=== PATIENT | female | born 1960 | race Caucasian/White ===

== ENCOUNTER 2023-10-07 14:45 | Outpatient (RCR) | payer MEDICARE, SELFPAY | END 2023-10-07 23:59 | disposition home or self-care (01) | LOC: PURB 14:45 | PROVIDERS: ATTENDING PHYSICIAN Internal Medicine Critical Care Medicine; FAMILY PHYSICIAN Family Medicine | DX: J44.9 Chronic obstructive pulmonary disease, unspecified (principal); J96.11 Chronic respiratory failure with hypoxia; Z87.891 Personal history of nicotine dependence | CPT/HCPCS: 94625; G0237 ==

== ENCOUNTER 2023-10-28 13:15 | Outpatient (RCR) | payer MEDICARE, SELFPAY | END 2023-10-28 23:59 | disposition home or self-care (01) | LOC: PURB 13:15 | PROVIDERS: ATTENDING PHYSICIAN Internal Medicine Critical Care Medicine; FAMILY PHYSICIAN Family Medicine | DX: J44.9 Chronic obstructive pulmonary disease, unspecified (principal) | CPT/HCPCS: 94625 ==

== ENCOUNTER → 2023-11-14 12:46 | Outpatient (REF) | payer MEDICARE, SELFPAY | LOC: WDC 12:46 | PROVIDERS: ATTENDING PHYSICIAN Nurse Practitioner Adult Health | DX: N64.4 Mastodynia (principal); Z12.31 Encounter for screening mammogram for malignant neoplasm of breast | CPT/HCPCS: 76642; 77063; 77067 ==

== ENCOUNTER → 2023-11-19 10:10 | Outpatient (REF) | payer MEDICARE, SELFPAY | LOC: WDC 10:10 | PROVIDERS: ATTENDING PHYSICIAN Nurse Practitioner Adult Health | DX: R92.8 Other abnormal and inconclusive findings on diagnostic imaging of breast (principal) | CPT/HCPCS: 76642 ==

== ENCOUNTER 2023-12-11 13:15 | Outpatient (RCR) | payer MEDICARE, SELFPAY | END 2023-12-11 23:59 | disposition home or self-care (01) | LOC: PURB 13:15 | PROVIDERS: ATTENDING PHYSICIAN Internal Medicine Critical Care Medicine; FAMILY PHYSICIAN Family Medicine | DX: J44.9 Chronic obstructive pulmonary disease, unspecified (principal) | CPT/HCPCS: 94625 ==

== ENCOUNTER 2024-01-08 13:15 | Outpatient (RCR) | payer MEDICARE, SELFPAY | END 2024-01-08 23:59 | disposition home or self-care (01) | LOC: PURB 13:15 | PROVIDERS: ATTENDING PHYSICIAN Internal Medicine Critical Care Medicine; FAMILY PHYSICIAN Family Medicine | DX: J44.9 Chronic obstructive pulmonary disease, unspecified (principal) | CPT/HCPCS: 94625 ==

== ENCOUNTER 2024-01-13 13:15 | Outpatient (RCR) | payer MEDICARE, SELFPAY | END 2024-01-14 10:11 | disposition home or self-care (01) | LOC: PURB 13:15 | PROVIDERS: ATTENDING PHYSICIAN Internal Medicine Critical Care Medicine; FAMILY PHYSICIAN Family Medicine | DX: J44.9 Chronic obstructive pulmonary disease, unspecified (principal) | CPT/HCPCS: 94625 ==

== ENCOUNTER → 2024-04-02 10:54 | Outpatient (REF) | payer MEDICARE, SELFPAY | LOC: RAD 10:54 | PROVIDERS: ATTENDING PHYSICIAN Family Medicine; REFERRING PHYSICIAN Internal Medicine Gastroenterology | DX: R10.32 Left lower quadrant pain (principal) | CPT/HCPCS: 74177; Q9967 ==

== ENCOUNTER 2024-05-29 21:28 | Inpatient (IN) | payer MEDICARE, SELFPAY ==
[2024-05-29] VITALS (15 sets, daily range): BP systolic 149–212; BP diastolic 70–92; BMI 21.8; BMI 21.5
--- NOTE | 2024-05-29 14:28 | ED.GENMED ---
History of Present Illness
General
Chief Complaint: Abdominal Pain
Source: patient
Time Seen by Provider: 05/29/24 14:13
History of Present Illness
History of Present Illness:
64-year-old female presents to the emergency room complaining of abdominal pain. Patient was at her primary care doctor's office today who sent her to the emergency room. Patient states she is been having GI issues for quite some time. She was
initially diagnosed with pancreatic insufficiency several months ago based upon stool studies. She was started on Creon. Up until that time the patient had been losing weight but since starting Creon she has gained about 5 pounds. Patient was
having some abdominal pain beginning about 2 months ago. It was crampy in nature and worsened with eating. A CT scan was performed as an outpatient which showed 'severe bowel wall thickening and inflammatory changes involving the proximal rectum,
sigmoid colon and distal descending colon. Findings are reflective of severe colitis likely infectious or inflammatory'. 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
they likely resolved by this time. However the patient continues to have pain. She has frequent, small-volume stools which are sometimes mucousy and contained blood intermittently. She has decreased appetite and has been eating simple foods like
yogurt concerned that eating anything more significant will worsen her pain.
Past History
Past History
ED Past Surgical History: Appendectomy and Gynecological (Hysterectomy, abdominal Sarcoplexi)
Social History
Tobacco: Smoker
Alcohol: None
Drug: None
Phy Exam
Physical Exam
Physical Exam:
General: Awake, Alert, Oriented X3. No acute distress.
Vitals: unremarkable
Head: Atraumatic
Eyes: Pupils equal, EOMI
Throat: Airway intact, no exudates
Neck: Trachea midline
Lungs: Clear and equal b/l
Heart: Regular rate, no murmurs
Abd: Soft, somewhat tender diffusely but moderate tenderness left lower quadrant, No pulsatile mass
Neuro: Nonfocal
Skin: Warm, dry, no rash
Extremities: pulses equal b/l, no edema
Course
Orders/Labs/Results
Orders:
Orders
05/29/24 14:27
CT Abd/pel W Iv And Oral Contr Urgent
Comment:
Reason For Exam: left lower abd pain
0.9% Sodium Chloride 500 ml [Nss] 500 ml IV BOLUS
Iohexol [Omnipaque] See Protocol PO NOW STA
Ketorolac [Toradol] 15 mg IV NOW STA
05/29/24 15:01
C-Reactive Protein Urgent
Comment: ADD ON
Complete Blood Count/With Diff Urgent
Comprehensive Metabolic Panel Urgent
Erythrocyte Sed Rate Urgent
Comment: ADD ON
Lipase Urgent
05/29/24 18:20
Urinalysis Reflex To Culture Urgent
Date Specimen was Collected: 05/29/24
Time Specimen was Collected: 18:14
Urine Microscopic Reflex Cult Urgent
Urine Culture Urgent
JORDIN Source: U
Specimen Description:
Date Specimen was Collected: 05/29/24
Time Specimen was Collected: 18:14
05/29/24 19:29
Acetaminophen [Tylenol] 1,000 mg PO NOW STA
Nicotine [Nicoderm Transdermal] 21 mg TRANSDERM NOW STA
05/29/24 19:31
Add On- LAB Urgent
Tests Added?: sed rate, crp
05/29/24 20:14
Admit/Transfer Patient As Directed
Co-Sign Provider:
Level of Care: Inpatient admission
Assign to:: Telemetry
Physician / Group: Artemio
Diagnosis: Sigmoid Colitis
Reason for Telemetry: Arrhythmia
Date to Stop Telemetry: 06/01/24
Time to Stop Telemetry: 11:00
Reason for Hospitalization: Sigmoid Colitis
Expected length of stay greater than two midnights?: Yes
ELOS- Estimated Length of Stay in days: 3
I certify the patient meets the requirements for IP care: Yes
05/29/24 20:17
Code Status As Directed
Resuscitation Status: Full Code
05/29/24 20:50
Calprotectin, Fecal [S] Urgent
Date Specimen was Collected: 05/29/24
Time Specimen was Collected: 20:47
STOOL [C difficile Antigen & Toxins] Urgent
JORDIN Source: Feces/Stool
Specimen Description:
Date Specimen was Collected: 05/29/24
Time Specimen was Collected: 20:47
Stool Culture Urgent
JORDIN Source: Feces/Stool
Specimen Description:
Date Specimen was Collected: 05/29/24
Time Specimen was Collected: 20:47
05/29/24 20:59
HydrALAZINE [Apresoline] 10 mg IV Q6HPRN PRN
05/30/24 Breakfast
NPO
Allow oral meds: Yes
Allow clear liquids: Sips of Clears
NPO for procedure after (time): Midnight
06/01/24 11:00
DC Protocol for Telemetry ONCE
Abnormal Lab Results
05/29/24 05/29/24
15:01 18:20
Hct 48.2 H %
(37.0-47.0)
MCHC 32.0 L g/dL
(33.0-37.0)
Absolute Lymphs (auto) 1.0 L 10^3/uL
(1.2-3.4)
Neutrophils % 78.4 H %
(42.2-75.2)
Lymphocytes % 12.3 L %
(20.5-51.1)
Carbon Dioxide 31 H mmol/L
(22-30)
Creatinine 0.4 L mg/dL
(0.6-1.0)
Glucose 112 H mg/dl
(70-99)
C-Reactive Protein 43.50 H mg/L
(0.0-10.00)
Total Protein 6.1 L g/dl
(6.3-8.2)
Urine Ketones Trace A
(Negative)
Leukocyte Esterase Rfl Trace A
(Negative)
Urine Bacteria (Reflex) Moderate A
(Negative)
05/29/24 15:01
05/29/24 15:01
Vital Signs
Initial and Last Documented VS:
Initial Vital Signs
Temp Pulse Resp BP Pulse Ox
98.4 F 71 20 149/78 90
05/29/24 13:52 05/29/24 13:52 05/29/24 13:52 05/29/24 13:52 05/29/24 13:52
Last Documented Vital Signs
Temp Pulse Resp BP Pulse Ox
98.4 F 66 19 186/75 94
05/29/24 20:01 05/29/24 21:50 05/29/24 21:50 05/29/24 21:50 05/29/24 21:45
MDM/Problems Addressed
Differential Diagnosis Includes:
diverticulitis, infectious colitis, inflammatory bowel dz
MDM/Problems Addressed:
Patient continues to have abnormal stool and abdominal pain. CT shows worsening inflammatory changes of the distal colon. CBC and CMP are unremarkable. C-reactive protein is quite elevated. I discussed patient's presentation with Dr. Campbell is
on-call for GI. Recommends hospitalization, stool studies. Depending upon the results of the stool studies that we will start steroids tomorrow.
*Radiology
Radiology exam reviewed: radiology read reviewed
*Pulse Oximetry
Patient hypoxic: no
*Critical Care Note
Total Time (30-74mins, 75-104mins- exclusive of procedures): Not Applicable
ED Attending Note
-
Portions of this chart may have been created with voice recognition software.� Occasional wrong word or��sound alike� substitutions may have occurred due to the inherent limitations of voice recognition software.
Discharge Plan
Departure
Patient Disposition: Admit
Date of Disposition: 05/29/24
Time of Disposition: 19:35
Admit to: Med/Surg
Presentation/result/management discussed w/ accepting MD/DO: Hospitalist
Condition: Fair
Discharge Problem:
Abdominal pain, Colitis
Interventions
Interventions:
*Risk Screen - Suicide Last Done: 05/29/24 13:52
*General Assessment Last Done: 05/29/24 13:52
*Neglect/Abuse Screening Last Done: 05/29/24 13:52
*ED COVID-19 Vaccine History Last Done: 05/29/24 14:49
VK-Rsbblp-Gpadknbvxg Assessment Last Done: 05/29/24 16:00
[2024-05-29] MEDS: NSS 500 IV (15:04)
[2024-05-29] MEDS: OMNIPAQUE 50 ML PO (15:04)
[2024-05-29] MEDS: TORADOL 15 MG IV (15:04)
[2024-05-29 15:07] LABS: % Basophils 0.5 % (0-2); % Immature Granulocytes 0.4 % (0-0.5); % Lymphocytes 12.3 % (20.5-51.1); % Monocytes 7.4 % (1.7-9.3); % Neutrophils 78.4 % (42.2-75.2); Absolute Eosinophils 0.1 10^3/uL (0-0.7); Absolute Monocytes 0.6 10^3/uL (0.1-0.6); Absolute Neutrophils 6.2 10^3/uL (1.4-6.5); Hematocrit 48.2 % (37.0-47.0); Hemoglobin 15.4 g/dL (12.0-16.0); Mean Corpuscular Hgb 30.4 pg (27.0-31.0); Mean Corpuscular Volume 95.3 fL (81.0-99.0); Nucleated Red Blood Cells % 0 %; Platelet Count 347 10^3/uL (130-400); Red Blood Cell Count 5.06 10^6/uL (4.20-5.40); Red Cell Dist. Width 13.6 % (11.5-14.5)
[2024-05-29 15:24] LABS: ALT (SGPT) 10 U/L (0-35); AST (SGOT) 17 U/L (14-36); Albumin 3.7 g/dl (3.5-5.0); Alkaline Phosphatase 89 U/L (38-126); Blood Urea Nitrogen 10 mg/dl (7-17); Calcium 9.5 mg/dl (8.4-10.2); Carbon Dioxide 31 mmol/L (22-30); Chloride 99 mmol/L (98-107); Estimated Creatinine Clearance 73 ml/min; Glucose 112 mg/dl (70-99); Lipase 33 U/L (23-300); Potassium 3.9 mmol/L (3.5-5.1); Sodium 137 mmol/L (135-145); Total Bilirubin 0.3 mg/dl (0.2-1.3); Total Protein 6.1 g/dl (6.3-8.2); eGFR > 60.00
[2024-05-29 18:27] LABS: Urine Albumin Trace (Neg - Trace); Urine Bilirubin Negative (Negative); Urine Character Clear (Clear); Urine Color Yellow; Urine Glucose Negative (Negative); Urine Ketone Trace (Negative); Urine Leukocyte Trace (Negative); Urine Nitrite Negative (Negative); Urine Occult Blood Negative (Negative); Urine Specific Gravity 1.015 (<1.030); Urine Urobilinogen Negative (Neg - 1+)
[2024-05-29 18:36] LABS: Urine Mucus Many
[2024-05-29 18:37] LABS: Urine Hyaline Cast 0-2 /LPF (0-2); Urine Red Blood Cell 0-2 /HPF (0-2)
[2024-05-29 18:38] LABS: Urine Bacteria Moderate (Negative)
[2024-05-29] MEDS: TYLENOL 1000 MG PO (19:42)
[2024-05-29] MEDS: NICODERM TRANSDERMAL 21 MG TRANSDERM (19:44)
[2024-05-29 20:18] LABS: Erythrocyte Sed Rate 8 mm/hour (0-20)
--- NOTE | 2024-05-29 20:19 | HPS.HSE ---
Family Physician
-
Family Physician: Caterina Sharpe
Chief Complaint
-
Abd Pain
History of Present Illness
Patient is a 64y F with PMH significant for hypertension, anxiety and pancreatic insufficiency who presents to ED complaining of LLQ abdominal pain. Patient states that she has had 'GI issues' off and on for several years. She has had
colonoscopy / endoscopy in the past which have been unremarkable (most recently 09/2022). She was diagnosed with pancreatic insufficiency and has been taking Creon with decreased frequency of stools.
She continues to complain of loose stools - about 5 times per day, including twice at night. She occasionally has mucousy stools with small streaks of bright red blood.
She has intermittent pain in the LLQ / L flank areas. She had similar symptoms most recently in March [address] scan done by her PCP at that time.
This showed significant inflammation / colitis in the sigmoid and descending colon. Patient was seen by GI and scheduled for a flex sig (05/18/24). Her symptoms improved prior to this date and she cancelled the procedure.
Unfortunately, her symptoms recurred about one week ago. She again has LLQ pain. She denies any other symptoms such as fevers / chills, N/V, etc.
Given her recurrent symptoms, patient presented to the ED for further evaluation and treatment.
Medical History
Past Medical History
Past Medical History: Reports Other
Additional Past Medical History:
Hypertension
COPD
Anxiety / Depression
Diverticular Disease
Colon Polyps
Pancreatic Insufficiency
Past Surgical History: Reports Other
Additional Past Surgical History:
Appendectomy
T&A
Hysterectomy
Bunionectomy
Sacral Colpopexy
Ovarian Cystectomy
Social History
Tobacco: Smoker (Current every day smoker. > 50 pack years total use.)
Alcohol: None
Drug: None
Family History
Family History: Not pertinent
Allergies / Home Medications
Allergies reflects when Allergies were last updated in [employer].
Home Medications with original date entered in [employer]
Allergy/Medication List:
Allergies
Allergy/AdvReac Type Severity Reaction Status Date / Time
metronidazole [From Flagyl] Allergy Unknown Unknown Verified 05/29/24 13:52
morphine Allergy Unknown Unknown Verified 05/29/24 13:52
Sulfa (Sulfonamide Allergy Unknown Unknown Verified 05/29/24 13:52
Antibiotics)
Home Medications
diazepam 5 mg tablet 5 mg PO DAILYPRN PRN anxiety 04/26/20
fluoxetine 20 mg capsule 20 mg PO DAILY 04/26/20
albuterol sulfate 90 mcg/actuation aerosol inhaler 1 puff inhalation R Q4HPRN PRN SoB 01/02/23
doxazosin 2 mg tablet 2 mg PO DAILY 01/02/23
swurdm-lyvdlfol-wnthmia 24,000-76,000-120,000 unit capsule,delayed rel (Creon) 1 cap PO TID 01/02/23
atenolol 50 mg tablet 50 mg PO DAILY 05/29/24
fluticasone fur. 100 mcg-umeclid 62.5 mcg-vilant 25 mcg inhalat.powder (Trelegy Ellipta) 1 inh inhalation R DAILY 05/29/24
Review of Systems
-
History Source: Patient
A 12 point ROS was completed and negative except as noted: Yes
Constitutional: Reports Fatigue; Denies Fever or Chills
Respiratory: Reports Trouble Breathing (Chronic / unchanged dyspnea.); Denies Cough
Cardiac: Denies Chest Pain or Palpitations
Abdomen/GI: Reports Abdominal Pain, Diarrhea and Bloody Stools; Denies Nausea, Vomiting, Constipated, Black Stools or Anorexia
: Reports Flank Pain (Left); Denies Dysuria or Frequency
Musculoskeletal: Denies Joint Pain or Edema
Neurological: Denies Dizzy or Headache
Psych: Denies Depression or Anxiety
Physical Exam
Vital Signs
Vital Signs
Temp Pulse Resp BP Pulse Ox
98.4 F 67 17 204/85 91
05/29/24 20:01 05/29/24 20:01 05/29/24 20:01 05/29/24 20:01 05/29/24 20:01
Physical Exam
General: Other (64y F in no acute distress.)
HEENT: Moist mucous membranes and PERRLA
Respiratory: Other (Scattered squeaks / wheezes throughout all lung smalls.)
Cardiac: S1/S2 and Regular Rhythm; No Murmur
GI: Soft, Normal Bowel Sounds and Other (Tenderness LLQ with voluntary guarding.)
Musculoskeletal: No Clubbing, No Cyanosis and No Edema
Neuro: AO x 3
Laboratory Results
-
05/29/24 15:01
05/29/24 15:01
Laboratory Results
Total Bilirubin 0.3 mg/dl (0.2-1.3) 05/29/24 15:01
AST 17 U/L (14-36) 05/29/24 15:01
ALT 10 U/L (0-35) 05/29/24 15:01
Alkaline Phosphatase 89 U/L (38-126) 05/29/24 15:01
Lipase 33 U/L (23-300) 05/29/24 15:01
Impression/Plan
-
A/P: Patient is a 64y F with PMH significant for hypertension, anxiety / depression and pancreatic insufficiency who presents to ED complaining of LLQ abdominal pain.
Sigmoid Colitis
- Admit for further evaluation and treatment.
- ? infectious versus inflammatory etiology.
- Observe off of abx for now pending culture data / GI evaluation / etc.
- Follow-up stool studies, serologies, etc.
- ? flex sig / biopsies for further evaluation.
- GI consulted for additional recommendations.
COPD without Acute Exacerbation
Tobacco Use Disorder
- Patient mildly hypoxemic in the ED without known baseline.
- Scattered, low-grade wheezing throughout.
- Continue Trelegy.
- DuoNebs ATC and albuterol PRN.
- O2 support as needed.
- Encourage smoking cessation.
Benign Hypertension - Poorly Controlled
- BP significantly elevated in the ED, likely combination of anxiety / discomfort.
- Continue home med regimen.
- Add hydralazine for very high BP.
- Treat underlying pain / anxiety and follow for improvement.
Pancreatic Insufficiency
- Decreased frequency of stools since beginning Creon - though still 5 BM per day.
- Continue Creon AC.
Anxiety / Depression
- Continue fluoxetine.
- Valium PRN anxiety
DVT Prophylaxis: Lovenox
Code Status: Full
[2024-05-29] MEDS: APRESOLINE 10 MG IV (21:04)
[2024-05-30] VITALS (8 sets, daily range): BP systolic 144–201; BP diastolic 61–89; BMI 21.4
[2024-05-30] MEDS: APRESOLINE 10 MG IV ×2 (01:26→11:30)
[2024-05-30] MEDS: TYLENOL 650 MG PO ×5 (01:26→20:11)
--- NOTE | 2024-05-30 04:49 | PTCARENOTE ---
Received pt @ 22:30 of stretcher. Pt able to stand on scale and verbalize concerns and needs. Pt with a BP of 206/89 and hr 77, given PRN hydralazine in the ED with minimal relief. Pt with some slight SOB when walking around the room, pt stated she
was very anxious and she has a slight on and off headache. RN conducted a skin assessment, pt with a R- nicotine patch on. Pt placed in new gown and placed on telemetry for further observation
[2024-05-30] MEDS: VALIUM 5 MG PO ×2 (06:03→15:22)
[2024-05-30] MEDS: DILAUDID 0.5 MG IV ×4 (06:04→22:01)
[2024-05-30 06:50] LABS: Hematocrit 46.1 % (37.0-47.0); Hemoglobin 15.2 g/dL (12.0-16.0); Mean Corpuscular Hgb 30.6 pg (27.0-31.0); Mean Corpuscular Volume 92.8 fL (81.0-99.0); Mean Platelet Volume 9.4 fL (7.4-10.4); Platelet Count 346 10^3/uL (130-400); Red Blood Cell Count 4.97 10^6/uL (4.20-5.40); Red Cell Dist. Width 13.6 % (11.5-14.5); White Blood Cell Count 10.1 10^3/uL (4.8-10.8)
--- NOTE | 2024-05-30 07:02 | W.PN.HOSP.TC ---
Today's Communication/Plan
-
steroids bronchodilators
NPO after midnight for flex sigmoidoscopy
Nicotine supplementation
blood pressure control
Assessment / Plan
Assessment / Plan
Physical Exam
General: no acute distress appears comfortable at this time
HEENT: Moist mucous membranes and PERRLA
Respiratory: Wheezing
Cardiac: S1/S2 and Regular Rhythm; No Murmur
GI: Soft, Normal Bowel Sounds Tenderness LLQ with voluntary guarding
Musculoskeletal: No Clubbing, No Cyanosis and No Edema
Neuro: AO x 3
A/P: Patient is a 64F with PMH significant for hypertension, anxiety / depression and pancreatic insufficiency who presents to ED complaining of LLQ abdominal pain.
Sigmoid Colitis
-Cdiff neg, rest of stool studies pending
-suspect inflammatory as opposed to infectious, monitor off abx
-GI eval appreciated clear liquid diet for now npo after midnight Flex sigmoidoscopy Thursday 05/31, started on IV steroids solumedrol 20 mg Q8H
COPD Exacerbation
Tobacco Use Disorder
- Continue Trelegy patient's own med
- DuoNebs ATC and albuterol PRN.
- Nicotine supplementation, counseled smoking cessation
- on steroids for possible inflammatory bowel disease as above, consider increasing if wheezing does not improve
Benign Hypertension - Poorly Controlled
- Continue home med regimen.
- Hydralazine prn
- Treat underlying pain / anxiety and follow for improvement.
Pancreatic Insufficiency
- Decreased frequency of stools since beginning Creon - though still 5 BM per day.
- Continue Creon AC.
Anxiety / Depression
- Continue fluoxetine.
- Valium PRN anxiety
DVT Prophylaxis: Lovenox
Code Status: Full
I spent a total of 50 minutes with the patient or on the floor. More than 50% of this time involved counseling and coordination of care.
Anticipated Discharge: 24 - 48 hours
Subjective/Interval History
-
Date of Service: May 30, 2024
Seen and examined at bedside in no acute distress sitting up comfortably in bed. Reports pain tenderness abdomen
Objective Data
-
Labs:
Laboratory Results
05/30/24
05:55
WBC 10.1
Hgb 15.2
Hct 46.1
Plt Count 346
Sodium Pending
Potassium Pending
Chloride Pending
Carbon Dioxide Pending
BUN Pending
Creatinine Pending
Glucose Pending
Calcium Pending
Vital Signs:
Vital Signs
Temp Pulse Resp BP Pulse Ox
97.4 F 90 22 154/61 91
05/30/24 03:00 05/30/24 03:00 05/30/24 03:00 05/30/24 03:00 05/30/24 03:00
[2024-05-30 07:24] LABS: Blood Urea Nitrogen 8 mg/dl (7-17); Calcium 8.5 mg/dl (8.4-10.2); Carbon Dioxide 25 mmol/L (22-30); Chloride 100 mmol/L (98-107); Estimated Creatinine Clearance 73 ml/min; Glucose 71 mg/dl (70-99); Potassium 4.2 mmol/L (3.5-5.1); Sodium 138 mmol/L (135-145); eGFR > 60.00
[2024-05-30] MEDS: PROZAC 20 MG PO (08:10)
[2024-05-30] MEDS: TENORMIN 50 MG PO (08:10)
[2024-05-30] MEDS: ZENPEP DELAYED RELEASE CAPSULE 1 CAPSULE PO ×2 (08:10→12:48)
[2024-05-30] MEDS: NSS 1000 IV ×2 (08:12→20:13)
[2024-05-30] MEDS: SYMBICORT 80/4.5 MCG INHALER 2 PUFF INH (08:15)
[2024-05-30] MEDS: SPIRIVA RESPIMAT 2.5 MCG 2 PUFF INH (08:15)
[2024-05-30] MEDS: CARDURA 2 MG PO (08:23)
--- NOTE | 2024-05-30 08:38 | CON.GI ---
Consultation
-
Date/Time Consultation Requested: 05/30/2024
Date/Time Consultation Performed: 05/30/2024
Requesting Provider: Dr. Nunez
Performing Provider: Dr. Campbell
Reason for Consultation: Colitis
Medical History
Chief Complaint / HPI
Chief Complaint: Abdominal pain
History of Present Illness:
Etelvina is a 64-year-old female with history of COPD, active tobacco abuse, pancreatic insufficiency on Creon who comes in with worsening pelvic and left-sided abdominal pain especially when trying to move her bowels who has roughly 1-4 mucoid
stools including nocturnal symptoms some with streaks of blood with no prior history of inflammatory bowel disease who also had thickening on CT scan back in March when complaining of similar pain.
She states this discomfort was generally a localized area in the left lower quadrant but over this past week has spread to the left lower quadrant and left flank and it is very painful to move her bowels or even wear close over the area.
Here in the hospital her white count is 10.1, hemoglobin 15.2, platelets , normal BUN/creatinine, CRP 44, lipase 33, normal LFTs. Stool calprotectin pending. C. difficile negative, stool culture pending.
Her last colonoscopy was with Dr. Sanders in 2022 which was normal. I did review multiple outpatient records including Dr. Howard's notes. She has had multiple stool calprotectin's in the past because of her chronic loose stools from likely
pancreatic insufficiency which have all been negative. She states she has been checked for celiac disease although I do not see a celiac panel. Her small bowel biopsies back in December 2022 did show some villous changes but were not consistent with
celiac disease.
Patient was set up for a flexible sigmoidoscopy for May [address] Howard however she canceled it because she said she started feeling better.
Past Medical History
Past Medical History: Other (Hypertension, tobacco abuse, COPD, pancreatic insufficiency on Creon)
Past Surgical History: Other (Appendectomy, transvaginal hysterectomy, sacrocolpopexy)
Social History
Tobacco: Smoker
Alcohol: Daily (3 glasses of wine daily)
Drug: None
Family History
Family History: Other (Father had ENT cancer, grandmother with colon cancer and breast cancer)
Allergies / Home Medications
Allergy/AdvReac Type Severity Reaction Status Date / Time
metronidazole [From Flagyl] Allergy Unknown Unknown Verified 05/29/24 13:52
morphine Allergy Unknown Unknown Verified 05/29/24 13:52
Sulfa (Sulfonamide Allergy Unknown Unknown Verified 05/29/24 13:52
Antibiotics)
�Medication �Instructions �Recorded
diazepam 5 mg tablet 5 mg PO DAILYPRN PRN anxiety 04/26/20
fluoxetine 20 mg capsule 20 mg PO DAILY 04/26/20
albuterol sulfate 90 mcg/actuation 1 puff inhalation R Q4HPRN PRN SoB 01/02/23
aerosol inhaler
doxazosin 2 mg tablet 2 mg PO DAILY 01/02/23
btchjt-tbzurueo-ycudfqu 1 cap PO TID 01/02/23
24,000-76,000-120,000 unit
capsule,delayed rel (Creon)
atenolol 50 mg tablet 50 mg PO DAILY 05/29/24
fluticasone fur. 100 mcg-umeclid 1 inh inhalation R DAILY 05/29/24
62.5 mcg-vilant 25 mcg
inhalat.powder (Trelegy Ellipta)
Review of Systems
-
History Source: Patient
All other systems: A 12 pt ROS was Negative except as stated above in HPI
Vital Signs
Temp Pulse Resp BP Pulse Ox
98.5 F 82 17 171/76 88
05/30/24 08:17 05/30/24 08:17 05/30/24 08:17 05/30/24 08:17 05/30/24 08:17
Physical Exam
Exam
General: No Apparent Distress
HEENT: Anicteric
Respiratory: Wheezes and Rhonchi
Cardiac: S1/S2
GI: Soft and Tender
Neuro: AO x 3
Psych: Calm
Results
WBC 10.1 10^3/uL (4.8-10.8) 05/30/24 05:55
Hgb 15.2 g/dL (12.0-16.0) 05/30/24 05:55
Hct 46.1 % (37.0-47.0) 05/30/24 05:55
MCV 92.8 fL (81.0-99.0) 05/30/24 05:55
Plt Count 346 10^3/uL (130-400) 05/30/24 05:55
Absolute Neuts (auto) 6.2 10^3/uL (1.4-6.5) 05/29/24 15:01
Sodium 138 mmol/L (135-145) 05/30/24 05:55
Potassium 4.2 mmol/L (3.5-5.1) 05/30/24 05:55
Chloride 100 mmol/L (98-107) 05/30/24 05:55
Carbon Dioxide 25 mmol/L (22-30) 05/30/24 05:55
BUN 8 mg/dl (7-17) 05/30/24 05:55
Creatinine 0.4 mg/dL (0.6-1.0) L 05/30/24 05:55
Calcium 8.5 mg/dl (8.4-10.2) 05/30/24 05:55
Total Bilirubin 0.3 mg/dl (0.2-1.3) 05/29/24 15:01
AST 17 U/L (14-36) 05/29/24 15:01
ALT 10 U/L (0-35) 05/29/24 15:01
Alkaline Phosphatase 89 U/L (38-126) 05/29/24 15:01
Lipase 33 U/L (23-300) 05/29/24 15:01
Diagnostic Image Results:
--- 06/2023, CT abdomen pelvis nonspecific jejunal small bowel wall thickening with fluid distention without gross dilation.
04/02/2024, CT abdomen pelvis severe bowel wall thickening with inflammatory change involving the proximal rectum sigmoid distal descending the remainder of the colon is normal. Multiple sigmoid diverticuli without diverticulitis
Prior GI Procedures:
\\01/30/2023 EUS did not show any mass lesions, soft tissue prominence at the ampulla biopsies were negative for malignancy, started on Creon with mild weight gain on part continues to drink and smoke
EGD/EUS: 12/2022 Dr. Howard for weight loss and evaluate ampulla-endoscopically normal esophagus no gross lesions in the stomach, duodenal mucosal atrophy duodenum shows reactive duodenopathy with patchy villous blunting, prominent Delia's gland
hyperplasia and mildly increased chronic inflammation. No intraepithelial lymphocytes, ampulla patchy villous blunting, no adenoma
EUS showed pancreatic parenchymal abnormalities consisting of hyperechoic strands in the head and body, no pathology of the common bile duct, 1 cm left lobe cyst, anechoic pancreatic head cyst that did not communicate with the pancreatic duct
measuring 9 mm x 9 mm with no associated mass, no specimens collected
Colonoscopy: 09/2022 Dr. Sanders indication is not mentioned: Good prep with difficulty due to restricted mobility of the colon. Left-sided diverticulosis, otherwise endoscopically normal. No biopsies taken
05/29/2024 CRP 44, sed rate 8, hemoglobin 15.4, platelets 347, glucose 112, creatinine 0.4, BUN 10, alkaline phosphatase 89, albumin 3.7, total bilirubin 0.3, AST 17, ALT 10, lipase 33, fecal calprotectin pending, C. difficile negative, stool
culture pending
09/2022 fecal calprotectin 22, no prior celiac panel
Assessment / Plan
-
Etelvina is a 64-year-old female who over the past year has had more progressive left-sided lower abdominal pain especially when moving bowels along with 1-4 mucoid stools with even nocturnal symptoms who comes in with an elevated CRP, CT scan with
significant bowel wall thickening from the rectum to the descending concerning for new inflammatory bowel disease.
She also has a history of pancreatic insufficiency on pancreatic enzymes, EUS concerning for chronic pancreatitis with no history of acute pancreatitis, continued tobacco abuse, COPD and daily 3 glasses of wine.
Followed by Dr. Howard outpatient for chronic diarrhea since September 2022 and a low fecal elastase without history of acute pancreatitis drinks 3 glasses of wine daily, chronic smoker
Diagnostic Image Results:
--- 06/2023, CT abdomen pelvis nonspecific jejunal small bowel wall thickening with fluid distention without gross dilation.
04/02/2024, CT abdomen pelvis severe bowel wall thickening with inflammatory change involving the proximal rectum sigmoid distal descending the remainder of the colon is normal. Multiple sigmoid diverticuli without diverticulitis
Prior GI Procedures:
\\01/30/2023 EUS did not show any mass lesions, soft tissue prominence at the ampulla biopsies were negative for malignancy, started on Creon with mild weight gain on part continues to drink and smoke
EGD/EUS: 12/2022 Dr. Howard for weight loss and evaluate ampulla-endoscopically normal esophagus no gross lesions in the stomach, duodenal mucosal atrophy duodenum shows reactive duodenopathy with patchy villous blunting, prominent Delia's gland
hyperplasia and mildly increased chronic inflammation. No intraepithelial lymphocytes, ampulla patchy villous blunting, no adenoma
EUS showed pancreatic parenchymal abnormalities consisting of hyperechoic strands in the head and body, no pathology of the common bile duct, 1 cm left lobe cyst, anechoic pancreatic head cyst that did not communicate with the pancreatic duct
measuring 9 mm x 9 mm with no associated mass, no specimens collected
Colonoscopy: 09/2022 Dr. Sanders indication is not mentioned: Good prep with difficulty due to restricted mobility of the colon. Left-sided diverticulosis, otherwise endoscopically normal. No biopsies taken
05/29/2024 CRP 44, sed rate 8, hemoglobin 15.4, platelets 347, glucose 112, creatinine 0.4, BUN 10, alkaline phosphatase 89, albumin 3.7, total bilirubin 0.3, AST 17, ALT 10, lipase 33, fecal calprotectin pending, C. difficile negative, stool
culture pending
09/2022 fecal calprotectin 22, no prior celiac panel
#Left lower quadrant pain with severe bowel wall thickening on CT scan with no prior IBD diagnosis
--Inflammatory bowel disease versus infectious
-- Trend CRP, stool calprotectin pending, C. difficile currently negative, culture pending
-- Flexible sigmoidoscopy tomorrow
-- Clear liquids for today, n.p.o. after midnight
--Optimize lungs
--Will start steroids, DVT prophylaxis
-- Creon with solid foods
-- Will check a celiac panel in the setting of duodenal atrophy with villous blunting from prior procedure in December 2022
Data Reviewed
-
CT Scan: Image Personally Visualized and interpreted and Report Reviewed by me
Old Records: Reviewed
-
-
Thank you for consultation and allowing me to participate in the patient's care. Please call the computer information systems instructor GI physician during the after hours with any questions or concerns.
[2024-05-30] MEDS: SOLU-MEDROL PF 20 MG IV ×2 (12:48→20:12)
[2024-05-30] MEDS: PROTONIX 40 MG PO (12:48)
[2024-05-30] MEDS: NICODERM TRANSDERMAL 21 MG TRANSDERM (15:22)
[2024-05-30] MEDS: DUONEB 3 ML INH ×2 (15:33→17:59)
[2024-05-30] MEDS: ZENPEP DELAYED RELEASE CAPSULE PO (17:12)
[2024-05-30] MEDS: LOVENOX 40 MG SC (17:16)
[2024-05-31] VITALS (12 sets, daily range): BP systolic 14–184; BP diastolic 46–96; BMI 22.1
[2024-05-31] MEDS: APRESOLINE 10 MG IV ×2 (01:08→13:25)
[2024-05-31] MEDS: VALIUM 5 MG PO ×2 (01:08→22:12)
[2024-05-31] MEDS: NSS 1000 IV ×2 (03:08→16:21)
[2024-05-31] MEDS: SOLU-MEDROL PF 20 MG IV (04:28)
[2024-05-31] MEDS: TYLENOL 650 MG PO ×2 (04:41→22:13)
[2024-05-31 07:10] LABS: Hematocrit 48.3 % (37.0-47.0); Hemoglobin 15.9 g/dL (12.0-16.0); Mean Corp Hgb Conc. 32.9 g/dL (33.0-37.0); Mean Corpuscular Hgb 30.6 pg (27.0-31.0); Mean Corpuscular Volume 92.9 fL (81.0-99.0); Mean Platelet Volume 8.9 fL (7.4-10.4); Platelet Count 380 10^3/uL (130-400); Red Cell Dist. Width 13.6 % (11.5-14.5); White Blood Cell Count 7.5 10^3/uL (4.8-10.8)
[2024-05-31 07:30] LABS: Blood Urea Nitrogen 8 mg/dl (7-17); Calcium 8.8 mg/dl (8.4-10.2); Carbon Dioxide 23 mmol/L (22-30); Chloride 102 mmol/L (98-107); Estimated Creatinine Clearance 73 ml/min; Glucose 157 mg/dl (70-99); Magnesium 1.8 mg/dl (1.6-2.3); Phosphorus 3.9 mg/dl (2.5-4.5); Potassium 4.6 mmol/L (3.5-5.1); Sodium 136 mmol/L (135-145); eGFR > 60.00
[2024-05-31] MEDS: DUONEB 3 ML INH ×4 (07:51→19:47)
[2024-05-31] MEDS: PROTONIX 40 MG PO (07:59)
[2024-05-31] MEDS: CARDURA 2 MG PO (08:00)
[2024-05-31] MEDS: TENORMIN 50 MG PO (08:00)
[2024-05-31] MEDS: PROZAC 20 MG PO (08:00)
[2024-05-31] MEDS: NON-FORMULARY ITEM INH (08:00)
[2024-05-31] MEDS: NICODERM TRANSDERMAL 21 MG TRANSDERM (08:00)
[2024-05-31] MEDS: ZENPEP DELAYED RELEASE CAPSULE PO (08:05)
[2024-05-31] MEDS: NON-FORMULARY ITEM 200 INH INH (08:10)
[2024-05-31 09:00] LABS: IgA 113 mg/dl (70-400)
[2024-05-31] MEDS: ZESTRIL 5 MG PO (09:43)
[2024-05-31] MEDS: ZENPEP DELAYED RELEASE CAPSULE 1 CAPSULE PO ×2 (13:26→17:59)
--- NOTE | 2024-05-31 13:46 | W.PN.HOSP.TC ---
Today's Communication/Plan
-
Steroids
Start ACEI
GI recs for colitis/vascular study
Assessment / Plan
Assessment / Plan
Physical Exam
General: no acute distress appears comfortable at this time
HEENT: Moist mucous membranes and PERRLA
Respiratory: Wheezing
Cardiac: S1/S2 and Regular Rhythm; No Murmur
GI: Soft, Normal Bowel Sounds Tenderness LLQ with voluntary guarding
Musculoskeletal: No Clubbing, No Cyanosis and No Edema
Neuro: AO x 3
A/P: Patient is a 64F with PMH significant for hypertension, anxiety / depression and pancreatic insufficiency who presents to ED complaining of LLQ abdominal pain.
Sigmoid Colitis
- Unlikely ulcerative colitis or inflammatory bowel disease.
- Possibly chronic ischemic colitis v other colitis
-Stop steroids for colitis
- GI following
- Vonsidering vascular study
COPD Exacerbation
Tobacco Use Disorder
- Continue Trelegy patient's own med
- DuoNebs ATC and albuterol PRN.
- Nicotine supplementation, counseled smoking cessation
- steroids for exacerbation
Benign Hypertension - Poorly Controlled
- Atenolol
-Start ACEI
- Hydralazine prn
- Treat underlying pain / anxiety and follow for improvement.
Pancreatic Insufficiency
- Decreased frequency of stools since beginning Creon - though still 5 BM per day.
- Continue Creon AC.
Anxiety / Depression
- Continue fluoxetine.
- Valium PRN anxiety
DVT Prophylaxis: Lovenox
Code Status: Full
I spent a total of 52 minutes with the patient or on the floor. More than 50% of this time involved counseling and coordination of care.
Anticipated Discharge: Within 24 hours
Subjective/Interval History
-
Date of Service: May 31, 2024
No acute events
Objective Data
-
Labs:
Laboratory Results
05/31/24
06:47
WBC 7.5
Hgb 15.9
Hct 48.3 H
Plt Count 380
Sodium 136
Potassium 4.6
Chloride 102
Carbon Dioxide 23
BUN 8
Creatinine 0.4 L
Glucose 157 H
Calcium 8.8
Vital Signs:
Vital Signs
Temp Pulse Resp BP Pulse Ox
97.9 F 76 20 184/96 91
05/31/24 13:13 05/31/24 13:13 05/31/24 13:13 05/31/24 13:13 05/31/24 13:13
I&O
05/30/24 05/31/24 06/01/24
06:59 06:59 06:59
Intake Total 1739 / 1739
Balance 1739 / 1739
Review of Systems
-
History Source: Patient
All other systems: Not reviewed unless documented
Data Reviewed
-
Diagnostic Radiology: Image personally visualized and interpreted
Medical Tests (Nuc Med, Echo etc): Report Reviewed by me
Labs: Labs Reviewed by me
--- NOTE | 2024-05-31 14:52 | CM ---
CM following re: discharge planning.
Reviewed pt's chart, met with pt.
Pt is a 64 year old female admitted with primary dx of Sigmoid Colitis.
Pt reports she lives with 1SH leena mercado, has supportive daughter. Pt described herself as independent in all areas [employer]. No DME, VN or SNF history.
PCP: Caterina Sharpe
pharmacy: [facility] [place].
D/C plan: home with anticipated no needs. Family to transport at discharge.
CM will follow with discharge plan updates as hospitalization progresses
[2024-05-31] MEDS: LOVENOX 40 MG SC (17:59)
[2024-06-01 02:56] VITALS: BP 131/59
[2024-06-01] MEDS: NSS 1000 IV (03:14)
[2024-06-01 06:00] VITALS: BMI 22.7
[2024-06-01 06:59] LABS: Hematocrit 44.7 % (37.0-47.0); Mean Corp Hgb Conc. 31.3 g/dL (33.0-37.0); Mean Corpuscular Hgb 30.3 pg (27.0-31.0); Mean Corpuscular Volume 96.8 fL (81.0-99.0); Mean Platelet Volume 9.2 fL (7.4-10.4); Platelet Count 309 10^3/uL (130-400); Red Blood Cell Count 4.62 10^6/uL (4.20-5.40); White Blood Cell Count 9.8 10^3/uL (4.8-10.8)
[2024-06-01 07:18] LABS: Blood Urea Nitrogen 9 mg/dl (7-17); Calcium 8.9 mg/dl (8.4-10.2); Carbon Dioxide 23 mmol/L (22-30); Chloride 105 mmol/L (98-107); Estimated Creatinine Clearance 73 ml/min; Glucose 98 mg/dl (70-99); Magnesium 1.9 mg/dl (1.6-2.3); Phosphorus 4.1 mg/dl (2.5-4.5); Potassium 4.1 mmol/L (3.5-5.1); Sodium 141 mmol/L (135-145); eGFR > 60.00
[2024-06-01 07:30] VITALS: BP 162/87
[2024-06-01] MEDS: DUONEB INH ×2 (07:38→19:30)
[2024-06-01] MEDS: NON-FORMULARY ITEM INH (07:38)
[2024-06-01] MEDS: PROZAC 20 MG PO (09:19)
[2024-06-01] MEDS: ZESTRIL 10 MG PO (09:19)
[2024-06-01] MEDS: DELTASONE 40 MG PO (09:20)
[2024-06-01] MEDS: ZENPEP DELAYED RELEASE CAPSULE 1 CAPSULE PO ×3 (09:20→17:51)
[2024-06-01] MEDS: CARDURA 2 MG PO (09:20)
[2024-06-01] MEDS: TENORMIN 50 MG PO (09:20)
[2024-06-01] MEDS: PROTONIX 40 MG PO (09:20)
[2024-06-01] MEDS: NICODERM TRANSDERMAL 21 MG TRANSDERM (09:21)
--- NOTE | 2024-06-01 10:11 | W.PN.GI.CBS2 ---
Addendum entered and electronically signed by Jabari Ferreira MD 06/02/24 13:47:
will s/o. OV follow up . please call us back if any questions
Addendum entered and electronically signed by Jabari Ferreira MD 06/01/24 16:19:
I saw and examined the patient.
The [facility]'s note was reviewed and I agree with the note.
Tolerating diet. Abdominal pain is better.
CTA 06/01 - The abdominal aorta is normal in caliber with marked calcific atherosclerotic changes. There is contrast opacification of the proximal celiac axis, SMA and KYARA. Evaluation of the more peripheral branches of the KYARA are limited with this
imaging modality. There is some questionable prominent pericolonic veins within the true pelvis. Calcific atherosclerotic changes of the common iliac and external iliac arteries are noted bilaterally. There is contrast opacification of the renal
arteries bilaterally.
IMPRESSION:
Patent KYARA.
Findings again seen suggesting some thickening of the wall of the distal descending and sigmoid colon.
Borderline prominent distal pericolonic veins.
Findings again seen suggesting 'Nutmeg' appearance of the liver (hepatic congestion). Some periportal hypodensity which may be due to intravenous hydration and some suspected small volume fluid about the gallbladder.
plan
Colonoscopy biopsy pending
Continue diet as tolerated. If tolerating diet okay to discharge from GI standpoint and follow-up as outpatient with biopsies
Patient requires repeat colonoscopy with polypectomy with Dr. Howard as outpatient
Follow-up celiac panel/stool calprotectin
Okay to discontinue steroid from GI standpoint for colitis. Medical team to decide if necessary for COPD
Hepatic congestion was reported in CT imaging. Liver test on admission was normal. Echo 07/2023 was normal
Continue current care as per medical team
Original Note:
Today's Communication / Plan
-
await CTA A/P
Assessment / Plan
-
Etelvina is a 64-year-old female who over the past year has had more progressive left-sided lower abdominal pain especially when moving bowels along with 1-4 mucoid stools with even nocturnal symptoms who comes in with an elevated CRP, CT scan with
significant bowel wall thickening from the rectum to the descending concerning for new inflammatory bowel disease.
She also has a history of pancreatic insufficiency on pancreatic enzymes, EUS concerning for chronic pancreatitis with no history of acute pancreatitis, continued tobacco abuse, COPD and daily 3 glasses of wine.
Followed by Dr. Howard outpatient for chronic diarrhea since September 2022 and a low fecal elastase without history of acute pancreatitis drinks 3 glasses of wine daily, chronic smoker
Diagnostic Image Results:
--- 06/2023, CT abdomen pelvis nonspecific jejunal small bowel wall thickening with fluid distention without gross dilation.
04/02/2024, CT abdomen pelvis severe bowel wall thickening with inflammatory change involving the proximal rectum sigmoid distal descending the remainder of the colon is normal. Multiple sigmoid diverticuli without diverticulitis
Prior GI Procedures:
05/31/2024 Flex Sig (Walp) Hemorrhoids found on perianal exam.
- One 10 mm polyp in the distal rectum. Resection not
attempted.
- One 20 mm large stalk pedunculated polyp at the
recto-sigmoid colon. Resection not attempted.
- Few small normal appearing diverticula in the left
colon.
- Altered vascular, congested and erythematous mucosa
from rectum to splenic flexure. Biopsied. Unlikely
ulcerative colitis or inflammatory bowel disease.
01/30/2023 EUS did not show any mass lesions, soft tissue prominence at the ampulla biopsies were negative for malignancy, started on Creon with mild weight gain on part continues to drink and smoke
EGD/EUS: 12/2022 Dr. Howard for weight loss and evaluate ampulla-endoscopically normal esophagus no gross lesions in the stomach, duodenal mucosal atrophy duodenum shows reactive duodenopathy with patchy villous blunting, prominent Delia's gland
hyperplasia and mildly increased chronic inflammation. No intraepithelial lymphocytes, ampulla patchy villous blunting, no adenoma
EUS showed pancreatic parenchymal abnormalities consisting of hyperechoic strands in the head and body, no pathology of the common bile duct, 1 cm left lobe cyst, anechoic pancreatic head cyst that did not communicate with the pancreatic duct
measuring 9 mm x 9 mm with no associated mass, no specimens collected
Colonoscopy: 09/2022 Dr. Sanders indication is not mentioned: Good prep with difficulty due to restricted mobility of the colon. Left-sided diverticulosis, otherwise endoscopically normal. No biopsies taken
05/29/2024 CRP 44, sed rate 8, hemoglobin 15.4, platelets 347, glucose 112, creatinine 0.4, BUN 10, alkaline phosphatase 89, albumin 3.7, total bilirubin 0.3, AST 17, ALT 10, lipase 33, fecal calprotectin pending, C. difficile negative, stool
culture pending
09/2022 fecal calprotectin 22, no prior celiac panel
#Left lower quadrant pain with severe bowel wall thickening on CT scan with no prior IBD diagnosis
--Inflammatory bowel disease versus infectious
-- CRP trending down, stool calprotectin pending, C. difficile currently negative, culture negative
-- Flexible sigmoidoscopy, altered vasculature. + Polyps. Will need outpatient colonoscopy for removal.
--CTA Abd/Pelvis to eval KYARA
-- Full liquid then after CTA advance to low residue diet
-- DVT prophylaxis
-- Creon with solid foods
-- Will check a celiac panel in the setting of duodenal atrophy with villous blunting from prior procedure in December 2022
-- Ok to stop steroids from a GI perspective. May be on for COPD exacerbation.
-- Patient with 'swollen glands, cough' consider COVID testing. Sent [place]ell text to Medicine Attending.
Pending :
--Celiac panel
--Fecal calpro
--Flex Sig colon Bx, we will call patient with results in 1-2 weeks
--CTA Abd/Pelvis, to be performed today.
--Outpatient follow up 07/16/24 at 11:30 with BENJIE Ellsworth. --Arrange outpatient colonoscopy at that time. To consider colestipol if all negative and stool still loose.
Subjective
Subjective
Date of Service: June 01, 2024
Patient with LLQ tenderness to palpation. Soft BMs this am. Awaiting CTA Abd/Pelvis to eval altered vasculature, congested/erythematous mucosa seen on Flex Sig from rectum to splenic flexure. Biopsies obtained and are pending. Patient with polyps
that were not resected, she is aware and will need colonoscopy in the future with Dr. Howard. Outpatient follow up has been made for 07/16/24 and was discussed with patient and we will arrange colonoscopy at that time. After CT can advance to low residue
diet as tolerated. Patient does complain of swollen glands and cough. Celiac panel pending, fecal calpro pending.
Objective
Data Reviewed
Laboratory Data:
Laboratory Results
06/01/24 06:28
06/01/24 06:28
Laboratory Results
Phosphorus 4.1 mg/dl (2.5-4.5) 06/01/24 06:28
Magnesium 1.9 mg/dl (1.6-2.3) 06/01/24 06:28
Total Bilirubin 0.3 mg/dl (0.2-1.3) 05/29/24 15:01
AST 17 U/L (14-36) 05/29/24 15:01
ALT 10 U/L (0-35) 05/29/24 15:01
Alkaline Phosphatase 89 U/L (38-126) 05/29/24 15:01
Lipase 33 U/L (23-300) 05/29/24 15:01
Vital Signs and I&O:
Vital Signs
Temp Pulse Resp BP Pulse Ox
97.5 F 75 18 162/87 91
06/01/24 07:30 06/01/24 07:30 06/01/24 07:30 06/01/24 07:30 06/01/24 07:30
I&O
05/31/24 06/01/24 06/02/24
06:59 06:59 06:59
Intake Total 1740 / 1740 1120 / 1120
Balance 1740 / 1740 1120 / 1120
Physical Exam
Physical Exam
HEENT: Anicteric
Cardiology: Normal Sinus Rhythm
Pulmonary: Wheezes (exp wheeze anterior, + cough)
GI: Soft, Non Distended, Tender (mild LLQ tenderness) and Normal Bowel Sounds
Neuro: Non Focal
--- NOTE | 2024-06-01 10:33 | CM ---
CM following re: discharge planning.
Reviewed pt's chart, met with pt.
Pt stated she is expected more test to be done today and her plan is to return back home at discharge.
IMM reviewed, placed on chart, pt has a copy.
D/C plan: home with anticipated no after care VN needs. Family to transport at discharge.
CM will follow with discharge plan updates as hospitalization progresses
[2024-06-01] MEDS: DUONEB 3 ML INH ×2 (10:59→15:08)
[2024-06-01] MEDS: NON-FORMULARY ITEM 1 INH INH (11:37)
[2024-06-01 12:20] VITALS: BP 158/68
[2024-06-01 12:21] LABS: COVID-19 Antigen Negative (Negative)
--- NOTE | 2024-06-01 13:41 | W.PN.HOSP.TC ---
Today's Communication/Plan
-
ct abd with angio
steroids for ?copd exac
covid testing
wean off o2
Assessment / Plan
Assessment / Plan
Physical Exam
General: no acute distress appears comfortable at this time
HEENT: Moist mucous membranes and PERRLA
Respiratory: Wheezing
Cardiac: S1/S2 and Regular Rhythm; No Murmur
GI: Soft, Normal Bowel Sounds Tenderness LLQ with voluntary guarding
Musculoskeletal: No Clubbing, No Cyanosis and No Edema
Neuro: AO x 3
A/P: Patient is a 64F with PMH significant for hypertension, anxiety / depression and pancreatic insufficiency who presents to ED complaining of LLQ abdominal pain.
Sigmoid Colitis
- Unlikely ulcerative colitis or inflammatory bowel disease.
- Possibly chronic ischemic colitis v other colitis
-Stop steroids for colitis
- GI following
- await CT angio of the abd
COPD Exacerbation
Tobacco Use Disorder
- Continue Trelegy patient's own med
- DuoNebs ATC and albuterol PRN.
- Nicotine supplementation, counseled smoking cessation
- steroids for exacerbation
-SARS-Cov-2 for uri symptoms
Benign Hypertension - Poorly Controlled
- Atenolol
-ACEI
- Hydralazine prn
- Treat underlying pain / anxiety and follow for improvement.
Pancreatic Insufficiency
- Decreased frequency of stools since beginning Creon - though still 5 BM per day.
- Continue Creon AC.
Anxiety / Depression
- Continue fluoxetine.
- Valium PRN anxiety
DVT Prophylaxis: Lovenox
Code Status: Full
Anticipated Discharge: 24 - 48 hours
Subjective/Interval History
-
Date of Service: June 01, 2024
No acute events overnight
Objective Data
-
Labs:
Laboratory Results
06/01/24
06:28
WBC 9.8
Hgb 14.0
Hct 44.7
Plt Count 309
Sodium 141
Potassium 4.1
Chloride 105
Carbon Dioxide 23
BUN 9
Creatinine 0.5 L
Glucose 98
Calcium 8.9
Vital Signs:
Vital Signs
Temp Pulse Resp BP Pulse Ox
97.6 F 62 18 158/68 99
06/01/24 12:20 06/01/24 12:20 06/01/24 12:20 06/01/24 12:20 06/01/24 12:20
I&O
05/31/24 06/01/24 06/02/24
06:59 06:59 06:59
Intake Total 1740 / 1740 1120 / 1120
Balance 1740 / 1740 1120 / 1120
Review of Systems
-
History Source: Patient
All other systems: Not reviewed unless documented
Data Reviewed
-
Diagnostic Radiology: Image personally visualized and interpreted
Medical Tests (Nuc Med, Echo etc): Report Reviewed by me
Labs: Labs Reviewed by me
[2024-06-01 15:32] VITALS: BP 176/78
[2024-06-01] MEDS: LOVENOX 40 MG SC (17:51)
[2024-06-01 19:41] VITALS: BP 172/75
[2024-06-01] MEDS: NSS IV (20:35)
[2024-06-01] MEDS: APRESOLINE 10 MG IV (20:38)
[2024-06-01 23:53] VITALS: BP 113/76
[2024-06-02 00:30] VITALS: BP 163/74
[2024-06-02 03:36] VITALS: BP 176/75
[2024-06-02] MEDS: TYLENOL 650 MG PO (03:36)
[2024-06-02 03:45] VITALS: BP 163/81
[2024-06-02 06:00] VITALS: BMI 22.8
[2024-06-02 06:29] LABS: Hematocrit 45.5 % (37.0-47.0); Hemoglobin 14.3 g/dL (12.0-16.0); Mean Corp Hgb Conc. 31.4 g/dL (33.0-37.0); Mean Corpuscular Hgb 30.7 pg (27.0-31.0); Mean Corpuscular Volume 97.6 fL (81.0-99.0); Mean Platelet Volume 9.3 fL (7.4-10.4); Platelet Count 285 10^3/uL (130-400); Red Blood Cell Count 4.66 10^6/uL (4.20-5.40); Red Cell Dist. Width 13.9 % (11.5-14.5); White Blood Cell Count 8.1 10^3/uL (4.8-10.8)
[2024-06-02 06:56] LABS: Blood Urea Nitrogen 14 mg/dl (7-17); Calcium 8.8 mg/dl (8.4-10.2); Carbon Dioxide 30 mmol/L (22-30); Chloride 104 mmol/L (98-107); Estimated Creatinine Clearance 73 ml/min; Glucose 95 mg/dl (70-99); Magnesium 1.9 mg/dl (1.6-2.3); Phosphorus 3.8 mg/dl (2.5-4.5); Potassium 4.3 mmol/L (3.5-5.1); Sodium 142 mmol/L (135-145); eGFR > 60.00
[2024-06-02 07:13] VITALS: BP 171/78
[2024-06-02] MEDS: DUONEB INH ×3 (07:26→11:20)
[2024-06-02] MEDS: NON-FORMULARY ITEM 1 INH INH (07:26)
[2024-06-02] MEDS: DELTASONE 40 MG PO (08:06)
[2024-06-02] MEDS: ZESTRIL 10 MG PO ×2 (08:06→09:44)
[2024-06-02] MEDS: PROTONIX 40 MG PO (08:06)
[2024-06-02] MEDS: ZENPEP DELAYED RELEASE CAPSULE 1 CAPSULE PO ×3 (08:06→18:03)
[2024-06-02] MEDS: TENORMIN 50 MG PO (08:07)
[2024-06-02] MEDS: PROZAC 20 MG PO (08:07)
[2024-06-02] MEDS: NICODERM TRANSDERMAL 21 MG TRANSDERM (08:07)
[2024-06-02] MEDS: CARDURA 2 MG PO (08:07)
[2024-06-02 13:03] LABS: tTG IgA Antibody 3.8 EU/ml (0-19)
--- NOTE | 2024-06-02 13:11 | W.PN.HOSP.TC ---
Today's Communication/Plan
-
steroids - monitor wheezing/bronchospasm
most likely will have to go on o2
adv diet and monitor
Assessment / Plan
Assessment / Plan
Physical Exam
General: no acute distress appears comfortable at this time
HEENT: Moist mucous membranes and PERRLA
Respiratory: Wheezing
Cardiac: S1/S2 and Regular Rhythm; No Murmur
GI: Soft, Normal Bowel Sounds Tenderness LLQ with voluntary guarding
Musculoskeletal: No Clubbing, No Cyanosis and No Edema
Neuro: AO x 3
A/P: Patient is a 64F with PMH significant for hypertension, anxiety / depression and pancreatic insufficiency who presents to ED complaining of LLQ abdominal pain.
Sigmoid Colitis
- Unlikely ulcerative colitis or inflammatory bowel disease.
- Possibly chronic ischemic colitis v other colitis
-Stop steroids for colitis
- GI following
- CT angio without sig stenosis
-Patient requires repeat colonoscopy with polypectomy with Dr. Howard as outpatient
-Follow-up celiac panel/stool calprotectin
-Colonoscopy biopsy pending
COPD Exacerbation
Tobacco Use Disorder
- Continue Trelegy patient's own med
- DuoNebs ATC and albuterol PRN.
- Nicotine supplementation, counseled smoking cessation
- steroids for exacerbation
-SARS-Cov-2 for uri symptoms
Benign Hypertension - Poorly Controlled
- Atenolol
-lisinopril increased to 20mg
- Hydralazine prn
- Treat underlying pain / anxiety and follow for improvement.
Pancreatic Insufficiency
- Decreased frequency of stools since beginning Creon - though still 5 BM per day.
- Continue Creon AC.
Chronic hepatocellular disease
-f/u GI outpt
Anxiety / Depression
- Continue fluoxetine.
- Valium PRN anxiety
DVT Prophylaxis: Lovenox
Code Status: Full
Anticipated Discharge: Within 24 hours
Subjective/Interval History
-
Date of Service: June 02, 2024
Still mild wheezing
Objective Data
-
Labs:
Laboratory Results
06/02/24
06:09
WBC 8.1
Hgb 14.3
Hct 45.5
Plt Count 285
Sodium 142
Potassium 4.3
Chloride 104
Carbon Dioxide 30
BUN 14
Creatinine 0.5 L
Glucose 95
Calcium 8.8
Vital Signs:
Vital Signs
Temp Pulse Resp BP Pulse Ox
97.2 F 78 16 171/78 94
06/02/24 07:13 06/02/24 07:31 06/02/24 07:31 06/02/24 07:13 06/02/24 07:31
I&O
06/01/24 06/02/24 06/03/24
06:59 06:59 06:59
Intake Total 1120 / 1120 1200 / 1200
Balance 1120 / 1120 1200 / 1200
Review of Systems
-
History Source: Patient
All other systems: Not reviewed unless documented
Data Reviewed
-
Diagnostic Radiology: Image personally visualized and interpreted
Medical Tests (Nuc Med, Echo etc): Report Reviewed by me
Labs: Labs Reviewed by me
--- NOTE | 2024-06-02 15:16 | CM ---
CM following re: discharge planning.
Reviewed pt's chart, met with pt.
D/C plan: home with anticipated no after care VN needs. Family to transport at discharge.
CM will follow with discharge plan updates as hospitalization progresses
[2024-06-02] MEDS: DUONEB 3 ML INH ×2 (15:17→19:36)
[2024-06-02 15:39] VITALS: BP 167/91
[2024-06-02] MEDS: LOVENOX 40 MG SC (18:03)
[2024-06-02 22:11] LABS: Endomysial IgA Antibody Titer <1:10 (<1:10)
[2024-06-02 23:32] VITALS: BP 198/90
[2024-06-02] MEDS: APRESOLINE 10 MG IV (23:36)
[2024-06-03 06:34] LABS: Hematocrit 45.8 % (37.0-47.0); Hemoglobin 14.1 g/dL (12.0-16.0); Mean Corp Hgb Conc. 30.8 g/dL (33.0-37.0); Mean Corpuscular Hgb 30.1 pg (27.0-31.0); Mean Corpuscular Volume 97.9 fL (81.0-99.0); Mean Platelet Volume 9.4 fL (7.4-10.4); Platelet Count 278 10^3/uL (130-400); Red Blood Cell Count 4.68 10^6/uL (4.20-5.40); Red Cell Dist. Width 13.6 % (11.5-14.5); White Blood Cell Count 6.8 10^3/uL (4.8-10.8)
[2024-06-03 06:56] LABS: Blood Urea Nitrogen 12 mg/dl (7-17); Calcium 8.8 mg/dl (8.4-10.2); Carbon Dioxide 34 mmol/L (22-30); Chloride 100 mmol/L (98-107); Estimated Creatinine Clearance 73 ml/min; Glucose 97 mg/dl (70-99); Magnesium 1.9 mg/dl (1.6-2.3); Phosphorus 3.4 mg/dl (2.5-4.5); Potassium 3.8 mmol/L (3.5-5.1); Sodium 139 mmol/L (135-145); eGFR > 60.00
[2024-06-03 07:44] VITALS: BP 187/83
[2024-06-03] MEDS: APRESOLINE 10 MG IV ×2 (07:51→23:59)
[2024-06-03] MEDS: DUONEB INH ×2 (07:53→10:59)
[2024-06-03] MEDS: NON-FORMULARY ITEM INH (07:53)
[2024-06-03] MEDS: PROTONIX 40 MG PO (09:14)
[2024-06-03] MEDS: ZESTRIL 20 MG PO (09:14)
[2024-06-03] MEDS: ZENPEP DELAYED RELEASE CAPSULE 1 CAPSULE PO ×3 (09:14→17:06)
[2024-06-03] MEDS: PROZAC 20 MG PO (09:14)
[2024-06-03] MEDS: NICODERM TRANSDERMAL 21 MG TRANSDERM (09:15)
[2024-06-03] MEDS: CARDURA 2 MG PO (09:15)
[2024-06-03] MEDS: TENORMIN 50 MG PO (09:15)
[2024-06-03] MEDS: DELTASONE 40 MG PO (09:15)
[2024-06-03] MEDS: NORVASC 5 MG PO (09:15)
[2024-06-03 09:23] VITALS: BP 163/73
--- NOTE | 2024-06-03 13:23 | W.PN.HOSP.TC ---
Today's Communication/Plan
-
Add amlodipine, monitor blood pressures
Lisinopril
Steroids
Wean O2
Assessment / Plan
Assessment / Plan
Physical Exam
General: no acute distress appears comfortable at this time
HEENT: Moist mucous membranes and PERRLA
Respiratory: Wheezing mild, although improved b/l
Cardiac: S1/S2 and Regular Rhythm; No Murmur
GI: Soft, Normal Bowel Sounds Tenderness LLQ with voluntary guarding
Musculoskeletal: No Clubbing, No Cyanosis and No Edema
Neuro: AO x 3
A/P: Patient is a 64F with PMH significant for hypertension, anxiety / depression and pancreatic insufficiency who presents to ED complaining of LLQ abdominal pain.
Sigmoid Colitis
- Unlikely ulcerative colitis or inflammatory bowel disease.
- Possibly chronic ischemic colitis v other colitis
-Stop steroids for colitis
- GI following
- CT angio without sig stenosis
-Patient requires repeat colonoscopy with polypectomy with Dr. Howard as outpatient
-Follow-up celiac panel/stool calprotectin
-Colonoscopy biopsy pending
�Follow GI outpatient
COPD Exacerbation
Acute on Chronic Hypoxic Respiratory Failure
Tobacco Use Disorder
- Continue Trelegy patient's own med
- DuoNebs ATC and albuterol PRN.
- Nicotine supplementation, counseled smoking cessation
- steroids for exacerbation
-Wean O2
Benign Hypertension - Poorly Controlled
- Atenolol
-lisinopril increased to 20mg
� Add amlodipine
- Hydralazine prn
- Treat underlying pain / anxiety and follow for improvement.
Pancreatic Insufficiency
- Decreased frequency of stools since beginning Creon - though still 5 BM per day.
- Continue Creon AC.
Chronic hepatocellular disease
-f/u GI outpt
Anxiety / Depression
- Continue fluoxetine.
- Valium PRN anxiety
DVT Prophylaxis: Lovenox
Code Status: Full
Anticipated Discharge: Within 24 hours
Subjective/Interval History
-
Date of Service: June 03, 2024
No acute events overnight, extremely hypertensive 198/90
Objective Data
-
Labs:
Laboratory Results
06/03/24
05:54
WBC 6.8
Hgb 14.1
Hct 45.8
Plt Count 278
Sodium 139
Potassium 3.8
Chloride 100
Carbon Dioxide 34 H
BUN 12
Creatinine 0.4 L
Glucose 97
Calcium 8.8
Vital Signs:
Vital Signs
Temp Pulse Resp BP Pulse Ox
97.8 F 77 17 163/73 94
06/03/24 07:44 06/03/24 09:23 06/03/24 07:44 06/03/24 09:23 06/03/24 07:44
I&O
06/02/24 06/03/24 06/04/24
06:59 06:59 06:59
Intake Total 1200 / 1200 1180 / 1180
Balance 1200 / 1200 1180 / 1180
Review of Systems
-
History Source: Patient
All other systems: Not reviewed unless documented
Data Reviewed
-
Diagnostic Radiology: Image personally visualized and interpreted
Medical Tests (Nuc Med, Echo etc): Report Reviewed by me
Labs: Labs Reviewed by me
[2024-06-03 15:45] VITALS: BP 143/80
[2024-06-03] MEDS: NON-FORMULARY ITEM 1 INH INH (16:50)
[2024-06-03] MEDS: LOVENOX SC (17:06)
[2024-06-03 17:30] LABS: Calprotectin, Fecal 143 ug/g (<=49)
[2024-06-03] MEDS: XOPENEX 0.63 MG INHALANT SOLUTION INH (19:26)
[2024-06-04 00:08] VITALS: BP 189/91
[2024-06-04 04:08] VITALS: BP 162/69
[2024-06-04 06:45] VITALS: BMI 22.6
[2024-06-04 07:15] VITALS: BP 149/80
[2024-06-04] MEDS: XOPENEX 0.63 MG INHALANT SOLUTION INH ×2 (07:52→07:56)
[2024-06-04] MEDS: NON-FORMULARY ITEM 1 INH INH (07:52)
[2024-06-04 07:54] LABS: Hematocrit 47.1 % (37.0-47.0); Hemoglobin 14.7 g/dL (12.0-16.0); Mean Corp Hgb Conc. 31.2 g/dL (33.0-37.0); Mean Corpuscular Hgb 30.1 pg (27.0-31.0); Mean Corpuscular Volume 96.5 fL (81.0-99.0); Mean Platelet Volume 9.5 fL (7.4-10.4); Platelet Count 307 10^3/uL (130-400); Red Blood Cell Count 4.88 10^6/uL (4.20-5.40); Red Cell Dist. Width 13.7 % (11.5-14.5); White Blood Cell Count 6.5 10^3/uL (4.8-10.8)
[2024-06-04 08:05] LABS: Glucose - Point of Care 95 mg/dl (70-99)
[2024-06-04] MEDS: LASIX 40 MG IV (08:15)
[2024-06-04 08:16] LABS: Blood Urea Nitrogen 12 mg/dl (7-17); Calcium 8.8 mg/dl (8.4-10.2); Carbon Dioxide 38 mmol/L (22-30); Chloride 96 mmol/L (98-107); Estimated Creatinine Clearance 73 ml/min; Glucose 99 mg/dl (70-99); Potassium 3.7 mmol/L (3.5-5.1); Sodium 140 mmol/L (135-145); eGFR > 60.00
[2024-06-04] MEDS: PROTONIX 40 MG PO (08:16)
[2024-06-04] MEDS: NORVASC 5 MG PO (08:16)
[2024-06-04] MEDS: ZESTRIL 20 MG PO (08:16)
[2024-06-04] MEDS: ZENPEP DELAYED RELEASE CAPSULE 1 CAPSULE PO ×3 (08:16→17:38)
[2024-06-04] MEDS: CARDURA 2 MG PO (08:17)
[2024-06-04] MEDS: NICODERM TRANSDERMAL 21 MG TRANSDERM (08:17)
[2024-06-04] MEDS: DELTASONE 20 MG PO (08:17)
[2024-06-04] MEDS: TENORMIN 50 MG PO (08:17)
[2024-06-04] MEDS: PROZAC 20 MG PO (08:17)
[2024-06-04 08:31] LABS: NT-proBNP 1380 pg/ml
[2024-06-04 11:04] VITALS: BP 139/59
--- NOTE | 2024-06-04 12:38 | W.PN.HOSP.TC ---
Addendum entered and electronically signed by Ramiro Youngblood MD 06/04/24 16:54:
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
Original Note:
Today's Communication/Plan
-
IV lasix
wean steroids
wean off O2
Assessment / Plan
Assessment / Plan
Physical Exam
General: no acute distress appears comfortable at this time
HEENT: Moist mucous membranes and PERRLA
Respiratory: Wheezing mild, although improved b/l
Cardiac: S1/S2 and Regular Rhythm; No Murmur
GI: Soft, Normal Bowel Sounds Tenderness LLQ with voluntary guarding
Musculoskeletal: No Clubbing, No Cyanosis and No Edema
Neuro: AO x 3
A/P: Patient is a 64F with PMH significant for hypertension, anxiety / depression and pancreatic insufficiency who presents to ED complaining of LLQ abdominal pain.
Sigmoid Colitis
- Unlikely ulcerative colitis or inflammatory bowel disease.
- Possibly chronic ischemic colitis v other colitis
-Stop steroids for colitis
- GI following
- CT angio without sig stenosis
-Patient requires repeat colonoscopy with polypectomy with Dr. Howard as outpatient
-Follow-up celiac panel/stool calprotectin
-Colonoscopy biopsy pending
�Follow GI outpatient
COPD Exacerbation
Acute on Chronic Hypoxic Respiratory Failure 2/2 to COPD exac and acute HFpEF
Tobacco Use Disorder
Acute HFpEF
- Continue Trelegy patient's own med
- DuoNebs ATC and albuterol PRN.
- Nicotine supplementation, counseled smoking cessation
- steroids for exacerbation, rapidly wean as doing better
-Wean O2
-IV lasix
#Acute HFpEF
-40mg IV lasix today
-monitor BMP and possibly another dose tomorrow
-probnp 1380
Benign Hypertension - Poorly Controlled
- Atenolol
-lisinopril increased to 20mg
� Add amlodipine
- Hydralazine prn
- Treat underlying pain / anxiety and follow for improvement.
Pancreatic Insufficiency
- Decreased frequency of stools since beginning Creon - though still 5 BM per day.
- Continue Creon AC.
Chronic hepatocellular disease
-f/u GI outpt
Anxiety / Depression
- Continue fluoxetine.
- Valium PRN anxiety
DVT Prophylaxis: Lovenox
Code Status: Full
Anticipated Discharge: 24 - 48 hours
Subjective/Interval History
-
Date of Service: June 04, 2024
X-ray with pulm congestion, given IV Lasix this morning with improvement in respiratory status, abdominal distention already
Objective Data
-
Labs:
Laboratory Results
06/04/24
07:25
WBC 6.5
Hgb 14.7
Hct 47.1 H
Plt Count 307
Sodium 140
Potassium 3.7
Chloride 96 L
Carbon Dioxide 38 H
BUN 12
Creatinine 0.5 L
Glucose 99
Calcium 8.8
Vital Signs:
Vital Signs
Temp Pulse Resp BP Pulse Ox
98 F 76 15 139/59 93
06/04/24 11:04 06/04/24 11:04 06/04/24 11:04 06/04/24 11:04 06/04/24 11:04
I&O
06/03/24 06/04/24 06/05/24
06:59 06:59 06:59
Intake Total 1180 / 1180 1440 / 1440
Balance 1180 / 1180 1440 / 1440
Review of Systems
-
History Source: Patient
All other systems: Not reviewed unless documented
Data Reviewed
-
Diagnostic Radiology: Image personally visualized and interpreted
CT Scan: Image personally visualized and interpreted and Report Reviewed by me
Medical Tests (Nuc Med, Echo etc): Report Reviewed by me
Labs: Labs Reviewed by me
[2024-06-04] MEDS: LOVENOX SC (13:23)
[2024-06-04] MEDS: TYLENOL 650 MG PO ×3 (13:40→23:55)
[2024-06-04 15:08] VITALS: BP 168/62
--- NOTE | 2024-06-04 15:13 | CM ---
CM continues to follow for discharge planning needs.
Plan: Return home with no needs anticipated. Family will transport home at discharge.
[2024-06-04] MEDS: SPIRIVA RESPIMAT 2.5 MCG INH (15:23)
--- NOTE | 2024-06-04 16:34 | PN.CDI ---
CDI
- -
CDI:
Physician Documentation Request
Admit Date: 05/29/24 21:28
Dear Doctor Rylie ,
Please review the following and provide your response in the progress notes.
Clinical Indicators:
Documentation in the record on ___Progress notes 06/03 & 06/04 ___ includes the diagnosis of Acute on Chronic Hypoxic Respiratory Failure The patient's respiratory clinical indicators were the following:
Progress notes 06/03 & 06/04, ' Acute on Chronic Hypoxic Respiratory Failure 2/2 to COPD exac and acute HFpEF..'
Per vitals oxygen as low as 87% / has been on 1-2 LPM of oxygen while in hospital
I do not see home oxygen documented
Recognized standard criteria for respiratory failure includes:
(Source: [facility] May 2013)
ABGs (1 or more)
�PO2 <60 or RA SpO2 <91%
�PcO2 >50 and pH <7.35
�pO2 decrease or pcO2 increase by 10 mmHg from baseline if known Symptoms:
�Tachypnea, SOB, dyspnea
�Pallor or cyanosis
�Anxiety or restlessness
�Use of accessory muscles
�Retractions (grunting in newborns)
�Unable to speak in complete sentences
Supplemental O2 requirement of 40% (5LPM) or more Intubation is not required
Based on the above information and the recognized standard for respiratory failure could you please verify this diagnoses is still accurate and reflective of the patient�s condition to ensure quality of the medical record.
Please clarify in the Progress Notes:
� Acute on Chronic Hypoxic Respiratory Failure is/was present and is a clinical diagnosis based on (please include this additional support in the medical record)
�After study Acute on Chronic Respiratory Failure has been ruled out
�Other ( please specify)
Use of terms such as suspected, likely, concern for, or probable (associated with a specific diagnosis that is being evaluated, monitored, or treated as if it exists) are acceptable and can be coded in the inpatient setting, when documented at the
time of discharge.
Thank you,
Floridalma Blank RN
CDI Specialist
[place] [facility]
Please use your independent medical judgment in providing your response.
[2024-06-04] MEDS: LOVENOX 40 MG SC (17:38)
[2024-06-04 23:45] VITALS: BP 191/81
[2024-06-04] MEDS: APRESOLINE 10 MG IV (23:50)
[2024-06-05 00:06] VITALS: BP 172/73
[2024-06-05 02:35] VITALS: BP 158/62
[2024-06-05 06:00] VITALS: BMI 21.5
[2024-06-05 07:13] LABS: Hematocrit 45.6 % (37.0-47.0); Hemoglobin 14.8 g/dL (12.0-16.0); Mean Corp Hgb Conc. 32.5 g/dL (33.0-37.0); Mean Corpuscular Hgb 30.5 pg (27.0-31.0); Mean Platelet Volume 9.5 fL (7.4-10.4); Platelet Count 323 10^3/uL (130-400); Red Blood Cell Count 4.85 10^6/uL (4.20-5.40); Red Cell Dist. Width 13.5 % (11.5-14.5); White Blood Cell Count 7.4 10^3/uL (4.8-10.8)
[2024-06-05 07:54] LABS: Blood Urea Nitrogen 17 mg/dl (7-17); Calcium 8.7 mg/dl (8.4-10.2); Carbon Dioxide 39 mmol/L (22-30); Chloride 93 mmol/L (98-107); Estimated Creatinine Clearance 73 ml/min; Glucose 104 mg/dl (70-99); Potassium 3.7 mmol/L (3.5-5.1); Sodium 140 mmol/L (135-145); eGFR > 60.00
[2024-06-05] MEDS: NON-FORMULARY ITEM 1 INH INH (08:00)
[2024-06-05] MEDS: SPIRIVA RESPIMAT 2.5 MCG 2 PUFF INH (08:00)
[2024-06-05 08:29] VITALS: BP 179/77
[2024-06-05] MEDS: CARDURA 2 MG PO (08:33)
[2024-06-05] MEDS: NORVASC 5 MG PO (08:33)
[2024-06-05] MEDS: PROTONIX 40 MG PO (08:33)
[2024-06-05] MEDS: DELTASONE 10 MG PO (08:33)
[2024-06-05] MEDS: ZENPEP DELAYED RELEASE CAPSULE 1 CAPSULE PO ×3 (08:34→17:27)
[2024-06-05] MEDS: PROZAC 20 MG PO (08:34)
[2024-06-05] MEDS: ZESTRIL 20 MG PO ×2 (08:34→20:02)
[2024-06-05] MEDS: TENORMIN 50 MG PO (08:34)
[2024-06-05] MEDS: NICODERM TRANSDERMAL 14 MG TRANSDERM (08:35)
[2024-06-05] MEDS: LASIX 40 MG IV (09:30)
[2024-06-05] MEDS: FLUSH (NSS) 2 FLUSH IV (09:30)
--- NOTE | 2024-06-05 10:53 | PTCARENOTE ---
O2 1 L pt is 92%, on room air after using the bathroom she was 86% , replaced 1L 02
[2024-06-05] MEDS: TYLENOL 650 MG PO ×3 (12:53→23:15)
--- NOTE | 2024-06-05 13:53 | W.PN.HOSP.TC ---
Today's Communication/Plan
-
IV Lasix
Stop Norvasc due to lower extremity swelling
Lisinopril twice daily
Assessment / Plan
Assessment / Plan
Physical Exam
General: no acute distress appears comfortable at this time
HEENT: Moist mucous membranes and PERRLA
Respiratory: Wheezing mild, although improved b/l
Cardiac: S1/S2 and Regular Rhythm; No Murmur
GI: Soft, Normal Bowel Sounds Tenderness LLQ with voluntary guarding
Musculoskeletal: No Clubbing, No Cyanosis and No Edema
Neuro: AO x 3
A/P: Patient is a 64F with PMH significant for hypertension, anxiety / depression and pancreatic insufficiency who presents to ED complaining of LLQ abdominal pain.
Sigmoid Colitis
- Unlikely ulcerative colitis or inflammatory bowel disease.
- Possibly chronic ischemic colitis v other colitis
-Stop steroids for colitis
- GI following
- CT angio without sig stenosis
-Patient requires repeat colonoscopy with polypectomy with Dr. Howard as outpatient
-Follow-up celiac panel/stool calprotectin
-Colonoscopy biopsy pending
�Follow GI outpatient
COPD Exacerbation
Acute on Chronic Hypoxic Respiratory Failure 2/2 to COPD exac and acute HFpEF
Tobacco Use Disorder
Acute HFpEF
- Continue Trelegy patient's own med
- DuoNebs ATC and albuterol PRN.
- Nicotine supplementation, counseled smoking cessation
- steroids for exacerbation, rapidly wean as doing better
-Wean O2
-IV lasix again today
#Acute HFpEF
-40mg IV lasix again today
-monitor BMP
-probnp 1380
� anticipate Lasix upon discharge
Benign Hypertension - Poorly Controlled
- Atenolol
-lisinopril increased to 20mg twice daily
� Stop amlodipine due to suspected lower extremity edema
- Hydralazine prn
- Treat underlying pain / anxiety and follow for improvement.
Pancreatic Insufficiency
- Decreased frequency of stools since beginning Creon - though still 5 BM per day.
- Continue Creon AC.
Chronic hepatocellular disease
-f/u GI outpt
Anxiety / Depression
- Continue fluoxetine.
- Valium PRN anxiety
DVT Prophylaxis: Lovenox
Code Status: Full
Anticipated Discharge: 24 - 48 hours
Subjective/Interval History
-
Date of Service: June 05, 2024
Swelling of legs bilaterally, suspect secondary to amlodipine
Objective Data
-
Labs:
Laboratory Results
06/05/24
06:45
WBC 7.4
Hgb 14.8
Hct 45.6
Plt Count 323
Sodium 140
Potassium 3.7
Chloride 93 L
Carbon Dioxide 39 H
BUN 17
Creatinine 0.5 L
Glucose 104 H
Calcium 8.7
Vital Signs:
Vital Signs
Temp Pulse Resp BP Pulse Ox
97.9 F 58 20 179/77 86
06/05/24 08:29 06/05/24 08:29 06/05/24 08:29 06/05/24 08:29 06/05/24 10:40
I&O
06/04/24 06/05/24 06/06/24
06:59 06:59 06:59
Intake Total 1440 / 1440 1560 / 1560
Balance 1440 / 1440 1560 / 1560
Review of Systems
-
History Source: Patient
All other systems: Not reviewed unless documented
Data Reviewed
-
Diagnostic Radiology: Image personally visualized and interpreted
CT Scan: Image personally visualized and interpreted and Report Reviewed by me
Medical Tests (Nuc Med, Echo etc): Report Reviewed by me
Labs: Labs Reviewed by me
[2024-06-05 16:25] VITALS: BP 145/63
[2024-06-05] MEDS: LOVENOX 40 MG SC (17:29)
[2024-06-05] MEDS: TUMS CHEWABLE TABLET 200 MG PO ×2 (18:42→23:16)
[2024-06-05] MEDS: VALIUM 5 MG PO (23:21)
[2024-06-05 23:37] VITALS: BP 155/73
[2024-06-06 02:24] VITALS: BP 150/56
[2024-06-06] MEDS: DILAUDID 0.5 MG IV (02:38)
--- NOTE | 2024-06-06 02:48 | PTCARENOTE ---
pt c/o sudden increase in abdominal pain 03/23 and diarrhea x4. VS 99.6-72-18-150/56. WARRANT SERVER notified, Dilaudid 0.5mg given. Will monitor for decrease in pain
--- NOTE | 2024-06-06 05:52 | PTCARENOTE ---
0230 pt c/o sudden increase in pain 03/23 in abdomen with diarrhea x4. vs 99.6-72-18-150/56, SWATCHER notified, dilaudid 0.5mg given
[2024-06-06] MEDS: TYLENOL 650 MG PO ×4 (06:18→22:21)
[2024-06-06 06:27] LABS: Hematocrit 54.9 % (37.0-47.0); Hemoglobin 17.7 g/dL (12.0-16.0); Mean Corp Hgb Conc. 32.2 g/dL (33.0-37.0); Mean Corpuscular Hgb 30.4 pg (27.0-31.0); Mean Corpuscular Volume 94.3 fL (81.0-99.0); Mean Platelet Volume 9.8 fL (7.4-10.4); Platelet Count 349 10^3/uL (130-400); Red Blood Cell Count 5.82 10^6/uL (4.20-5.40); Red Cell Dist. Width 13.7 % (11.5-14.5); White Blood Cell Count 15.3 10^3/uL (4.8-10.8)
--- NOTE | 2024-06-06 06:28 | PTCARENOTE ---
0508 pt rating pain 9/10 in abdomen, 5 episodes of diarrhea. ICER HAND notified, ok to give dilaudid dose early. Pt refusing dilaudid and requests tylenol for pain. See Mar for documentation.
[2024-06-06 06:41] LABS: Blood Urea Nitrogen 28 mg/dl (7-17); Calcium 8.6 mg/dl (8.4-10.2); Carbon Dioxide 36 mmol/L (22-30); Chloride 94 mmol/L (98-107); Estimated Creatinine Clearance 73 ml/min; Glucose 150 mg/dl (70-99); Potassium 4.3 mmol/L (3.5-5.1); Sodium 138 mmol/L (135-145); eGFR > 60.00
[2024-06-06] MEDS: NON-FORMULARY ITEM 1 INH INH (07:39)
[2024-06-06 08:37] VITALS: BP 126/50
[2024-06-06] MEDS: CARDURA 2 MG PO (09:08)
[2024-06-06] MEDS: ZENPEP DELAYED RELEASE CAPSULE 1 CAPSULE PO (09:09)
[2024-06-06] MEDS: PROZAC 20 MG PO (09:09)
[2024-06-06] MEDS: ZESTRIL 20 MG PO ×2 (09:09→20:12)
[2024-06-06] MEDS: PROTONIX 40 MG PO (09:09)
[2024-06-06] MEDS: TENORMIN 50 MG PO (09:09)
[2024-06-06] MEDS: NICODERM TRANSDERMAL 14 MG TRANSDERM (09:13)
[2024-06-06] MEDS: DELTASONE 10 MG PO (09:13)
--- NOTE | 2024-06-06 10:08 | RESPNOTE ---
Patient refused to walk, stated 'I was up all night in the bathroom, I feel like shit'
[2024-06-06 10:34] LABS: Hematocrit 53.4 % (37.0-47.0); Hemoglobin 17.3 g/dL (12.0-16.0); Mean Corp Hgb Conc. 32.4 g/dL (33.0-37.0); Mean Corpuscular Hgb 30.4 pg (27.0-31.0); Mean Corpuscular Volume 93.8 fL (81.0-99.0); Mean Platelet Volume 9.3 fL (7.4-10.4); Platelet Count 314 10^3/uL (130-400); Red Blood Cell Count 5.69 10^6/uL (4.20-5.40); Red Cell Dist. Width 13.8 % (11.5-14.5); White Blood Cell Count 12.6 10^3/uL (4.8-10.8)
[2024-06-06] MEDS: TUMS CHEWABLE TABLET 200 MG PO (11:02)
[2024-06-06] MEDS: ZENPEP DELAYED RELEASE CAPSULE PO ×2 (11:07→15:48)
[2024-06-06] MEDS: LASIX 40 MG PO (12:51)
--- NOTE | 2024-06-06 13:02 | W.PN.HOSP.TC ---
Today's Communication/Plan
-
switch to po lasix
stop steroids
abdominal imaging
wean o2
Assessment / Plan
Assessment / Plan
Physical Exam
General: no acute distress appears comfortable at this time
HEENT: Moist mucous membranes and PERRLA
Respiratory: Wheezing mild, although improved b/l
Cardiac: S1/S2 and Regular Rhythm; No Murmur
GI: Soft, Normal Bowel Sounds Tenderness LLQ with voluntary guarding
Musculoskeletal: No Clubbing, No Cyanosis and No Edema
Neuro: AO x 3
A/P: Patient is a 64F with PMH significant for hypertension, anxiety / depression and pancreatic insufficiency who presents to ED complaining of LLQ abdominal pain.
Sigmoid Colitis
- Unlikely ulcerative colitis or inflammatory bowel disease.
- Possibly chronic ischemic colitis v other colitis
-Stop steroids for colitis
- GI following
- CT angio without sig stenosis
-Patient requires repeat colonoscopy with polypectomy with Dr. Howard as outpatient
-Follow-up celiac panel/stool calprotectin
-Colonoscopy biopsy - unremarkable colonic mucosa
�Follow GI outpatient
Diarrhea
� Worsening abdominal pain today after quesadilla
� Follow-up abdominal imaging
� Continue to monitor
COPD Exacerbation
Acute on Chronic Hypoxic Respiratory Failure 2/2 to COPD exac and acute HFpEF
Tobacco Use Disorder, was smoking prior to coming in
Acute HFpEF
- Continue Trelegy patient's own med
- DuoNebs ATC and albuterol PRN.
- Nicotine supplementation, counseled smoking cessation
- Completed steroid course
-Wean O2
-Switch to p.o. Lasix
#Acute HFpEF
-40mg IV lasix - switched to po lasix for now
-monitor BMP
-probnp 1380
� anticipate Lasix upon discharge
Benign Hypertension - Poorly Controlled
- Atenolol
-lisinopril increased to 20mg twice daily
� Stop amlodipine due to suspected lower extremity edema
- Hydralazine prn
- Treat underlying pain / anxiety and follow for improvement.
Pancreatic Insufficiency
- Decreased frequency of stools since beginning Creon - though still 5 BM per day.
- Continue Creon AC.
Chronic hepatocellular disease
-f/u GI outpt
Anxiety / Depression
- Continue fluoxetine.
- Valium PRN anxiety
DVT Prophylaxis: Lovenox
Code Status: Full
Anticipated Discharge: Within 24 hours
Subjective/Interval History
-
Date of Service: June 06, 2024
Has had diarrhea overnight after quesadilla, abdomen tender to palpation
Objective Data
-
Labs:
Laboratory Results
06/06/24 06/06/24 06/06/24
05:50 09:02 10:26
WBC 15.3 H Cancelled 12.6 H
Hgb 17.7 H Cancelled 17.3 H
Hct 54.9 H Cancelled 53.4 H
Plt Count 349 Cancelled 314
Sodium 138
Potassium 4.3
Chloride 94 L
Carbon Dioxide 36 H
BUN 28 H
Creatinine 0.6
Glucose 150 H
Calcium 8.6
Vital Signs:
Vital Signs
Temp Pulse Resp BP Pulse Ox
99 F 71 19 128/52 98
06/06/24 08:37 06/06/24 12:51 06/06/24 08:37 06/06/24 12:51 06/06/24 08:37
I&O
06/05/24 06/06/24 06/07/24
06:59 06:59 06:59
Intake Total 1560 / 1560 1320 / 1320
Balance 1560 / 1560 1320 / 1320
Review of Systems
-
History Source: Patient
All other systems: Not reviewed unless documented
Data Reviewed
-
Diagnostic Radiology: Image personally visualized and interpreted
CT Scan: Image personally visualized and interpreted and Report Reviewed by me
Medical Tests (Nuc Med, Echo etc): Report Reviewed by me
Labs: Labs Reviewed by me
[2024-06-06] MEDS: LOVENOX 40 MG SC (15:50)
[2024-06-06 16:37] VITALS: BP 110/50
[2024-06-06] MEDS: TYLENOL PO (21:28)
[2024-06-06] MEDS: ZOFRAN 4 MG IV (21:29)
[2024-06-06] MEDS: VALIUM 5 MG PO (22:43)
[2024-06-06 23:00] VITALS: BP 129/48
[2024-06-07 06:00] VITALS: BMI 20.3
[2024-06-07 06:51] LABS: Hematocrit 47.5 % (37.0-47.0); Hemoglobin 15.2 g/dL (12.0-16.0); Mean Corpuscular Hgb 30.3 pg (27.0-31.0); Mean Corpuscular Volume 94.8 fL (81.0-99.0); Mean Platelet Volume 9.9 fL (7.4-10.4); Platelet Count 303 10^3/uL (130-400); Red Blood Cell Count 5.01 10^6/uL (4.20-5.40); Red Cell Dist. Width 13.9 % (11.5-14.5); White Blood Cell Count 7.7 10^3/uL (4.8-10.8)
[2024-06-07 07:08] LABS: Blood Urea Nitrogen 38 mg/dl (7-17); Calcium 8.5 mg/dl (8.4-10.2); Carbon Dioxide 38 mmol/L (22-30); Chloride 91 mmol/L (98-107); Estimated Creatinine Clearance 55 ml/min; Glucose 97 mg/dl (70-99); Potassium 3.5 mmol/L (3.5-5.1); Sodium 138 mmol/L (135-145); eGFR > 60.00
[2024-06-07 07:15] VITALS: BP 137/58
[2024-06-07] MEDS: NON-FORMULARY ITEM 1 INH INH (08:22)
[2024-06-07] MEDS: CARDURA 2 MG PO (08:42)
[2024-06-07] MEDS: NICODERM TRANSDERMAL 14 MG TRANSDERM (08:42)
[2024-06-07] MEDS: LASIX 40 MG PO (08:42)
[2024-06-07] MEDS: TENORMIN 50 MG PO (08:42)
[2024-06-07] MEDS: PROTONIX 40 MG PO (08:42)
[2024-06-07] MEDS: PROZAC 20 MG PO (08:42)
[2024-06-07] MEDS: ZESTRIL 20 MG PO ×2 (08:42→20:56)
[2024-06-07] MEDS: ZENPEP DELAYED RELEASE CAPSULE 1 CAPSULE PO ×2 (08:43→12:56)
[2024-06-07] MEDS: TYLENOL 650 MG PO ×2 (09:34→21:12)
--- NOTE | 2024-06-07 12:21 | CM ---
CM reviewed pt with Dr Pastrana- ADC tomorrow
Per home O2 eval, pt qualifies for home O2
Bedside meeting with pt to review dc planning
DME provider choice discussed and referral to be made to [facility] for home O2
VN also discussed- [facility] is provider choice
Referral Bats[facility]- she will arrange for home O2
Discharge Disposition- home with [facility] and new O2 through [employer], spouse will transport home
--- NOTE | 2024-06-07 12:33 | W.PN.HOSP.TC ---
Addendum entered and electronically signed by Natan Pastrana MD 06/07/24 14:54:
patient is in need of oxygen at 2L continuously due to pulse ox of 83% on room air at rest. Oxygen will help to improve hypoxemia. Patient is mobile within the home. Duoneb tx has sobia tried and is ineffective in treating hypoxemia-related symptoms.
Oxygen is needed to improve symptoms.
Original Note:
Today's Communication/Plan
-
GI to reeval
Assessment / Plan
Assessment / Plan
64yo F with PMHx of COPD, current smoker, anxiety, pancreatic insufficency came with abdominal pain, mucoid stool with streaks of blood, small bowel biopsy in [address] showed [address]. [address] showed distal descending and sigmoid colitis, nutmeg
appearance of the liver. Sygmoidoscopy done that showed sigmoid colitis with few large polyps that will have to be eventually removed during colonoscopy with as outpatient. CT abd showed some ASCVD, however no signs of mesenteric occlusion.
Echo also done 2/2 LE swelling and concern for HFpEF. Started on Lasix. Remained on low O2 and will require home O2 arrangement prior to d/c. Had more diarrhea and nausea so GI was called back as diarrhea reoccured after cessation of prednisone and
with high calprotectin - cannot entirely exclude IBD
A/P
#Sigmoid colitis with diarrhea
CT neg for mesenteric occlusion
Celiac panel neg
Calprotectin elevated
Stool Cx and C.diff neg
#Metabolic alcalosis 2/2 diarrhea
follow bmp
#COPD with exacerbation
#Acute HFpEF exacerbation
#Nicotine dependency
#Acute on chronic hypoxic respiratory failure
Incentive spirometry
Bronchodilators
Prednisone completed
Lasix
Echo with preserved EF and no regional wall motion abnormality, no significatn valvular pathology
Incentive spirometry and Home O2 assessment - CM for home O2
Will need outpatient senior communications specialist
Smoking cessation advised
Nicoderm
#Essential HTN
Norvasc stopped, Lisinopril increased 2/2 LE edema
#Anxiety d/o
cont home meds
DVT ppx on Lovenox
Full code
I have spent at least 59min reviewing chart, tesrt results, communication with consultants and direct patient care
Anticipated Discharge: 24 - 48 hours
Subjective/Interval History
-
Date of Service: June 07, 2024
Objective Data
-
Labs:
Laboratory Results
06/07/24
06:02
WBC 7.7
Hgb 15.2
Hct 47.5 H
Plt Count 303
Sodium 138
Potassium 3.5
Chloride 91 L
Carbon Dioxide 38 H
BUN 38 H
Creatinine 0.8
Glucose 97
Calcium 8.5
Vital Signs:
Vital Signs
Temp Pulse Resp BP Pulse Ox
98.4 F 69 16 137/58 91
06/07/24 07:15 06/07/24 07:15 06/07/24 08:28 06/07/24 07:15 06/07/24 08:28
I&O
06/06/24 06/07/24 06/08/24
06:59 06:59 06:59
Intake Total 1320 / 1320 780 / 780 720 / 720
Balance 1320 / 1320 780 / 780 720 / 720
Review of Systems
-
History Source: Patient
All other systems: Reviewed and negative
Abdomen/GI: Reports Vomiting and Diarrhea
Physical Exam
-
General: Comfortable
HEENT: Normocephalic, Atraumatic and Moist Mucous Membranes
Cardiac: Regular Rhythm
GI: Soft, Nontender and Nondistended
Musculoskeletal: No Clubbing, No Cyanosis and No Edema
Neuro: Awake, Alert, Oriented and AO x 3
Psych: Calm
--- NOTE | 2024-06-07 12:54 | VNURNOTE ---
Home Health Liaison met with patient at bedside to discuss [facility] nurse/therapy, visits, schedule and homebound status. Patient is agreeable and understands that visits at home will be 2-3 x per week to assess and teach medical management, new home 02
teaching. New guild 02 set up w/[employer]. [facility] brochure provided with contact information. Patient is aware that [facility] will contact them for start of care in 1-2 days after discharge from .
[facility] referral completed in [facility].
--- NOTE | 2024-06-07 14:13 | W.PN.GI.CBS2 ---
Addendum entered and electronically signed by Radha Newman Do, MD 06/07/24 18:12:
I saw and examined the patient.
The FIELD SERVICE SUPERVISOR's note was reviewed and I agree with the note.
Comment: GI reconsulted for continued abd discomfort and bloating like '9 mo ' and diarrhea. Vitals stable, exam hyperactive bowel sounds, diffusely TTP in lower quadrants. Labs reviewed imaging suggestive of large stool burden
Impression
- Suspect overflow diarrhea from constipation
- H/o pelvic floor dysfunction
- h/o chronic pancreatitis
Recommendation
- Mag citrate 10oz today
- Fiber starting tomorrow
- C/w pancreatic enzymes
- Serial abd exams
Will follow with you
Original Note:
Today's Communication / Plan
-
diarrhea related to infectious etiology vs overflow vs other
check neurovirus with / sick contact with staff
reviewed imaging with Dr. Fine ? overflow related
Pt with mutliple new meds with BP issue during admission
reviewed with nursing to quantify emesis and diarrhea volumes
reviewed colon path which in negative
repeat CRP with elevation
Assessment / Plan
-
Etelvina is a 64-year-old female who over the past year has had more progressive left-sided lower abdominal pain especially when moving bowels along with 1-4 mucoid stools with even nocturnal symptoms who comes in with an elevated CRP, CT scan with
significant bowel wall thickening from the rectum to the descending concerning for new inflammatory bowel disease.
She also has a history of pancreatic insufficiency on pancreatic enzymes, EUS concerning for chronic pancreatitis with no history of acute pancreatitis, continued tobacco abuse, COPD and daily 3 glasses of wine.
Followed by Dr. Howard outpatient for chronic diarrhea since September 2022 and a low fecal elastase without history of acute pancreatitis drinks 3 glasses of wine daily, chronic smoker
Diagnostic Image Results:
--- 06/2023, CT abdomen pelvis nonspecific jejunal small bowel wall thickening with fluid distention without gross dilation.
04/02/2024, CT abdomen pelvis severe bowel wall thickening with inflammatory change involving the proximal rectum sigmoid distal descending the remainder of the colon is normal. Multiple sigmoid diverticuli without diverticulitis
Prior GI Procedures:
05/31/2024 Flex Sig (Walp) Hemorrhoids found on perianal exam.
- One 10 mm polyp in the distal rectum. Resection not
attempted.
- One 20 mm large stalk pedunculated polyp at the
recto-sigmoid colon. Resection not attempted.
- Few small normal appearing diverticula in the left
colon.
- Altered vascular, congested and erythematous mucosa
from rectum to splenic flexure. Biopsied. Unlikely
ulcerative colitis or inflammatory bowel disease.
bx neg
01/30/2023 EUS did not show any mass lesions, soft tissue prominence at the ampulla biopsies were negative for malignancy, started on Creon with mild weight gain on part continues to drink and smoke
EGD/EUS: 12/2022 Dr. Howard for weight loss and evaluate ampulla-endoscopically normal esophagus no gross lesions in the stomach, duodenal mucosal atrophy duodenum shows reactive duodenopathy with patchy villous blunting, prominent Delia's gland
hyperplasia and mildly increased chronic inflammation. No intraepithelial lymphocytes, ampulla patchy villous blunting, no adenoma
EUS showed pancreatic parenchymal abnormalities consisting of hyperechoic strands in the head and body, no pathology of the common bile duct, 1 cm left lobe cyst, anechoic pancreatic head cyst that did not communicate with the pancreatic duct
measuring 9 mm x 9 mm with no associated mass, no specimens collected
Colonoscopy: 09/2022 Dr. Sanders indication is not mentioned: Good prep with difficulty due to restricted mobility of the colon. Left-sided diverticulosis, otherwise endoscopically normal. No biopsies taken
05/29/2024 CRP 44, sed rate 8, hemoglobin 15.4, platelets 347, glucose 112, creatinine 0.4, BUN 10, alkaline phosphatase 89, albumin 3.7, total bilirubin 0.3, AST 17, ALT 10, lipase 33, fecal calprotectin pending, C. difficile negative, stool
culture pending
09/2022 fecal calprotectin 22, no prior celiac panel
# worsening nausea/vomiting and diarrhea last 3 days
-will check norovirus
-quantify all emesis and stool output
-may be diarrhea vs overflow in review films with Dr. Fine
-pt with multiple new meds since admission
#Left lower quadrant pain with severe bowel wall thickening on CT scan with no prior IBD diagnosis
--Inflammatory bowel disease versus infectious vs other
-- CRP trending down will repeat , stool calprotectin 143, C. difficile currently negative, culture negative
-- Flexible sigmoidoscopy, altered vasculature. + Polyps. Will need outpatient colonoscopy for removal.
-- reviewed flex results with patient noted negative
--CTA Abd/Pelvis with patent KYARA
-- 2 gram Na diet
-- DVT prophylaxis
-- cont Creon
--celiac neg but was noted with duodenal atrophy with villous blunting from prior procedure in December 2022
# chronic pancreatitis
cont Enzymes
--Outpatient follow up 07/16/24 at 11:30 with BENJIE Ellsworth. --Arrange outpatient colonoscopy at that time. To consider colestipol if all negative and stool still loose.
Subjective
Subjective
Date of Service: June 07, 2024
06/07 brown stool on 2 gram na diet pt concern for worsening nausea/vomiting and diarrhea over last 3 days
Objective
Data Reviewed
Laboratory Data:
Laboratory Results
06/07/24 06:02
06/07/24 06:02
Laboratory Results
Phosphorus 3.4 mg/dl (2.5-4.5) 06/03/24 05:54
Magnesium 1.9 mg/dl (1.6-2.3) 06/03/24 05:54
Total Bilirubin 0.3 mg/dl (0.2-1.3) 05/29/24 15:01
AST 17 U/L (14-36) 05/29/24 15:01
ALT 10 U/L (0-35) 05/29/24 15:01
Alkaline Phosphatase 89 U/L (38-126) 05/29/24 15:01
Lipase 33 U/L (23-300) 05/29/24 15:01
Vital Signs and I&O:
Vital Signs
Temp Pulse Resp BP Pulse Ox
98.4 F 69 16 137/58 91
06/07/24 07:15 06/07/24 07:15 06/07/24 08:28 06/07/24 07:15 06/07/24 08:28
I&O
06/06/24 06/07/24 06/08/24
06:59 06:59 06:59
Intake Total 1320 / 1320 780 / 780 720 / 720
Balance 1320 / 1320 780 / 780 720 / 720
Physical Exam
Physical Exam
HEENT: Anicteric and Moist mucous membranes
Cardiology: Normal Sinus Rhythm
Pulmonary: Clear
GI: Soft, Distended (mild ) and Tender (mild )
Extremities: No Edema
Neuro: Non Focal
[2024-06-07 15:03] VITALS: BP 115/47
[2024-06-07] MEDS: CITROMA 300 ML PO (15:30)
--- NOTE | 2024-06-07 15:45 | VNURNOTE ---
Home 02 info rec'ed by Pearl at [facility]. She confirmed will deliver portable 02 to bedside tomorrow.
[2024-06-07] MEDS: LOVENOX 40 MG SC (17:08)
[2024-06-07] MEDS: ZENPEP DELAYED RELEASE CAPSULE PO (17:08)
[2024-06-07] MEDS: DILAUDID 0.5 MG IV (20:56)
[2024-06-07 21:17] VITALS: BP 135/54
[2024-06-07 23:22] VITALS: BP 134/56
[2024-06-08 06:00] VITALS: BMI 19.8
[2024-06-08 06:39] LABS: Hematocrit 49.1 % (37.0-47.0); Hemoglobin 15.2 g/dL (12.0-16.0); Mean Corpuscular Volume 96.8 fL (81.0-99.0); Mean Platelet Volume 10.3 fL (7.4-10.4); Platelet Count 273 10^3/uL (130-400); Red Blood Cell Count 5.07 10^6/uL (4.20-5.40); Red Cell Dist. Width 13.8 % (11.5-14.5)
[2024-06-08 07:03] LABS: ALT (SGPT) 19 U/L (0-35); AST (SGOT) 27 U/L (14-36); Albumin 3.2 g/dl (3.5-5.0); Alkaline Phosphatase 64 U/L (38-126); Blood Urea Nitrogen 28 mg/dl (7-17); Calcium 8.3 mg/dl (8.4-10.2); Carbon Dioxide 34 mmol/L (22-30); Chloride 97 mmol/L (98-107); Estimated Creatinine Clearance 71 ml/min; Glucose 96 mg/dl (70-99); Potassium 3.3 mmol/L (3.5-5.1); Sodium 138 mmol/L (135-145); Total Bilirubin 0.3 mg/dl (0.2-1.3); Total Protein 5.5 g/dl (6.3-8.2); eGFR > 60.00
[2024-06-08 07:26] LABS: Magnesium 2.2 mg/dl (1.6-2.3)
[2024-06-08 07:30] VITALS: BP 131/45
[2024-06-08] MEDS: PROZAC 20 MG PO (07:37)
[2024-06-08] MEDS: KCL 40 MEQ PO (07:37)
[2024-06-08] MEDS: NICODERM TRANSDERMAL 14 MG TRANSDERM (07:37)
[2024-06-08] MEDS: METAMUCIL, KONSYL 1 PACKET PO (07:37)
[2024-06-08] MEDS: CARDURA 2 MG PO (07:37)
[2024-06-08] MEDS: PROTONIX 40 MG PO (07:37)
[2024-06-08] MEDS: LASIX 40 MG PO (07:37)
[2024-06-08] MEDS: TENORMIN 50 MG PO (07:38)
[2024-06-08] MEDS: ZESTRIL 20 MG PO ×2 (07:41→20:30)
[2024-06-08] MEDS: ZENPEP DELAYED RELEASE CAPSULE 1 CAPSULE PO ×2 (07:41→12:32)
[2024-06-08] MEDS: NON-FORMULARY ITEM 100 INH INH (07:59)
--- NOTE | 2024-06-08 10:23 | CM ---
Addendum entered by Leonora Pineda 06/08/24 13:02:
Alerted by [employer] that portable O2 ended up being delivered bedside
Original Note:
CM reviewed pt with Dr Pastrana- pt not ready for dc today
Pt now on precautions for norovirus
Update to [facility] and [employer] to cancel delivery of portable tank bedside today
Pt may require new home O2 eval prior to dc, will need to confirm with [employer]
Discharge Disposition- home with [facility] and new O2/[employer]
[2024-06-08] MEDS: TYLENOL 650 MG PO (10:56)
[2024-06-08] MEDS: DILAUDID 0.5 MG IV ×3 (12:32→23:17)
--- NOTE | 2024-06-08 13:27 | W.PN.HOSP.TC ---
Today's Communication/Plan
-
await patient to improve oral intake
will need O2 upon d/c
Assessment / Plan
Assessment / Plan
64yo F with PMHx of COPD, current smoker, anxiety, pancreatic insufficiency came with abdominal pain, mucoid stool with streaks of blood, small bowel biopsy in 2022 showed some vilous changes. CT showed distal descending and sigmoid colitis, nutmeg
appearance of the liver. Sigmoidoscopy done that showed sigmoid colitis with few large polyps that will have to be eventually removed during colonoscopy with as outpatient. CT abd showed some ASCVD, however no signs of mesenteric occlusion.
Echo also done 2/2 LE swelling and concern for HFpEF. Started on Lasix. Remained on low O2 and will require home O2 arrangement prior to d/c - now on 2L NC. Had more diarrhea and nausea so GI was called back as diarrhea reoccurred after cessation of
prednisone and with high calprotectin - cannot entirely exclude IBD
A/P
#Sigmoid colitis with diarrhea 2/[address] for mesenteric occlusion
Celiac panel neg
Calprotectin elevated
Stool Cx and C.diff neg
Patient able to keep down food and willing to eat. No need in IVF to avoid fluid overload. Monitor
#Hypokalemia 2/2 diarrhea
replete
#Metabolic alcalosis 2/2 diarrhea
follow bmp
#COPD with exacerbation
#Acute HFpEF exacerbation
#Nicotine dependency
#Acute on chronic hypoxic respiratory failure
Incentive spirometry
Bronchodilators
Prednisone completed
Lasix
Echo with preserved EF and no regional wall motion abnormality, no significatn valvular pathology
Incentive spirometry and Home O2 assessment - CM for home O2
Will need outpatient bill hiker
Smoking cessation advised
NicoDerm
#Essential HTN
Norvasc stopped, Lisinopril increased 2/2 LE edema
#Anxiety d/o
cont home meds
DVT ppx on Lovenox
Full code
I have spent at least 59min reviewing chart, tesrt results, communication with consultants and direct patient care
Anticipated Discharge: 24 - 48 hours
Subjective/Interval History
-
Date of Service: June 08, 2024
Objective Data
-
Labs:
Laboratory Results
06/08/24 06/08/24
06:07 06:08
WBC 10.0
Hgb 15.2
Hct 49.1 H
Plt Count 273
Sodium 138
Potassium 3.3 L
Chloride 97 L
Carbon Dioxide 34 H
BUN 28 H
Creatinine 0.6
Glucose 96
Calcium 8.3 L
Total Bilirubin 0.3
AST 27
ALT 19
Alkaline Phosphatase 64
Vital Signs:
Vital Signs
Temp Pulse Resp BP Pulse Ox
98.2 F 67 16 131/45 99
06/08/24 07:30 06/08/24 07:30 06/08/24 07:30 06/08/24 07:30 06/08/24 07:30
I&O
06/07/24 06/08/24 06/09/24
06:59 06:59 06:59
Intake Total 780 / 780 2880 / 2880
Balance 780 / 780 2880 / 2880
Review of Systems
-
History Source: Patient
All other systems: Reviewed and negative
Physical Exam
-
General: No Apparent Distress
HEENT: Normocephalic
Cardiac: Regular Rhythm
GI: Soft, Nondistended and Tender
Neuro: Awake, Alert, Oriented and AO x 3
Psych: Calm
[2024-06-08 14:34] LABS: Lipase 14 U/L (23-300)
--- NOTE | 2024-06-08 14:40 | W.PN.GI.CBS2 ---
Addendum entered and electronically signed by Lit Juarez MD 06/08/24 18:07:
I saw and examined the patient.
The CLINICAL SOCIAL WORKER or PA's note was reviewed and I agree with the note.
Comment: No further diarrhea. No n/v. Reports recurrence of abd pain, LLQ
ABD soft mild LLQ tender
REC:
cont diet
hold off on laxatives
Norovirus positive- hopefully sx resolving and can d/c soon.
OP GI follow up with Dr Howard for rectosigmoid polyps 10mm, 20mm
Original Note:
Today's Communication / Plan
-
+ norovirus 06/07-- symptoms improving but still with chronic LLQ pain with unclear etiology but going on for years
s/p flex with neg bx for IBD
cont diet as tolerated
fiber added 06/07
consider adding miralax if not improving
OP follow up scheduled with Fiorella ferreira for 07/16
Assessment / Plan
-
Etelvina is a 64-year-old female who over the past year has had more progressive left-sided lower abdominal pain especially when moving bowels along with 1-4 mucoid stools with even nocturnal symptoms who comes in with an elevated CRP, CT scan with
significant bowel wall thickening from the rectum to the descending concerning for new inflammatory bowel disease.She also has a history of pancreatic insufficiency on pancreatic enzymes, EUS concerning for chronic pancreatitis with no history of
acute pancreatitis, continued tobacco abuse, COPD and daily 3 glasses of wine prior to admission. She completed flex sig with neg bx and GI signed off. 06/07 noted with abdominal discomfort nausea, vomiting and bloating with diarrhea asked for
reconsult.
Followed by Dr. Howard outpatient for chronic diarrhea since September 2022 and a low fecal elastase without history of acute pancreatitis drinks 3 glasses of wine daily, chronic smoker
Diagnostic Image Results:
--- 06/2023, CT abdomen pelvis nonspecific jejunal small bowel wall thickening with fluid distention without gross dilation.
04/02/2024, CT abdomen pelvis severe bowel wall thickening with inflammatory change involving the proximal rectum sigmoid distal descending the remainder of the colon is normal. Multiple sigmoid diverticuli without diverticulitis
Prior GI Procedures:
05/31/2024 Flex Sig (Walp) Hemorrhoids found on perianal exam.
- One 10 mm polyp in the distal rectum. Resection not
attempted.
- One 20 mm large stalk pedunculated polyp at the
recto-sigmoid colon. Resection not attempted.
- Few small normal appearing diverticula in the left
colon.
- Altered vascular, congested and erythematous mucosa
from rectum to splenic flexure. Biopsied. Unlikely
ulcerative colitis or inflammatory bowel disease.
bx neg
01/30/2023 EUS did not show any mass lesions, soft tissue prominence at the ampulla biopsies were negative for malignancy, started on Creon with mild weight gain on part continues to drink and smoke
EGD/EUS: 12/2022 Dr. Howard for weight loss and evaluate ampulla-endoscopically normal esophagus no gross lesions in the stomach, duodenal mucosal atrophy duodenum shows reactive duodenopathy with patchy villous blunting, prominent Delia's gland
hyperplasia and mildly increased chronic inflammation. No intraepithelial lymphocytes, ampulla patchy villous blunting, no adenoma
EUS showed pancreatic parenchymal abnormalities consisting of hyperechoic strands in the head and body, no pathology of the common bile duct, 1 cm left lobe cyst, anechoic pancreatic head cyst that did not communicate with the pancreatic duct
measuring 9 mm x 9 mm with no associated mass, no specimens collected
Colonoscopy: 09/2022 Dr. Sanders indication is not mentioned: Good prep with difficulty due to restricted mobility of the colon. Left-sided diverticulosis, otherwise endoscopically normal. No biopsies taken
05/29/2024 CRP 44, sed rate 8, hemoglobin 15.4, platelets 347, glucose 112, creatinine 0.4, BUN 10, alkaline phosphatase 89, albumin 3.7, total bilirubin 0.3, AST 17, ALT 10, lipase 33, fecal calprotectin pending, C. difficile negative, stool
culture pending
09/2022 fecal calprotectin 22, no prior celiac panel
#bloating with concern for constipation with overflow
s/p mag citrate cleanse
# worsening nausea/vomiting and diarrhea 06/05
-norovirus + 06/07
-if continued symptoms pt with multiple new meds since admission
#Left lower quadrant pain with severe bowel wall thickening on CT scan
Etiology unclear -- ongoing symptoms for years -- suspected pelvic floor dysfunction vs spinal referred pain with severity vs other
with no prior IBD diagnosis and neg work up for IBD with flex
-- CRP trending down will repeat , stool calprotectin 143, C. difficile currently negative, culture negative
-- Flexible sigmoidoscopy, altered vasculature. + Polyps. Will need outpatient colonoscopy for removal.
-- flex results noted negative
--CTA Abd/Pelvis with patent KYARA
-- 2 gram Na diet
-- DVT prophylaxis
-- cont Creon
-- s/p mag citrate 06/07, fiber added 06/08
-- consider miralax if no improvement with fiber
--celiac neg but was noted with duodenal atrophy with villous blunting from prior procedure in December 2022
--discussed work up with PCP for Lower back issues if pain persists to exclude muscular component
-- no change post prandial to consider vascular component of pain with hx tobacco abuse
# chronic pancreatitis
cont Enzymes
--Outpatient follow up 07/16/24 at 11:30 with BENJIE Ellsworth. --Arrange outpatient colonoscopy at that time.
Subjective
Subjective
Date of Service: June 08, 2024
multiple stools overnight with mag citrate cleans
Objective
Data Reviewed
Laboratory Data:
Laboratory Results
06/08/24 06:07
06/08/24 06:08
Laboratory Results
Phosphorus 3.4 mg/dl (2.5-4.5) 06/03/24 05:54
Magnesium 2.2 mg/dl (1.6-2.3) 06/08/24 06:08
Total Bilirubin 0.3 mg/dl (0.2-1.3) 06/08/24 06:08
AST 27 U/L (14-36) 06/08/24 06:08
ALT 19 U/L (0-35) 06/08/24 06:08
Alkaline Phosphatase 64 U/L (38-126) 06/08/24 06:08
Lipase 14 U/L (23-300) L 06/08/24 06:08
Vital Signs and I&O:
Vital Signs
Temp Pulse Resp BP Pulse Ox
98.2 F 67 16 131/45 99
06/08/24 07:30 06/08/24 07:30 06/08/24 07:30 06/08/24 07:30 06/08/24 07:30
I&O
06/07/24 06/08/24 06/09/24
06:59 06:59 06:59
Intake Total 780 / 780 2880 / 2880
Balance 780 / 780 2880 / 2880
Physical Exam
Physical Exam
HEENT: Anicteric and Moist mucous membranes
Cardiology: Normal Sinus Rhythm
Pulmonary: Clear
GI: Soft, Distended (minimal ) and Tender (LLQ )
Extremities: No Edema
Neuro: Non Focal
[2024-06-08 15:50] VITALS: BP 113/53
[2024-06-08] MEDS: LOVENOX 40 MG SC (17:02)
[2024-06-08] MEDS: ZENPEP DELAYED RELEASE CAPSULE PO (17:02)
[2024-06-08 20:00] VITALS: BP 155/56
[2024-06-08 23:55] VITALS: BP 135/52
[2024-06-09] MEDS: TYLENOL 650 MG PO ×2 (04:14→08:41)
[2024-06-09 06:39] LABS: % Basophils 0.2 % (0-2); % Immature Granulocytes 0.6 % (0-0.5); % Lymphocytes 15.8 % (20.5-51.1); % Monocytes 12.2 % (1.7-9.3); % Neutrophils 70.2 % (42.2-75.2); Absolute Eosinophils 0.1 10^3/uL (0-0.7); Absolute Immature Granulocytes 0.1 10^3/uL (0-0.05); Absolute Lymphocytes 1.3 10^3/uL (1.2-3.4); Absolute Neutrophils 5.8 10^3/uL (1.4-6.5); Hematocrit 44.6 % (37.0-47.0); Hemoglobin 13.7 g/dL (12.0-16.0); Mean Corp Hgb Conc. 30.7 g/dL (33.0-37.0); Mean Corpuscular Volume 97.6 fL (81.0-99.0); Mean Platelet Volume 10.1 fL (7.4-10.4); Nucleated Red Blood Cells % 0 %; Platelet Count 239 10^3/uL (130-400); Red Blood Cell Count 4.57 10^6/uL (4.20-5.40); Red Cell Dist. Width 13.7 % (11.5-14.5); White Blood Cell Count 8.2 10^3/uL (4.8-10.8)
[2024-06-09 07:00] VITALS: BP 139/65
[2024-06-09 07:01] LABS: ALT (SGPT) 15 U/L (0-35); AST (SGOT) 16 U/L (14-36); Albumin 2.9 g/dl (3.5-5.0); Alkaline Phosphatase 53 U/L (38-126); Blood Urea Nitrogen 23 mg/dl (7-17); Calcium 8.2 mg/dl (8.4-10.2); Carbon Dioxide 33 mmol/L (22-30); Chloride 97 mmol/L (98-107); Direct Bilirubin 0.2 mg/dl (0.0-0.4); Estimated Creatinine Clearance 72 ml/min; Glucose 120 mg/dl (70-99); Magnesium 1.9 mg/dl (1.6-2.3); Potassium 3.7 mmol/L (3.5-5.1); Sodium 139 mmol/L (135-145); Total Bilirubin 0.2 mg/dl (0.2-1.3); Total Protein 5.1 g/dl (6.3-8.2); eGFR > 60.00
[2024-06-09] MEDS: NON-FORMULARY ITEM 1 INH INH (07:44)
[2024-06-09] MEDS: ZESTRIL 20 MG PO (08:19)
[2024-06-09] MEDS: ZENPEP DELAYED RELEASE CAPSULE 1 CAPSULE PO ×2 (08:19→12:26)
[2024-06-09] MEDS: LASIX 40 MG PO (08:25)
[2024-06-09] MEDS: NICODERM TRANSDERMAL 14 MG TRANSDERM (08:25)
[2024-06-09] MEDS: CARDURA 2 MG PO (08:26)
[2024-06-09] MEDS: TENORMIN 50 MG PO (08:26)
[2024-06-09] MEDS: PROTONIX 40 MG PO (08:26)
[2024-06-09] MEDS: PROZAC 20 MG PO (08:26)
[2024-06-09] MEDS: METAMUCIL, KONSYL 1 PACKET PO (08:27)
--- NOTE | 2024-06-09 11:40 | W.PN.HOSP.TC ---
Today's Communication/Plan
-
dc
Assessment / Plan
Assessment / Plan
64yo F with PMHx of COPD, current smoker, anxiety, pancreatic insufficiency came with abdominal pain, mucoid stool with streaks of blood, small bowel biopsy in 2022 showed some vilous changes. CT showed distal descending and sigmoid colitis similar
as the one in 2017, nutmeg appearance of the liver. Sigmoidoscopy done that showed sigmoid colitis with few large polyps that will have to be eventually removed during colonoscopy with as outpatient. CT abd showed some ASCVD, however no signs
of mesenteric occlusion. Echo also done 2/2 LE swelling and concern for HFpEF. Started on Lasix. Remained on low O2 and will require home O2 arrangement prior to d/c - now on 2L NC. Had more diarrhea and nausea so GI was called back as diarrhea
reoccurred and found Norovirus. Symptoms improved. Will need outpatient follow up by GI for her persistent sigmoid colitis. Biopsy results with normal mucosa. Diarrhea resolved
A/P
#Sigmoid colitis, persistent chronic with acute diarrhea 2/[address] neg for mesenteric occlusion
Celiac panel neg
Calprotectin elevated
Stool Cx and C.diff neg
Patient able to keep down food and willing to eat. No need in IVF to avoid fluid overload. Monitor
#Hypokalemia 2/2 diarrhea
replete
#Metabolic alkalosis 2/2 diarrhea
follow bmp
#COPD with exacerbation
#Acute HFpEF exacerbation
#Nicotine dependency
#Acute on chronic hypoxic respiratory failure
Incentive spirometry
Bronchodilators
Prednisone completed
Lasix
Echo with preserved EF and no regional wall motion abnormality, no significatn valvular pathology
Incentive spirometry and Home O2 assessment - CM for home O2
Will need outpatient real estate manager
Smoking cessation advised
NicoDerm
#Essential HTN
Norvasc stopped, Lisinopril increased 2/2 LE edema, Cr and potassium WNL. Cont current regimen upon d/c
#Anxiety d/o
cont home meds
DVT ppx on Lovenox
Full code
I have spent at least 39min reviewing chart, test results, communication with consultants and direct patient care
Anticipated Discharge: Today
Subjective/Interval History
-
Date of Service: June 09, 2024
Objective Data
-
Labs:
Laboratory Results
06/09/24
06:02
WBC 8.2
Hgb 13.7
Hct 44.6
Plt Count 239
Sodium 139
Potassium 3.7
Chloride 97 L
Carbon Dioxide 33 H
BUN 23 H
Creatinine 0.6
Glucose 120 H
Calcium 8.2 L
Total Bilirubin 0.2
AST 16
ALT 15
Alkaline Phosphatase 53
Vital Signs:
Vital Signs
Temp Pulse Resp BP Pulse Ox
97.7 F 72 16 139/65 98
06/09/24 07:00 06/09/24 08:26 06/09/24 07:50 06/09/24 08:26 06/09/24 07:50
I&O
06/08/24 06/09/24 06/10/24
06:59 06:59 06:59
Intake Total 2880 / 2880 1000 / 1000
Balance 2880 / 2880 1000 / 1000
Review of Systems
-
History Source: Patient
All other systems: Reviewed and negative
Abdomen/GI: Reports Abdominal Pain (LLQ)
Physical Exam
-
General: No Apparent Distress
HEENT: Normocephalic
Respiratory: Clear to Auscultation
Cardiac: Regular Rhythm
GI: Soft, Nondistended and Tender (LLQ)
Neuro: Awake, Alert, Oriented and AO x 3
Psych: Calm
--- NOTE | 2024-06-09 11:50 | W.DCSUMMARY ---
Discharge Summary
Discharge Data
Date of Admission: 05/29/24
Date of Discharge: 06/09/24
-
Pending Results: No
Hospital Course
64yo F with PMHx of COPD, current smoker, anxiety, pancreatic insufficiency came with abdominal pain, mucoid stool with streaks of blood, small bowel biopsy in 2022 showed some vilous changes. CT showed distal descending and sigmoid colitis similar
as the one in 2017, nutmeg appearance of the liver. Sigmoidoscopy done that showed sigmoid colitis with few large polyps that will have to be eventually removed during colonoscopy with as outpatient. CT abd showed some ASCVD, however no signs
of mesenteric occlusion. Echo also done 2/2 LE swelling and concern for HFpEF. Started on Lasix. Remained on low O2 and CM arranged home O2 - tank in the room, patient instucted to call to vendor before d/c to arrange concentrator delivery. Had more
diarrhea and nausea so GI was called back as diarrhea reoccurred and found Norovirus. Symptoms improved. Will need outpatient follow up by GI for her persistent sigmoid colitis. Biopsy results with normal mucosa. Diarrhea resolved
I have spent at least 39min reviewing chart, test results, communication with consultants and direct patient care
Patient was managed for:
#Sigmoid colitis, persistent chronic with acute diarrhea 2/2 norovirus
#Hypokalemia 2/2 diarrhea
#Metabolic alkalosis 2/2 diarrhea
#COPD with exacerbation
#Acute HFpEF exacerbation
#Nicotine dependency
#Acute on chronic hypoxic respiratory failure
#Essential HTN
#Anxiety d/o
Discharge Plan
-
Patient Disposition: Home (Routine Discharge)
Discharge Diagnosis/Procedures: diarrhea 2/2 norovirus
Diet: Low Fat
Activity: As tolerated
Driving Restrictions: As prior to admission
Referrals:
Fiorella Pa CRNP [Specified Professional Personl] - 07/16/24 11:30 am
Caterina Sharpe MD [Family Provider] - in less than 1 week (repeat BMP blood work)
Nicholas Baxter MD [Active] - in two to four weeks
Prescriptions:
New
furosemide 40 mg Tablet
40 mg PO DAILY Qty: 30 0RF
lisinopril 20 mg Tablet
20 mg PO BID Qty: 30 0RF
Continued
fluoxetine 20 MG capsule
20 mg PO DAILY
diazepam 5 MG tablet
5 mg PO DAILYPRN PRN (Reason: anxiety)
albuterol sulfate 90 mcg/actuation Hfa Aerosol Inhaler
1 puff INHALATION R Q4HPRN PRN (Reason: SoB)
doxazosin 2 mg Tablet
2 mg PO DAILY
Creon 24,000-76,000 -120,000 unit Capsule,Delayed Release(Dr/Ec)
1 cap PO TID
atenolol 50 mg tablet
50 mg PO DAILY
Trelegy Ellipta 100-62.5-25 mcg blister with device
1 inh INHALATION R DAILY
Discharge Date and Time
Print Language: YORUBA
--- NOTE | 2024-06-09 12:59 | CM ---
CM reviewed chart and noted dc order
Bedside meeting with pt
Plan remains home with [facility] and new home O2 through [employer]
Per [employer]- home O2 eval from 06/07 remains valid
Pt has already alerted spouse
IMM verbally completed- copy provided
Confirmed portable tank bedside
Discharge Disposition- home with [facility] and new O2 through [employer]
--- NOTE | 2024-06-09 13:27 | W.PN.GI.CBS2 ---
Today's Communication / Plan
-
OK for d/c
Has f/u OV 07/16 to set up colonoscopy to remove polyps
Assessment / Plan
-
Etelvina is a 64-year-old female who over the past year has had more progressive left-sided lower abdominal pain especially when moving bowels along with 1-4 mucoid stools with even nocturnal symptoms who comes in with an elevated CRP, CT scan with
significant bowel wall thickening from the rectum to the descending concerning for new inflammatory bowel disease.She also has a history of pancreatic insufficiency on pancreatic enzymes, EUS concerning for chronic pancreatitis with no history of
acute pancreatitis, continued tobacco abuse, COPD and daily 3 glasses of wine prior to admission. She completed flex sig with neg bx and GI signed off. 06/07 noted with abdominal discomfort nausea, vomiting and bloating with diarrhea asked for
reconsult.
Followed by Dr. Howard outpatient for chronic diarrhea since September 2022 and a low fecal elastase without history of acute pancreatitis drinks 3 glasses of wine daily, chronic smoker
Diagnostic Image Results:
--- 06/2023, CT abdomen pelvis nonspecific jejunal small bowel wall thickening with fluid distention without gross dilation.
04/02/2024, CT abdomen pelvis severe bowel wall thickening with inflammatory change involving the proximal rectum sigmoid distal descending the remainder of the colon is normal. Multiple sigmoid diverticuli without diverticulitis
Prior GI Procedures:
05/31/2024 Flex Sig (Walp) Hemorrhoids found on perianal exam.
- One 10 mm polyp in the distal rectum. Resection not
attempted.
- One 20 mm large stalk pedunculated polyp at the
recto-sigmoid colon. Resection not attempted.
- Few small normal appearing diverticula in the left
colon.
- Altered vascular, congested and erythematous mucosa
from rectum to splenic flexure. Biopsied. Unlikely
ulcerative colitis or inflammatory bowel disease.
bx neg
01/30/2023 EUS did not show any mass lesions, soft tissue prominence at the ampulla biopsies were negative for malignancy, started on Creon with mild weight gain on part continues to drink and smoke
EGD/EUS: 12/2022 Dr. Howard for weight loss and evaluate ampulla-endoscopically normal esophagus no gross lesions in the stomach, duodenal mucosal atrophy duodenum shows reactive duodenopathy with patchy villous blunting, prominent Delia's gland
hyperplasia and mildly increased chronic inflammation. No intraepithelial lymphocytes, ampulla patchy villous blunting, no adenoma
EUS showed pancreatic parenchymal abnormalities consisting of hyperechoic strands in the head and body, no pathology of the common bile duct, 1 cm left lobe cyst, anechoic pancreatic head cyst that did not communicate with the pancreatic duct
measuring 9 mm x 9 mm with no associated mass, no specimens collected
Colonoscopy: 09/2022 Dr. Sanders indication is not mentioned: Good prep with difficulty due to restricted mobility of the colon. Left-sided diverticulosis, otherwise endoscopically normal. No biopsies taken
05/29/2024 CRP 44, sed rate 8, hemoglobin 15.4, platelets 347, glucose 112, creatinine 0.4, BUN 10, alkaline phosphatase 89, albumin 3.7, total bilirubin 0.3, AST 17, ALT 10, lipase 33, fecal calprotectin pending, C. difficile negative, stool
culture pending
09/2022 fecal calprotectin 22, no prior celiac panel
#bloating with concern for constipation with overflow
s/p mag citrate cleanse
# worsening nausea/vomiting and diarrhea 06/05
-norovirus + 06/07
#Left lower quadrant pain with severe bowel wall thickening on CT scan
Etiology unclear -- ongoing symptoms for years -- suspected pelvic floor dysfunction vs spinal referred pain with severity vs other
with no prior IBD diagnosis and neg work up for IBD with flex
-- CRP trending down will repeat , stool calprotectin 143, C. difficile currently negative, culture negative
-- Flexible sigmoidoscopy, altered vasculature. + Polyps. Will need outpatient colonoscopy for removal.
-- flex results noted negative
--CTA Abd/Pelvis with patent KYARA
-- 2 gram Na diet
-- DVT prophylaxis
-- cont Creon
-- s/p mag citrate 06/07, fiber added 06/08
-- consider miralax if no improvement with fiber
--celiac neg but was noted with duodenal atrophy with villous blunting from prior procedure in December 2022
--discussed work up with PCP for Lower back issues if pain persists to exclude muscular component
-- no change post prandial to consider vascular component of pain with hx tobacco abuse
# chronic pancreatitis
cont Enzymes
--Outpatient follow up 07/16/24 at 11:30 with BENJIE Ellsworth. --Arrange outpatient colonoscopy at that time.
Subjective
Subjective
Date of Service: June 09, 2024
Chronic LLQ pain improved today. No other complaints. No diarrhea or vomiting
Objective
Data Reviewed
Laboratory Data:
Laboratory Results
06/09/24 06:02
06/09/24 06:02
Laboratory Results
Phosphorus 3.4 mg/dl (2.5-4.5) 06/03/24 05:54
Magnesium 1.9 mg/dl (1.6-2.3) 06/09/24 06:02
Total Bilirubin 0.2 mg/dl (0.2-1.3) 06/09/24 06:02
AST 16 U/L (14-36) 06/09/24 06:02
ALT 15 U/L (0-35) 06/09/24 06:02
Alkaline Phosphatase 53 U/L (38-126) 06/09/24 06:02
Lipase 14 U/L (23-300) L 06/08/24 06:08
Vital Signs and I&O:
Vital Signs
Temp Pulse Resp BP Pulse Ox
97.7 F 72 16 139/65 98
06/09/24 07:00 06/09/24 08:26 06/09/24 07:50 06/09/24 08:26 06/09/24 07:50
I&O
06/08/24 06/09/24 06/10/24
06:59 06:59 06:59
Intake Total 2880 / 2880 999 / 1000
Balance 2880 / 2880 999 / 999
Physical Exam
Physical Exam
GI: Soft, Non Distended and Non Tender
[2024-06-09] MEDS: DILAUDID 0.5 MG IV (15:21)
[2024-06-09 15:40] VITALS: BP 142/64
== END 2024-06-09 20:50 | disposition home health service (06) | DRG 391 ==
LOC: 3 WEST ACU 21:28
PROVIDERS: Internal Medicine; Nurse Practitioner Adult Health; ADMITTING PHYSICIAN Hospitalist; ATTENDING PHYSICIAN Internal Medicine; CONSULT PHYSICIAN Internal Medicine; EMERGENCY PHYSICIAN Emergency Medicine; FAMILY PHYSICIAN Family Medicine
PROC: 0DBN8ZX Excision of Sigmoid Colon, Via Natural or Artificial Opening Endoscopic, Diagnostic (ICD-10-PCS; 2024-05-31)
DX: A08.11 Acute gastroenteropathy due to Norwalk agent (principal); I50.33 Acute on chronic diastolic (congestive) heart failure; J96.21 Acute and chronic respiratory failure with hypoxia; K86.1 Other chronic pancreatitis; E87.3 Alkalosis; J44.1 Chronic obstructive pulmonary disease with (acute) exacerbation; K55.1 Chronic vascular disorders of intestine; F17.200 Nicotine dependence, unspecified, uncomplicated; A09 Infectious gastroenteritis and colitis, unspecified; K64.9 Unspecified hemorrhoids; D12.7 Benign neoplasm of rectosigmoid junction; K63.89 Other specified diseases of intestine; E87.6 Hypokalemia; I11.0 Hypertensive heart disease with heart failure; F41.9 Anxiety disorder, unspecified; K86.89 Other specified diseases of pancreas
CPT/HCPCS: 88305; 71046; 74018; 74174; 74177; 76700; 80048; 80053; 81003; 81015; 82248; 82784; 82962; 83516; 83690; 83735; 83880; 83993; 84100; 85025; 85027; 85652; 86140; 86231; 87045; 87046; 87077; 87086; 87324; 87427; 87449; 87798; 87811; 93306; 93975; 94640; 96361; 96374; 99285; 99406; Q9967

== ENCOUNTER → 2024-06-24 16:03 | Outpatient (REF) | payer MEDICARE, SELFPAY ==
[2024-06-24 17:04] LABS: % Basophils 0.2 % (0-2); % Eosinophils 0.5 % (0-6); % Immature Granulocytes 0.8 % (0-0.5); % Lymphocytes 7.9 % (20.5-51.1); % Monocytes 7.2 % (1.7-9.3); % Neutrophils 83.4 % (42.2-75.2); Absolute Eosinophils 0.1 10^3/uL (0-0.7); Absolute Immature Granulocytes 0.1 10^3/uL (0-0.05); Absolute Lymphocytes 0.9 10^3/uL (1.2-3.4); Absolute Monocytes 0.9 10^3/uL (0.1-0.6); Absolute Neutrophils 9.9 10^3/uL (1.4-6.5); Hematocrit 38.4 % (37.0-47.0); Hemoglobin 12.6 g/dL (12.0-16.0); Mean Corp Hgb Conc. 32.8 g/dL (33.0-37.0); Mean Corpuscular Hgb 29.4 pg (27.0-31.0); Mean Corpuscular Volume 89.7 fL (81.0-99.0); Mean Platelet Volume 10.2 fL (7.4-10.4); Nucleated Red Blood Cells % 0 %; Platelet Count 458 10^3/uL (130-400); Red Blood Cell Count 4.28 10^6/uL (4.20-5.40); Red Cell Dist. Width 13.7 % (11.5-14.5); White Blood Cell Count 11.9 10^3/uL (4.8-10.8)
[2024-06-24 17:09] LABS: Erythrocyte Sed Rate 40 mm/hour (0-20)
== END ==
LOC: REG 16:03
PROVIDERS: ATTENDING PHYSICIAN Registered Nurse; FAMILY PHYSICIAN Family Medicine; OTHER PHYSICIAN Internal Medicine Gastroenterology
DX: R10.32 Left lower quadrant pain (principal); M25.552 Pain in left hip; R50.9 Fever, unspecified
CPT/HCPCS: 36415; 73502; 85025; 85652; 86140

== ENCOUNTER 2024-06-26 01:50 | Inpatient (IN) | payer MEDICARE, SELFPAY ==
[2024-06-25 16:33] VITALS: BP 118/46
--- NOTE | 2024-06-25 16:37 | ED.GENMED ---
ED Provider Triage
<Astrid Davis PA-C - Last Filed: 06/25/24 16:43>
-
Patient seen by provider in Triage?: Seen in Triage
Attestation: A medical screening examination has been initiated by a qualified medical provider. Based on the assessment performed at this time, it has been determined that an emergent medical condition may exist and the patient has been informed
that further medical evaluation and possible additional diagnostic testing may be needed.
HPI: 64yoF here with ongoing abdominal pain. Also having loss of appetite and new fever x 4 days. Recently hospitalized for similar complaints. CT last month showed severe colitis. Underwent colonoscopy and biopsies normal.
GENERAL: Alert , in no apparent distress
EYE: No visual abnormalities.
NECK: Trachea midline
ENT: No visible abnormalities.
LUNGS: No acute respiratory distress
NEUROLOGICAL: Alert and oriented
SKIN: Skin intact. No visible changes.
MUSCULOSKELETAL: Moving extremities normally
PSYCH: Normal and appropriate interaction.
This is a medical evaluation conducted in person to initiate diagnostic evaluation and provide initial therapeutics. Please see further documentation by the treating clinician.
Abdominal labs, UA, and COVID/flu testing ordered. Will defer imaging in triage as she had multiple CT scans last month.
History of Present Illness
<Astrid Davis PA-C - Last Filed: 06/25/24 16:43>
General
Chief Complaint: Abnormal Lab Value
Time Seen by Provider: 06/25/24 18:02
<Albino Mayo Jr., PA-C - Last Filed: 06/25/24 23:31>
General
Source: patient and spouse
Exam Limitations: none
Nursing documentation reviewed up to this point in time: agreed with
History of Present Illness
History of Present Illness:
64-year-old female past medical history of hypertension, chronic abdominal pain with unclear cause presenting to the emergency department today with concerns of left lower quadrant abdominal pain has been going ongoing for multiple years somewhat
worse today. Has been trying Tylenol at home without relief. Has had extensive workups for similar discomforts in the past without any obvious cause there was some inflammation to the sigmoid and that of having sigmoidoscopy showing polyps but no
specific explanation of symptoms. She was advised for outpatient follow-up for this but otherwise unclear treatment plan. She also did have a course of norovirus 2 weeks ago. She claims she may have had a fever off and on over the past week but
denies in the last few days.
Past History
<Astrid Davis PA-C - Last Filed: 06/25/24 16:43>
Past History
ED Past Surgical History: Appendectomy and Gynecological (Hysterectomy, abdominal Sarcoplexi)
Social History
Tobacco: Smoker
Alcohol: None
Drug: None
Review of Systems
<Albino Mayo Jr., PA-C - Last Filed: 06/25/24 23:31>
Review of Systems
Allergies reviewed?: Yes
All Other Systems: ROS reviewed and negative except as documented in HPI and ROS
Phy Exam
<Albino Mayo Jr., PA-C - Last Filed: 06/25/24 23:31>
Physical Exam
Physical Exam:
GENERAL: Alert , in no apparent distress
EYE: pupils equal and reactive
NECK: Supple, no significant adenopathy.
ENT: o/p clr, mmm.
CARDIAC: Regular rate and rhythm .
LUNGS: Clear breath sounds bilaterally, no acute respiratory distress, no wheezes/rales/rhonchi
ABDOMEN: Tenderness and voluntary guarding to the left lower quadrant of the abdomen
NEUROLOGICAL: Alert and oriented, no focal neuro deficits
SKIN: Warm and dry, skin intact.
MUSCULOSKELETAL: No edema, well perfused.
PSYCH: Normal and appropriate interaction.
Course
<Astrid Davis PA-C - Last Filed: 06/25/24 16:43>
Orders/Labs/Results
Orders:
Orders
06/25/24 16:43
COVID-19 Antigen Urgent
Source: Nasal Swab
Complete Blood Count/With Diff Urgent
Comprehensive Metabolic Panel Urgent
Lipase Urgent
Influenza A+B Rapid Molecular Urgent
JORDIN Source: Nasal Swab
Specimen Description:
06/25/24 18:34
HYDROmorphone [Dilaudid] 0.5 mg IV NOW STA
06/25/24 19:04
Potassium Chloride [KCl] 20 meq PO NOW STA
06/25/24 19:12
CT Abd/Pel (IV only)-DH only Urgent
Comment:
Reason For Exam: llq pain
06/25/24 19:14
Urinalysis Reflex To Culture Urgent
Date Specimen was Collected: 06/25/24
Time Specimen was Collected: 19:12
Urine Microscopic Reflex Cult Urgent
Urine Culture Urgent
JORDIN Source: U
Specimen Description:
Date Specimen was Collected: 06/25/24
Time Specimen was Collected: 19:12
06/25/24 20:57
Acetaminophen [Tylenol] 1,000 mg PO NOW STA
Ketorolac [Toradol] 15 mg IV NOW STA
06/25/24 23:26
Piperacillin/Tazo 3.375 Gram [Zosyn] 3.375 gram in 50 ml IV NOW
Abnormal Lab Results
06/25/24 06/25/24
16:43 19:14
MCHC 32.0 L g/dL
(33.0-37.0)
Plt Count 488 H 10^3/uL
(130-400)
Absolute Neuts (auto) 8.8 H 10^3/uL
(1.4-6.5)
Absolute Lymphs (auto) 0.7 L 10^3/uL
(1.2-3.4)
Absolute Monos (auto) 0.7 H 10^3/uL
(0.1-0.6)
Neutrophils % 85.8 H %
(42.2-75.2)
Lymphocytes % 6.3 L %
(20.5-51.1)
Potassium 2.8 L mmol/L
(3.5-5.1)
Chloride 97 L mmol/L
(98-107)
Creatinine 0.5 L mg/dL
(0.6-1.0)
Glucose 125 H mg/dl
(70-99)
Total Protein 5.8 L g/dl
(6.3-8.2)
Albumin 3.1 L g/dl
(3.5-5.0)
Lipase 18 L U/L
(23-300)
Ur Occult Blood Reflex Trace A
(Negative)
Urine Bilirubin 1+ A
(Negative)
Leukocyte Esterase Rfl 2+ A
(Negative)
Urine WBC (Reflex) 11-15 A /HPF
(0-5)
Urine Bacteria (Reflex) Few A
(Negative)
06/25/24 16:43
06/25/24 16:43
Vital Signs
Initial and Last Documented VS:
Initial Vital Signs
Temp Pulse Resp BP Pulse Ox
98.2 F 74 20 118/46 95
06/25/24 16:33 06/25/24 16:33 06/25/24 16:33 06/25/24 16:33 06/25/24 16:33
Last Documented Vital Signs
Temp Pulse Resp BP Pulse Ox
98.8 F 71 19 132/49 92
06/25/24 22:11 06/25/24 22:15 06/25/24 22:15 06/25/24 22:00 06/25/24 22:00
<Albino Mayo Jr., PA-C - Last Filed: 06/25/24 23:31>
Orders/Labs/Results
Orders:
Orders
06/25/24 16:43
COVID-19 Antigen Urgent
Source: Nasal Swab
Complete Blood Count/With Diff Urgent
Comprehensive Metabolic Panel Urgent
Lipase Urgent
Influenza A+B Rapid Molecular Urgent
JORDIN Source: Nasal Swab
Specimen Description:
06/25/24 18:34
HYDROmorphone [Dilaudid] 0.5 mg IV NOW STA
06/25/24 19:04
Potassium Chloride [KCl] 20 meq PO NOW STA
06/25/24 19:12
CT Abd/Pel (IV only)-DH only Urgent
Comment:
Reason For Exam: llq pain
06/25/24 19:14
Urinalysis Reflex To Culture Urgent
Date Specimen was Collected: 06/25/24
Time Specimen was Collected: 19:12
Urine Microscopic Reflex Cult Urgent
Urine Culture Urgent
JORDIN Source: U
Specimen Description:
Date Specimen was Collected: 06/25/24
Time Specimen was Collected: 19:12
06/25/24 20:57
Acetaminophen [Tylenol] 1,000 mg PO NOW STA
Ketorolac [Toradol] 15 mg IV NOW STA
06/25/24 23:26
Piperacillin/Tazo 3.375 Gram [Zosyn] 3.375 gram in 50 ml IV NOW
Abnormal Lab Results
06/25/24 06/25/24
16:43 19:14
MCHC 32.0 L g/dL
(33.0-37.0)
Plt Count 488 H 10^3/uL
(130-400)
Absolute Neuts (auto) 8.8 H 10^3/uL
(1.4-6.5)
Absolute Lymphs (auto) 0.7 L 10^3/uL
(1.2-3.4)
Absolute Monos (auto) 0.7 H 10^3/uL
(0.1-0.6)
Neutrophils % 85.8 H %
(42.2-75.2)
Lymphocytes % 6.3 L %
(20.5-51.1)
Potassium 2.8 L mmol/L
(3.5-5.1)
Chloride 97 L mmol/L
(98-107)
Creatinine 0.5 L mg/dL
(0.6-1.0)
Glucose 125 H mg/dl
(70-99)
Total Protein 5.8 L g/dl
(6.3-8.2)
Albumin 3.1 L g/dl
(3.5-5.0)
Lipase 18 L U/L
(23-300)
Ur Occult Blood Reflex Trace A
(Negative)
Urine Bilirubin 1+ A
(Negative)
Leukocyte Esterase Rfl 2+ A
(Negative)
Urine WBC (Reflex) 11-15 A /HPF
(0-5)
Urine Bacteria (Reflex) Few A
(Negative)
06/25/24 16:43
06/25/24 16:43
Vital Signs
Initial and Last Documented VS:
Initial Vital Signs
Temp Pulse Resp BP Pulse Ox
98.2 F 74 20 118/46 95
06/25/24 16:33 06/25/24 16:33 06/25/24 16:33 06/25/24 16:33 06/25/24 16:33
Last Documented Vital Signs
Temp Pulse Resp BP Pulse Ox
98.8 F 71 19 132/49 92
06/25/24 22:11 06/25/24 22:15 06/25/24 22:15 06/25/24 22:00 06/25/24 22:00
<Albino Mayo Jr., PADavid - Last Filed: 06/25/24 23:31>
MDM/Problems Addressed
MDM/Problems Addressed:
64-year-old female presenting to the emergency department with recurrent left lower quadrant abdominal pain. Has had this off and on for a year. Vital signs are normal on arrival no white count potassium is low 2.8 was recently started on Lasix
when she has some fluid overload after she restarted on steroids. She will otherwise be given supplemental potassium. Otherwise patient claims to have worsening left lower quadrant abdominal pain. CT scan obtained that did show an abscess in the
iliac us possibly diverticular. Case discussed with colorectal medicine the patient in the morning. Started on IV antibiotics admitted in stable condition.
<Albino Mayo Jr., PA-C - Last Filed: 06/25/24 23:31>
*Critical Care Note
Total Time (30-74mins, 75-104mins- exclusive of procedures): Not Applicable
ED Attending Note
<Astrid Davis PA-C - Last Filed: 06/25/24 16:43>
-
Portions of this chart may have been created with voice recognition software.� Occasional wrong word or��sound alike� substitutions may have occurred due to the inherent limitations of voice recognition software.
Discharge Plan
Departure
Patient Disposition: Admit
Date of Disposition: 06/25/24
Time of Disposition: 23:30
Admit to: Med/Surg
Admit to doctor: Artemio
Presentation/result/management discussed w/ accepting MD/DO: Hospitalist
Patient with high blood pressure during this ER visit?: No
Condition: Good
Covid-19: Not Applicable
Discharge Problem:
Acute hypokalemia, Intra-abdominal abscess
Prescriptions:
No Action
fluoxetine 20 MG capsule
20 mg PO DAILY
diazepam 5 MG tablet
5 mg PO DAILYPRN PRN (Reason: anxiety)
albuterol sulfate 90 mcg/actuation Hfa Aerosol Inhaler
1 puff INHALATION R Q4HPRN PRN (Reason: SoB)
doxazosin 2 mg Tablet
2 mg PO DAILY
Creon 24,000-76,000 -120,000 unit Capsule,Delayed Release(Dr/Ec)
1 cap PO TID
atenolol 50 mg tablet
50 mg PO DAILY
Trelegy Ellipta 100-62.5-25 mcg blister with device
1 inh INHALATION R DAILY
furosemide 40 mg Tablet
40 mg PO DAILY Qty: 30 0RF
lisinopril 20 mg Tablet
20 mg PO BID Qty: 30 0RF
Referrals:
Caterina Sharpe MD [Family Provider] -
Interventions
Interventions:
*Risk Screen - Suicide Last Done: 06/25/24 18:50
*General Assessment Last Done: 06/25/24 16:33
*Neglect/Abuse Screening Last Done: 06/25/24 18:50
ED- Fall Risk Assessment Last Done: 06/25/24 18:51
*ED COVID-19 Vaccine History Last Done: 06/25/24 18:50
Discharge Date and Time
Print Language: CENTRAL AFRICAN
[2024-06-25 16:54] LABS: % Basophils 0.2 % (0-2); % Eosinophils 0.5 % (0-6); % Immature Granulocytes 0.4 % (0-0.5); % Lymphocytes 6.3 % (20.5-51.1); % Monocytes 6.8 % (1.7-9.3); % Neutrophils 85.8 % (42.2-75.2); Absolute Eosinophils 0.1 10^3/uL (0-0.7); Absolute Lymphocytes 0.7 10^3/uL (1.2-3.4); Absolute Monocytes 0.7 10^3/uL (0.1-0.6); Absolute Neutrophils 8.8 10^3/uL (1.4-6.5); Hematocrit 39.1 % (37.0-47.0); Hemoglobin 12.5 g/dL (12.0-16.0); Mean Corpuscular Hgb 28.9 pg (27.0-31.0); Mean Corpuscular Volume 90.5 fL (81.0-99.0); Mean Platelet Volume 9.6 fL (7.4-10.4); Nucleated Red Blood Cells % 0 %; Platelet Count 488 10^3/uL (130-400); Red Blood Cell Count 4.32 10^6/uL (4.20-5.40); Red Cell Dist. Width 13.5 % (11.5-14.5); White Blood Cell Count 10.3 10^3/uL (4.8-10.8)
[2024-06-25 17:12] LABS: COVID-19 Antigen Negative (Negative)
[2024-06-25 17:14] LABS: ALT (SGPT) 12 U/L (0-35); AST (SGOT) 18 U/L (14-36); Albumin 3.1 g/dl (3.5-5.0); Alkaline Phosphatase 100 U/L (38-126); Blood Urea Nitrogen 13 mg/dl (7-17); Calcium 8.6 mg/dl (8.4-10.2); Carbon Dioxide 30 mmol/L (22-30); Chloride 97 mmol/L (98-107); Glucose 125 mg/dl (70-99); Lipase 18 U/L (23-300); Potassium 2.8 mmol/L (3.5-5.1); Sodium 138 mmol/L (135-145); Total Bilirubin 0.4 mg/dl (0.2-1.3); Total Protein 5.8 g/dl (6.3-8.2); eGFR > 60.00
[2024-06-25 18:49] VITALS: BP 115/44
[2024-06-25 18:50] VITALS: BMI 19.8
[2024-06-25 19:19] LABS: Urine Albumin Trace (Neg - Trace); Urine Bilirubin 1+ (Negative); Urine Character Clear (Clear); Urine Color Yellow; Urine Glucose Negative (Negative); Urine Ketone Negative (Negative); Urine Leukocyte 2+ (Negative); Urine Nitrite Negative (Negative); Urine Occult Blood Trace (Negative); Urine Specific Gravity 1.015 (<1.030); Urine Urobilinogen 1+ (Neg - 1+)
[2024-06-25] MEDS: KCL 20 MEQ PO (19:27)
[2024-06-25] MEDS: DILAUDID 0.5 MG IV (19:28)
[2024-06-25 19:32] LABS: Urine Squamous Cell >30 /LPF (Few)
[2024-06-25 19:33] LABS: Urine Bacteria Few (Negative); Urine Red Blood Cell 0-2 /HPF (0-2)
[2024-06-25 19:34] VITALS: BP 112/64
[2024-06-25 20:12] VITALS: BP 119/50
[2024-06-25 21:00] VITALS: BP 125/51
[2024-06-25] MEDS: TYLENOL 1000 MG PO (21:03)
[2024-06-25] MEDS: TORADOL 15 MG IV (21:05)
[2024-06-25 22:00] VITALS: BP 132/49
[2024-06-26] VITALS (66 sets, daily range): BP systolic 80–159; BP diastolic 35–97
[2024-06-26] MEDS: DILAUDID 0.5 MG IV ×3 (00:06→20:07)
[2024-06-26] MEDS: ZOSYN 50 IV ×4 (00:09→19:46)
--- NOTE | 2024-06-26 01:34 | HPS.HSE ---
Family Physician
-
Family Physician: Caterina Sharpe
Chief Complaint
-
Abd pain, Fever / Chills
History of Present Illness
Patient is a 64y F with PMH significant for hypertension, anxiety and pancreatic insufficiency who presents to ED complaining of LLQ abdominal pain with fevers / chills. Patient was hospitalized at from 05/29 - 06/09 for similar complaints.
She has extensive evaluation during that stay including flex sig with biopsies (which were ultimately negative). Patient states that she did not feel particularly improved following discharge. She has had continued / increased pain in the LLQ / L
groin area. She notes shaking chills intermittently. With ongoing symptoms patient returned to the ED for further evaluation.
CT scan done in the ED today shows a large abscess in the LLQ adjacent to the sigmoid colon and abutting the L iliacus and psoas muscles.
Medical History
Past Medical History
Past Medical History: Reports Other
Additional Past Medical History:
Hypertension
COPD
Anxiety / Depression
Diverticular Disease
Colon Polyps
Pancreatic Insufficiency
Past Surgical History: Reports Other
Additional Past Surgical History:
Appendectomy
T&A
Hysterectomy
Bunionectomy
Sacral Colpopexy
Ovarian Cystectomy
Social History
Tobacco: Smoker (Current every day smoker. > 50 pack years total use.)
Alcohol: None
Drug: None
Family History
Family History: Not pertinent
Allergies / Home Medications
Allergies reflects when Allergies were last updated in [facility].
Home Medications with original date entered in [facility]
Allergy/Medication List:
Allergies
Allergy/AdvReac Type Severity Reaction Status Date / Time
metronidazole [From Flagyl] Allergy Unknown Verified 06/25/24 16:33
morphine Allergy SEE BELOW Verified 06/25/24 16:33
Sulfa (Sulfonamide Allergy Unknown Verified 06/25/24 16:33
Antibiotics)
Home Medications
diazepam 5 mg tablet 5 mg PO DAILYPRN PRN anxiety 04/26/20
fluoxetine 20 mg capsule 20 mg PO DAILY Depression 04/26/20
albuterol sulfate 90 mcg/actuation aerosol inhaler 1 puff inhalation R Q4HPRN PRN SoB 01/02/23
atenolol 50 mg tablet 50 mg PO DAILY Blood Pressure 05/29/24
fluticasone fur. 100 mcg-umeclid 62.5 mcg-vilant 25 mcg inhalat.powder (Trelegy Ellipta) 1 inh inhalation R DAILY Lung/Breathing Issues 05/29/24
furosemide 40 mg tablet 40 mg PO DAILY #30 tabs 06/09/24
cholecalciferol (vitamin D3) 50 mcg (2,000 unit) tablet (Vitamin D3) 50 mcg PO DAILY 06/25/24
doxazosin 4 mg tablet 2 mg PO DAILY 06/25/24
obaoei-blolgvqi-hjmxovw 12,000-38,000-60,000 unit capsule,delayed rel (Creon) 1 cap PO AC 06/25/24
lisinopril 20 mg tablet 20 mg PO Q48H 06/25/24
Review of Systems
-
History Source: Patient
A 12 point ROS was completed and negative except as noted: Yes
Constitutional: Reports Fever, Fatigue and Chills
EENT: Denies Sore Throat
Respiratory: Denies Cough or Trouble Breathing
Cardiac: Denies Chest Pain or Palpitations
Abdomen/GI: Reports Abdominal Pain; Denies Nausea, Vomiting, Diarrhea, Constipated, Bloody Stools or Black Stools
: Denies Dysuria, Frequency or Flank Pain
Musculoskeletal: Denies Joint Pain or Edema
Neurological: Denies Dizzy or Headache
Psych: Reports Anxiety; Denies Depression
Physical Exam
Vital Signs
Vital Signs
Temp Pulse Resp BP Pulse Ox
98.8 F 64 15 109/42 95
06/25/24 22:11 06/26/24 01:15 06/26/24 01:15 06/26/24 01:00 06/26/24 01:15
Physical Exam
General: Other (64y F in mild distress due to abdominal discomfort.)
HEENT: Moist mucous membranes and PERRLA
Respiratory: Clear; No Wheezes, Rales or Rhonchi
Cardiac: S1/S2 and Regular Rhythm; No Murmur
GI: Soft, Non Distended, Normal Bowel Sounds and Other (Pos tenderness in the LLQ without rebound / guarding.)
Musculoskeletal: No Clubbing, No Cyanosis and No Edema
Neuro: AO x 3
Laboratory Results
-
06/25/24 16:43
06/25/24 16:43
Laboratory Results
Total Bilirubin 0.4 mg/dl (0.2-1.3) 06/25/24 16:43
AST 18 U/L (14-36) 06/25/24 16:43
ALT 12 U/L (0-35) 06/25/24 16:43
Alkaline Phosphatase 100 U/L (38-126) 06/25/24 16:43
Lipase 18 U/L (23-300) L 06/25/24 16:43
Impression/Plan
-
A/P: Patient is a 64y F with PMH significant for hypertension, anxiety / depression and pancreatic insufficiency who presents to ED complaining of ongoing / recurrent LLQ abdominal pain - now with fevers / chills.
Intra-Abdominal Abscess
- Admit for further evaluation and treatment.
- CT scan done today shows 12 x 6 x 5 cm abscess adjacent to the sigmoid colon and involving the L iliacus and psoas muscles - consistent with patient's pain syndrome.
- IV abx with Zosyn for now.
- Colorectal Surgery evaluation - will require abscess drainage via surgical or IR route.
- Follow up culture data.
- Follow for clinical improvement.
Sigmoid Colitis
Colon Polyps
- Biopsies taken on 05/31 flex sig were negative for IBD.
- Two large polyps noted - plan for future follow-up / removal.
- Given abscess adjacent to sigmoid - may benefit from sigmoidectomy instead?
Hypokalemia
- Likely secondary to loop diuretic use +/- GI losses.
- Hold further Lasix - patient does not appear grossly volume overloaded.
- Initially gained a great deal of weight after IV steroids administered during prior admission.
- PO replacement and follow for improvement in K levels.
- Check magnesium.
Benign Hypertension
- Stable. BP controlled in the ED - despite patient noting that she has not been taking Lasix / lisinopril at home.
- Continue atenolol with holding parameters.
- Hold other meds for now and follow BP.
COPD without Acute Exacerbation
Tobacco Use Disorder
- Stable.
- Continue Trelegy. Albuterol nebs PRN.
- O2 support if needed.
- Encourage smoking cessation.
Pancreatic Insufficiency
- Decreased frequency of stools since beginning Creon - though still 5 BM per day.
- Hold Creon while NPO - resume once tolerating diet.
Anxiety / Depression
- Continue fluoxetine.
DVT Prophylaxis: SCDs
Code Status: Full
[2024-06-26] MEDS: KCL 40 MEQ PO (03:08)
[2024-06-26 06:20] LABS: Hematocrit 38.2 % (37.0-47.0); Mean Corp Hgb Conc. 31.4 g/dL (33.0-37.0); Mean Corpuscular Hgb 29.2 pg (27.0-31.0); Mean Corpuscular Volume 92.9 fL (81.0-99.0); Mean Platelet Volume 9.7 fL (7.4-10.4); Platelet Count 432 10^3/uL (130-400); Red Blood Cell Count 4.11 10^6/uL (4.20-5.40); Red Cell Dist. Width 13.6 % (11.5-14.5)
[2024-06-26 06:45] LABS: Blood Urea Nitrogen 16 mg/dl (7-17); Calcium 8.2 mg/dl (8.4-10.2); Carbon Dioxide 35 mmol/L (22-30); Chloride 97 mmol/L (98-107); Estimated Creatinine Clearance 71 ml/min; Glucose 100 mg/dl (70-99); Magnesium 1.7 mg/dl (1.6-2.3); Potassium 3.5 mmol/L (3.5-5.1); Sodium 138 mmol/L (135-145); eGFR > 60.00
[2024-06-26] MEDS: PROZAC 20 MG PO (08:06)
[2024-06-26] MEDS: TENORMIN 50 MG PO (08:06)
[2024-06-26] MEDS: TYLENOL 650 MG PO ×3 (08:14→21:24)
--- NOTE | 2024-06-26 08:17 | W.PN.HOSP.TC ---
Today's Communication/Plan
-
N.p.o.
IV fluids per
Antibiotics per
Colorectal/interventional radiology consultation with plan for left lower quadrant aspiration
Assessment / Plan
Assessment / Plan
Impression:
Patient is a 64y F with PMH significant for hypertension, anxiety / depression and pancreatic insufficiency who presents to ED complaining of ongoing / recurrent LLQ abdominal pain - now with fevers / chills.
Left lower quadrant collection with concern for abscess
Recent sigmoid colitis positive for norovirus.
Hypokalemia.
Other conditions:
Essential hypertension
COPD.
Pancreatic insufficiency/chronic diarrhea
Anxiety/depression
Tobacco use disorder.
Plan:
Left lower quadrant collection with concern for abscess.
Recent episode of sigmoid colitis at that time PCR positive for norovirus.
Recent sigmoidoscopy unrevealing for chronic inflammatory bowel disease. 2 large polyps noted with plan for future follow-up/removal
CT scan in ED shows 12 x 6 x 5 cm abscess adjacent to sigmoid colon and involving the left iliac us and psoas muscles consistent with patient's left lower quadrant pain on presentation.
Patient reports fever at home.
Exam with left lower quadrant tenderness.
Overall nontoxic-appearing
She does have normal WBC with left shift
Colorectal/interventional radiology consult with plan for left lower quadrant aspiration.
N.p.o.
Zosyn
Hypokalemia
- Likely secondary to loop diuretic use +/- GI losses.
- Hold further Lasix - patient does not appear grossly volume overloaded.
- Initially gained a great deal of weight after IV steroids administered during prior admission.
- PO replacement and follow for improvement in K levels.
- Check magnesium.
Benign Hypertension
- Stable. BP controlled in the ED - despite patient noting that she has not been taking Lasix / lisinopril at home.
- Continue atenolol with holding parameters.
- Hold other meds for now and follow BP.
COPD without Acute Exacerbation
Tobacco Use Disorder
- Stable.
- Continue Trelegy. Albuterol nebs PRN.
- O2 support if needed.
- Encourage smoking cessation.
Pancreatic Insufficiency
- Decreased frequency of stools since beginning Creon - though still 5 BM per day.
- Hold Creon while NPO - resume once tolerating diet.
Anxiety / Depression
- Continue fluoxetine.
DVT Prophylaxis: SCDs
Code Status: Full
Anticipated Discharge: > 48 hours
Subjective/Interval History
-
Date of Service: June 26, 2024
Objective Data
-
Labs:
Laboratory Results
06/26/24
06:08
WBC 10.0
Hgb 12.0
Hct 38.2
Plt Count 432 H
Sodium 138
Potassium 3.5
Chloride 97 L
Carbon Dioxide 35 H
BUN 16
Creatinine 0.6
Glucose 100 H
Calcium 8.2 L
Vital Signs:
Vital Signs
Temp Pulse Resp BP Pulse Ox
100.3 F 75 22 122/52 98
06/26/24 08:09 06/26/24 08:06 06/26/24 08:00 06/26/24 08:06 06/26/24 08:00
Physical Exam
-
General: No Apparent Distress
HEENT: Normocephalic
Respiratory: Clear to Auscultation
Cardiac: Regular Rhythm
GI: Soft, Nondistended and Tender (LLQ)
Neuro: Awake, Alert, Oriented and AO x 3
Psych: Calm
[2024-06-26] MEDS: SYMBICORT 80/4.5 MCG INHALER 2 PUFF INH ×2 (08:41→20:57)
[2024-06-26] MEDS: SPIRIVA RESPIMAT 2.5 MCG 2 PUFF INH (08:41)
--- NOTE | 2024-06-26 11:28 | W.PN.UPDATE ---
Update Note
Progress Note Update
Patient is now tachycardic with rigors
Noted with increased oxygen requirements saturating mid 90s on 6 L of oxygen nasal cannula.
With no bronchospasm on exam, although splinting with abdominal pain. Nursing reports fluctuating oxygen requirements from 2 to 6 L
Recent echo with normal biventricular function.
Persistent left lower quadrant pain.
Concern for developing sepsis
Repeat CBC/BMP/lactic acid
Blood cultures
Continue IV fluids monitor for developing hypotension
With hypoxia low threshold for CT PE evaluation
Discussed with colorectal surgery and interventional radiology. Pending percutaneous abscess drain.
Monitor in IMU
[2024-06-26] MEDS: 0.45% NACL with KCL 20 MEQ 1000 IV ×2 (12:02→19:46)
--- NOTE | 2024-06-26 12:21 | CON.CRS ---
Consultation
-
Date/Time Consultation Requested: 06/26/24 0217
Date/Time Consultation Performed: 06/26/24 1115
Requesting Provider: Artemio
Reason for Consultation: Lary-Sigmoid Abscess
Medical History
-
Chief Complaint: abdominal pain
History of Present Illness:
Ms Estrella is a 64 yo female with a h/o COPD, HTN, appendectomy, sacral colpopexy, osiris, ovarian cystectomy and diverticular disease who presented through the ED with worsening abdominal discomfort. She was admitted approximately 1 month ago with
colitis and was followed by gastroenterology at that time. She tested positive for norovirus and did have sigmoidoscopy earlier that admission with removal of one 10mm and one 20mm polyp with diverticular disease noted and biopsy negative for IBD.
She eventually showed signs of clinical improvement and was able to be discharged. She presents with increasing LLQ tenderness and pain. She denies nausea and vomiting. At time of exam, she was noted to be cyanotic and hypoxic with respiratory
distress and circumoral cyanosis with rigors noted. She is overall a poor historian due to the acuity of her illness. On exam, the abdomen is nondistended with focal tenderness to the LLQ without rebound, rigidity or guarding.
Past Medical History
Past Medical History: COPD, HTN and Other (diverticular disease, polyps)
Past Surgical History: Appendectomy, Gynecological (OSIRIS, ovarian cystectomy), Orthopedic (bunionectomy), Tonsilectomy and Urological (sacral colpopexy)
Social History
Tobacco: Former Smoker (quit 2 weeks ago, heavy smoker previously)
Alcohol: None
Personal:
Living: With Family
Family History
Family History: Reviewed & Not Pertinent
Allergies / Home Medications
Allergy/AdvReac Type Severity Reaction Status Date / Time
metronidazole [From Flagyl] Allergy Unknown Verified 06/25/24 16:33
morphine Allergy SEE BELOW Verified 06/25/24 16:33
Sulfa (Sulfonamide Allergy Unknown Verified 06/25/24 16:33
Antibiotics)
�Medication �Instructions �Recorded �Confirmed �Type
diazepam 5 mg tablet 5 mg PO DAILYPRN PRN anxiety 04/26/20 06/25/24 History
fluoxetine 20 mg capsule 20 mg PO DAILY Depression 04/26/20 06/25/24 History
albuterol sulfate 90 mcg/actuation 1 puff inhalation R Q4HPRN PRN SoB 01/02/23 06/25/24 History
aerosol inhaler
atenolol 50 mg tablet 50 mg PO DAILY Blood Pressure 05/29/24 06/25/24 History
fluticasone fur. 100 mcg-umeclid 1 inh inhalation R DAILY 05/29/24 06/25/24 History
62.5 mcg-vilant 25 mcg Lung/Breathing Issues
inhalat.powder (Trelegy Ellipta)
furosemide 40 mg tablet 40 mg PO DAILY #30 tabs 06/09/24 06/25/24 Rx
cholecalciferol (vitamin D3) 50 50 mcg PO DAILY 06/25/24 06/25/24 History
mcg (2,000 unit) tablet (Vitamin
D3)
doxazosin 4 mg tablet 2 mg PO DAILY 06/25/24 06/25/24 History
xvfunq-axeyrquu-spelegg 1 cap PO AC 06/25/24 06/25/24 History
12,000-38,000-60,000 unit
capsule,delayed rel (Creon)
lisinopril 20 mg tablet 20 mg PO Q48H 06/25/24 06/25/24 History
Review of Systems
-
Unable to obtain full review of systems at this time due to: Acuity
History Source: Patient
All other systems: Negative unless noted
A 10 point review of systems was completed, and was negative except as per HPI.
Physical Exam
Vital Signs
Temp 103.2 F H 06/26/24 11:38
Pulse 124 06/26/24 11:30
Resp Rate 17 06/26/24 10:00
Blood pressure 159/71 06/26/24 11:00
SaO2 98 06/26/24 11:15
06/25/24 06/26/24 06/27/24
06:59 06:59 06:59
Actual Weight 49 kg
Body Mass Index (BMI) 19.8
Lab Results / Allergies
WBC 10.0 10^3/uL (4.8-10.8) 06/26/24 06:08
Hgb 12.0 g/dL (12.0-16.0) 06/26/24 06:08
Hct 38.2 % (37.0-47.0) 06/26/24 06:08
Plt Count 432 10^3/uL (130-400) H 06/26/24 06:08
Abs Immat Gran (auto) 0.0 10^3/uL (0-0.05) 06/25/24 16:43
Neutrophils % 85.8 % (42.2-75.2) H 06/25/24 16:43
Allergy/AdvReac Type Severity Reaction Status Date / Time
metronidazole [From Flagyl] Allergy Unknown Verified 06/25/24 16:33
morphine Allergy SEE BELOW Verified 06/25/24 16:33
Sulfa (Sulfonamide Allergy Unknown Verified 06/25/24 16:33
Antibiotics)
Physical Exam
General: Respiratory Distress and Chills (rigors); Negative No Apparent Distress or Comfortable
HEENT: Other (cyanotic lips)
Respiratory: Accessory Resp Muscle Use; Negative Non Labored Respirations
GI: Soft, Non Distended and Tender (LLQ)
Skin: Warm and Dry
Neuro: Awake, Alert and AO x 3
Psych: Other (anxious)
Assessment / Plan
-
Ms Estrella is a 64 yo female with a h/o COPD, HTN, appendectomy, sacral colpopexy, osiris, ovarian cystectomy and diverticular disease who presented through the ED with worsening abdominal discomfort. She was admitted approximately 1 month ago with
colitis and was followed by gastroenterology at that time. She tested positive for norovirus and did have sigmoidoscopy earlier that admission with removal of one 10mm and one 20mm polyp with diverticular disease noted and biopsy negative for IBD.
She eventually showed signs of clinical improvement and was able to be discharged. S
he presents with increasing LLQ tenderness and pain. She denies nausea and vomiting. At time of exam, she was noted to be cyanotic and hypoxic with respiratory distress and circumoral cyanosis with rigors noted. She is overall a poor historian due
to the acuity of her illness. On exam, the abdomen is nondistended with focal tenderness to the LLQ without rebound, rigidity or guarding. Low grade fevers present with tachycardia. CT imaging with a large peridiverticular abscess which has extended
into the adjacent left iliacus muscle present. Suspect secondary to diverticulitis.
Plan:
Keep NPO for bowel rest
Discussed with IR, will plan drainage of abscess
Continue IV abx
Analgesics/antiemetics as needed
Medical management as per primary team, notified Dr. Lawler after exam of her acute respiratory distress with CTA of chest now pending to r/o PE
[2024-06-26 12:27] LABS: Hemoglobin 12.5 g/dL (12.0-16.0); Mean Corp Hgb Conc. 32.1 g/dL (33.0-37.0); Mean Corpuscular Hgb 29.3 pg (27.0-31.0); Mean Corpuscular Volume 91.3 fL (81.0-99.0); Platelet Count 456 10^3/uL (130-400); Red Blood Cell Count 4.27 10^6/uL (4.20-5.40); Red Cell Dist. Width 13.9 % (11.5-14.5); White Blood Cell Count 8.1 10^3/uL (4.8-10.8)
[2024-06-26 12:38] LABS: Lactic Acid 2.2 mmol/L (0.7-2.0)
[2024-06-26 12:42] LABS: Blood Urea Nitrogen 15 mg/dl (7-17); Calcium 8.5 mg/dl (8.4-10.2); Carbon Dioxide 30 mmol/L (22-30); Chloride 99 mmol/L (98-107); Estimated Creatinine Clearance 71 ml/min; Glucose 90 mg/dl (70-99); Potassium 3.7 mmol/L (3.5-5.1); Sodium 139 mmol/L (135-145); eGFR > 60.00
--- NOTE | 2024-06-26 12:46 | EDRN ---
delay in note d/t pt care. after colo rectal was at bedside and placed pt on 6L NC. MD Atwood went to bedside. placed orders. pt seemed more confused however aaox3. temp rechecked x2 and pt temp 103.2. Made aware and order placed for Tylenol.
pt admit status changed to IMU i/o tele. telephone engineer made aware. new IVR established. labs drawn and sent. pt taken down to 4LNC with spo2 > 95%. pt placed on bedpan s/t attempting to get OOB to use bathroom despite this rn reinforcing pt to stay in bed
d/t o2 level.. pt states 'my O2 always drops then comes back up, I want to go to the bathroom'. pt with only a few drops of brown liquid stool. meds administered. pt taken to IR on monitor.
[2024-06-26 13:08] LABS: Absolute Neutrophils -Man Diff 7.5 10^3/uL (1.4-6.5); Anisocytosis 1+; Band Neutrophils 13 % (0-3); Eosinophils 2 % (0-6); Hypochromasia 1+; Lymphocytes 5 % (20-51); Normal RBC Morphology No; Platelets Checked Yes; Polychromasia 1+; Segmented Neutrophils 80 % (42-75); Total Cells Counted 100
--- NOTE | 2024-06-26 15:24 | EDRN ---
pt c/o wet sheets from sweating d.t breaking fever. linens changed. pts BP dropping to 80's/40's. pt remains mentating well @ this time. on and off bedpan with small amount of liquid brown stool. MD mckenna and House provider TT'ed regarding change
in VS, and paged for orders. family at bedside.
[2024-06-26] MEDS: NSS 1500 IV (15:39)
[2024-06-26 16:10] LABS: Lactic Acid 1.4 mmol/L (0.7-2.0)
[2024-06-26] MEDS: LEVOPHED 250 IV (16:52)
--- NOTE | 2024-06-26 18:15 | PTCARENOTE ---
Pt arrived to Rm [id number] via stretcher from ER. Pt awake and talkative at time of arrival. Anxious. Pt received w/ Levophed gtt infusing at 2mcg/min. POx 96% on O2 at 2l/min via NC. Pt denies c/o pain.
--- NOTE | 2024-06-26 19:41 | PHA.VAN.IN ---
Assessment
- Assessment
Renal Function: Appears similar to baseline
Concomitant Antimicrobials: Piperacillin/Tazobactam
AUC Dosing Plan
- Dosing Variables
Dosing Weight (kg): 49
Dosing CrCl (ml/min): 71
Vd coefficient (L/kg): 0.7
- Empiric Dosing
Initial / Loading Dose: Vanco 1250mg Loading Dose Given 06/26/24
Maintenance Regimen: Vanco 500mg Q12H Starting 06/27/24 at 0600
Estimated AUC (mcg*h/mL): 475
Estimated Peak (mcg*h/mL): 27.4
Estimated Trough (mcg/ml): 13.6
Estimated Half Life (H): 17.26
- Monitoring
No levels ordered at this time: Consider in the next few days
Pharmacokinetics Vancomycin I
- -
Patient Age: 64
Patient Sex: Female
Vancomycin Day #: 1
Indication: Gi / Intra-Abdominal
Requesting Provider: ADITHYA VICTORIA
Pertinent Antimicrobial Allergies:
Metronidazole - Unknown
Sulfa - Unknown
Height / Weight:
Height 5 ft 2 in
Actual Weight 49 kg
Pertinent Past Medical History: Enteritis, Abdominal Abcess
- Vital Signs / Lab Results
Temp Pulse Resp BP Pulse Ox
97.8 F 74 22 106/57 95
06/26/24 16:59 06/26/24 19:00 06/26/24 19:00 06/26/24 19:00 06/26/24 19:00
Lab Results - Hematology
06/25/24 06/26/24 06/26/24
16:43 06:08 12:00
WBC 10.3 10.0 8.1
Band Neutrophils 13 H
Lab Results - Chemistry
06/25/24 06/26/24 06/26/24
16:43 06:08 12:00
BUN 13 16 15
Creatinine 0.5 L 0.6 0.6
Estimated Creat Clear 71 71
Albumin 3.1 L
06/26/24 06/26/24
12:00 15:45
Lactic Acid 2.2 H 1.4
Lab Results - Urine
06/25/24
19:14
Urine Nitrite (Reflex) Negative
Leukocyte Esterase Rfl 2+ A
Urine WBC (Reflex) 11-15 A
Ur Squamous Epith Cells >30
Urine Bacteria (Reflex) Few A
Microbiology Results
06/25/24 19:14 Urine Culture - Final
Urine
06/25/24 16:43 Influenza Types A & B (RUBI) - Final
Nasal Swab Negative for Influenza A & B, NAAT
Negative results must be combined with clinical observations
and patient history.
Nucleic Acid Amplification test (NAAT)performed on the
[employer] platform.
[2024-06-26] MEDS: HEPARIN 5000 UNITS SC (19:47)
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
[2024-06-26] MEDS: VANCOCIN 275 MG IV (21:11)
--- NOTE | 2024-06-26 23:59 | PTCARENOTE ---
Levophed weaned to off ~2100. BP stable. Assisted pt. to bedside commode. Had another loose/mucus green BM. Pt reports feeling better. Was bathed with CHG, linens changed. Was given tylenol ~0 and pt. reports pain improved.
[2024-06-27] VITALS (30 sets, daily range): BP systolic 110–135; BP diastolic 45–78; BMI 20.4
[2024-06-27] MEDS: ZOSYN 50 IV ×4 (00:55→17:43)
[2024-06-27] MEDS: TYLENOL 650 MG PO ×4 (02:35→20:50)
[2024-06-27] MEDS: VALIUM 2 MG PO (04:32)
[2024-06-27 04:56] LABS: % Basophils 0.2 % (0-2); % Eosinophils 0.9 % (0-6); % Immature Granulocytes 0.7 % (0-0.5); % Lymphocytes 3.4 % (20.5-51.1); % Monocytes 2.8 % (1.7-9.3); Absolute Eosinophils 0.2 10^3/uL (0-0.7); Absolute Immature Granulocytes 0.1 10^3/uL (0-0.05); Absolute Lymphocytes 0.6 10^3/uL (1.2-3.4); Absolute Monocytes 0.5 10^3/uL (0.1-0.6); Absolute Neutrophils 16.4 10^3/uL (1.4-6.5); Hematocrit 35.8 % (37.0-47.0); Hemoglobin 11.7 g/dL (12.0-16.0); Mean Corp Hgb Conc. 32.7 g/dL (33.0-37.0); Mean Corpuscular Hgb 30.2 pg (27.0-31.0); Mean Corpuscular Volume 92.3 fL (81.0-99.0); Mean Platelet Volume 10.2 fL (7.4-10.4); Nucleated Red Blood Cells % 0 %; Platelet Count 435 10^3/uL (130-400); Red Blood Cell Count 3.88 10^6/uL (4.20-5.40); Red Cell Dist. Width 13.8 % (11.5-14.5); White Blood Cell Count 17.9 10^3/uL (4.8-10.8)
[2024-06-27 05:01] LABS: INR 1.23; PT 15.7 Sec (11.4-14.6)
[2024-06-27 05:18] LABS: Blood Urea Nitrogen 15 mg/dl (7-17); Calcium 7.9 mg/dl (8.4-10.2); Carbon Dioxide 27 mmol/L (22-30); Chloride 103 mmol/L (98-107); Estimated Creatinine Clearance 73 ml/min; Glucose 85 mg/dl (70-99); Potassium 3.1 mmol/L (3.5-5.1); Sodium 141 mmol/L (135-145); eGFR > 60.00
--- NOTE | 2024-06-27 05:20 | PTCARENOTE ---
Pt. restless and anxious throughout the night. Only slept for a short time. Requested diazepam, as she takes this at home. 2mg PO administered. C/O mod-severe pain in L hip but after 0.5mg dilaudid dose last night, pt. felt disoriented and forgetful
of recent events. Discussed with THEATRICAL VARIETY AGENT- dose decreased to 0.25mg. Pt. ringing call cho multiple times for different requests. Has pulled out 2 IVs overnight and another one dislodged. Two new #20s placed L AC and L wrist. IVF continue infusing per
orders. Levo remains off, BP stable, 110s/60s. HR 60s. Up multiple times to bedside commode to have small loose BMs. Reassured pt. about current condition, support given. AM labs drawn and sent. Monitoring
[2024-06-27] MEDS: KCL ELIXIR 40 MEQ PO (05:44)
[2024-06-27] MEDS: 0.45% NACL with KCL 20 MEQ 1000 IV ×2 (05:45→18:00)
[2024-06-27] MEDS: VANCOCIN HCL 500 MG 100 IV (05:58)
[2024-06-27] MEDS: TENORMIN 50 MG PO (08:14)
[2024-06-27] MEDS: HEPARIN 5000 UNITS SC ×2 (08:14→20:13)
[2024-06-27] MEDS: PROZAC 20 MG PO (08:20)
[2024-06-27] MEDS: SPIRIVA RESPIMAT 2.5 MCG 2 PUFF INH (08:21)
[2024-06-27] MEDS: SYMBICORT 80/4.5 MCG INHALER 2 PUFF INH ×2 (08:21→19:18)
--- NOTE | 2024-06-27 08:39 | PHA.VAN.FU ---
Vancomycin Assessment / Plan
- Assessment
Renal Function: Stable
WBC's are: Trending Up (8.1->17.9)
In the past 24 hrs, patient has been: Febrile (103.2 on 06/26 11:38)
Concomitant Antimicrobials: piperacillin/tazo
- Dosing Plan
Continue: vancomycin 500 mg q12h - first dose 06/27 0600
- Monitoring Plan
No level(s) ordered at this time: consider levels after 4th maint. dose
- Follow Up
Pharmacy will continue to follow.
Vancomycin Follow UP
- -
Patient Age: 64
Patient Sex: Female
Vancomycin Day #: 2
Indication: Gi / Intra-Abdominal
Requesting Provider: ADITHYA VICTORIA
Pertinent Antimicrobial Allergies:
Metronidazole - Unknown
Sulfa - Unknown
Height / Weight:
Height 5 ft 2 in
Actual Weight 50.6 kg
Pertinent Past Medical History: Enteritis, Abdominal Abcess
- Vital Signs / Lab Results
Temp Pulse Resp BP Pulse Ox
98.1 F 74 16 122/52 93
06/27/24 03:24 06/27/24 08:28 06/27/24 08:28 06/27/24 08:14 06/27/24 08:28
Lab Results - Hematology
06/25/24 06/26/24 06/26/24
16:43 06:08 12:00
WBC 10.3 10.0 8.1
Band Neutrophils 13 H
06/27/24
04:31
WBC 17.9 H
Band Neutrophils
Lab Results - Chemistry
06/25/24 06/26/24 06/26/24
16:43 06:08 12:00
BUN 13 16 15
Creatinine 0.5 L 0.6 0.6
Estimated Creat Clear 71 71
Albumin 3.1 L
06/27/24
04:31
BUN 15
Creatinine 0.6
Estimated Creat Clear 73
Albumin
06/26/24 06/26/24
12:00 15:45
Lactic Acid 2.2 H 1.4
Microbiology Results
06/26/24 13:05 Gram Stain - Preliminary
Abscess
06/25/24 19:14 Urine Culture - Final
Urine
06/25/24 16:43 Influenza Types A & B (RUBI) - Final
Nasal Swab Negative for Influenza A & B, NAAT
Negative results must be combined with clinical observations
and patient history.
Nucleic Acid Amplification test (NAAT)performed on the
[employer] platform.
--- NOTE | 2024-06-27 09:31 | CON.INTV ---
Consultation
Consultation Request
Date/Time Consultation Requested: 06/27/2024
Date/Time Consultation Performed: 06/27/2024
Requesting Provider: Dr. Park
Performing Provider: Dr. Nicholas Santiago
Reason for Consultation: Sepsis/intra-abdominal abscess
Medical History
-
History of Present Illness:
64-year-old woman with past medical history significant for hypertension, anxiety, tobacco abuse, pancreatic insufficiency who presented to the emergency room complaining of left lower quadrant abdominal pain associated with fevers and chills. In
reviewing records recently hospitalized in May for similar complaints. At that time underwent evaluation including sigmoidoscopy with negative results. Subsequently improved and she was discharged.
Left lower quadrant pain and groin area discomfort slowly progressed to the point that it was very uncomfortable. Also reports some intermittent chills.
Return to the ED for evaluation on 06/25/2024. CT abdomen pelvis demonstrated large abscess in the left lower quadrant adjacent to the sigmoid abutting the psoas muscle.
She developed chills, increased work of breathing and high-grade fevers-she was transferred to the critical care unit for possible impending septic shock.
Underwent interventional radiology percutaneous drainage of the abscess with improvement.
This morning denies shortness of breath.
Did not require vasopressors
Denies nausea or vomiting.
Tolerated the procedure well
Past Medical History
Past Medical History: Other (See assessment and plan)
Social History
Tobacco: Smoker (Trying to quit-at least 29-ykrl-nfba history)
Alcohol: None
Drug: None
Living: With Family
Family History
Family History: Reviewed & Not Pertinent
Allergies / Home Medications
Allergies
Allergy/AdvReac Type Severity Reaction Status Date / Time
metronidazole [From Flagyl] Allergy Unknown Verified 06/25/24 16:33
morphine Allergy SEE BELOW Verified 06/25/24 16:33
Sulfa (Sulfonamide Allergy Unknown Verified 06/25/24 16:33
Antibiotics)
Home Medications
�Medication �Instructions �Recorded �Confirmed �Last Taken �Type
diazepam 5 mg tablet 5 mg PO DAILYPRN PRN anxiety 04/26/20 06/25/24 Unknown History
fluoxetine 20 mg capsule 20 mg PO DAILY Depression 04/26/20 06/25/24 05/29/24 History
albuterol sulfate 90 mcg/actuation 1 puff inhalation R Q4HPRN PRN SoB 01/02/23 06/25/24 Unknown History
aerosol inhaler
atenolol 50 mg tablet 50 mg PO DAILY Blood Pressure 05/29/24 06/25/24 05/29/24 History
fluticasone fur. 100 mcg-umeclid 1 inh inhalation R DAILY 05/29/24 06/25/24 05/29/24 History
62.5 mcg-vilant 25 mcg Lung/Breathing Issues
inhalat.powder (Trelegy Ellipta)
furosemide 40 mg tablet 40 mg PO DAILY #30 tabs 06/09/24 06/25/24 Unknown Rx
cholecalciferol (vitamin D3) 50 50 mcg PO DAILY 06/25/24 06/25/24 Unknown History
mcg (2,000 unit) tablet (Vitamin
D3)
doxazosin 4 mg tablet 2 mg PO DAILY 06/25/24 06/25/24 Unknown History
znqfqd-owkxevid-bcdukpm 1 cap PO AC 06/25/24 06/25/24 Unknown History
12,000-38,000-60,000 unit
capsule,delayed rel (Creon)
lisinopril 20 mg tablet 20 mg PO Q48H 06/25/24 06/25/24 Unknown History
Review of Systems
-
History Source: Patient
All other systems: Negative unless noted
Vitals / Labs / Diagnostic Testing
Vital Signs
Temp Pulse Resp BP Pulse Ox
98.1 F 74 16 122/52 93
06/27/24 03:24 06/27/24 08:28 06/27/24 08:28 06/27/24 08:14 06/27/24 08:28
Lab Data
06/27/24 04:31
06/27/24 04:31
Laboratory Results
06/27/24
04:31
PT 15.7 H
INR 1.23
APTT 41.0 H
Microbiology
06/26/24 13:05 Abscess Wound Culture - Preliminary
06/26/24 13:05 Abscess Gram Stain - Preliminary
06/25/24 19:14 Urine Urine Culture - Final
06/25/24 16:43 Nasal Swab Influenza Types A & B (RUBI) - Final
Negative for Influenza A & B, NAAT
Negative results must be combined with clinical observations
and patient history.
Nucleic Acid Amplification test (NAAT)performed on the
[employer] platform.
Diagnostic Testing:
Physical Exam
-
HEENT: Normocephalic
Cardiovascular: S1/S2
Respiratory: Clear and Non-Labored Respirations
GI: Soft, Non Distended and Other (Abdominal drainage in place-serosanguineous fluid.)
Neurology: Awake, Alert and Oriented
Skin: Warm
General: Comfortable
Assessment
-
Sepsis
Fever/leukocytosis/chills
Intra-abdominal abscess
CT abdomen pelvis: Reviewed, CT scan done today shows 12 x 6 x 5 cm abscess adjacent to the sigmoid colon and involving the L iliacus and psoas muscles.
Abdominal pain secondary to above-resolved
History of sigmoid colitis-colon polyps status post sigmoidoscopy 05/31/2024 biopsy negative
Hypokalemia
Condition present prior admission:
Hypertension
Tobacco abuse
COPD without acute exacerbation
On Trelegy, follows with Dr. Santiago
Anxiety/depression
Pancreatic insufficiency-on Creon
Assessment and plan:
Clinically improved after percutaneous drainage.
Hemodynamically stable, not tachycardic.
Did not require vasopressors.
Responded to IV fluid resuscitation, antibiotics and source control.
-
No longer febrile-Tmax was 103 �F
Follow fever curve and leukocytosis.
Follow surgical recommendations
Follow drain output-currently abdominal exam is benign.
Continue antibiotics
-
N.p.o. per surgical indication
Hypokalemia-status post repletion
Gentle hydration
Repeat BMP at noon
-
COPD without exacerbation
Wean off oxygen for mentation as able.
Incentive spirometry
Continue inhalers
Follows with Dr. Santiago
Smoking cessation-nicotine patch ordered
-
Analgesia with narcotics: Monitor respiratory status closely.
-
DVT prophylaxis subcu heparin
-
No additional recommendation from the critical care perspective.
Continue with above care
If remains stable then transferred to telemetry as potassium has been repleted.
If transfer out of the ICU later today, critical care team will sign off.
[2024-06-27] MEDS: NICODERM TRANSDERMAL 14 MG TRANSDERM (11:00)
--- NOTE | 2024-06-27 11:10 | PTCARENOTE ---
Complete assessment done this am, and documented in worklist. Pt seen by Dr Park and Dr Santiago. Pt SR as per monitor. Levophed drip remains off since last evening, BP presently 118/55. HR SR. Pt weaned to R/A, o2 sat=93%, lobes clear,
diminished at bases. Pt presently NPO with sips of water. Pt has had liq brown diarrhea on commode x4 this morning. Dr Park aware. Abd sl tender On Left side, L abd, NICOLE drain to bulb suctioned emptied for 20 ml of serous sang drainage. Pt
voiding without difficulty in commode. Teeth brushed, pt now resting comfortably in bed, call cho at side.
--- NOTE | 2024-06-27 11:51 | CON.ID ---
Consultation
-
Date/Time Consultation Requested: June 27, 2024 1031
Date/Time Consultation Performed: June 27, 2024 1150
Requesting Provider: Dr. Garrison Park
Performing Provider: Dr. Jody Mercado
Reason for Consultation: Abdominal abscess
Chief Complaint / Past History
Chief Complaint
Abdominal pain
History of Present Illness
64-year-old female with COPD, pancreatic insufficiency, chronic diarrha who presented to the hospital June 25 with worsening left lower quadrant abdominal pain. Patient states she has intermittent left lower quadrant abdominal pain for years
but getting worse over the pat few months. In March 2024 CAT scan showed severe thickening of the descending and and sigmoid colon. GI recommend flex sig which she cancelled because she felt better. She was recently admitted to the hospital
from May 29 to June 09 for the abdominal pain. CAT scan showed persistent sigmoid colitis. She underwent flex sigmoidoscopy with unremarkable biopsies. During that hospital stay she developed worsening diarrhea and tested positive for
norovirus on June 07. Diarrhea improved and she was discharged. LLQ abd pain recurred and severe. She had fever and chills. She presented back to the hospital on June 25. CAT scan now shows a large mass/abscess in the left iliacus
muscle. June 26 she spiked temperature 103.2. Her white count increased to 17.9. Yesterday she underwent CT-guided drainage of the abscess with 100 cc purulent fluid aspirated and drain left in place. Today, abd pain a little better. No N/V.
Chronic diarrhea stable.
Past History
Additional Past Medical History:
COPD
Hypertension
Pancreatic insufficiency
Chronic diarrhea
Diverticulosis
Anxiety/depression
Appendectomy
Ovarian cystectomy
Hysterectomy
Bunionectomy
Sacral colpopexy
Allergy History:
metronidazole [From Flagyl] Allergy (Verified 06/25/24 16:33)
Unknown
morphine Allergy (Verified 06/25/24 16:33)
SEE BELOW
Sulfa (Sulfonamide Antibiotics) Allergy (Verified 06/25/24 16:33)
Unknown
Medications Reviewed: Yes
Current Antibiotics:
Vancomycin
Zosyn
Social History
Tobacco: Smoker
Alcohol: None
Drug: None
Family History
Family History: Not Pertinent
Review of Systems
Review of Systems
General: Fever, Chills and Change in Appetite
HEENT: Negative Sinus Problems, Headache or Pharyngitis
Cardiovascular: Negative Chest Pain or Dyspnea
Respiratory: Negative Dyspnea or Cough
Gasteroenterology: Negative Nausea or Vomiting
Genital / Urological: Negative Dysuria or Flank Pain
Endocrine: Weakness
Neurological: Negative Dizziness
All systems: All other systems were reviewed and were negative
Vital Signs
Temp Pulse Resp BP Pulse Ox
97.8 F 61 21 118/55 94
06/27/24 10:59 06/27/24 11:15 06/27/24 11:15 06/27/24 11:00 06/27/24 11:15
Selected Entries
06/26/24
11:38
Temp 103.2 F H
Physical Exam
Physical Exam
Constitutional: No Acute Distress and Comfortable
Eyes: No Conjunctival Hemorrhage and Sclera Anicteric
Cardiovascular: Regular Rate and S1/S2
Pulmonary: Clear
Gastrointestinal: Soft, Tender (LLQ), Non Tender, Decreased Bowel Sounds and Other (NICOLE drain thick red-brown fluid)
Genito-Urinary: Negative CVA Tenderness
Extremities: Negative Edema
Neurological: AO x 3
Lab / Diagnostic Study Results
06/27/24 04:31
Abs Immat Gran (auto) 0.1 10^3/uL (0-0.05) H 06/27/24 04:31
Absolute Neuts (auto) 16.4 10^3/uL (1.4-6.5) H 06/27/24 04:31
Absolute Lymphs (auto) 0.6 10^3/uL (1.2-3.4) L 06/27/24 04:31
Absolute Monos (auto) 0.5 10^3/uL (0.1-0.6) 06/27/24 04:31
Absolute Basos (auto) 0.0 10^3/uL (0-0.2) 06/27/24 04:31
Total Counted 100 06/26/24 12:00
Immature Gran % 0.7 % (0-0.5) H 06/27/24 04:31
Neutrophils % 92.0 % (42.2-75.2) H 06/27/24 04:31
Lymphocytes % 3.4 % (20.5-51.1) L 06/27/24 04:31
Monocytes % 2.8 % (1.7-9.3) 06/27/24 04:31
Eosinophils % 0.9 % (0-6) 06/27/24 04:31
Basophils % 0.2 % (0-2) 06/27/24 04:31
Abs Neuts (Manual) 7.5 10^3/uL (1.4-6.5) H 06/26/24 12:00
Segmented Neutrophils 80 % (42-75) H 06/26/24 12:00
Band Neutrophils 13 % (0-3) H 06/26/24 12:00
Lymphocytes (Manual) 5 % (20-51) L 06/26/24 12:00
Eosinophils (Manual) 2 % (0-6) 06/26/24 12:00
PT 15.7 Sec (11.4-14.6) H 06/27/24 04:31
INR 1.23 06/27/24 04:31
Lactic Acid 1.4 mmol/L (0.7-2.0) 06/26/24 15:45
Ur Squamous Epith Cells >30 /LPF (Few) 06/25/24 19:14
Microbiology Results
Micro:
06/26/24 13:05 Wound Culture - Preliminary
Abscess Gram Stain - Preliminary
06/25/24 19:14 Urine Culture - Final
Urine
06/26/24 12:00 Blood Culture - Pending
Blood/Venous
06/25/24 16:43 Influenza Types A & B (RUBI) - Final
Nasal Swab Negative for Influenza A & B, NAAT
Negative results must be combined with clinical observations
and patient history.
Nucleic Acid Amplification test (NAAT)performed on the
[employer] platform.
06/25/24 CT a/p: There is a large mass centered in the left iliacus muscle as described, which very likely represents an abscess. This is likely a peridiverticular abscess which has extended into the adjacent left iliacus muscle. Patchy parenchymal
opacity of the posterior and inferior aspect of the right lower lobe lung, most likely atelectasis, although pneumonitis is also possible. Minimal right pleural effusion.
Assessment / Plan
# Diverticular abscess
- s/p drain placement
-Gram stain; polymicrobial organisms, cx pending.
- Continue Zosyn.
- DC Vancomycin.
# Sepsis fever, leukocytosis due to intra-abd abscess
- Bcx neg to date.
- Follow temps/wbc
# Chronic diarrhea
- multiple stools neg C. diff
- Imodium prn
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
COPD
Hypertension
Pancreatic insufficiency
Chronic diarrhea
Diverticulosis
Anxiety/depression
Appendectomy
Ovarian cystectomy
Hysterectomy
Bunionectomy
Sacral colpopexy
--- NOTE | 2024-06-27 13:25 | W.PN.HOSP.TC ---
Today's Communication/Plan
-
IV antibiotics pending cultures.
ID consult
Clear liquid diet
Wean off O2 as tolerates.
Transfer out of ICU
Assessment / Plan
Assessment / Plan
Impression:
Patient is a 64y F with PMH significant for hypertension, anxiety / depression and pancreatic insufficiency who presents to ED complaining of ongoing / recurrent LLQ abdominal pain - now with fevers / chills.
Sepsis secondary to intra-abdominal abscess
Septic shock with hypotension requiring vasopressors (not responding to IV fluids)
Intra-abdominal abscess drained by interventional radiology on 06/26
Acute hypoxic respiratory insufficiency secondary to splinting with pain and atelectasis
Recent sigmoid colitis positive for norovirus.
Hypokalemia.
Other conditions:
Essential hypertension
COPD.
Pancreatic insufficiency/chronic diarrhea
Anxiety/depression
Tobacco use disorder.
Plan:
Sepsis with septic shock secondary to intra-abdominal abscess
Recent episode of sigmoid colitis at that time PCR positive for norovirus.
Recent sigmoidoscopy unrevealing for chronic inflammatory bowel disease. 2 large polyps noted with plan for future follow-up/removal
CT scan in ED shows 12 x 6 x 5 cm abscess adjacent to sigmoid colon and involving the left iliac us and psoas muscles consistent with patient's left lower quadrant pain on presentation.
Status post percutaneous drain with NICOLE in place by interventional radiology on 06/26
Follow cultures
Broad-spectrum antibiotics vancomycin/Zosyn pending ID consult
Clear liquid diet
Hypotension improved and weaned off vasopressors
Wean off IV fluids if tolerates diet.
Colorectal surgery following
Acute hypoxic respiratory insufficiency likely secondary to atelectasis and splinting with pain as well as hypoperfusion with septic shock.
Underlying COPD with no evidence for exacerbation.
Had been weaned off oxygen and overall respiratory status improved after abscess drain and with improved hemodynamics.
Wean off O2 supplementation as tolerates.
Hypokalemia
- Likely secondary to loop diuretic use +/- GI losses.
- Hold further Lasix - patient does not appear grossly volume overloaded.
- Initially gained a great deal of weight after IV steroids administered during prior admission.
- PO replacement and follow for improvement in K levels.
- Check magnesium.
Benign Hypertension
- Stable. BP controlled in the ED - despite patient noting that she has not been taking Lasix / lisinopril at home.
- Continue atenolol with holding parameters.
- Hold other meds for now and follow BP.
COPD without Acute Exacerbation
Tobacco Use Disorder
- Stable.
- Continue Trelegy. Albuterol nebs PRN.
- O2 support if needed.
- Encourage smoking cessation.
Pancreatic Insufficiency
- Decreased frequency of stools since beginning Creon - though still 5 BM per day.
- Hold Creon while NPO - resume once tolerating diet.
Anxiety / Depression
- Continue fluoxetine.
DVT Prophylaxis: SCDs
Code Status: Full
Anticipated Discharge: > 48 hours
Subjective/Interval History
-
Date of Service: June 27, 2024
Objective Data
-
Labs:
Laboratory Results
06/27/24 06/27/24
04:31 13:00
WBC 17.9 H
Hgb 11.7 L
Hct 35.8 L
Plt Count 435 H
PT 15.7 H
INR 1.23
APTT 41.0 H
Sodium 141 Pending
Potassium 3.1 L Pending
Chloride 103 Pending
Carbon Dioxide 27 Pending
BUN 15 Pending
Creatinine 0.6 Pending
Glucose 85 Pending
Calcium 7.9 L Pending
Vital Signs:
Vital Signs
Temp Pulse Resp BP Pulse Ox
97.8 F 67 21 122/60 92
06/27/24 10:59 06/27/24 12:45 06/27/24 12:45 06/27/24 12:00 06/27/24 12:45
I&O
06/26/24 06/27/24 06/28/24
06:59 06:59 06:59
Intake Total 1730.0 / 1830.0 630 / 630
Output Total 60 / 60 620 / 620
Balance 1670.0 / 1770.0
Physical Exam
-
General: No Apparent Distress
HEENT: Normocephalic
Respiratory: Clear to Auscultation
Cardiac: Regular Rhythm
GI: Soft, Nondistended, Tender (LLQ) and Other (Left lower quadrant NICOLE drain)
Neuro: Awake, Alert, Oriented and AO x 3
Psych: Calm
[2024-06-27 14:41] LABS: Blood Urea Nitrogen 15 mg/dl (7-17); Calcium 8.2 mg/dl (8.4-10.2); Carbon Dioxide 26 mmol/L (22-30); Chloride 106 mmol/L (98-107); Estimated Creatinine Clearance 73 ml/min; Glucose 84 mg/dl (70-99); Magnesium 1.7 mg/dl (1.6-2.3); Potassium 3.8 mmol/L (3.5-5.1); Sodium 139 mmol/L (135-145); eGFR > 60.00
[2024-06-27] MEDS: IMODIUM 2 MG PO (15:42)
--- NOTE | 2024-06-27 16:02 | PTCARENOTE ---
Pt assisted OOB to chair, I/S taught and done by pt today. Pt able to reach [phone] TV, and encouraged to do q 1 hrs.
--- NOTE | 2024-06-27 16:17 | W.PN.GS2 ---
Addendum entered and electronically signed by Nicolas Ross MD 06/27/24 19:04:
I saw and examined the patient.
The BALANCE WHEEL [employer] BURNISHER's note was reviewed and I agree with the note.
Original Note:
Today's Communication / Plan
-
Trial of clears
Assessment / Plan
-
Ms Estrella is a 64 yo female with a h/o COPD, HTN, appendectomy, sacral colpopexy, ursula, ovarian cystectomy and diverticular disease with recent admission for colitis and norovirus who presented through the ED with worsening abdominal discomfort. CT
imaging this presentation with suspicion for diverticulitis with large peridiverticular abscess which has extended into the adjacent left iliacus muscle present. Sepsis present on admission but improving.
PPD #1 IR drainage of abscess
Tmax of 103.4 around time of IR procedure, afebrile since that time
Hypotension resolved, off pressors
HR WNL
Leukocytosis present
--Trial of clears
--ABX as per ID
--Continue IR drain
--Analgesics prn
--Trend labs and exams
--OOB/increase activity
No plans for emergent surgery today, will follow for continued improvement on abx with drainage of abscess. Long discussion with patient and at bedside regarding outpatient follow up and work up.
Subjective Data
-
Date of Service: June 27, 2024
Patient seen and examined at bedside with Dr. Ross. Feeling much better today. Denies n/v. Pain improving to her left side, notes she is now able to move her left leg which she had not been able to do previously.
Objective Data
-
Intake and Output
06/26/24 06/27/24 06/28/24
06:59 06:59 06:59
Intake Total 1730.0 / 1830.0 1230 / 1230
Output Total 60 / 60 970 / 970
Balance 1670.0 / 1770.0 260 / 260
Intake:
Oral fluids 330 / 330
IV fluids (Total) 1145.0 / 1245.0 900 / 900
0.45% NACL with KCL 20 MEQ 20 1100 / 1200 900 / 900
meq In 1,000 ml @ 100 mls/hr IV
.Q10H [facility] Rx#:[id number]
Levophed 45.0 / 45.0
IV piggybacks 575 / 575
Amount instilled into Drain (
Total)
Left Lower Abdomen Placed in IR
Output:
Liquid stool amount 150 / 150
Rectum 150 / 150
Drain Output (Total) 60 / 60
Left Lower Abdomen Placed in IR 60 60
Urine, Voided 800 / 800
Other:
Number of approximated MODERATE 1
amounts of urine
Number of approximated LARGE 1
amounts of urine
Number of unmeasured liquid
stools
Rectum 1
Vital Signs
Temp Pulse Resp BP Pulse Ox
97.8 F 67 22 110/78 91
06/27/24 10:59 06/27/24 15:30 06/27/24 15:30 06/27/24 15:00 06/27/24 15:30
Lab Results
06/27/24 04:31
06/27/24 13:58
Calcium 8.2 mg/dl (8.4-10.2) L 06/27/24 13:58
Magnesium 1.7 mg/dl (1.6-2.3) 06/27/24 13:58
Total Bilirubin 0.4 mg/dl (0.2-1.3) 06/25/24 16:43
AST 18 U/L (14-36) 06/25/24 16:43
ALT 12 U/L (0-35) 06/25/24 16:43
Alkaline Phosphatase 100 U/L (38-126) 06/25/24 16:43
Total Protein 5.8 g/dl (6.3-8.2) L 06/25/24 16:43
Albumin 3.1 g/dl (3.5-5.0) L 06/25/24 16:43
Physical Exam
-
NAD
ABD soft, tender to the LLQ, ND
IR drain with bloody, thick drainage
[2024-06-27] MEDS: DILAUDID 0.25 MG IV (17:44)
[2024-06-27] MEDS: ZOFRAN 4 MG IV (18:10)
[2024-06-27] MEDS: ZENPEP DELAYED RELEASE CAPSULE 1 CAPSULE PO (18:15)
--- NOTE | 2024-06-27 18:30 | PTCARENOTE ---
Pt back to bed now. Prn zofran iv given for nausea feeling post clear liq diet. Total of 35 ml of serous sang fluid drained from L abd NICOLE today. Lary care done,and gown changed. Dilaudid 0.25 mg iv given at pt's request. Call cho at pt's side. O2
remains on R/A, O2 sat=94%. Pt cleared to go to Med surg floor when bed available.
--- NOTE | 2024-06-27 22:37 | PTCARENOTE ---
Addendum entered by Ashley Rhoades RN 06/27/24 23:20:
Full assessment performed. Pt A&Ox4. Pt wifty. Moves all extremities x4 with + sensation. Perrla 3 and equal. Pt NSR. + cap refil x4 with + palpable pulses x4. (-) edema. Resps easy and geri but shallow. Lungs CTABL but diminished. Pt encouraged to
take deeper breathes. 1L NC applied as pt sats were in the mid to upper 80's. Abd soft and tender to touch. Pt c/o 'indigestion'. Given Tylenol for discomfort as ordered. NICOLE drain in place. Dsg CDI Site CDI. Minimal serosanguanous drainage noted.
No open areas or erythema noted on skin. IV sites patent with IVF infusing as ordered. Pt did have one mixed urine with loose feces. No s/s of distress assessed. Will continue to monitor.
Original Note:
Full assessment performed. Pt A&Ox4. Pt wifty. Moves all extremities x4 with + sensation. Perrla 3 and equal. Pt NSR. + cap refil x4 with + palpable pulses x4. Resps easy and geri but shallow. Pt encouraged to take deeper breathes. 1L NC applied as
pt sats were in the mid to upper 80's. Abd soft and tender to touch. Pt c/o 'indigestion'. Given Tylenol for discomfort as ordered. NICOLE drain in place. Dsg CDI Site CDI. Minimal serosanguanous drainage noted. No open areas or erythema noted on skin.
IV sites patent with IVF infusing as ordered. Pt did have one mixed urine with loose feces. No s/s of distress assessed. Will continue to monitor.
[2024-06-28] VITALS (10 sets, daily range): BP systolic 107–143; BP diastolic 56–66; BMI 20.5
[2024-06-28] MEDS: ZOSYN 50 IV ×4 (00:21→17:50)
--- NOTE | 2024-06-28 01:56 | PTCARENOTE ---
No change in pt status noted as per previous note. No s/s of distress assessed. Will continue to monitor.
[2024-06-28] MEDS: DILAUDID 0.25 MG IV ×3 (03:23→19:22)
[2024-06-28] MEDS: 0.45% NACL with KCL 20 MEQ 1000 IV (03:24)
[2024-06-28 03:54] LABS: % Basophils 0.3 % (0-2); % Eosinophils 3.1 % (0-6); % Immature Granulocytes 0.4 % (0-0.5); % Lymphocytes 6.5 % (20.5-51.1); % Monocytes 4.7 % (1.7-9.3); Absolute Eosinophils 0.4 10^3/uL (0-0.7); Absolute Immature Granulocytes 0.1 10^3/uL (0-0.05); Absolute Lymphocytes 0.7 10^3/uL (1.2-3.4); Absolute Monocytes 0.5 10^3/uL (0.1-0.6); Absolute Neutrophils 9.5 10^3/uL (1.4-6.5); Hematocrit 42.3 % (37.0-47.0); Hemoglobin 13.2 g/dL (12.0-16.0); Mean Corp Hgb Conc. 31.2 g/dL (33.0-37.0); Mean Corpuscular Hgb 29.3 pg (27.0-31.0); Mean Corpuscular Volume 93.8 fL (81.0-99.0); Mean Platelet Volume 9.9 fL (7.4-10.4); Nucleated Red Blood Cells % 0 %; Platelet Count 458 10^3/uL (130-400); Red Blood Cell Count 4.51 10^6/uL (4.20-5.40); Red Cell Dist. Width 13.9 % (11.5-14.5); White Blood Cell Count 11.2 10^3/uL (4.8-10.8)
[2024-06-28 04:18] LABS: Blood Urea Nitrogen 14 mg/dl (7-17); Calcium 8.4 mg/dl (8.4-10.2); Carbon Dioxide 25 mmol/L (22-30); Chloride 108 mmol/L (98-107); Estimated Creatinine Clearance 73 ml/min; Glucose 95 mg/dl (70-99); Potassium 3.7 mmol/L (3.5-5.1); Sodium 142 mmol/L (135-145); eGFR > 60.00
--- NOTE | 2024-06-28 04:27 | PTCARENOTE ---
Pt requested pain medication and provided as ordered. Pt noted to be sleeping after administration. No change in pt assessment from beginning of shift. No s/s of distress assessed. Will continue to monitor.
[2024-06-28] MEDS: TYLENOL 650 MG PO ×3 (06:40→21:58)
[2024-06-28] MEDS: SYMBICORT 80/4.5 MCG INHALER 2 PUFF INH ×2 (07:21→20:04)
[2024-06-28] MEDS: SPIRIVA RESPIMAT 2.5 MCG 2 PUFF INH (07:25)
--- NOTE | 2024-06-28 09:00 | PTCARENOTE ---
Received pt @ change of shift. AAOx3, anxious/forgetful @ x's. C/o pain @ drain site, medicated w prns- see SEP. SR on monitor. SpO2 92% on 2LNC. +BS, abd soft/ tender. Loose BM's. Diet advanced to low residue this AM- tolerating. LLQ NICOLE drain w
small amt ser/sang fluid. Assisted x 1 into BR for complete hygiene care and then OOB to chair. Tolerating activity/position. Instructed on how to report care concerns. Bed alarm active. Call cho placed w in reach.
[2024-06-28] MEDS: TENORMIN 50 MG PO (09:17)
[2024-06-28] MEDS: NICODERM TRANSDERMAL 14 MG TRANSDERM (09:17)
[2024-06-28] MEDS: ZENPEP DELAYED RELEASE CAPSULE 1 CAPSULE PO ×2 (09:17→17:50)
[2024-06-28] MEDS: PROZAC 20 MG PO (09:17)
[2024-06-28] MEDS: HEPARIN 5000 UNITS SC ×2 (09:18→19:21)
--- NOTE | 2024-06-28 10:09 | VNURNOTE ---
Chart reviewed. Patient is current with [facility] nursing. Will continue to follow hospital course and DC plans.
--- NOTE | 2024-06-28 11:42 | W.PN.ID1 ---
Date of Service
Date of Service: June 28, 2024
Today's Communication
Continue Zosyn.
Assessment / Plan
# Diverticular abscess
- 06/26 s/p drain placement
-Gram stain; polymicrobial organisms, cx pending.
- Continue Zosyn.
# s/p Sepsis due to intra-abd abscess
# Leukocytosis trending down
- Bcx neg to date.
- Follow twbc
# Chronic diarrhea due to pancreatic insufficiency
- multiple stools neg C. diff
- Imodium prn
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
COPD
Hypertension
Pancreatic insufficiency
Chronic diarrhea
Diverticulosis
Anxiety/depression
Appendectomy
Ovarian cystectomy
Hysterectomy
Bunionectomy
Sacral colpopexy
Chief Complaint
-: Other (Intra-abd abscess)
Subjective / Review of Systems
Feels better today.
Vital Signs / Physical Exam
Vital Signs
Vital Signs
Temp Pulse Resp BP Pulse Ox
98.5 F 63 16 143/66 92
06/28/24 07:30 06/28/24 09:09 06/28/24 09:09 06/28/24 09:09 06/28/24 09:09
Physical Exam
Constitutional: No Acute Distress and Comfortable
Cardiovascular: Regular Rate and S1/S2
Pulmonary: Clear
Gastrointestinal: Soft, Tender (mild LLQ), Non Distended and Other (NICOLE drain with cloudy thick red fluid)
Neurological: AO x 3
Objective Data
Lab Data
Lab Results
06/28/24 03:45
06/28/24 03:45
PT 15.7 Sec (11.4-14.6) H 06/27/24 04:31
INR 1.23 06/27/24 04:31
APTT 41.0 Sec (23.4-35.0) H 06/27/24 04:31
Estimated Creat Clear 73 ml/min 06/28/24 03:45
Lactic Acid 1.4 mmol/L (0.7-2.0) 06/26/24 15:45
Total Bilirubin 0.4 mg/dl (0.2-1.3) 06/25/24 16:43
AST 18 U/L (14-36) 06/25/24 16:43
ALT 12 U/L (0-35) 06/25/24 16:43
Alkaline Phosphatase 100 U/L (38-126) 06/25/24 16:43
Most recent labs reviewed.
Micro Results:
06/26/24 12:00 Blood Culture - Preliminary
Blood/Venous No Growth in 24 hours- Final report to follow
06/26/24 13:05 Wound Culture - Preliminary
Abscess Gram Stain - Preliminary
06/25/24 19:14 Urine Culture - Final
Urine
06/25/24 16:43 Influenza Types A & B (RUBI) - Final
Nasal Swab Negative for Influenza A & B, NAAT
Negative results must be combined with clinical observations
and patient history.
Nucleic Acid Amplification test (NAAT)performed on the
[employer] platform.
06/25/24 CT a/p: There is a large mass centered in the left iliacus muscle as described, which very likely represents an abscess. This is likely a peridiverticular abscess which has extended into the adjacent left iliacus muscle. Patchy parenchymal
opacity of the posterior and inferior aspect of the right lower lobe lung, most likely atelectasis, although pneumonitis is also possible. Minimal right pleural effusion.
--- NOTE | 2024-06-28 11:54 | W.PN.CRS1 ---
Today's Communication / Plan
-
low residue diet
Assessment/Plan
-
64 yo female with a h/o COPD, HTN, appendectomy, sacral colpopexy, ursula, ovarian cystectomy and diverticular disease with recent admission for colitis and norovirus who presented through the ED with worsening abdominal discomfort. CT imaging this
presentation with suspicion for diverticulitis with large peridiverticular abscess which has extended into the adjacent left iliacus muscle present. Sepsis present on admission but improving.
PPD #2 IR drainage of abscess
Afebrile for 24 hours
WBC 11.2 (17.9)
Hypotension resolved, off pressors
--Advance diet to low residue
--ABX as per ID
--Continue IR drain
--Analgesics prn
--Trend labs and exams
--OOB/increase activity
Subjective Data
Subjective Data
Date of Service: June 28, 2024
Patient states she has no nausea or vomiting. She tolerated clears. She is urinating without difficulty. Her pain is controlled at rest.
Objective Data
-
Vital Signs
Temp Pulse Resp BP Pulse Ox
98.5 F 63 16 143/66 92
06/28/24 07:30 06/28/24 09:09 06/28/24 09:09 06/28/24 09:09 06/28/24 09:09
Intake & Output
06/27/24 06/28/24 06/29/24
06:59 06:59 06:59
Intake Total 1730.0 / 1830.0 2049
Output Total 60 / 60 1285 / 1285
Balance 1670.0 / 1770.0 765 / 765
Intake:
Oral fluids 450 / 450
Amount of oral supplement(s) 0 / 0
consumed
IV fluids (Total) 1145.0 / 1245.0 1500 / 1500
0.45% NACL with KCL 20 MEQ 20 1100 / 1200 1500 / 1500
meq In 1,000 ml @ 100 mls/hr IV
.Q10H [facility] Rx#:[id number]
Levophed 45.0 / 45.0
IV piggybacks 575 / 575 100 / 100
Amount instilled into Drain (
Total)
Left Lower Abdomen Placed in IR
Output:
Liquid stool amount 150 / 150
Rectum 150 / 150
Drain Output (Total) 60 / 60 35 / 35
Left Lower Abdomen Placed in IR 60 60 35 / 35
Urine, Voided 1100 / 1100
Other:
Number of approximated MODERATE 1
amounts of urine
Number of approximated LARGE 1
amounts of urine
Number of unmeasured liquid
stools
Rectum 1
Lab Results
06/28/24 03:45
06/28/24 03:45
Physical Exam
-
General: No Acute Distress and AOx3
Abdomen: Soft, Tender (L sided pain, mild guarding) and Other (IR drain with blood and pus)
Rectal: No Mass, Normal Tone and No Gross Bleeding
Skin: Warm and Dry
[2024-06-28] MEDS: VISBIOME 1 CAP PO (12:45)
--- NOTE | 2024-06-28 13:00 | CM ---
CM following re: discharge planning.
Reviewed pt's chart, met with pt.
Pt is a 64 year old female admitted with primary dx of PPD #2 IR drainage of abscess
Pt reports she lives with 1SH leena mercado, has supportive daughter. Pt described herself as independent in all areas [employer]. Pt has home O2, active with [facility].
[facility] liaison following.
PCP: Caterina Sharpe
Pharmacy: [facility].
D/C plan: home with resumptions of [facility] and family support. Family to transport at discharge.
CM will follow with discharge plan updates as hospitalization progresses
[2024-06-28] MEDS: ZENPEP DELAYED RELEASE CAPSULE PO (13:05)
--- NOTE | 2024-06-28 19:25 | PTCARENOTE ---
dilauadid 0.25mg iv given for left bd discomfort
--- NOTE | 2024-06-28 20:00 | PTCARENOTE ---
pt amb ad keily in room, BP stable, + pulses, skin warm/dry, RA sat-93, lungs decr in bases, + bowel sounds, tender left abd, L NICOLE intact- scant ses drainage, ben diet, voiding without difficulty
[2024-06-28 20:05] LABS: Hepatitis C Antibody Negative (Negative)
[2024-06-28] MEDS: VALIUM 5 MG PO (21:58)
--- NOTE | 2024-06-28 22:00 | PTCARENOTE ---
valium 5mg po given as requested, tylenol 65mg po given for pain
[2024-06-29] MEDS: ZOSYN 50 IV ×2 (00:42→05:14)
[2024-06-29 04:01] VITALS: BMI 20.7
[2024-06-29] MEDS: DILAUDID 0.25 MG IV ×2 (04:10→12:12)
--- NOTE | 2024-06-29 04:10 | PTCARENOTE ---
dilaudid 0.25 mg iv given for pain, amb to bathroom to void and back to bed
[2024-06-29 04:14] LABS: % Basophils 0.3 % (0-2); % Eosinophils 4.3 % (0-6); % Immature Granulocytes 0.7 % (0-0.5); % Lymphocytes 14.9 % (20.5-51.1); % Monocytes 7.2 % (1.7-9.3); % Neutrophils 72.6 % (42.2-75.2); Absolute Eosinophils 0.3 10^3/uL (0-0.7); Absolute Immature Granulocytes 0.1 10^3/uL (0-0.05); Absolute Lymphocytes 1.1 10^3/uL (1.2-3.4); Absolute Monocytes 0.5 10^3/uL (0.1-0.6); Absolute Neutrophils 5.4 10^3/uL (1.4-6.5); Hematocrit 36.3 % (37.0-47.0); Hemoglobin 11.2 g/dL (12.0-16.0); Mean Corp Hgb Conc. 30.9 g/dL (33.0-37.0); Mean Corpuscular Hgb 29.3 pg (27.0-31.0); Mean Platelet Volume 9.9 fL (7.4-10.4); Nucleated Red Blood Cells % 0 %; Platelet Count 402 10^3/uL (130-400); Red Blood Cell Count 3.82 10^6/uL (4.20-5.40); White Blood Cell Count 7.5 10^3/uL (4.8-10.8)
[2024-06-29 04:45] LABS: Blood Urea Nitrogen 12 mg/dl (7-17); Calcium 8.2 mg/dl (8.4-10.2); Carbon Dioxide 27 mmol/L (22-30); Chloride 108 mmol/L (98-107); Estimated Creatinine Clearance 73 ml/min; Glucose 98 mg/dl (70-99); Potassium 3.7 mmol/L (3.5-5.1); Sodium 140 mmol/L (135-145); eGFR > 60.00
[2024-06-29] MEDS: TYLENOL 650 MG PO ×3 (05:16→18:35)
[2024-06-29] MEDS: SPIRIVA RESPIMAT 2.5 MCG 2 PUFF INH (07:29)
[2024-06-29] MEDS: SYMBICORT 80/4.5 MCG INHALER 2 PUFF INH ×2 (07:29→19:43)
[2024-06-29] MEDS: HEPARIN 5000 UNITS SC ×2 (09:04→20:10)
[2024-06-29] MEDS: VISBIOME 1 CAP PO (09:05)
[2024-06-29] MEDS: PROZAC 20 MG PO (09:05)
[2024-06-29] MEDS: NICODERM TRANSDERMAL 14 MG TRANSDERM (09:05)
[2024-06-29] MEDS: ZENPEP DELAYED RELEASE CAPSULE PO ×2 (09:05→11:05)
[2024-06-29] MEDS: TENORMIN 50 MG PO (09:07)
--- NOTE | 2024-06-29 10:44 | PTCARENOTE ---
Report given to 1 acute RN. Pt. transported via stretcher w staff escort and belongings. No further needs from this RN.
[2024-06-29] MEDS: ZENPEP DELAYED RELEASE CAPSULE 1 CAPSULE PO ×3 (11:08→17:16)
[2024-06-29] MEDS: ZOSYN IV (11:09)
--- NOTE | 2024-06-29 11:12 | W.PN.ID1 ---
Date of Service
Date of Service: June 29, 2024
Today's Communication
Narrow Zosyn to Unasyn.
Assessment / Plan
# Diverticular abscess
- 06/26 s/p drain placement
-Gram stain; polymicrobial organisms, cx Group F and Viridans streptococcus
- Narrow Zosyn to Unasyn (d4 abx)
# s/p Sepsis due to intra-abd abscess
# Leukocytosis resolved
- Bcx neg
# Chronic diarrhea due to pancreatic insufficiency
- multiple stools neg C. diff
- Imodium prn
# Conditions [employer]
COPD
Hypertension
Pancreatic insufficiency
Chronic diarrhea
Diverticulosis
Anxiety/depression
Appendectomy
Ovarian cystectomy
Hysterectomy
Bunionectomy
Sacral colpopexy
Chief Complaint
-: Other (Intra-abd abscess)
Subjective / Review of Systems
Feeling better.
Vital Signs / Physical Exam
Vital Signs
Vital Signs
Temp Pulse Resp BP Pulse Ox
97.7 F 62 16 142/57 92
06/29/24 08:17 06/29/24 09:07 06/29/24 07:32 06/29/24 09:07 06/29/24 10:08
Physical Exam
Constitutional: No Acute Distress and Comfortable
Cardiovascular: Regular Rate and S1/S2
Pulmonary: Clear
Gastrointestinal: Soft, Tender (mild LLQ), Non Distended and Other (NICOLE drain with cloudy thick red fluid)
Extremities: Negative Edema
Neurological: AO x 3
Objective Data
Lab Data
Lab Results
06/29/24 04:00
06/29/24 04:00
PT 15.7 Sec (11.4-14.6) H 06/27/24 04:31
INR 1.23 06/27/24 04:31
APTT 41.0 Sec (23.4-35.0) H 06/27/24 04:31
Estimated Creat Clear 73 ml/min 06/29/24 04:00
Lactic Acid 1.4 mmol/L (0.7-2.0) 06/26/24 15:45
Total Bilirubin 0.4 mg/dl (0.2-1.3) 06/25/24 16:43
AST 18 U/L (14-36) 06/25/24 16:43
ALT 12 U/L (0-35) 06/25/24 16:43
Alkaline Phosphatase 100 U/L (38-126) 06/25/24 16:43
Most recent labs reviewed.
Micro Results:
06/26/24 12:00 Blood Culture - Preliminary
Blood/Venous No Growth in 48 hours- Final report to follow
06/26/24 13:05 Wound Culture - Final
Abscess Group F Streptococcus
Viridans Streptococcus Group
Gram Stain - Final
06/25/24 19:14 Urine Culture - Final
Urine
06/25/24 16:43 Influenza Types A & B (RUBI) - Final
Nasal Swab Negative for Influenza A & B, NAAT
Negative results must be combined with clinical observations
and patient history.
Nucleic Acid Amplification test (NAAT)performed on the
[employer] platform.
06/25/24 CT a/p: There is a large mass centered in the left iliacus muscle as described, which very likely represents an abscess. This is likely a peridiverticular abscess which has extended into the adjacent left iliacus muscle. Patchy parenchymal
opacity of the posterior and inferior aspect of the right lower lobe lung, most likely atelectasis, although pneumonitis is also possible. Minimal right pleural effusion.
[2024-06-29] MEDS: UNASYN IV ×2 (11:23→18:31)
--- NOTE | 2024-06-29 11:25 | W.PN.CRS1 ---
Today's Communication / Plan
-
Continue diet
Follow-up with Dr. Ross in 1 week
Assessment/Plan
-
64 yo female with a h/o COPD, HTN, appendectomy, sacral colpopexy, ursula, ovarian cystectomy and diverticular disease with recent admission for colitis and norovirus who presented through the ED with worsening abdominal discomfort. CT imaging this
presentation with suspicion for diverticulitis with large peridiverticular abscess which has extended into the adjacent left iliacus muscle present. Sepsis present on admission but improving.
PPD # 3 IR drainage of abscess
Afebrile for 24 hours
WBC 7.5
Hypotension resolved, off pressors
--Continue low residue diet
--ABX as per ID
--Continue IR drain
--Analgesics prn
--Trend labs and exams
--OOB/increase activity
-- Okay for discharge from our perspective. Will need to follow-up in the office with Dr. Ross in 1 week for further surgical discussion. Please follow IR's recommendation for drain flushing upon discharge.
Subjective Data
Subjective Data
Date of Service: June 29, 2024
Patient states she is having gas and bowel movements. She is a mild amount of pain and it is much improved. She denies nausea or vomiting. She ate some food yesterday.
Objective Data
-
Vital Signs
Temp Pulse Resp BP Pulse Ox
97.7 F 62 16 142/57 92
06/29/24 08:17 06/29/24 09:07 06/29/24 07:32 06/29/24 09:07 06/29/24 10:08
Intake & Output
06/28/24 06/29/24 06/30/24
06:59 06:59 06:59
Intake Total 2049 560 / 560
Output Total 1285 / 1285
Balance 765 / 765 545 / 545
Intake:
Oral fluids 450 / 450 100 / 100
Amount of oral supplement(s) 0 / 0
consumed
IV fluids (Total) 1500 / 1500 360 / 360
0.45% NACL with KCL 20 MEQ 20 1500 / 1500 360 / 360
meq In 1,000 ml @ 100 mls/hr IV
.Q10H [facility] Rx#:[id number]
IV piggybacks 100 / 100 100 / 100
Output:
Liquid stool amount 150 / 150
Rectum 150 / 150
Drain Output (Total)
Left Lower Abdomen Placed in IR
Urine, Voided 1100 / 1100
Other:
Number of approximated MODERATE 1
amounts of urine
Number of unmeasured liquid
stools
Rectum 1
Lab Results
06/29/24 04:00
06/29/24 04:00
Physical Exam
-
General: No Acute Distress and AOx3
Abdomen: Soft, Non Distended, Tender (Around IR drain site) and Other (IR drain with pus mixed with blood)
Skin: Warm and Dry
--- NOTE | 2024-06-29 11:29 | CM ---
CM following re: discharge planning.
Reviewed pt's chart, met with pt.
pt is PPD #3 IR drainage of abscess
Pt lives with 1SH leena style, has supportive daughter, independent in all areas [employer], has home O2, active with [facility].
[facility] liaison following.
D/C plan: home with resumptions of [facility] and family support. Family to transport at discharge.
CM will follow with discharge plan updates as hospitalization progresses
--- NOTE | 2024-06-29 14:39 | W.PN.HOSP.TC ---
Today's Communication/Plan
-
Continue NICOLE drain.
Low residue diet.
Follow final wound cultures
Assessment / Plan
Assessment / Plan
This is a late entry reflecting patient counter on 06/28
Impression:
Patient is a 64y F with PMH significant for hypertension, anxiety / depression and pancreatic insufficiency who presents to ED complaining of ongoing / recurrent LLQ abdominal pain - now with fevers / chills.
Sepsis secondary to intra-abdominal abscess
Septic shock with hypotension requiring vasopressors (not responding to IV fluids)
Intra-abdominal abscess drained by interventional radiology on 06/26
Acute hypoxic respiratory insufficiency secondary to splinting with pain and atelectasis
Recent sigmoid colitis positive for norovirus.
Hypokalemia.
Other conditions:
Essential hypertension
COPD.
Pancreatic insufficiency/chronic diarrhea
Anxiety/depression
Tobacco use disorder.
Plan:
Sepsis with septic shock secondary to intra-abdominal abscess
Recent episode of sigmoid colitis at that time PCR positive for norovirus.
Recent sigmoidoscopy unrevealing for chronic inflammatory bowel disease. 2 large polyps noted with plan for future follow-up/removal
CT scan in ED shows 12 x 6 x 5 cm abscess adjacent to sigmoid colon and involving the left iliac us and psoas muscles consistent with patient's left lower quadrant pain on presentation.
Status post percutaneous drain with NICOLE in place by interventional radiology on 06/26
Follow cultures
Broad-spectrum antibiotics vancomycin/Zosyn pending ID consult
Low residue diet t
Hypotension improved and weaned off vasopressors
Wean off IV fluids if tolerates diet.
Colorectal surgery following
Acute hypoxic respiratory insufficiency likely secondary to atelectasis and splinting with pain as well as hypoperfusion with septic shock.
Underlying COPD with no evidence for exacerbation.
Had been weaned off oxygen and overall respiratory status improved after abscess drain and with improved hemodynamics.
Wean off O2 supplementation as tolerates.
Hypokalemia
- Likely secondary to loop diuretic use +/- GI losses.
- Hold further Lasix - patient does not appear grossly volume overloaded.
- Initially gained a great deal of weight after IV steroids administered during prior admission.
- PO replacement and follow for improvement in K levels.
- Check magnesium.
Benign Hypertension
- Stable. BP controlled in the ED - despite patient noting that she has not been taking Lasix / lisinopril at home.
- Continue atenolol with holding parameters.
- Hold other meds for now and follow BP.
COPD without Acute Exacerbation
Tobacco Use Disorder
- Stable.
- Continue Trelegy. Albuterol nebs PRN.
- O2 support if needed.
- Encourage smoking cessation.
Pancreatic Insufficiency
- Decreased frequency of stools since beginning Creon - though still 5 BM per day.
- Hold Creon while NPO - resume once tolerating diet.
Anxiety / Depression
- Continue fluoxetine.
DVT Prophylaxis: SCDs
Code Status: Full
Anticipated Discharge: 24 - 48 hours
Subjective/Interval History
-
Date of Service: June 29, 2024
Objective Data
-
Labs:
Laboratory Results
06/29/24
04:00
WBC 7.5
Hgb 11.2 L
Hct 36.3 L
Plt Count 402 H
Sodium 140
Potassium 3.7
Chloride 108 H
Carbon Dioxide 27
BUN 12
Creatinine 0.5 L
Glucose 98
Calcium 8.2 L
Vital Signs:
Vital Signs
Temp Pulse Resp BP Pulse Ox
97.7 F 62 16 142/57 92
06/29/24 08:17 06/29/24 09:07 06/29/24 07:32 06/29/24 09:07 06/29/24 10:08
I&O
06/28/24 06/29/2424
06:59 06:59 06:59
Intake Total 2049 560 / 560
Output Total 1285 / 1285
Balance 765 / 765 545 / 545
Physical Exam
-
General: No Apparent Distress
HEENT: Normocephalic
Respiratory: Clear to Auscultation
Cardiac: Regular Rhythm
GI: Soft, Nondistended, Tender (LLQ) and Other (Left lower quadrant NICOLE drain)
Neuro: Awake, Alert, Oriented and AO x 3
Psych: Calm
[2024-06-29 15:00] VITALS: BP 129/57
--- NOTE | 2024-06-29 17:38 | W.PN.HOSP.TC ---
Today's Communication/Plan
-
Antibiotics narrowed to Unasyn
Afebrile with white count normalized.
Has minimal pain in the NICOLE drain site
Tolerates diet
Wean off IV hydromorphone. Continue Tylenol with low-dose of oxycodone for breakthrough pain
Physical therapy assessment and discharge planning
Visiting nurse to follow-up
Plan is to discharge to follow-up with colorectal surgery and NICOLE drain in place
Assessment / Plan
Assessment / Plan
This is a late entry reflecting patient counter on 06/28
Impression:
Patient is a 64y F with PMH significant for hypertension, anxiety / depression and pancreatic insufficiency who presents to ED complaining of ongoing / recurrent LLQ abdominal pain - now with fevers / chills.
Sepsis secondary to intra-abdominal abscess
Septic shock with hypotension requiring vasopressors (not responding to IV fluids)
Intra-abdominal abscess drained by interventional radiology on 06/26
Acute hypoxic respiratory insufficiency secondary to splinting with pain and atelectasis
Recent sigmoid colitis positive for norovirus.
Hypokalemia.
Other conditions:
Essential hypertension
COPD.
Pancreatic insufficiency/chronic diarrhea
Anxiety/depression
Tobacco use disorder.
Plan:
Sepsis with septic shock secondary to intra-abdominal abscess
Recent episode of sigmoid colitis at that time PCR positive for norovirus.
Recent sigmoidoscopy unrevealing for chronic inflammatory bowel disease. 2 large polyps noted with plan for future follow-up/removal
CT scan in ED shows 12 x 6 x 5 cm abscess adjacent to sigmoid colon and involving the left iliac us and psoas muscles consistent with patient's left lower quadrant pain on presentation.
Status post percutaneous drain with NICOLE in place by interventional radiology on 06/26
Follow cultures wound culture with group F Streptococcus/viridans Streptococcus
Broad-spectrum antibiotics vancomycin/Zosyn narrowed to Unasyn on 06/29
Low residue diet
Hypotension improved and weaned off vasopressors
Wean off IV fluids if tolerates diet.
Colorectal surgery following
Acute hypoxic respiratory insufficiency likely secondary to atelectasis and splinting with pain as well as hypoperfusion with septic shock.
Underlying COPD with no evidence for exacerbation.
Had been weaned off oxygen and overall respiratory status improved after abscess drain and with improved hemodynamics.
Wean off O2 supplementation as tolerates.
Hypokalemia
- Likely secondary to loop diuretic use +/- GI losses.
- Hold further Lasix - patient does not appear grossly volume overloaded.
- Initially gained a great deal of weight after IV steroids administered during prior admission.
- PO replacement and follow for improvement in K levels.
- Check magnesium.
Benign Hypertension
- Stable. BP controlled in the ED - despite patient noting that she has not been taking Lasix / lisinopril at home.
- Continue atenolol with holding parameters.
- Hold other meds for now and follow BP.
COPD without Acute Exacerbation
Tobacco Use Disorder
- Stable.
- Continue Trelegy. Albuterol nebs PRN.
- O2 support if needed.
- Encourage smoking cessation.
Pancreatic Insufficiency
- Decreased frequency of stools since beginning Creon - though still 5 BM per day.
- Hold Creon while NPO - resume once tolerating diet.
Anxiety / Depression
- Continue fluoxetine.
DVT Prophylaxis: SCDs
Code Status: Full
Anticipated Discharge: 24 - 48 hours
Subjective/Interval History
-
Date of Service: June 29, 2024
Objective Data
-
Vital Signs:
Vital Signs
Temp Pulse Resp BP Pulse Ox
98.4 F 68 18 129/57 96
06/29/24 15:00 06/29/24 15:00 06/29/24 15:00 06/29/24 15:00 06/29/24 15:00
I&O
06/28/24 06/29/24 06/30/24
06:59 06:59 06:59
Intake Total 2049 560 / 560
Output Total 1285 / 1285
Balance 765 / 765 545 / 545
Physical Exam
-
General: No Apparent Distress
HEENT: Normocephalic
Respiratory: Clear to Auscultation
Cardiac: Regular Rhythm
GI: Soft, Nondistended, Tender (LLQ) and Other (Left lower quadrant NICOLE drain)
Neuro: Awake, Alert, Oriented and AO x 3
Psych: Calm
[2024-06-29] MEDS: VALIUM 5 MG PO (20:46)
[2024-06-29 23:13] VITALS: BP 178/76
[2024-06-30] MEDS: UNASYN IV ×3 (00:16→12:30)
[2024-06-30 00:20] VITALS: BP 169/76
[2024-06-30] MEDS: ROXICODONE 5 MG PO ×2 (00:23→12:28)
[2024-06-30 04:33] VITALS: BP 175/71
[2024-06-30] MEDS: DILAUDID 0.25 MG IV (05:03)
--- NOTE | 2024-06-30 05:37 | PTCARENOTE ---
Pt c/o of 02/20 LLQ pain, not yet due for PRN oxy. pt states oxy 'did not help much anyway' but this RN observed pt asleep after taking. pt also hypertensive (175/71). krishna Deleon notified and ordered one time dose 0.25 mg IV dilaudid.
[2024-06-30] MEDS: SYMBICORT 80/4.5 MCG INHALER 2 PUFF INH (07:04)
[2024-06-30] MEDS: SPIRIVA RESPIMAT 2.5 MCG 2 PUFF INH (07:04)
[2024-06-30 07:47] VITALS: BP 174/83
--- NOTE | 2024-06-30 08:44 | W.PN.CRS1 ---
Today's Communication / Plan
-
-as below
Assessment/Plan
-
64-year-old female with PMH of HTN, anxiety, pancreatic insufficiency, COPD, history of sacrocolpopexy, recent admission for colitis of unclear etiology, (admitted from 05/29 to 06/08; initially thought to be IBD�related; underwent flexible
sigmoidoscopy on 05/31, which showed a 1 cm polyp in the distal rectum and 2 cm polyp in the rectosigmoid, not resected, diverticulosis and erythematous mucosa from the rectum to splenic flexure, biopsies negative; she did test positive for
norovirus, which was ultimately the presumptive diagnosis) who presented with recurrent abdominal pain, similar to her previous admission; WBC 10.0, CT showing large mass overlying the left iliacus muscle, likely abscess; underwent IR guided
drainage with 100 mL of purulent material removed; postprocedure, she developed hypotension requiring Levophed, but improved shortly after
AFVSS, ABD soft, nondistended, appropriately tender near drain; NICOLE�23 mL of dark serous; on rectal, no palpable polyp
No labs today
� Left lower quadrant abscess, most likely related to diverticulitis, s/p IR drainage
�Follow-up cultures, continue IV antibiotics
� Continue IR drain to bulb suction; will need [facility] on discharge
� Continue nonoperative management; if symptoms improve, will need discharge with IR drain and subsequent follow-up to discuss colon resection for complicated diverticulitis as well as definitive management of her advanced polyps (sigmoidectomy
would remove the rectosigmoid polyp; however, she would require Dr. Shola Howard for management of her distal rectal polyp as this is likely not amenable to surgical removal)
� Cont low residue
� Continue DVT PPx with subQ heparin
� OOB/IS
� Appreciate hospitalist
Dispo- ok for d/c
Subjective Data
Subjective Data
Date of Service: June 30, 2024
No overnight events.
Pain controlled.
Denies nausea/vomiting. Tolerating diet.
+flatus +BMs +voiding
Objective Data
-
Vital Signs
Temp Pulse Resp BP Pulse Ox
97.5 F 65 18 174/83 90
06/30/24 07:47 06/30/24 07:47 06/30/24 07:47 06/30/24 07:47 06/30/24 07:47
Intake & Output
06/29/24 06/30/24 07/01/24
06:59 06:59 06:59
Intake Total 560 / 560 820 / 820
Output Total
Balance 545 / 545 797 / 797
Intake:
Oral fluids 100 / 100 480 / 480
IV fluids (Total) 360 / 360
0.45% NACL with KCL 20 MEQ 20 360 / 360
meq In 1,000 ml @ 100 mls/hr IV
.Q10H [facility] Rx#:[id number]
IV piggybacks 100 / 100 340 / 340
Output:
Drain Output (Total)
Left Lower Abdomen Placed in IR
Other:
Number of approximated MODERATE 1 2
amounts of urine
Lab Results
06/29/24 04:00
06/29/24 04:00
Physical Exam
-
General: No Acute Distress and AOx3
HEENT: Grossly Normal
Abdomen: Soft, Non Distended and Non Tender
Skin: Warm and Dry
[2024-06-30] MEDS: VISBIOME 1 CAP PO (09:01)
[2024-06-30] MEDS: PROZAC 20 MG PO (09:01)
[2024-06-30] MEDS: ZENPEP DELAYED RELEASE CAPSULE 1 CAPSULE PO ×2 (09:01→12:32)
[2024-06-30] MEDS: TENORMIN 50 MG PO (09:01)
[2024-06-30] MEDS: NICODERM TRANSDERMAL 14 MG TRANSDERM (09:01)
[2024-06-30] MEDS: HEPARIN 5000 UNITS SC (09:02)
--- NOTE | 2024-06-30 09:03 | W.PN.ID1 ---
Date of Service
Date of Service: June 30, 2024
Today's Communication
At time of discharge can transition to Augmentin 875mg po bid until NICOLE drain is removed (can give empiric 21 d supply).
Assessment / Plan
# Diverticular abscess
- 12/14 s/p drain placement
-Gram stain; polymicrobial organisms, cx Group F and Viridans streptococcus
- Continue Unasyn (d5 abx)
- At time of discharge can transition to Augmentin 875mg po bid until NICOLE drain is removed (can give empiric 21 d supply).
# s/p Sepsis due to intra-abd abscess
# Leukocytosis resolved
- Bcx neg
# Chronic diarrhea due to pancreatic insufficiency
- multiple stools neg C. diff
- Imodium prn
# Conditions [employer]
COPD
Hypertension
Pancreatic insufficiency
Chronic diarrhea
Diverticulosis
Anxiety/depression
Appendectomy
Ovarian cystectomy
Hysterectomy
Bunionectomy
Sacral colpopexy
Chief Complaint
-: Other (Intra-abd abscess)
Subjective / Review of Systems
feels good.
Vital Signs / Physical Exam
Vital Signs
Vital Signs
Temp Pulse Resp BP Pulse Ox
97.5 F 65 18 174/83 90
06/30/24 07:47 06/30/24 07:47 06/30/24 07:47 06/30/24 07:47 06/30/24 07:47
Physical Exam
Constitutional: No Acute Distress and Comfortable
Pulmonary: Clear
Gastrointestinal: Soft, Non Tender, Non Distended and Other (NICOLE drain cloudy red fluid)
Extremities: Negative Edema
Neurological: AO x 3
Objective Data
Lab Data
Lab Results
06/29/24 04:00
06/29/24 04:00
PT 15.7 Sec (11.4-14.6) H 06/27/24 04:31
INR 1.23 06/27/24 04:31
APTT 41.0 Sec (23.4-35.0) H 06/27/24 04:31
Estimated Creat Clear 73 ml/min 06/29/24 04:00
Lactic Acid 1.4 mmol/L (0.7-2.0) 06/26/24 15:45
Total Bilirubin 0.4 mg/dl (0.2-1.3) 06/25/24 16:43
AST 18 U/L (14-36) 06/25/24 16:43
ALT 12 U/L (0-35) 06/25/24 16:43
Alkaline Phosphatase 100 U/L (38-126) 06/25/24 16:43
Most recent labs reviewed.
Micro Results:
06/26/24 12:00 Blood Culture - Preliminary
Blood/Venous No Growth in 72 hours- Final report to follow
06/26/24 13:05 Wound Culture - Final
Abscess Group F Streptococcus
Viridans Streptococcus Group
Gram Stain - Final
06/25/24 19:14 Urine Culture - Final
Urine
06/25/24 16:43 Influenza Types A & B (RUBI) - Final
Nasal Swab Negative for Influenza A & B, NAAT
Negative results must be combined with clinical observations
and patient history.
Nucleic Acid Amplification test (NAAT)performed on the
[employer] platform.
06/25/24 CT a/p: There is a large mass centered in the left iliacus muscle as described, which very likely represents an abscess. This is likely a peridiverticular abscess which has extended into the adjacent left iliacus muscle. Patchy parenchymal
opacity of the posterior and inferior aspect of the right lower lobe lung, most likely atelectasis, although pneumonitis is also possible. Minimal right pleural effusion.
--- NOTE | 2024-06-30 09:39 | W.DS.TRANS ---
DC Summary - Paramedical Aide
-
Discharge Instructions:
Discharge Diagnosis/Procedures Sepsis secondary to intra-abdominal abscess
Septic shock with hypotension requiring
vasopressors (not responding to IV fluids)
Intra-abdominal abscess drained by
interventional radiology on 06/26
Acute hypoxic respiratory insufficiency
secondary to splinting with pain and atelectasis
Recent sigmoid colitis positive for norovirus.
Hypokalemia.
Other conditions:
Essential hypertension
COPD.
Pancreatic insufficiency/chronic diarrhea
Anxiety/depression
Tobacco use disorder.
Diet Low Residue
Instructions:
Stand-Alone Forms:
Changes to Home Medications: Yes
Discharge Medications:
DC Medications w/original date entered in [facility]
diazepam 5 mg tablet 5 mg PO DAILYPRN PRN anxiety 04/26/20
fluoxetine 20 mg capsule 20 mg PO DAILY Depression 04/26/20
albuterol sulfate 90 mcg/actuation aerosol inhaler 1 puff inhalation R Q4HPRN PRN SoB 01/02/23
atenolol 50 mg tablet 50 mg PO DAILY Blood Pressure 05/29/24
fluticasone fur. 100 mcg-umeclid 62.5 mcg-vilant 25 mcg inhalat.powder (Trelegy Ellipta) 1 inh inhalation R DAILY Lung/Breathing Issues 05/29/24
furosemide 40 mg tablet 40 mg PO DAILY #30 tabs 06/09/24
cholecalciferol (vitamin D3) 50 mcg (2,000 unit) tablet (Vitamin D3) 50 mcg PO DAILY Supplement 06/25/24
doxazosin 4 mg tablet 2 mg PO DAILY Urinary Issue 06/25/24
vtglur-xybchgrs-savnooa 12,000-38,000-60,000 unit capsule,delayed rel (Creon) 1 cap PO AC Gastrointestinal Issue 06/25/24
lisinopril 20 mg tablet 20 mg PO Q48H Blood Pressure 06/25/24
Lactobac/Bifidobac [Visbiome] 1 cap PO DAILY #30 ea 06/30/24
amoxicillin 875 mg-potassium clavulanate 125 mg tablet 1 tab PO Q12H #42 tabs 06/30/24
oxycodone 5 mg tablet 5 mg PO Q6HPRN PRN severe pain #14 tabs 06/30/24
Home Medication Changes
Antibiotics for additional 21 days
Pending Results: No
--- NOTE | 2024-06-30 10:29 | VNURNOTE ---
[facility] liaison spoke with patient. [facility], reinforced that she will receive a call from [facility] after DC to schedule resumption visit. Patient verbalized understanding. Resumption referral accepted in [facility].
--- NOTE | 2024-06-30 11:13 | CM ---
Patient seen bedside.
Plan d/c home today with drain nand [facility].
IMM completed.
script requested for RW.
Spouse will transport.
Plan: home with [facility]
--- NOTE | 2024-06-30 13:05 | PTCARENOTE ---
Patient educated on NICOLE drain: emptying and recording drainage. Patient demonstrated and verbalized understanding. Supplies sent with patient.
[2024-06-30 13:30] VITALS: BP 147/76
== END 2024-06-30 13:50 | disposition home health service (06) | DRG 391 ==
LOC: 1 ACUTE 01:50
PROVIDERS: Hospitalist; Physician Assistant; Radiology Vascular & Interventional Radiology; ADMITTING PHYSICIAN Hospitalist; ATTENDING PHYSICIAN Internal Medicine; CONSULT PHYSICIAN Internal Medicine Critical Care Medicine; CONSULT PHYSICIAN Internal Medicine Infectious Disease; CONSULT PHYSICIAN Surgery; EMERGENCY PHYSICIAN Student in an Organized Health Care Education/Training Program; FAMILY PHYSICIAN Family Medicine
PROC: 0K9 Muscles, Drainage (ICD-10-PCS; 2024-06-26)
DX: K57.20 Diverticulitis of large intestine with perforation and abscess without bleeding (principal); A40.8 Other streptococcal sepsis; K65.1 Peritoneal abscess; R65.21 Severe sepsis with septic shock; J98.11 Atelectasis; I10 Essential (primary) hypertension; F41.9 Anxiety disorder, unspecified; F32.A Depression, unspecified; K86.89 Other specified diseases of pancreas; J44.9 Chronic obstructive pulmonary disease, unspecified; Z86.0100 Personal history of colon polyps, unspecified; Z90.710 Acquired absence of both cervix and uterus; F17.200 Nicotine dependence, unspecified, uncomplicated; Z88.5 Allergy status to narcotic agent; Z88.2 Allergy status to sulfonamides; E87.6 Hypokalemia; R09.02 Hypoxemia; Z79.899 Other long term (current) drug therapy; I95.9 Hypotension, unspecified; Z11.52 Encounter for screening for COVID-19
CPT/HCPCS: 10030; 36415; 71045; 73502; 74177; 80048; 80053; 81003; 81015; 83605; 83690; 83735; 85025; 85027; 85610; 85652; 85730; 86140; 86803; 87040; 87070; 87077; 87086; 87147; 87205; 87502; 87811; 93005; 94640; 96361; 96365; 96375; 97162; 99152; 99285; J3480; Q9967

== ENCOUNTER 2024-07-03 11:57 | Emergency (ER) | payer MEDICARE, SELFPAY ==
[2024-07-03 12:08] VITALS: BP 126/60
[2024-07-03 12:24] LABS: % Basophils 0.4 % (0-2); % Eosinophils 1.5 % (0-6); % Immature Granulocytes 0.9 % (0-0.5); % Lymphocytes 15.1 % (20.5-51.1); % Monocytes 5.3 % (1.7-9.3); % Neutrophils 76.8 % (42.2-75.2); Absolute Eosinophils 0.1 10^3/uL (0-0.7); Absolute Immature Granulocytes 0.1 10^3/uL (0-0.05); Absolute Lymphocytes 1.3 10^3/uL (1.2-3.4); Absolute Monocytes 0.5 10^3/uL (0.1-0.6); Absolute Neutrophils 6.5 10^3/uL (1.4-6.5); Hemoglobin 13.3 g/dL (12.0-16.0); Mean Corp Hgb Conc. 32.4 g/dL (33.0-37.0); Mean Corpuscular Hgb 29.2 pg (27.0-31.0); Mean Corpuscular Volume 90.1 fL (81.0-99.0); Mean Platelet Volume 9.4 fL (7.4-10.4); Nucleated Red Blood Cells % 0 %; Platelet Count 445 10^3/uL (130-400); Red Blood Cell Count 4.55 10^6/uL (4.20-5.40); White Blood Cell Count 8.5 10^3/uL (4.8-10.8)
[2024-07-03 12:45] LABS: ALT (SGPT) 21 U/L (0-35); AST (SGOT) 29 U/L (14-36); Albumin 3.1 g/dl (3.5-5.0); Alkaline Phosphatase 192 U/L (38-126); Blood Urea Nitrogen 6 mg/dl (7-17); Calcium 8.6 mg/dl (8.4-10.2); Carbon Dioxide 34 mmol/L (22-30); Chloride 96 mmol/L (98-107); Glucose 123 mg/dl (70-99); Potassium 3.1 mmol/L (3.5-5.1); Total Bilirubin 0.3 mg/dl (0.2-1.3); Total Protein 5.8 g/dl (6.3-8.2); eGFR > 60.00
[2024-07-03 12:53] LABS: Sodium 138 mmol/L (135-145)
[2024-07-03] MEDS: DILAUDID 1 MG IV (15:56)
--- NOTE | 2024-07-03 17:37 | ED.GENMED ---
History of Present Illness
General
Chief Complaint: Post Operative Problem(s)
Source: patient and significant other
Exam Limitations: none
Time Seen by Provider: 07/03/24 14:23
Nursing documentation reviewed up to this point in time: agreed with
History of Present Illness
History of Present Illness:
Patient is a 64-year-old female with past medical history of hypertension, COPD, pancreatic insufficiency with chronic diarrhea, anxiety, depression along with recent admission for sepsis secondary to a diverticular abscess in which IR intervened
and placed a NICOLE drain. Patient presents from home for evaluation of increasing left hip and left lower quadrant pain. Patient is also concerned that her NICOLE drain is out of place. She believes that it is out of place because more of the drain is
exposed than was in the past. Patient denies fevers, chills, nausea, vomiting. Patient reports that she is having some diarrhea but believes it is due to the antibiotics that she has been taking. Patient states that she tried to get in touch with
interventional radiology but they were unable to make her an appointment. She reports that she spoke to the on-call doctor yesterday but was told that they could not help her. Patient states that she has had a visiting nurse which has been
changing the dressing but she does not feel confident in their knowledge or skills.
Past History
Past History
ED Past Surgical History: Appendectomy and Gynecological (Hysterectomy, abdominal Sarcoplexi)
Social History
Tobacco: Smoker
Alcohol: None
Drug: None
Review of Systems
Review of Systems
Allergies reviewed?: Yes
All Other Systems: ROS reviewed and negative except as documented in HPI and ROS
Constitutional: Reports no symptoms
EENT: Reports no symptoms
Respiratory: Reports no symptoms
Cardiac: Reports no symptoms
ABD/GI: Reports abdominal pain; Denies nausea, vomiting, diarrhea, bloody stools or black stools
: Reports no symptoms
Musculoskeletal: Reports other (left hip pain)
Skin: Reports no symptoms
Neurological: Reports no symptoms
Endocrine: Reports no symptoms
Hematologic/Lymphatic: Reports no symptoms
Psychiatric: Reports no symptoms
Phy Exam
General Physical Exam
General Presentation: well appearing and no apparent distress
General Skin: warm and dry
General Habitus: normal
General Mental: alert
General Hydration: appears well hydrated
ENT Exam
ENT Exam: EOMI, pharynx normal, neck supple and normocephalic
Eye Exam
Eye Exam: PERRL, cornea clear and conjunctiva normal
Cardiovascular Exam
Cardiovascular Exam: regular rate/rhythm, no edema, no murmur and normal peripheral pulses
Pulmonary Exam
Pulmonary Exam: lungs clear, no respiratory distress, no rales, no crackles, no rhonchi, no stridor, no wheezing and no cough
Gastrointestinal Exam
Gastrointestinal Exam: normal bowel sounds, non tender, soft, no organomegaly, no pulsatile mass and non distended
External Findings: other (NICOLE drain noted over the LLQ, with small serosanguinous drainage in the drain/bulb, mild induration around the drain site)
Neurological Exam
Neurological Exam: alert, oriented x3, no motor deficits and speech normal
Musculoskeletal Exam
Musculoskeletal Exam: full ROM and no edema
Skin Exam
Skin Exam: normal color, warm/dry, no rash and no petechia
Psychiatric Exam
Psychiatric Exam: normal mood/affect
Course
Orders/Labs/Results
Orders:
Orders
07/03/24 12:15
CMP [Comprehensive Metabolic Panel] Urgent
Complete Blood Count/With Diff Urgent
07/03/24 14:57
HYDROmorphone [Dilaudid] 1 mg IV NOW STA
07/03/24 14:58
CT Abd/pelvis W Iv Cont Urgent
Comment:
Reason For Exam: peridiverticular abscess w/NICOLE drain, displacement?
Abnormal Lab Results
07/03/24
12:15
MCHC 32.4 L g/dL
(33.0-37.0)
Plt Count 445 H 10^3/uL
(130-400)
Abs Immat Gran (auto) 0.1 H 10^3/uL
(0-0.05)
Immature Gran % 0.9 H %
(0-0.5)
Neutrophils % 76.8 H %
(42.2-75.2)
Lymphocytes % 15.1 L %
(20.5-51.1)
Potassium 3.1 L mmol/L
(3.5-5.1)
Chloride 96 L mmol/L
(98-107)
Carbon Dioxide 34 H mmol/L
(22-30)
BUN 6 L mg/dl
(7-17)
Creatinine 0.5 L mg/dL
(0.6-1.0)
Glucose 123 H mg/dl
(70-99)
Alkaline Phosphatase 192 H U/L
(38-126)
Total Protein 5.8 L g/dl
(6.3-8.2)
Albumin 3.1 L g/dl
(3.5-5.0)
07/03/24 12:15
07/03/24 12:15
Vital Signs
Initial and Last Documented VS:
Initial Vital Signs
Temp Pulse Resp BP Pulse Ox
98.5 F 69 18 126/60 96
07/03/24 12:08 07/03/24 12:08 07/03/24 12:08 07/03/24 12:08 07/03/24 12:08
Last Documented Vital Signs
Temp Pulse Resp BP Pulse Ox
98.5 F 69 18 126/60 96
07/03/24 12:08 07/03/24 12:08 07/03/24 12:08 07/03/24 12:08 07/03/24 12:08
*Critical Care Note
Total Time (30-74mins, 75-104mins- exclusive of procedures): Not Applicable
Update Note
Update Note:
64-year-old female with recent hospitalization for a large peridiverticular abscess requiring NICOLE drainage placement presents to the emergency department for evaluation of abdominal pain and concerns that her NICOLE drain is out of place. On arrival,
patient's vital signs are stable, she is afebrile. On exam, patient is well-appearing, she is no acute distress, she does have a NICOLE drain over the left lower quadrant with mild induration at the site of the drain without significant erythema or
drainage from the wound, there is a small amount of serosanguineous drainage in the NICOLE drain itself. Labs were obtained and demonstrate no leukocytosis or left shift, no actionable abnormality. CT of the abdomen and pelvis is as noted but
demonstrates that the abscess has decreased significantly and the tip of the drain is just inferior to the small remaining collection. Case was discussed with ED attending and feel that there is no emergent intervention indicated at this time, no
need to emergently involve interventional radiology. Feel that the patient is safe for discharge with close outpatient interventional radiology follow-up along with return precautions. All results and plan were discussed with the patient and her
. A new dressing was placed around the NICOLE site. Patient encouraged to contact interventional radiology on Friday to make a prompt appointment. Patient safe for discharge.
ED Attending Note
-
Portions of this chart may have been created with voice recognition software.� Occasional wrong word or��sound alike� substitutions may have occurred due to the inherent limitations of voice recognition software.
Discharge Plan
Departure
Patient Disposition: Home (Routine Discharge)
Date of Disposition: 07/03/24
Time of Disposition: 17:37
Patient with high blood pressure during this ER visit?: No
Condition: Good
Covid-19: Not Applicable
Discharge Problem:
Abdominal pain, NICOLE drain
Instructions: Wound Care (DC), Abdominal Pain
Prescriptions:
No Action
fluoxetine 20 MG capsule
20 mg PO DAILY
diazepam 5 MG tablet
5 mg PO DAILYPRN PRN (Reason: anxiety)
albuterol sulfate 90 mcg/actuation Hfa Aerosol Inhaler
1 puff INHALATION R Q4HPRN PRN (Reason: SoB)
Trelegy Ellipta 100-62.5-25 mcg blister with device
1 inh INHALATION R DAILY
cholecalciferol (vitamin D3) [Vitamin D3] 50 mcg (2,000 unit) Tablet
50 mcg PO DAILY
Creon 12,000-38,000 -60,000 unit capsule,delayed release(DR/EC)
1 cap PO AC
oxycodone 5 mg Tablet
5 mg PO Q6HPRN PRN (Reason: severe pain) Qty: 14 0RF
Lactobac/Bifidobac [Visbiome]
1 cap PO DAILY Qty: 30 0RF
amoxicillin-pot clavulanate 875-125 mg tablet
1 tab PO Q12H Qty: 42 0RF
furosemide 40 mg Tablet
40 mg PO DAILY Qty: 30 0RF
lisinopril 20 mg tablet
20 mg PO Q48H Qty: 30 0RF
doxazosin 4 mg Tablet
2 mg PO DAILY Qty: 30 0RF
atenolol 50 mg tablet
50 mg PO DAILY Qty: 30 0RF
Referrals:
Caterina Sharpe MD [Family Provider] -
Darin Billingsley MD [Active] - Follow up in 2-3 days (Call for follow up appointment)
Activity Restrictions/Additional Instructions:
You were seen in the emergency department for evaluation of abdominal pains and concern that your NICOLE drain was out of place. While you were in the emergency department you had blood work which shows no dangerous abnormalities. Your CT scan
demonstrates that the abscess is resolving and the NICOLE drain is near the abscess. We feel that is safe to be discharged to home however we recommend that you follow-up closely with interventional radiology for further evaluation and treatment.
Please return to the emergency department if you develop fever greater than 100.4 �F, chest pain, shortness of breath, severe abdominal pain, persistent vomiting, blood in the stool, or for any other worsening or concerning symptoms.
Interventions
Interventions:
*Risk Screen - Suicide Last Done: 07/03/24 12:08
*General Assessment Last Done: 07/03/24 12:08
*Neglect/Abuse Screening Last Done: 07/03/24 17:48
ED- Fall Risk Assessment Last Done: 07/03/24 15:25
*ED COVID-19 Vaccine History Last Done: 07/03/24 12:08
*Nursing Disposition Last Done: 07/03/24 17:48
ED-Skin Assessment Last Done: 07/03/24 16:39
Discharge Date and Time
Print Language: TAJIK
== END 2024-07-03 18:13 | disposition home or self-care (01) ==
LOC: EMR 11:57
PROVIDERS: Emergency Medicine; EMERGENCY PHYSICIAN Emergency Medicine; FAMILY PHYSICIAN Family Medicine
DX: T85.848A Pain due to other internal prosthetic devices, implants and grafts, initial encounter (principal); R10.32 Left lower quadrant pain; Y83.8 Other surgical procedures as the cause of abnormal reaction of the patient, or of later complication, without mention of misadventure at the time of the procedure; J44.9 Chronic obstructive pulmonary disease, unspecified; I10 Essential (primary) hypertension; F17.200 Nicotine dependence, unspecified, uncomplicated
CPT/HCPCS: 96374; 99284; 74177; 80053; 85025; Q9967

== ENCOUNTER → 2024-07-09 13:00 | Outpatient (REF) | payer MEDICARE, SELFPAY ==
[2024-07-09 13:31] VITALS: BP 164/74; BP_SYST 60
[2024-07-09 14:25] VITALS: BP 164/74
== END ==
LOC: RADI 13:00
PROVIDERS: ATTENDING PHYSICIAN Surgery
DX: Z46.82 Encounter for fitting and adjustment of non-vascular catheter (principal); M60.08 Infective myositis, other site
CPT/HCPCS: 49424; 76080

== ENCOUNTER → 2024-07-23 13:08 | Outpatient (REF) | payer MEDICARE, SELFPAY | LOC: RAD 13:08 | PROVIDERS: ATTENDING PHYSICIAN Surgery; FAMILY PHYSICIAN Family Medicine | DX: K57.92 Diverticulitis of intestine, part unspecified, without perforation or abscess without bleeding (principal) | CPT/HCPCS: 74177; Q9967 ==

== ENCOUNTER 2024-08-13 22:15 | Inpatient (IN) | payer MEDICARE, SELFPAY ==
[2024-08-13 14:39] VITALS: BP 123/55
[2024-08-13 15:18] LABS: % Basophils 0.3 % (0-2); % Eosinophils 0.7 % (0-6); % Immature Granulocytes 0.3 % (0-0.5); % Lymphocytes 10.3 % (20.5-51.1); % Neutrophils 82.4 % (42.2-75.2); Absolute Eosinophils 0.1 10^3/uL (0-0.7); Absolute Lymphocytes 1.3 10^3/uL (1.2-3.4); Absolute Monocytes 0.7 10^3/uL (0.1-0.6); Absolute Neutrophils 10.1 10^3/uL (1.4-6.5); Hemoglobin 15.4 g/dL (12.0-16.0); Mean Corp Hgb Conc. 32.1 g/dL (33.0-37.0); Mean Corpuscular Hgb 30.1 pg (27.0-31.0); Mean Corpuscular Volume 93.9 fL (81.0-99.0); Mean Platelet Volume 9.4 fL (7.4-10.4); Nucleated Red Blood Cells % 0 %; Platelet Count 276 10^3/uL (130-400); Red Blood Cell Count 5.11 10^6/uL (4.20-5.40); Red Cell Dist. Width 14.9 % (11.5-14.5); White Blood Cell Count 12.3 10^3/uL (4.8-10.8)
[2024-08-13 15:42] LABS: ALT (SGPT) 13 U/L (0-35); AST (SGOT) 19 U/L (14-36); Alkaline Phosphatase 86 U/L (38-126); Blood Urea Nitrogen 14 mg/dl (7-17); Calcium 9.5 mg/dl (8.4-10.2); Carbon Dioxide 31 mmol/L (22-30); Chloride 97 mmol/L (98-107); Glucose 138 mg/dl (70-99); Lipase 50 U/L (23-300); Potassium 4.4 mmol/L (3.5-5.1); Sodium 137 mmol/L (135-145); Total Bilirubin 1.4 mg/dl (0.2-1.3); Total Protein 7.7 g/dl (6.3-8.2); eGFR > 60.00
[2024-08-13 17:11] VITALS: BP 148/61
[2024-08-13 19:56] VITALS: BP 159/50
[2024-08-13 19:59] VITALS: BMI 20.2
[2024-08-13 20:05] VITALS: BP 165/70
[2024-08-13] MEDS: DILAUDID 0.5 MG IV (20:11)
[2024-08-13] MEDS: ZOFRAN 4 MG IV (20:11)
[2024-08-13] MEDS: ZOSYN 50 IV (20:15)
--- NOTE | 2024-08-13 20:36 | ED.GENMED ---
History of Present Illness
General
Chief Complaint: Abdominal Symptoms
Source: patient, records and previous hospital records
Exam Limitations: none
Time Seen by Provider: 08/13/24 19:32
Nursing documentation reviewed up to this point in time: agreed with
History of Present Illness
History of Present Illness:
64-year-old female prior episodes of diverticular abscess managed with an IR drain following with colorectal surgery Dr. Ross, he referred her in [facility] for a CAT scan she is having right sided abdominal pain which is a new symptom for her nausea
without vomiting eating okay, no fevers, not currently on antibiotics,
Past History
Past History
ED Past Medical History: Other (Diverticulitis)
ED Past Surgical History: Appendectomy and Gynecological (Hysterectomy, abdominal Sarcoplexi)
Social History
Tobacco: Smoker
Alcohol: None
Drug: None
Personal:
Living: with family
Employment: Employed
Review of Systems
Review of Systems
All Other Systems: Not applicable
Constitutional: Denies fever
Respiratory: Reports no symptoms
Cardiac: Reports no symptoms
ABD/GI: Reports abdominal pain and nausea
Musculoskeletal: Reports no symptoms
Skin: Reports no symptoms
Phy Exam
Physical Exam
Physical Exam:
Physical Exam
General: 64 female looks uncomfortable but not
Neck: No jaundice
Heart: s1/s2 regular rate and rhythm, no murmur. equal radial pulses.
Lungs: no acute respiratory distress. clear bilaterally
Abdomen: Tender in the right
Neuro: alert and oriented. no focal neurological deficits
Skin: no rash
Psychiatric: well kept. interactive and cooperative
Extremities: no edema.
Course
Orders/Labs/Results
Orders:
Orders
08/13/24 14:52
C-Reactive Protein Urgent
Comment: ADD ON
Complete Blood Count/With Diff Urgent
Comprehensive Metabolic Panel Urgent
Lipase Urgent
08/13/24 16:20
CT Abd/pelvis W Iv Cont Urgent
Comment:
Reason For Exam: abd pain-referred in by Dr Cody GROVES
08/13/24 20:03
HYDROmorphone [Dilaudid] 0.5 mg IV NOW STA
Ondansetron Injectable [Zofran] 4 mg IV NOW STA
08/13/24 20:04
Piperacillin/Tazo 3.375 Gram [Zosyn] 3.375 gram in 50 ml IV NOW
08/13/24 20:06
Add On- LAB Urgent
Tests Added?: CRP
Calprotectin, Fecal [S] Routine
Abnormal Lab Results
08/13/24
14:52
WBC 12.3 H 10^3/uL
(4.8-10.8)
Hct 48.0 H %
(37.0-47.0)
MCHC 32.1 L g/dL
(33.0-37.0)
RDW 14.9 H %
(11.5-14.5)
Absolute Neuts (auto) 10.1 H 10^3/uL
(1.4-6.5)
Absolute Monos (auto) 0.7 H 10^3/uL
(0.1-0.6)
Neutrophils % 82.4 H %
(42.2-75.2)
Lymphocytes % 10.3 L %
(20.5-51.1)
Chloride 97 L mmol/L
(98-107)
Carbon Dioxide 31 H mmol/L
(22-30)
Creatinine 0.5 L mg/dL
(0.6-1.0)
Glucose 138 H mg/dl
(70-99)
Total Bilirubin 1.4 H mg/dl
(0.2-1.3)
08/13/24 14:52
08/13/24 14:52
Vital Signs
Initial and Last Documented VS:
Initial Vital Signs
Temp Pulse Resp BP Pulse Ox
98 F 78 20 123/55 95
08/13/24 14:39 08/13/24 14:39 08/13/24 14:39 08/13/24 14:39 08/13/24 14:39
Last Documented Vital Signs
Temp Pulse Resp BP Pulse Ox
99.8 F 79 16 165/70 95
08/13/24 19:56 08/13/24 19:56 08/13/24 19:56 08/13/24 20:05 08/13/24 17:11
MDM/Problems Addressed
Differential Diagnosis Includes:
Diverticulitis, appendicitis obstruction renal colic
MDM/Problems Addressed:
Right-sided abdominal
Chronic conditions affecting care: Previous abdomnial surgery
Acute Exacerbation and/or Progression of Chronic Illness: Previous abdomnial surgery
*Radiology
Radiology exam reviewed: radiology read reviewed
*Pulse Oximetry
Patient hypoxic: no
*Critical Care Note
Total Time (30-74mins, 75-104mins- exclusive of procedures): Not Applicable
Update Note
Update Note:
Update, complex past medical history patient moderately tender seen in the ER by her surgeon plan will be admission for IV antibiotics serial abdominal exams general supportive care message sent to hospital
ED Attending Note
-
Portions of this chart may have been created with voice recognition software.� Occasional wrong word or��sound alike� substitutions may have occurred due to the inherent limitations of voice recognition software.
Discharge Plan
Departure
Patient Disposition: Admit
Date of Disposition: 08/13/24
Time of Disposition: 20:35
Admit to: Med/Surg
Presentation/result/management discussed w/ accepting MD/DO: Hospitalist
Condition: Good
Discharge Problem:
Diverticulitis, colon
Prescriptions:
No Action
fluoxetine 20 MG capsule
20 mg PO DAILY
diazepam 5 MG tablet
1.25 mg PO PRN PRN (Reason: anxiety)
Patient Comments:
pt says she breaks a 5mg tablet into quarters and take 1-3 times daily
albuterol sulfate 90 mcg/actuation Hfa Aerosol Inhaler
1 puff INHALATION R Q4HPRN PRN (Reason: SoB)
Trelegy Ellipta 100-62.5-25 mcg blister with device
1 inh INHALATION R DAILY
cholecalciferol (vitamin D3) [Vitamin D3] 50 mcg (2,000 unit) Tablet
50 mcg PO DAILY
doxazosin 4 mg Tablet
2 mg PO DAILY Qty: 30 0RF
atenolol 50 mg tablet
50 mg PO DAILY Qty: 30 0RF
Creon 24,000-76,000 -120,000 unit Capsule,Delayed Release(Dr/Ec)
1 cap PO MEALS
Probiotic
1 cap PO DAILY
Referrals:
Caterina Sharpe MD [Family Provider] -
Interventions
Interventions:
*Risk Screen - Suicide Last Done: 08/13/24 14:39
*General Assessment Last Done: 08/13/24 14:39
*Neglect/Abuse Screening Last Done: 08/13/24 14:39
ED- Fall Risk Assessment Last Done: 08/13/24 20:05
*ED COVID-19 Vaccine History Last Done: 08/13/24 19:58
JI-Ccvvyj-Wdhmxpawze Assessment Last Done: 08/13/24 20:05
Discharge Date and Time
Print Language: POLISH
--- NOTE | 2024-08-13 20:59 | CON.CRS ---
Consultation
-
Performing Provider: Nicolas Ross MD
Reason for Consultation: right-sided abdominal pain
Medical History
-
History of Present Illness:
64-year-old female with PMH of COPD, 40-year smoking history (recently down to 1/4 pack/day), HTN, anxiety, pancreatic insufficiency, hysterectomy 20 years ago c/b vaginal prolapse s/p sacrocolpopexy 1 month later, with recent admissions for
left-sided colitis.� In 03/2024, she underwent a CT scan, which showed inflammation in the proximal rectum, sigmoid and descending colon, concerning for colitis. She was scheduled for flexible sigmoidoscopy with Dr. Howard, but her pain improved and she
canceled.� She presented to [facility] on 05/29 for recurrent LLQ abdominal pain a/w frequent BMs with streaks of blood.� Her CRP was 43.5 and fecal calprotectin 143.� Dr. Campbell performed a flexible sigmoidoscopy on 05/31, which showed erythema
from the proximal rectum to splenic flexure, which was biopsied, and a 1 cm polyp in the distal rectum and 2 cm polyp in the rectosigmoid, both left in place.� The biopsies came back negative.� On 06/07, she was diagnosed with norovirus and was
discharged on 06/09.� On 06/26, she had recurrent severe LLQ abdominal pain and presented to the ED.� Her WBC was 10.[address] showed a large collection, 12 x 6 cm, invading into the left iliopsoas muscle. She underwent IR drainage with 100 mL of
pus.� She had an exaggerated SIRS response to the drain placement and required Levophed for few hours. She improved and�was discharged on 06/30 with 3 weeks of Augmentin per ID.� She presented to the ED on 07/03 for left hip and abdominal pain.� Her
WBC was 8.5. A CT was done showing the drain was in good position with improvement of the inflammation and she was discharged.� On 07/09, her [facility] was concerned that the drain may have pulled out a bit.� She underwent a drain study, which showed no
fistulous connection to the colon and resolution of the abscess, so the drain was removed. Since the drain removal, her abdominal pain and bowel function had largely resolved.
Starting 2 days ago, she started developing progressively worsening right-sided abdominal pain. She denies any fevers, had some nausea but no vomits and became more constipated. She continued passing gas and had a BM earlier today. Denies any
chest pain or SOB (except for episodes of anxiety). She called me and I recommended she present to the ED for a repeat CT scan as right-sided abdominal pain is not typical for her. Her WBC was 12.3. A CT was done which showed right-sided
diverticulitis without perforation or abscess.
Past Medical History
Past Medical History: Other (As above)
Past Surgical History: Other (As above)
Social History
Tobacco: Smoker
Alcohol: None
Personal:
Living: With Family
Family History
Family History: Other (grandmother had colon cancer in her 90s, otherwise no CRC in the family)
Allergies / Home Medications
Allergy/AdvReac Type Severity Reaction Status Date / Time
metronidazole [From Flagyl] Allergy Unknown Verified 08/13/24 14:44
morphine Allergy SEE BELOW Verified 08/13/24 14:44
Sulfa (Sulfonamide Allergy Unknown Verified 08/13/24 14:44
Antibiotics)
�Medication �Instructions �Recorded �Confirmed �Type
diazepam 5 mg tablet 1.25 mg PO PRN PRN anxiety 04/26/20 08/13/24 History
fluoxetine 20 mg capsule 20 mg PO DAILY Depression 04/26/20 08/13/24 History
albuterol sulfate 90 mcg/actuation 1 puff inhalation R Q4HPRN PRN SoB 01/02/23 08/13/24 History
aerosol inhaler
fluticasone fur. 100 mcg-umeclid 1 inh inhalation R DAILY 05/29/24 08/13/24 History
62.5 mcg-vilant 25 mcg Lung/Breathing Issues
inhalat.powder (Trelegy Ellipta)
cholecalciferol (vitamin D3) 50 50 mcg PO DAILY Supplement 06/25/24 08/13/24 History
mcg (2,000 unit) tablet (Vitamin
D3)
atenolol 50 mg tablet 50 mg PO DAILY Blood Pressure #30 06/30/24 08/13/24 Rx
tabs
doxazosin 4 mg tablet 2 mg (1/2 x 4 mg) PO DAILY Urinary 06/30/24 08/13/24 Rx
Issue #30 tabs
Probiotic 1 cap PO DAILY 08/13/24 08/13/24 History
ntzlmv-kxygforn-ywhgwef 1 cap PO MEALS 08/13/24 08/13/24 History
24,000-76,000-120,000 unit
capsule,delayed rel (Creon)
Review of Systems
-
A 10 point review of systems was completed, and was negative except as per HPI.
Physical Exam
Vital Signs
Temp 99.8 F 08/13/24 19:56
Pulse 79 08/13/24 19:56
Resp Rate 16 08/13/24 19:56
Blood pressure 165/70 08/13/24 20:05
SaO2 95 08/13/24 17:11
08/12/24 08/13/24 08/14/24
06:59 06:59 06:59
Actual Weight 48.4 kg
Body Mass Index (BMI) 20.2
Lab Results / Allergies
08/13/24 14:52
08/13/24 14:52
WBC 12.3 10^3/uL (4.8-10.8) H 08/13/24 14:52
Hgb 15.4 g/dL (12.0-16.0) 08/13/24 14:52
Hct 48.0 % (37.0-47.0) H 08/13/24 14:52
Plt Count 276 10^3/uL (130-400) 08/13/24 14:52
Abs Immat Gran (auto) 0.0 10^3/uL (0-0.05) 08/13/24 14:52
Neutrophils % 82.4 % (42.2-75.2) H 08/13/24 14:52
Allergy/AdvReac Type Severity Reaction Status Date / Time
metronidazole [From Flagyl] Allergy Unknown Verified 08/13/24 14:44
morphine Allergy SEE BELOW Verified 08/13/24 14:44
Sulfa (Sulfonamide Allergy Unknown Verified 08/13/24 14:44
Antibiotics)
Physical Exam
General: Well Developed, No Apparent Distress and Comfortable
HEENT: Normocephalic and Atraumatic
Respiratory: Non Labored Respirations
GI: Soft, Tender (Moderately to severely tender in the RLQ, no rebound or guarding, mild tenderness in the suprapubic/LLQ) and Distended (Minimally distended)
Skin: Warm and Dry
Neuro: AO x 3
Assessment / Plan
-
64-year-old female with PMH of HTN, anxiety, pancreatic insufficiency, COPD, history of sacrocolpopexy, recent admissions for colitis (admitted from 05/29 to 06/08; initially thought to be IBD�related; underwent flexible sigmoidoscopy on 05/31,
which showed a 1 cm polyp in the distal rectum and 2 cm polyp in the rectosigmoid, not resected, diverticulosis and erythematous mucosa from the rectum to splenic flexure, biopsies negative; she did test positive for norovirus, which was ultimately
the presumptive diagnosis; returned on 06/26 and found to have a large left-sided paracolic abscess invading to the left iliacus, s/p IR drainage; discharged with 3-week course of Augmentin and ultimately drain study showed no residual abscess or
fistula and drain removed; working diagnosis now diverticulitis with abscess; was planned for flex sig on Sep 03 for polyp removal and ultimate elective sigmoidectomy) who presented with 2 days of worsening RLQ abdominal pain, WBC 12.3, CT showing
right-sided diverticulitis
AFVSS
WBC 11.2 from 17.9
� Right-sided diverticulitis
�Atypical presentation for diverticulitis but radiographically consistent; recommend ruling out inflammatory and infectious colitis; ischemic colitis seems less likely
�Will send CRP and fecal calprotectin, C. difficile and stool studies
�Has been seen by ID in the past, recommend routine consult; recommend IV zosyn until then
�Reviewed treatment options including operative and nonoperative management; an operation in the acute setting would more likely require an open incision and possible ostomy; therefore, recommend nonoperative measures as she has no signs of
hemodynamic instability or peritonitis; reviewed risks of nonoperative management, including failure, worsening clinical status and need for urgent surgery; patient understood well and agreed with nonoperative measures
�Recommend n.p.o. with IVF, okay for sips/chips and p.o. meds
�Recommend DVT PPx with Lovenox
� OOB/IS
� Appreciate hospitalist
--- NOTE | 2024-08-13 21:45 | HPS.HSE ---
Family Physician
-
Family Physician: Caterina Sharpe
Chief Complaint
-
Abdominal pain
History of Present Illness
64-year-old woman with prior episodes of diverticular abscess managed with an IR drain, following with colorectal surgery Dr. Ross. He referred her in [facility] for [facility] CAT scan because she was having right sided abdominal pain (which is a new symptom
for her), nausea without vomiting. She stated that she was eating okay, has had no fevers, and is not currently on antibiotics. She was at in July 06. She was seen in the ED by who stated:
'� Right-sided diverticulitis
�Atypical presentation for diverticulitis but radiographically consistent;
recommend ruling out inflammatory and infectious colitis; ischemic colitis seems less likely
�Will send CRP and fecal calprotectin, C. difficile and stool studies
�Has been seen by ID in the past, recommend routine consult; recommend IV zosyn until then
�Reviewed treatment options including operative and nonoperative management; an operation in the acute setting would more likely require an open incision and possible ostomy; therefore, recommend nonoperative measures as she has no signs of
hemodynamic instability or peritonitis; reviewed risks of nonoperative management, including failure, worsening clinical status and need for urgent surgery; patient understood well and agreed with nonoperative measures
�Recommend n.p.o. with IVF, okay for sips/chips and p.o. meds
�Recommend DVT PPx with Lovenox
� OOB/IS'
Patient was comfortable and requested tylenol. CT in the ED showed:
As described, findings suggestive of focal diverticulitis of the right colon, with significant adjacent fat stranding and edema.
No evidence for abscess, evaluation somewhat limited by lack of GI luminal contrast agent.
No evidence for free intraperitoneal air.
Depending on persistent clinical symptoms, consideration could be given to a follow-up CT with prolonged oral contrast and with intravenous contrast.
Band of enhancement within the anterior margin of the left psoas muscle, decrease in size from CT of July 23, 2024, likely a band of inflammation/scarring from previous drainage procedure.
1.3 cm mass in the central left kidney, stable from CT of the abdomen and pelvis without and with contrast from July 01, 2023, compatible with a hyperdense cyst.
Moderate to severe vascular calcification with suggestion of narrowing of the iliac arteries. Please correlate with any symptoms of claudication.
Stable mild to moderate anterior compression deformity of the T12 vertebral body.
Medical History
Past Medical History
Past Medical History: Reports Other
Additional Past Medical History:
Chronic seasonal allergic rhinitis due to pollen
Smoker
Anxiety about health
Irritable bowel syndrome with diarrhea
Age-related osteoporosis without current pathological fracture
Moderate episode of recurrent major depressive disorder
Secondary polycythemia
Nicotine dependence, cigarettes, uncomplicated
Generalized anxiety disorder
Grade II hemorrhoids
Labile essential hypertension
Thoracic aorta atherosclerosis
Impaired fasting glucose
Hypertensive heart disease without heart failure
Dyspepsia
Chronic diarrhea
Panlobular emphysema
Hypertensive retinopathy of both eyes
Exocrine pancreatic insufficiency
IR drainage of an abd abscess
Past Surgical History: Reports Other
Additional Past Surgical History:
See above
Social History
Tobacco: Smoker
Alcohol: None
Family History
Family History: Not pertinent
Allergies / Home Medications
Allergies reflects when Allergies were last updated in [facility].
Home Medications with original date entered in [facility]
Allergy/Medication List:
Allergies
Allergy/AdvReac Type Severity Reaction Status Date / Time
metronidazole [From Flagyl] Allergy Unknown Verified 08/13/24 14:44
morphine Allergy SEE BELOW Verified 08/13/24 14:44
Sulfa (Sulfonamide Allergy Unknown Verified 08/13/24 14:44
Antibiotics)
Home Medications
diazepam 5 mg tablet 1.25 mg PO PRN PRN anxiety 04/26/20
fluoxetine 20 mg capsule 20 mg PO DAILY Depression 04/26/20
albuterol sulfate 90 mcg/actuation aerosol inhaler 1 puff inhalation R Q4HPRN PRN SoB 01/02/23
fluticasone fur. 100 mcg-umeclid 62.5 mcg-vilant 25 mcg inhalat.powder (Trelegy Ellipta) 1 inh inhalation R DAILY Lung/Breathing Issues 05/29/24
cholecalciferol (vitamin D3) 50 mcg (2,000 unit) tablet (Vitamin D3) 50 mcg PO DAILY Supplement 06/25/24
atenolol 50 mg tablet 50 mg PO DAILY Blood Pressure #30 tabs 06/30/24
doxazosin 4 mg tablet 2 mg (1/2 x 4 mg) PO DAILY Urinary Issue #30 tabs 06/30/24
Probiotic 1 cap PO DAILY 08/13/24
fvwdnl-sgnohqnm-jphvlfk 24,000-76,000-120,000 unit capsule,delayed rel (Creon) 1 cap PO MEALS 08/13/24
Review of Systems
-
History Source: Patient
A 12 point ROS was completed and negative except as noted: Yes
Physical Exam
Vital Signs
Vital Signs
Temp Pulse Resp BP Pulse Ox
99.8 F 79 16 165/70 95
08/13/24 19:56 08/13/24 19:56 08/13/24 19:56 08/13/24 20:05 08/13/24 17:11
Physical Exam
General: Well Developed, No Apparent Distress and Comfortable
HEENT: NormoCephalic, Moist mucous membranes, Nose Appears Normal and Ears Appear Normal
Respiratory: Clear
GI: Soft and Tender; No Normal Bowel Sounds
Musculoskeletal: No Clubbing, No Cyanosis and No Edema
Skin: Warm and Dry
Neuro: Awake, Alert, Oriented and AO x 3
Psych: Calm
Laboratory Results
-
08/13/24 14:52
08/13/24 14:52
Laboratory Results
Total Bilirubin 1.4 mg/dl (0.2-1.3) H 08/13/24 14:52
AST 19 U/L (14-36) 08/13/24 14:52
ALT 13 U/L (0-35) 08/13/24 14:52
Alkaline Phosphatase 86 U/L (38-126) 08/13/24 14:52
Lipase 50 U/L (23-300) 08/13/24 14:52
Data Reviewed
-
Lab Data: Labs Reviewed by me
Impression/Plan
-
IMPRESSION:
64 woman with diverticulitis. Patient seen by colorectal surgery:
'� Right-sided diverticulitis
�Atypical presentation for diverticulitis but radiographically consistent;
recommend ruling out inflammatory and infectious colitis; ischemic colitis seems less likely
�Will send CRP and fecal calprotectin, C. difficile and stool studies
�Has been seen by ID in the past, recommend routine consult; recommend IV zosyn until then
�Reviewed treatment options including operative and nonoperative management; an operation in the acute setting would more likely require an open incision and possible ostomy; therefore, recommend nonoperative measures as she has no signs of
hemodynamic instability or peritonitis; reviewed risks of nonoperative management, including failure, worsening clinical status and need for urgent surgery; patient understood well and agreed with nonoperative measures
�Recommend n.p.o. with IVF, okay for sips/chips and p.o. meds
�Recommend DVT PPx with Lovenox
� OOB/IS'
PLAN:
1. Diverticulitis. Will follow recommendation as described above
2. 20 item past medical history - continue home meds
Full code
Lovenox for DVTp
[2024-08-13] MEDS: NSS 1000 IV (23:20)
[2024-08-13] MEDS: OFIRMEV 100 IV (23:21)
[2024-08-13 23:29] VITALS: BP 157/56
[2024-08-14] MEDS: OFIRMEV 100 IV ×3 (06:00→18:31)
[2024-08-14 06:11] VITALS: BP 134/47
[2024-08-14 06:27] LABS: Hematocrit 44.1 % (37.0-47.0); Hemoglobin 14.8 g/dL (12.0-16.0); Mean Corp Hgb Conc. 33.6 g/dL (33.0-37.0); Mean Corpuscular Volume 92.5 fL (81.0-99.0); Mean Platelet Volume 9.5 fL (7.4-10.4); Platelet Count 258 10^3/uL (130-400); Red Blood Cell Count 4.77 10^6/uL (4.20-5.40); White Blood Cell Count 13.8 10^3/uL (4.8-10.8)
[2024-08-14 06:36] LABS: Blood Urea Nitrogen 11 mg/dl (7-17); Calcium 8.8 mg/dl (8.4-10.2); Carbon Dioxide 28 mmol/L (22-30); Chloride 101 mmol/L (98-107); Estimated Creatinine Clearance 70 ml/min; Glucose 117 mg/dl (70-99); Potassium 4.1 mmol/L (3.5-5.1); Sodium 137 mmol/L (135-145); eGFR > 60.00
[2024-08-14] MEDS: ZOSYN 50 IV ×3 (06:48→18:30)
[2024-08-14 07:49] VITALS: BP 121/76
[2024-08-14] MEDS: SYMBICORT 80/4.5 MCG INHALER 2 PUFF INH ×2 (08:01→20:37)
[2024-08-14] MEDS: SPIRIVA RESPIMAT 2.5 MCG 2 PUFF INH (08:01)
[2024-08-14] MEDS: ZENPEP DELAYED RELEASE CAPSULE PO ×3 (08:29→12:16)
[2024-08-14] MEDS: VITAMIN D3 (cholecalciferol) 50 MCG PO (08:30)
[2024-08-14] MEDS: PROZAC 20 MG PO (08:30)
[2024-08-14] MEDS: TENORMIN 50 MG PO (08:31)
[2024-08-14] MEDS: CARDURA 2 MG PO (09:00)
[2024-08-14] MEDS: NSS 1000 IV ×2 (09:06→20:23)
[2024-08-14] MEDS: DILAUDID 0.5 MG IV ×2 (10:14→20:24)
[2024-08-14 12:02] VITALS: BP 106/50
--- NOTE | 2024-08-14 13:07 | W.PN.CRS1 ---
Addendum entered and electronically signed by Nicolas Ross MD 08/14/24 20:15:
I saw and examined the patient.
The FINANCIAL [employer]OUNDATIONS REPRESENTATIVE's note was reviewed and I agree with the note.
Comment:
Original Note:
Today's Communication / Plan
-
Continue npo
Assessment/Plan
-
64-year-old female with PMH of HTN, anxiety, pancreatic insufficiency, COPD, history of sacrocolpopexy, recent admissions for colitis (admitted from 05/29 to 06/08; initially thought to be IBD�related; underwent flexible sigmoidoscopy on 05/31,
which showed a 1 cm polyp in the distal rectum and 2 cm polyp in the rectosigmoid, not resected, diverticulosis and erythematous mucosa from the rectum to splenic flexure, biopsies negative; she did test positive for norovirus, which was ultimately
the presumptive diagnosis; returned on 06/26 and found to have a large left-sided paracolic abscess invading to the left iliacus, s/p IR drainage; discharged with 3-week course of Augmentin and ultimately drain study showed no residual abscess or
fistula and drain removed.
Presenting now with right sided diverticulitis with atypical presentation. Ruling out infectious etiology
Stool cx thus far negative for c-diff, others pending
Still with leukocytosis and pain not yet improved
AFVSS
�Recommend n.p.o. with IVF, okay for sips/chips and p.o. meds
�Recommend DVT PPx with Lovenox
� OOB/IS
--IV abx, ?rash to trunk will order prn benadryl. Continue current abx at this time.
� Appreciate hospitalist
--Continue nonoperative measures as she has no signs of hemodynamic instability or peritonitis; reviewed risks of nonoperative management, including failure, worsening clinical status and need for urgent surgery; patient understood well and agreed
with nonoperative measures
Subjective Data
Subjective Data
Date of Service: August 14, 2024
Patient seen and examined at bedside with Dr. Ross. Still with signifiant abdominal pain. Denies n/v. Passing gas and a small stool. Pain worse on the right then left
Objective Data
-
Vital Signs
Temp Pulse Resp BP Pulse Ox
98.9 F 84 16 106/50 91
08/14/24 12:02 08/14/24 12:02 08/14/24 12:02 08/14/24 12:02 08/14/24 08:12
Lab Results
08/14/24 06:05
08/14/24 06:05
Physical Exam
-
General: No Acute Distress and AOx3
HEENT: Grossly Normal
Abdomen: Soft, Non Distended and Tender (BLLQ R>L)
Skin: Warm, Dry and Other (mild rash to the trunk)
--- NOTE | 2024-08-14 15:05 | W.PN.HOSP.TC ---
Today's Communication/Plan
-
Assessment / Plan
Assessment / Plan
Gen-AAOx3, NAD
HEENT-NC, AT, anicteric, clear oral mm
Neck-supple
CV-reg, no M, +S1/S2
Lungs-clear B/L
Abd-soft, TTP right and left lower quadrants, nondistended
Musculoskeletal-no edema, no deformity
Skin-warm and dry
Neuro-grossly non-focal
Psych-calm, cooperative
Ms. Estrella is a 64-year-old female with a medical history of prior diverticulitis with with paracolic abscess involving left iliacus (status post drain, now discontinued), pancreatic insufficiency, COPD, hypertension, and anxiety who presented with
right-sided abdominal pain. She reported her symptoms to her colorectal surgeon who recommended presenting to the ED for CT and further evaluation. CT imaging shows new right-sided diverticulitis. She has been started on appropriate antibiotics
and admitted for further management.
Acute diverticulitis:
-Right-sided, which is unusual, she has a history of prior left-sided diverticulitis requiring IR drain for abscess
-Continue antibiotics with Zosyn, IV fluids, Benadryl as needed for rash on abdomen possibly related to medications
-Nonoperative management for now, colorectal surgery following and input has been appreciated
-Pain control as needed
-N.p.o. except for sips
-Probiotic
Pancreatic insufficiency:
-Continue p.o. pancreatic supplements
Anxiety:
-Continue home fluoxetine 20 mg
-Home diazepam as needed
COPD:
-Stable respiratory status currently, no evidence of acute exacerbation
-Continue scheduled inhalers
CODE STATUS: Full code
Anticipated Discharge: 24 - 48 hours
Subjective/Interval History
-
Date of Service: August 14, 2024
Patient was seen and examined at bedside's morning. She reports ongoing lower right-sided abdominal pain and new lower left-sided abdominal pain. She remains on IV fluids antibiotics for treatment of acute diverticulitis.
Objective Data
-
Labs:
Laboratory Results
08/14/24
06:05
WBC 13.8 H
Hgb 14.8
Hct 44.1
Plt Count 258
Sodium 137
Potassium 4.1
Chloride 101
Carbon Dioxide 28
BUN 11
Creatinine 0.5 L
Glucose 117 H
Calcium 8.8
Vital Signs:
Vital Signs
Temp Pulse Resp BP Pulse Ox
98.9 F 84 16 106/50 91
08/14/24 12:02 08/14/24 12:02 08/14/24 12:02 08/14/24 12:02 08/14/24 08:12
Review of Systems
-
History Source: Patient
All other systems: Reviewed and negative
Abdomen/GI: Reports Abdominal Pain
Physical Exam
-
General: No Apparent Distress
--- NOTE | 2024-08-14 15:37 | CM ---
CM met with pt bedside
Pt [place] with her [place]
Pt is independent with her ADLs
Pt admitted last month and dc home with VN and new WW
Pt has home O2 set up through [employer], does not use typically at baseline
Pt has since had drained removed and closed to [facility]
PCP- Caterina Sharpe
Rx- [facility] [address]
Discharge Disposition- anticipate home, likely no needs
[2024-08-14 17:08] VITALS: BP 112/46
[2024-08-14] MEDS: ZENPEP DELAYED RELEASE CAPSULE 1 CAPSULE PO (18:33)
[2024-08-14] MEDS: LOVENOX 40 MG SC (18:33)
[2024-08-14] MEDS: ZOFRAN 4 MG IV (20:15)
[2024-08-14 23:50] VITALS: BP 134/58
[2024-08-15] MEDS: ZOSYN 50 IV ×5 (00:50→23:07)
[2024-08-15] MEDS: OFIRMEV 100 IV ×4 (01:27→23:07)
[2024-08-15] MEDS: NSS 1000 IV (06:48)
[2024-08-15 07:00] VITALS: BP 143/54
[2024-08-15] MEDS: SPIRIVA RESPIMAT 2.5 MCG 2 PUFF INH (07:20)
[2024-08-15] MEDS: SYMBICORT 80/4.5 MCG INHALER 2 PUFF INH ×2 (07:20→21:42)
[2024-08-15 08:41] LABS: % Basophils 0.3 % (0-2); % Immature Granulocytes 0.4 % (0-0.5); % Lymphocytes 8.9 % (20.5-51.1); % Monocytes 7.5 % (1.7-9.3); % Neutrophils 81.9 % (42.2-75.2); Absolute Eosinophils 0.1 10^3/uL (0-0.7); Absolute Lymphocytes 0.9 10^3/uL (1.2-3.4); Absolute Monocytes 0.7 10^3/uL (0.1-0.6); Absolute Neutrophils 7.9 10^3/uL (1.4-6.5); Hematocrit 41.5 % (37.0-47.0); Hemoglobin 13.1 g/dL (12.0-16.0); Mean Corp Hgb Conc. 31.6 g/dL (33.0-37.0); Mean Corpuscular Hgb 30.3 pg (27.0-31.0); Mean Corpuscular Volume 95.8 fL (81.0-99.0); Mean Platelet Volume 9.5 fL (7.4-10.4); Nucleated Red Blood Cells % 0 %; Platelet Count 212 10^3/uL (130-400); Red Blood Cell Count 4.33 10^6/uL (4.20-5.40); Red Cell Dist. Width 14.8 % (11.5-14.5); White Blood Cell Count 9.7 10^3/uL (4.8-10.8)
[2024-08-15] MEDS: VISBIOME 1 CAP PO (08:54)
[2024-08-15] MEDS: ZENPEP DELAYED RELEASE CAPSULE PO ×4 (08:54→17:58)
[2024-08-15] MEDS: PROZAC 20 MG PO (08:54)
[2024-08-15] MEDS: VITAMIN D3 (cholecalciferol) 50 MCG PO (08:54)
[2024-08-15] MEDS: TENORMIN 50 MG PO (08:55)
[2024-08-15] MEDS: CARDURA 2 MG PO (08:55)
[2024-08-15 08:58] LABS: ALT (SGPT) < 10 U/L (0-35); AST (SGOT) 16 U/L (14-36); Albumin 3.6 g/dl (3.5-5.0); Alkaline Phosphatase 80 U/L (38-126); Blood Urea Nitrogen 12 mg/dl (7-17); Calcium 8.3 mg/dl (8.4-10.2); Carbon Dioxide 23 mmol/L (22-30); Chloride 104 mmol/L (98-107); Estimated Creatinine Clearance 70 ml/min; Glucose 62 mg/dl (70-99); Phosphorus 4.2 mg/dl (2.5-4.5); Potassium 3.9 mmol/L (3.5-5.1); Sodium 138 mmol/L (135-145); Total Bilirubin 1.2 mg/dl (0.2-1.3); eGFR > 60.00
--- NOTE | 2024-08-15 12:04 | W.PN.HOSP.TC ---
Today's Communication/Plan
-
Assessment / Plan
Assessment / Plan
Gen-AAOx3, NAD
HEENT-NC, AT, anicteric, clear oral mm
Neck-supple
CV-reg, no M, +S1/S2
Lungs-clear B/L
Abd-soft, TTP lower abdomen diffusely, nondistended
Musculoskeletal-no edema, no deformity
Skin-warm and dry
Neuro-grossly non-focal
Psych-calm, cooperative
Ms. Estrella is a 64-year-old female with a medical history of prior diverticulitis with with paracolic abscess involving left iliacus (status post drain, now discontinued), pancreatic insufficiency, COPD, hypertension, and anxiety who presented with
right-sided abdominal pain. She reported her symptoms to her colorectal surgeon who recommended presenting to the ED for CT and further evaluation. CT imaging shows new right-sided diverticulitis. She has been started on appropriate antibiotics
and admitted for further management.
Acute diverticulitis:
-Right-sided, which is unusual, she has a history of prior left-sided diverticulitis requiring IR drain for abscess
-Continue antibiotics with Zosyn, IV fluids, Benadryl as needed for rash on abdomen possibly related to medications
-Nonoperative management for now, colorectal surgery following and input has been appreciated
-Pain control as needed
-Trial on clear liquid diet this morning
-Had soft stools overnight
-Probiotic
Pancreatic insufficiency:
-Continue p.o. pancreatic supplements
Anxiety:
-Continue home fluoxetine 20 mg
-Home diazepam as needed
COPD:
-Stable respiratory status currently, no evidence of acute exacerbation
-Continue scheduled inhalers
CODE STATUS: Full code
Anticipated Discharge: 24 - 48 hours
Subjective/Interval History
-
Date of Service: August 15, 2024
She was seen and examined at bedside this morning. Still with ongoing lower abdominal pain. No acute distress. Has been n.p.o. except for sips since admission. Will trial clear liquids this morning.
Objective Data
-
Labs:
Laboratory Results
08/15/24
07:39
WBC 9.7
Hgb 13.1
Hct 41.5
Plt Count 212
Sodium 138
Potassium 3.9
Chloride 104
Carbon Dioxide 23
BUN 12
Creatinine 0.5 L
Glucose 62 L
Calcium 8.3 L
Total Bilirubin 1.2
AST 16
ALT < 10
Alkaline Phosphatase 80
Vital Signs:
Vital Signs
Temp Pulse Resp BP Pulse Ox
98.1 F 87 14 143/54 93
08/15/24 07:00 08/15/24 08:55 08/15/24 07:27 08/15/24 08:55 08/15/24 07:27
Review of Systems
-
History Source: Patient
All other systems: Reviewed and negative
Abdomen/GI: Reports Abdominal Pain
Physical Exam
-
General: No Apparent Distress
--- NOTE | 2024-08-15 13:06 | W.PN.CRS1 ---
Addendum entered and electronically signed by Nicolas Ross MD 08/15/24 16:11:
I saw and examined the patient.
The MOBILITY MANAGER's note was reviewed and I agree with the note.
Comment:
Pain seems to have worsened. Also complaining of caffeine withdrawal headache and feeling anxious. Feeling a little nauseous, no vomits, passing flatus. Had 1 episode of diarrhea with a little blood, another episode without blood.
ABD soft, nondistended, diffusely mildly tender with voluntary guarding, moderate to severely tender in the RLQ, no rebound
�Continue trending daily CRP, C. difficile negative, follow-up stool cultures
�Continue n.p.o., okay for sips of clear liquids and p.o. meds
� Consult ID due to complicated history of colitis, continue IV Zosyn
� Continue pain control with Tylenol, will add Toradol; Dilaudid as needed
� Discussed with GI; IBD seems less likely, they will evaluate likely tomorrow; no steroids for now
� Due to overwhelming anxiety, offered psychiatry consult, but currently declining; will continue to encourage patient for psych consult
� Appreciate hospitalist
Original Note:
Today's Communication / Plan
-
NPO except sips
IVF with D5 for hypoglcyemia
IV analgesics
Assessment/Plan
-
64-year-old female with PMH of HTN, anxiety, pancreatic insufficiency, COPD, history of sacrocolpopexy, recent admissions for colitis (admitted from 05/29 to 06/08; initially thought to be IBD�related; underwent flexible sigmoidoscopy on 05/31,
which showed a 1 cm polyp in the distal rectum and 2 cm polyp in the rectosigmoid, not resected, diverticulosis and erythematous mucosa from the rectum to splenic flexure, biopsies negative; she did test positive for norovirus, which was ultimately
the presumptive diagnosis; returned on 06/26 and found to have a large left-sided paracolic abscess invading to the left iliacus, s/p IR drainage; discharged with 3-week course of Augmentin and ultimately drain study showed no residual abscess or
fistula and drain removed.
Presenting now with right sided diverticulitis with atypical presentation, ?colitis. Ruling out infectious etiology
Stool cx thus far negative for c-diff, others pending
Leukocytosis resolved with CRP rising, pain worse today
Hypoglycemia on AM labs
AFVSS
�Continue NPO, ok for sips/chips and p.o. meds
- Change fluids to D5/0.45% with 20meq K in light of her hypoglycemia
--IV analgesics prn
�Recommend DVT PPx with Lovenox
� OOB/IS
--Continue IV abx, will consult ID to assist with management given rising crp and increased pain
--Trend labs, crp/exams
--Consult gastroenterology to follow given concern for colitis, has been undergoing ibd work up as outpatient
� Appreciate hospitalist
--Offered psychiatry consult to patient which she currently declines
Continue nonoperative measures as she has no signs of hemodynamic instability or peritonitis; reviewed risks of nonoperative management, including failure, worsening clinical status and need for urgent surgery; patient understood well and agreed
with nonoperative measures
Subjective Data
Subjective Data
Date of Service: August 15, 2024
Patient seen and examined at bedside with Dr. Ross. Patient tearful about her situation but declines psychiatry. Pain is worse today. Denies n/v. She is very eager to try PO and quite disappointed that she needs to remain npo.
Objective Data
-
Vital Signs
Temp Pulse Resp BP Pulse Ox
98.1 F 87 14 143/54 93
08/15/24 07:00 08/15/24 08:55 08/15/24 07:27 08/15/24 08:55 08/15/24 07:27
Lab Results
08/15/24 07:39
08/15/24 07:39
Physical Exam
-
General: No Acute Distress and AOx3
HEENT: Grossly Normal
Abdomen: Soft, Non Distended, Tender (significant throughout, worse to lower abdomen), Guarding (voluntary) and No Rebound
Skin: Warm and Dry
[2024-08-15] MEDS: D5/0.45%NSS with KCL 20 MEQ 1000 IV (13:33)
[2024-08-15 15:18] VITALS: BP 137/56
--- NOTE | 2024-08-15 15:18 | CON.ID ---
Consultation
-
Date/Time Consultation Requested: 08/15/24 12:09
Date/Time Consultation Performed: 08/15/24 15:19
Requesting Provider: Monika BARBOSA
Performing Provider: Dr Giang
Reason for Consultation: diverticulitis vs colitis
Chief Complaint / Past History
Chief Complaint
abdominal pain
History of Present Illness
Ms Estrella is a 64 year old female with previous history of diverticular abscess 06/26 managed with IR drain and a 3 week course of augmentin, follow up drain study negative for abscess/fistula and drain removed, who was referred to the hospital by
her colorectal surgeon for acute onset R sided abdominal pain, nausea without vomiting. No fevers.
Since arrival here she has been afebrile, bp stable, wbc initially 12 now 9.7, hgb 13, plt 212, L shift noted, cr 0.5, LFTs wnl, crp 200, 05/29/24 calprotectin 143, CT a/p with IV and no orgal contrast: suggestive of focal diverticulitis of the
right colon, with significant adjacent fat stranding and edema. No evidence for abscess, evaluation somewhat limited by lack of GI luminal contrast agent. No evidence for free intraperitoneal air, Band of enhancement within the anterior margin of
the left psoas muscle, decrease in size from CT of July 23, 2024, likely a band of inflammation/scarring from previous drainage procedure. C diff study negative, stool culture in progress. Currently on zoHubba. ID is consutled for assistance
with management,
Past History
Additional Past Medical History:
Chronic seasonal allergic rhinitis due to pollen
Smoker
Anxiety about health
Irritable bowel syndrome with diarrhea
Age-related osteoporosis without current pathological fracture
Moderate episode of recurrent major depressive disorder
Secondary polycythemia
Nicotine dependence, cigarettes, uncomplicated
Generalized anxiety disorder
Grade II hemorrhoids
Labile essential hypertension
Thoracic aorta atherosclerosis
Impaired fasting glucose
Hypertensive heart disease without heart failure
Dyspepsia
Chronic diarrhea
Panlobular emphysema
Hypertensive retinopathy of both eyes
Exocrine pancreatic insufficiency
Additional Past Surgical History:
IR drainage of an abd abscess
sacrocolpopexy
Allergy History:
metronidazole [From Flagyl] Allergy (Verified 08/13/24 14:44)
Unknown
morphine Allergy (Verified 08/13/24 14:44)
SEE BELOW
Sulfa (Sulfonamide Antibiotics) Allergy (Verified 08/13/24 14:44)
Unknown
Medications Reviewed: Yes
Social History
Tobacco: Smoker
Alcohol: None
Drug: None
Family History
Family History: Not Pertinent
Review of Systems
Review of Systems
General: Negative Fever or Chills
All systems: All other systems were reviewed and were negative
Vital Signs
Temp Pulse Resp BP Pulse Ox
98.1 F 87 14 143/54 93
08/15/24 07:00 08/15/24 08:55 08/15/24 07:27 08/15/24 08:55 08/15/24 07:27
Physical Exam
Physical Exam
Refused to see me for evaluation in the bathroom 'Ill see you tomorrow.'
Assessment / Plan
Focal Diverticulitis
H/o of previous Diverticular abscess
- if febrile then please send blood cultures x2
- CT scan somewhat limited but notable for probable focal diverticulitis
- agree with zosyn at this time
- recheck qtc in AM
[2024-08-15] MEDS: NICODERM TRANSDERMAL 14 MG TRANSDERM (15:22)
[2024-08-15] MEDS: LOVENOX 40 MG SC (17:57)
[2024-08-15] MEDS: IMODIUM 2 MG PO (21:02)
[2024-08-15] MEDS: TUMS CHEWABLE TABLET 200 MG PO (23:18)
[2024-08-15 23:50] VITALS: BP 165/67
[2024-08-16] MEDS: D5/0.45%NSS with KCL 20 MEQ 1000 IV ×2 (02:43→16:41)
[2024-08-16] MEDS: OFIRMEV 100 IV (05:05)
[2024-08-16] MEDS: ZOSYN 50 IV ×2 (05:05→12:44)
[2024-08-16 07:00] VITALS: BP 183/74
[2024-08-16] MEDS: SYMBICORT 80/4.5 MCG INHALER INH (07:27)
[2024-08-16] MEDS: SPIRIVA RESPIMAT 2.5 MCG INH (07:27)
--- NOTE | 2024-08-16 09:08 | CON.GI ---
Addendum entered and electronically signed by Lit Juarez MD 08/16/24 16:22:
I saw and examined the patient.
The [employer] or PA's note was reviewed and I agree with the note.
Comment: 64yo female with multiple recent admissions to for L sided colitis beginning in Mar 2024. She had a recurrent L sided colitis in May 2024. Flex sig then showed decreased vascularity, edema, erythema unlikely IBD or UC and bx were
negative. Two polyps were found but not removed, 10mm distal rectum, 20mm rectosigmoid. CTA showed patent celiac, SMA, KYARA but she does have severe atherosclerosis aorta, iliac arteries. She had Norovirus which was the presumptive dx but after
d/c felt worse and found to have L psoas abscess 06/26/24 requiring drainage catheter to treat and subsequently removed 07/09/24. F/U CT 07/23/24 showed resolution of abscess but persistent, albeit improved wall thickening sigmoid. Last week she
has had R sided abd pain and on admission CT suggests focal R diverticulitis, though not done with oral contrast. There is inflammatory scarrign from prior abscess in L psoas but no recurrent abscess. She reports stools are typically loose, when
she was drinking alcohol (4 glasses wine daily) and she is on pancreatic enzymes for EPI. Sx somewhat better when she cut back on EtOH. Had last colonoscopy in September 2022 only showing diverticulosis. Had jejunal SB thickening on CT June 2023.
REC:
Suspect this represents recurrent diverticulitis, albeit in a new location in R colon
Would continue clear, abx and advance diet if she improves
She was originally set up for colonoscopy with Dr Howard September 03. Would reschedule for 6 weeks from now (mid September) to both resect rectosigmoid polyps and biopsy to evaluate for Crohn's or UC.
I would hold off on steroids at this time since suspicion for IBD is low.
If she does not improve, would repeat CT abd/pelvis with IV and oral contrast.
Original Note:
Consultation
-
Date/Time Consultation Requested: 08/15/24 1200
Date/Time Consultation Performed: 08/16/24 0910
Requesting Provider: BENJIE Betancourt
Performing Provider: Queenie Campbell DO, BENJIE Murry
Reason for Consultation: abdominal pain
Medical History
Chief Complaint / HPI
Chief Complaint: abdominal pain
History of Present Illness:
Pt is a 64-year-old female with history of COPD, active tobacco abuse, pancreatic insufficiency on Creon with prior EUS with Dr. Howard , IBS diarrhea, secondary polycythemia., osteoporosis, anxiety, hemorrhoids, HTN heart disease, emphysema, with hx
chronic left sided pain. In review of CT from 2021 noted left sided wall thickening, 2022 with jejunal wall thickening and eval sept 2023 with rectal, sigmoid and descending colitis. She then had prolonged admission in May 24-06/09 with
left sided pain, initial CT with severe colitis distal descending colon and sigmoid with some involvement of descending colon with perfusion abnormality of liver and high resistance hepatic waveform on doppler with suggest chronic heptocellular
disease. She was treated with antibiotic and had flex sig with non resected polyps and altered vascular congestion with neg bx for IBD. CTA was also completed with patent KYARA and opacification of proximal celiac, and SMA. she was also noted +
norovirus during that admission. She returned in June with sepsis with concern for large left iliacus muscle abscess likely peridiverticular. She was treated with IR drainage that eventually was removed and now returns with right sided pain.
CT on admission with focal right colon diverticulitis with stranding and edema. Noted decreased enhancement from prior psoasis decreased moderate to severe vascular calcification with narrowing of iliac artery. Multiple calprotectin in past with
prior diarrhea noted negative. Prior SB bx with vilous blunting but not c/w celiac disease and neg celiac panel in May.
At this time she continued with some right sided and left sided abdominal pain. She report loose stool with abx use and recent GERD but denies nausea/vomiting or rectal bleeding. She is due follow up colonoscopy in August with Dr. Howard for
polyp removal.
Past Medical History
Past Medical History: Psychiatric (depressive disorder) and Other (Hypertension, tobacco abuse, COPD, pancreatic insufficiency on Creon, rhinitis, IBS with diarrhea, prior SB bx with villous changes, osteoporsosis, secondary polycythemia,
hemorrhoids, HTN, hyertensive heart disease without heart failure, dyspepsia, emphysema, retinopathy)
Past Surgical History: Other (Appendectomy, transvaginal hysterectomy, sacrocolpopexy, IR drainage of abdominal abscess, )
Social History
Tobacco: Smoker
Alcohol: Former (was drinking several glasses wine daily but quit with recent admission )
Drug: None
Personal:
Living: With Family
Employment: Retired
Family History
Family History: Other (Father had ENT cancer, grandmother with colon cancer and breast cancer)
Allergies / Home Medications
Allergy/AdvReac Type Severity Reaction Status Date / Time
metronidazole [From Flagyl] Allergy Unknown Verified 08/13/24 14:44
morphine Allergy SEE BELOW Verified 08/13/24 14:44
Sulfa (Sulfonamide Allergy Unknown Verified 08/13/24 14:44
Antibiotics)
�Medication �Instructions �Recorded
diazepam 5 mg tablet 1.25 mg PO DAILYPRN PRN anxiety 04/26/20
fluoxetine 20 mg capsule 20 mg PO DAILY Depression 04/26/20
albuterol sulfate 90 mcg/actuation 1 puff inhalation R Q4HPRN PRN SoB 01/02/23
aerosol inhaler
fluticasone fur. 100 mcg-umeclid 1 inh inhalation R DAILY 05/29/24
62.5 mcg-vilant 25 mcg Lung/Breathing Issues
inhalat.powder (Trelegy Ellipta)
cholecalciferol (vitamin D3) 50 50 mcg PO DAILY Supplement 06/25/24
mcg (2,000 unit) tablet (Vitamin
D3)
atenolol 50 mg tablet 50 mg PO DAILY Blood Pressure #30 06/30/24
tabs
doxazosin 4 mg tablet 2 mg (1/2 x 4 mg) PO DAILY Urinary 06/30/24
Issue #30 tabs
Lactobac no.2-Bifidobac no.1-S. 1 cap PO DAILY 08/13/24
thermo 112.5 billion cell capsule
(Visbiome)
prvxkv-[id number]-tlcwvfv 1 cap PO AC 08/13/24
24,000-76,000-120,000 unit
capsule,delayed rel (Creon)
Review of Systems
-
History Source: Patient
Constitutional: Reports Weight Loss (few lbs with admissions)
EENT: Reports No Symptoms
Respiratory: Reports Trouble Breathing (chronic with COPD)
Abdomen/GI: Reports Abdominal Pain and Diarrhea
: Reports No Symptoms
Musculoskeletal: Reports No Symptoms
Skin: Reports No Symptoms
Neurological: Reports Weakness
Endocrine: Reports No Symptoms
Hematologic/Lymphatic: Reports No Symptoms
Vital Signs
Temp Pulse Resp BP Pulse Ox
97.5 F 66 18 183/74 94
08/16/24 07:00 08/16/24 07:00 08/16/24 07:00 08/16/24 07:00 08/16/24 07:00
Physical Exam
Exam
General: Well Developed, Well Nourished and No Apparent Distress
HEENT: Normocephalic and Anicteric
Respiratory: Clear
Cardiac: Regular Rhythm
GI: Soft, Non Distended and Tender (diffuse but continue right and left sided tenderness )
Musculoskeletal: No Clubbing and No Cyanosis
Skin: Warm and Dry
Neuro: Awake, Alert and AO x 3
Psych: Calm
Results
WBC Cancelled 08/16/24 08:10
Hgb Cancelled 08/16/24 08:10
Hct Cancelled 08/16/24 08:10
MCV Cancelled 08/16/24 08:10
Plt Count Cancelled 08/16/24 08:10
Absolute Neuts (auto) Cancelled 08/16/24 08:10
Sodium 138 mmol/L (135-145) 08/15/24 07:39
Potassium 3.9 mmol/L (3.5-5.1) 08/15/24 07:39
Chloride 104 mmol/L (98-107) 08/15/24 07:39
Carbon Dioxide 23 mmol/L (22-30) 08/15/24 07:39
BUN 12 mg/dl (7-17) 08/15/24 07:39
Creatinine 0.5 mg/dL (0.6-1.0) L 08/15/24 07:39
Calcium 8.3 mg/dl (8.4-10.2) L 08/15/24 07:39
Total Bilirubin 1.2 mg/dl (0.2-1.3) 08/15/24 07:39
AST 16 U/L (14-36) 08/15/24 07:39
ALT < 10 U/L (0-35) 08/15/24 07:39
Alkaline Phosphatase 80 U/L (38-126) 08/15/24 07:39
Lipase 50 U/L (23-300) 08/13/24 14:52
Diagnostic Image Results:
04/2022 CT Abd/pelvis Wo Iv Cont
IMPRESSION: Wall thickening involving the rectum, sigmoid colon, descending colon, and left side of the transverse colon. These findings are highly suggestive of colitis
No convincing evidence for diverticulitis. The extent of colonic wall thickening over such a long segment would be unusual for diverticulitis.
If there are persistent or worsening clinical symptoms, consideration could be given to follow-up CT evaluation.
Thin linear densities at the periphery of both lower lungs, suggestive of postinflammatory scarring. Bulla within the posterior and inferior aspect of the left lower lobe, slightly enlarging since CT examination in 2017.
Status post appendectomy.
1.5 cm hyperdense cyst within the central left kidney.
Moderate anterior compression deformity of T12 vertebral body, which appears similar to previous radiographs of October 09, 2021.
06/2023 CT Abd/pelvis W/wo Iv Cont
Nonspecific jejunal small bowel wall thickening. Mild fluid distention without gross dilatation involving the lumen of the mid small bowel. Such findings could reflect nonspecific gastroenteritis, and may be related to an infectious process
(giardiasis, histoplasmosis, Yersinia, or Strongyloides). The possible considerations may include nonspecific inflammation or deposition disorders such as Whipple's disease, amyloidosis, eosinophilic enteritis, Crohn's disease, or mastocytosis.
Neoplastic process is probably less likely, and may include lymphoma. Other possible considerations may include vasculitis or nephrotic syndrome.
Underdistention versus nonspecific diffuse gastric wall thickening.
Chronic appearing advanced circumferential wall thickening involving the sigmoid colon.
Diverticulosis.
No evidence of pneumatosis. No free air.
Nonspecific trace free fluid in the pelvis. No focal collection or abscess.
04/02/24 CT Abd/pel W Iv And Oral Contr
1. Severe bowel wall thickening and inflammatory change involving the proximal rectum, sigmoid colon, and distal descending colon. Findings are reflective of severe colitis, likely infectious or inflammatory.
2. Multiple sigmoid diverticuli are seen, however long segment bowel wall thickening is out of proportion to the mesenteric inflammatory change, and diverticulitis is not suspected.
3. No evidence of pneumatosis intestinalis, or extraluminal air. No abdominal pelvic abscess formation.
05/29/24 CT a/p with IV and oral Findings suggesting severe colitis of the distal descending colon and sigmoid colon. Progressed. Wall thickening has progressed and extent involving the descending colon has increased Diverticulosis. Abnormal
appearance of liver enhancement which may be a perfusion abnormality. Hepatocellular disease cannot be excluded. New. Clinical and laboratory correlation recommended.
06/01/24 CT Abd/pelvis Angio W/wo Iv
Patent KYARA.
Findings again seen suggesting some thickening of the wall of the distal descending and sigmoid colon.
Borderline prominent distal pericolonic veins.
Findings again seen suggesting 'Nutmeg' appearance of the liver (hepatic congestion). Some periportal hypodensity which may be due to intravenous hydration and some suspected small volume fluid about the gallbladder.
06/02/24- US abd wtih doppler
There is high resistance hepatic artery waveform as well as biphasic hepatic veins suggestive of chronic hepatocellular disease.
There is circumferential gallbladder wall thickening with trace pericholecystic fluid which can be seen with chronic liver disease.
Mild T12 compression fracture. Stable
06/06/24- abd X ray
Nonobstructive bowel gas pattern.
06/25/24- Ct A/p
IMPRESSION: There is a large mass centered in the left iliacus muscle as described, which very likely represents an abscess. This is likely a peridiverticular abscess which has extended into the adjacent left iliacus muscle.
Patchy parenchymal opacity of the posterior and inferior aspect of the right lower lobe lung, most likely atelectasis, although pneumonitis is also possible. Minimal right pleural effusion.
Coronary artery calcifications. Please correlate with symptoms of and risk factors for coronary artery disease, with further workup as clinically appropriate.
Mild to moderate dilation of the intrahepatic bile ducts and dilation of the common hepatic duct and the superior common bile duct with normal caliber of the mid to inferior common bile duct. This is likely physiologic as the patient has normal
liver function tests.
Hepatomegaly.
1.2 cm hyperdense cyst in the central aspect of the upper mid left kidney, unchanged from CT of the abdomen and pelvis from July 01, 2023.
Stable moderate anterior compression deformity of T12 with mild associated kyphosis.
07/03/24 CT a/p with IV contrast
Significantly improved previous abscess formation along the anterior left iliacus muscle. Percutaneous drainage catheter. New from previous exam.
Tiny right pleural effusion. Progressed.
07/09/24- abscess drainage
1. No significant residual undrained collection. Residual abscess cavity was completely collapsed around the locking loop catheter. No fistulous communication to adjacent structures.
2. The catheter was removed as above.
07/23/24 CT Abd/pelvis W Iv Cont
1. Severe circumferential wall thickening throughout a long length of distal descending colon and sigmoid colon in a region of diverticulosis. Mild interval decrease in wall thickening in the sigmoid colon since 07/03/2024. Diagnostic
possibilities are (1) residual inflammation from acute diverticulitis, (2) chronic diverticular disease, or (3) an acute infectious or inflammatory colitis.
2. Interval removal of a percutaneous drainage catheter from a treated left iliopsoas abscess. 5.9 cm triangular shaped region of enhancing soft tissue at the site of the drained abscess suggesting inflammation and granulation tissue. No CT
evidence for residual fluid collection.
3. Mild small bowel distention and wall thickening which could be reactive or secondary to mild enteritis.
4. Moderate biliary dilatation in the left lobe of the liver and mild extrahepatic biliary dilatation which is unchanged from 07/03/2024, but increased from 12/26/2016.
08/13/24 CT Abd/pelvis W Iv Cont
IMPRESSION: As described, findings suggestive of focal diverticulitis of the right colon, with significant adjacent fat stranding and edema. No evidence for abscess, evaluation somewhat limited by lack of GI luminal contrast agent. No evidence for
free intraperitoneal air.
Depending on persistent clinical symptoms, consideration could be given to a follow-up CT with prolonged oral contrast and with intravenous contrast.
Band of enhancement within the anterior margin of the left psoas muscle, decrease in size from CT of July 23, 2024, likely a band of inflammation/scarring from previous drainage procedure.
1.3 cm mass in the central left kidney, stable from CT of the abdomen and pelvis without and with contrast from July 01, 2023, compatible with a hyperdense cyst.
Moderate to severe vascular calcification with suggestion of narrowing of the iliac arteries. Please correlate with any symptoms of claudication.
Stable mild to moderate anterior compression deformity of the T12 vertebral body.
Prior GI Procedures:
01/30/2023 EUS did not show any mass lesions, soft tissue prominence at the ampulla biopsies were negative for malignancy, started on Creon with mild weight gain on part continues to drink and smoke
EGD/EUS: 12/2022 Dr. Howard for weight loss and evaluate ampulla-endoscopically normal esophagus no gross lesions in the stomach, duodenal mucosal atrophy duodenum shows reactive duodenopathy with patchy villous blunting, prominent Delia's gland
hyperplasia and mildly increased chronic inflammation. No intraepithelial lymphocytes, ampulla patchy villous blunting, no adenoma
EUS showed pancreatic parenchymal abnormalities consisting of hyperechoic strands in the head and body, no pathology of the common bile duct, 1 cm left lobe cyst, anechoic pancreatic head cyst that did not communicate with the pancreatic duct
measuring 9 mm x 9 mm with no associated mass, no specimens collected
Colonoscopy: 09/2022 Dr. Sanders indication is not mentioned: Good prep with difficulty due to restricted mobility of the colon. Left-sided diverticulosis, otherwise endoscopically normal. No biopsies taken
flex si05/2024 walp - Hemorrhoids found on perianal exam.
- One 10 mm polyp in the distal rectum. Resection not
attempted.
- One 20 mm large stalk pedunculated polyp at the
recto-sigmoid colon. Resection not attempted.
- Few small normal appearing diverticula in the left
colon.
- Altered vascular, congested and erythematous mucosa
from rectum to splenic flexure. Biopsied. Unlikely
ulcerative colitis or inflammatory bowel disease.
bx normal mucosa
Assessment / Plan
-
Pt is a 64-year-old female with history of COPD, active tobacco abuse, pancreatic insufficiency on Creon with prior EUS with Dr. Howard , IBS diarrhea, secondary polycythemia., osteoporosis, anxiety, hemorrhoids, HTN heart disease, emphysema, with hx
chronic left sided pain. In review of CT from 2021 noted left sided wall thickening, 2022 with jejunal wall thickening and eval sept 2023 with rectal, sigmoid and descending colitis. She then had prolonged admission in May 24-06/09 with
left sided pain, initial CT with severe colitis distal descending colon and sigmoid with some involvement of descending colon with perfusion abnormality of liver and high resistance hepatic waveform on doppler with suggest chronic heptocellular
disease. She was treated with antibiotic and had flex sig with non resected polyps and altered vascular congestion with neg bx for IBD. CTA was also completed with patent KYARA and opacification of proximal celiac, and SMA. she was also noted +
norovirus during that admission. She returned in June with sepsis with concern for large left iliacus muscle abscess likely peridiverticular. She was treated with IR drainage that eventually was removed and now returns with right sided pain.
CT on admission with focal right colon diverticulitis with stranding and edema. Noted decreased enhancement from prior psoasis decreased moderate to severe vascular calcification with narrowing of iliac artery. Multiple calprotectin in past with
prior diarrhea noted negative. Prior SB bx with vilous blunting but not c/w celiac disease and neg celiac panel in May.
-right sided abdominal pain with concern for right sided diverticulitis on Admission
-acute on chronic left sided pain with recent LLQ abscess s/p IR drainage
-multiple CT with left sided colitis
-norovirus 05/2024
-CT 2022 with jejunal wall thickening
-hx villous blunting with neg celiac testing
-retained colon polyps due for resection
-pancreatic insufficiency with creon use and prior EUS
-colonoscopy 2022 with restricted motility
-high resistence hepatic waveform on doppler
other med problems:
-tobacco abuse
-prior daily ETOH use
-COPD/emphysema
-IBS diarrhea vs panc insufficiency related diarrhea
-secondary polycythemia
-anxiety
-HTN heart disease
PLAN:
etiology of ongoing symptoms unclear-- multiple abnormal CT in past with left sided thickening noted restricted mobility on CT ? diverticular related vs other and now with right sided diverticulitis
pt with multiple fecal bert and bx neg for IBD on prior testing
CTA completed with patency of KYARA and proximal opacification of SMA and celiac to eval for vascular compromise with hx tobacco abuse
cont abx per ID
clear diet as tolerated
surgyery following
will eventual need full colon with polyp removal that is schedule for this month-- may need to push back timing with right sided diverticulitis
LFT normal with hx prior abnormal liver imaging in past
will review with Dr. Campbell
cont creon
-
-
Thank you for consultation and allowing me to participate in the patient's care. Please call the agronomist GI physician during the after hours with any questions or concerns.
[2024-08-16] MEDS: NICODERM TRANSDERMAL 14 MG TRANSDERM (09:12)
[2024-08-16 09:13] LABS: % Basophils 0.3 % (0-2); % Eosinophils 3.2 % (0-6); % Immature Granulocytes 0.3 % (0-0.5); % Lymphocytes 11.9 % (20.5-51.1); % Monocytes 8.3 % (1.7-9.3); Absolute Eosinophils 0.2 10^3/uL (0-0.7); Absolute Lymphocytes 0.7 10^3/uL (1.2-3.4); Absolute Monocytes 0.5 10^3/uL (0.1-0.6); Absolute Neutrophils 4.5 10^3/uL (1.4-6.5); Hematocrit 37.7 % (37.0-47.0); Hemoglobin 12.2 g/dL (12.0-16.0); Mean Corp Hgb Conc. 32.4 g/dL (33.0-37.0); Mean Corpuscular Hgb 30.3 pg (27.0-31.0); Mean Corpuscular Volume 93.5 fL (81.0-99.0); Mean Platelet Volume 9.7 fL (7.4-10.4); Nucleated Red Blood Cells % 0 %; Platelet Count 217 10^3/uL (130-400); Red Blood Cell Count 4.03 10^6/uL (4.20-5.40); Red Cell Dist. Width 14.4 % (11.5-14.5); White Blood Cell Count 5.9 10^3/uL (4.8-10.8)
[2024-08-16] MEDS: PROZAC 20 MG PO (09:13)
[2024-08-16] MEDS: TENORMIN 50 MG PO (09:13)
[2024-08-16] MEDS: VISBIOME 1 CAP PO (09:13)
[2024-08-16] MEDS: VITAMIN D3 (cholecalciferol) 50 MCG PO (09:13)
[2024-08-16] MEDS: ZENPEP DELAYED RELEASE CAPSULE PO ×3 (09:13→12:55)
[2024-08-16] MEDS: CARDURA 2 MG PO (09:13)
[2024-08-16 09:53] LABS: ALT (SGPT) < 10 U/L (0-35); AST (SGOT) 13 U/L (14-36); Alkaline Phosphatase 73 U/L (38-126); Blood Urea Nitrogen 5 mg/dl (7-17); Calcium 8.5 mg/dl (8.4-10.2); Carbon Dioxide 24 mmol/L (22-30); Chloride 104 mmol/L (98-107); Estimated Creatinine Clearance 70 ml/min; Glucose 116 mg/dl (70-99); Magnesium 1.8 mg/dl (1.6-2.3); Phosphorus 3.4 mg/dl (2.5-4.5); Potassium 4.2 mmol/L (3.5-5.1); Sodium 139 mmol/L (135-145); Total Bilirubin 0.7 mg/dl (0.2-1.3); Total Protein 5.3 g/dl (6.3-8.2); eGFR > 60.00
[2024-08-16 09:54] LABS: ALT (SGPT) < 10 U/L (0-35); AST (SGOT) 14 U/L (14-36); Alkaline Phosphatase 74 U/L (38-126); Blood Urea Nitrogen 5 mg/dl (7-17); Calcium 8.5 mg/dl (8.4-10.2); Carbon Dioxide 25 mmol/L (22-30); Chloride 107 mmol/L (98-107); Estimated Creatinine Clearance 70 ml/min; Glucose 117 mg/dl (70-99); Magnesium 1.8 mg/dl (1.6-2.3); Phosphorus 3.4 mg/dl (2.5-4.5); Potassium 4.3 mmol/L (3.5-5.1); Sodium 138 mmol/L (135-145); Total Bilirubin 0.8 mg/dl (0.2-1.3); Total Protein 5.2 g/dl (6.3-8.2); eGFR > 60.00
--- NOTE | 2024-08-16 11:04 | CM ---
Chart reviewed and plan is to return to home when stable, no needs.
Plan; Home no needs when stable.
--- NOTE | 2024-08-16 11:13 | W.PN.CRS1 ---
Today's Communication / Plan
-
Clear liquid diet
Assessment/Plan
-
64-year-old female with PMH of HTN, anxiety, pancreatic insufficiency, COPD, history of sacrocolpopexy, recent admissions for colitis (admitted from 05/29 to 06/08; initially thought to be IBD�related; underwent flexible sigmoidoscopy on 05/31,
which showed a 1 cm polyp in the distal rectum and 2 cm polyp in the rectosigmoid, not resected, diverticulosis and erythematous mucosa from the rectum to splenic flexure, biopsies negative; she did test positive for norovirus, which was ultimately
the presumptive diagnosis; returned on 06/26 and found to have a large left-sided paracolic abscess invading to the left iliacus, s/p IR drainage; discharged with 3-week course of Augmentin and ultimately drain study showed no residual abscess or
fistula and drain removed.
Presenting now with right sided diverticulitis with atypical presentation, ?colitis. Ruling out infectious etiology
Stool cx thus far negative for c-diff, others pending
Leukocytosis resolved, pain now improving
CRP 142.6 from 199.8.
AFVSS
� Advance to clear liquid diet
--Await stool cultures
--IV analgesics prn
� On Lovenox for DVT prophylaxis
� OOB/IS
--Continue IV abx per ID
--Appreciate ID and gastroenterology consults
--Trend labs, crp/exams
� Appreciate hospitalist
Subjective Data
Subjective Data
Date of Service: August 16, 2024
Patient states she had a lot of loose stools until she got Imodium and now she feels much better. Her right lower quadrant pain is improving. She states she is 'starving'. She denies nausea or vomiting.
Objective Data
-
Vital Signs
Temp Pulse Resp BP Pulse Ox
97.5 F 66 18 183/74 94
08/16/24 07:00 08/16/24 07:00 08/16/24 07:00 08/16/24 07:00 08/16/24 07:00
Intake & Output
08/15/24 08/16/24 08/17/24
06:59 06:59 06:59
Intake Total 1000 / 1000
Output Total 0 / 0
Balance 1000 / 1000
Intake:
Oral fluids 0 / 0
IV fluids (Total) 1000 / 1000
Output:
Urine, Voided 0 / 0
Other:
Number of approximated MODERATE 4
amounts of urine
Lab Results
08/16/24 08:10
08/16/24 07:58
Physical Exam
-
General: No Acute Distress and AOx3
Abdomen: Soft, Non Distended and Tender (Right lower quadrant, mild)
Skin: Warm and Dry
--- NOTE | 2024-08-16 14:38 | W.PN.HOSP.TC ---
Today's Communication/Plan
-
Continue IV antibiotics
CLD for now
Trend CBC, temp, CRP
Serial abdomen exams
Start amlodipine 5 mg
Assessment / Plan
Assessment / Plan
Ms. Estrella is a 64-year-old female with a medical history of prior diverticulitis with with paracolic abscess involving left iliacus (status post drain, now discontinued), pancreatic insufficiency, COPD, hypertension, and anxiety who presented with
right-sided abdominal pain. She reported her symptoms to her colorectal surgeon who recommended presenting to the ED for CT and further evaluation. CT imaging shows new right-sided diverticulitis. She has been started on appropriate antibiotics
and admitted for further management.
#Acute right-sided diverticulitis
#H/O sigmoid diverticulitis C/B peridiverticular abscess s/p NICOLE drain
-Right-sided, which is unusual, she has a history of prior left-sided diverticulitis requiring IR drain for abscess
-Was started on broad-spectrum antibiotics with IV Zosyn; on Benadryl as well for possible drug associated rash
-Colorectal surgery evaluated; no plans for surgical intervention at this time, no signs of perforation
-Gastroenterology evaluated today; unclear cause for recurrence, negative IBD testing in past, needs full colonoscopy
-As of this morning she still has soft stool with abdomen pain, antibiotics possibly contributing to loose stool
-Continue with IV Zosyn, trend CBC/CRP/temperature curve closely, serial abdomen exams
-Will need a full colonoscopy, scheduled for this month, though may need delayed due to diverticulitis
-Currently on CLD, advance diet as per colorectal surgery
-Further recommendations from colorectal surgery and GI appreciated
#Hypertension with hypertensive heart disease
-Per history has documented left ventricular hypertrophy and history of HTN
-Home medications include atenolol; not currently on first-line antihypertensive regimen
-Blood pressure here has been significantly elevated throughout stay
-Added amlodipine 5 mg, continue to uptitrate regimen as needed
#Exocrine pancreatic insufficiency
-Unclear etiology; no history of diabetes or other autoimmune processes
-Previously had stool testing that showed exocrine pancreatic insufficiency
-Stable on home Creon supplements
#COPD
#Tobacco use
-No recent PFTs; no home O2, no history of pulmonary hypertension
-Home medications include Trelegy Ellipta and albuterol MDI
-Stable respiratory status currently, no evidence of acute exacerbation
-Encouraged smoking cessation
#Anxiety
-Continue home fluoxetine 20 mg
-Home diazepam as needed
DVT prophylaxis: Subcutaneous Lovenox
Diet: CLD, advance at colorectal's discretion
CODE STATUS: Full code
Anticipated Discharge: > 48 hours
Subjective/Interval History
-
Date of Service: August 16, 2024
Seen and examined at the bedside. No acute events reported overnight. Remains hypertensive though otherwise afebrile and hemodynamically stable
She continues to have pain in the RLQ and LLQ, some epigastric discomfort as well. Complains of soft stools/diarrhea. Labs stable.
She denies any other new complaints as of this morning.
Objective Data
-
Labs:
Laboratory Results
08/16/24 08/16/24 08/16/24
07:58 07:58 07:58
WBC 5.9
Hgb 12.2
Hct 37.7
Plt Count 217
Sodium 138 139
Potassium 4.3 4.2
Chloride 107
Carbon Dioxide
BUN
Creatinine
Glucose
Calcium
Total Bilirubin
AST
ALT
Alkaline Phosphatase
08/16/24 08/16/24 08/16/24
07:58 07:58 07:58
WBC
Hgb
Hct
Plt Count
Sodium
Potassium
Chloride 104
Carbon Dioxide 25 24
BUN 5 L 5 L
Creatinine 0.5 L
Glucose
Calcium
Total Bilirubin
AST
ALT
Alkaline Phosphatase
08/16/24 08/16/24 08/16/24
07:58 07:58 07:58
WBC
Hgb
Hct
Plt Count
Sodium
Potassium
Chloride
Carbon Dioxide
BUN
Creatinine 0.4 L
Glucose 117 H 116 H
Calcium 8.5 8.5
Total Bilirubin 0.8
AST
ALT
Alkaline Phosphatase
08/16/24 08/16/24 08/16/24
07:58 07:58 07:58
WBC
Hgb
Hct
Plt Count
Sodium
Potassium
Chloride
Carbon Dioxide
BUN
Creatinine
Glucose
Calcium
Total Bilirubin 0.7
AST 14 13 L
ALT < 10 < 10
Alkaline Phosphatase 74
08/16/24 08/16/24
07:58 08:10
WBC Cancelled
Hgb Cancelled
Hct Cancelled
Plt Count Cancelled
Sodium
Potassium
Chloride
Carbon Dioxide
BUN
Creatinine
Glucose
Calcium
Total Bilirubin
AST
ALT
Alkaline Phosphatase 73
Vital Signs:
Vital Signs
Temp Pulse Resp BP Pulse Ox
97.5 F 66 18 183/74 94
08/16/24 07:00 08/16/24 07:00 08/16/24 07:00 08/16/24 07:00 08/16/24 08:00
I&O
08/15/24 08/16/24 08/17/24
06:59 06:59 06:59
Intake Total 1000 / 1000
Output Total 0 / 0
Balance 1000 / 1000
Review of Systems
-
History Source: Patient
All other systems: Reviewed and negative
Physical Exam
-
General: Well Developed, No Apparent Distress and Other (thin female)
HEENT: Normocephalic, Atraumatic, Moist Mucous Membranes and Anicteric
Respiratory: Clear to Auscultation and Non Labored Respirations
Cardiac: Regular Rhythm and S1/S2; Negative Murmur, Rub or Gallop
GI: Soft, Nondistended, Normal Bowel Sounds and Tender (RLQ/LLQ/periumbilical, no peritoneal signs or rebound tenderness)
Musculoskeletal: No Clubbing, No Cyanosis and No Edema
Skin: Warm, Dry and Normal Turgor; Negative Rash or Jaundice
Neuro: AO x 3 and Nonfocal/Grossly Intact
Data Reviewed
-
Labs: Labs Reviewed by me and Discussed with Patient
[2024-08-16 15:00] VITALS: BP 118/90
--- NOTE | 2024-08-16 15:49 | W.PN.ID1 ---
Date of Service
Date of Service: August 16, 2024
Today's Communication
- start augmentin, plan 10 day total course 08/14-08/27
- follow clinically
Assessment / Plan
Focal Diverticulitis
H/o of previous Diverticular abscess
- if febrile then please send blood cultures x2
- CT scan somewhat limited but notable for probable focal diverticulitis
- QTc 500
- start augmentin, plan 10 day total course 08/14-08/27
- follow clinically
Chief Complaint
-: Other (diverticulitis)
Subjective / Review of Systems
aferbile
hypertensive
report abdominal pain is colicky
Vital Signs / Physical Exam
Vital Signs
Vital Signs
Temp Pulse Resp BP Pulse Ox
97.5 F 66 18 183/74 94
08/16/24 07:00 08/16/24 07:00 08/16/24 07:00 08/16/24 07:00 08/16/24 08:00
Physical Exam
Constitutional: No Acute Distress
Cardiovascular: Regular Rate and S1/S2; Negative Murmur or Rub
Pulmonary: Clear and Symmetric; Negative Wheezes or Rales
Gastrointestinal: Soft, Tender (diffuse, mild), Non Distended and Normal Bowel Sounds
Skin: Warm and Dry; Negative Rash or Jaundice
Objective Data
Lab Data
Lab Results
08/16/24 08:10
08/16/24 07:58
Estimated Creat Clear 70 ml/min 08/16/24 07:58
Estimated Creat Clear 70 ml/min 08/16/24 07:58
Total Bilirubin 0.7 mg/dl (0.2-1.3) 08/16/24 07:58
Total Bilirubin 0.8 mg/dl (0.2-1.3) 08/16/24 07:58
AST 13 U/L (14-36) L 08/16/24 07:58
AST 14 U/L (14-36) 08/16/24 07:58
ALT < 10 U/L (0-35) 08/16/24 07:58
ALT < 10 U/L (0-35) 08/16/24 07:58
Alkaline Phosphatase 73 U/L (38-126) 08/16/24 07:58
Alkaline Phosphatase 74 U/L (38-126) 08/16/24 07:58
C-Reactive Protein 142.60 mg/L (0.0-10.00) H 08/16/24 07:58
Most recent labs reviewed.
Micro Results:
08/14/24 09:54 Salmonella/Shigella Culture - Final
Feces/Stool No Salmonella, Shigella, Aeromonas or Plesiomonas species
isolated.
Campylobacter Culture - Final
No Campylobacter species isolated.
Shiga Toxin Test - Final
No E. coli Shiga Toxin 1 or 2 detected.
08/14/24 09:54 C. difficile GDH Antigen & Toxins - Final
Feces/Stool Negative for toxigenic C.difficile
[2024-08-16] MEDS: TYLENOL 650 MG PO (16:49)
[2024-08-16] MEDS: ZENPEP DELAYED RELEASE CAPSULE 1 CAPSULE PO (16:50)
[2024-08-16] MEDS: LOVENOX 40 MG SC (18:34)
[2024-08-16] MEDS: AUGMENTIN 875 MG/125 MG 1 TABLET PO (19:25)
[2024-08-16] MEDS: D5/0.45%NSS with KCL 20 MEQ IV (19:35)
[2024-08-16] MEDS: SYMBICORT 80/4.5 MCG INHALER 2 PUFF INH (21:25)
[2024-08-16 23:35] VITALS: BP 158/82
[2024-08-16] MEDS: TORADOL 15 MG IV (23:46)
[2024-08-17] MEDS: TUMS CHEWABLE TABLET 200 MG PO (04:46)
[2024-08-17] MEDS: VALIUM 5 MG PO (04:50)
[2024-08-17 07:00] VITALS: BP 167/69
[2024-08-17] MEDS: SPIRIVA RESPIMAT 2.5 MCG 2 PUFF INH (07:38)
[2024-08-17] MEDS: SYMBICORT 80/4.5 MCG INHALER 2 PUFF INH ×2 (07:39→21:09)
[2024-08-17] MEDS: TENORMIN 50 MG PO (07:52)
[2024-08-17] MEDS: VITAMIN D3 (cholecalciferol) 50 MCG PO (07:52)
[2024-08-17] MEDS: AUGMENTIN 875 MG/125 MG 1 TABLET PO ×2 (07:52→20:43)
[2024-08-17] MEDS: PROZAC 20 MG PO (07:53)
[2024-08-17] MEDS: ZENPEP DELAYED RELEASE CAPSULE 1 CAPSULE PO ×3 (07:53→16:07)
[2024-08-17] MEDS: CARDURA 2 MG PO (07:53)
[2024-08-17] MEDS: VISBIOME 1 CAP PO (07:53)
[2024-08-17] MEDS: NICODERM TRANSDERMAL 14 MG TRANSDERM (07:53)
[2024-08-17 07:56] LABS: % Basophils 0.5 % (0-2); % Eosinophils 3.8 % (0-6); % Immature Granulocytes 0.5 % (0-0.5); % Lymphocytes 21.6 % (20.5-51.1); % Monocytes 7.7 % (1.7-9.3); % Neutrophils 65.9 % (42.2-75.2); Absolute Eosinophils 0.2 10^3/uL (0-0.7); Absolute Lymphocytes 0.9 10^3/uL (1.2-3.4); Absolute Monocytes 0.3 10^3/uL (0.1-0.6); Absolute Neutrophils 2.8 10^3/uL (1.4-6.5); Hematocrit 43.2 % (37.0-47.0); Hemoglobin 13.8 g/dL (12.0-16.0); Mean Corp Hgb Conc. 31.9 g/dL (33.0-37.0); Mean Corpuscular Hgb 30.3 pg (27.0-31.0); Mean Corpuscular Volume 94.7 fL (81.0-99.0); Mean Platelet Volume 9.4 fL (7.4-10.4); Nucleated Red Blood Cells % 0 %; Platelet Count 255 10^3/uL (130-400); Red Blood Cell Count 4.56 10^6/uL (4.20-5.40); Red Cell Dist. Width 14.4 % (11.5-14.5); White Blood Cell Count 4.2 10^3/uL (4.8-10.8)
[2024-08-17 08:26] LABS: ALT (SGPT) < 10 U/L (0-35); AST (SGOT) 14 U/L (14-36); Albumin 3.5 g/dl (3.5-5.0); Alkaline Phosphatase 75 U/L (38-126); Blood Urea Nitrogen 2 mg/dl (7-17); Carbon Dioxide 28 mmol/L (22-30); Chloride 105 mmol/L (98-107); Estimated Creatinine Clearance 70 ml/min; Glucose 85 mg/dl (70-99); Magnesium 1.8 mg/dl (1.6-2.3); Phosphorus 3.7 mg/dl (2.5-4.5); Potassium 3.8 mmol/L (3.5-5.1); Sodium 140 mmol/L (135-145); Total Bilirubin 0.6 mg/dl (0.2-1.3); Total Protein 5.8 g/dl (6.3-8.2); eGFR > 60.00
--- NOTE | 2024-08-17 08:41 | CM ---
Chart reviewed and plan is to home when stable.
Plan; Home when stable.
--- NOTE | 2024-08-17 08:52 | W.PN.GI.CBS2 ---
Today's Communication / Plan
-
Please see assessment and plan for details.
Assessment / Plan
-
1. Diverticulitis: With chronic multiple other symptoms which were likely left-sided diverticulitis with prior abscess, now with right sided diverticulitis on CT scan, improving on Augmentin, without leukocytosis or fever, and improving exam.
There was no signs of inflammatory bowel disease on previous biopsies, not consistent endoscopically either. At this point we will Em to full liquid diet, and if tolerating can advance to low residue diet for dinner. If continuing to improve
then would be okay to DC tomorrow with Augmentin and plan outpatient colonoscopy as already planned with Dr. Howard which has been pushed back a couple of weeks given acute diverticulitis.
2. Personal history of polyps: Due for colonoscopy with polypectomy with Dr. Howard which is scheduled.
3. Pancreatic exocrine insufficiency: By labs, continue pancreatic enzymes.
Subjective
Subjective
Date of Service: August 17, 2024
Patient feeling okay, improved, less pain, no fevers or chills, no significant diarrhea.
Objective
Data Reviewed
Laboratory Data:
Laboratory Results
08/17/24 07:22
08/17/24 07:22
Laboratory Results
Phosphorus 3.7 mg/dl (2.5-4.5) 08/17/24 07:22
Magnesium 1.8 mg/dl (1.6-2.3) 08/17/24 07:22
Total Bilirubin 0.6 mg/dl (0.2-1.3) 08/17/24 07:22
AST 14 U/L (14-36) 08/17/24 07:22
ALT < 10 U/L (0-35) 08/17/24 07:22
Alkaline Phosphatase 75 U/L (38-126) 08/17/24 07:22
Lipase 50 U/L (23-300) 08/13/24 14:52
Vital Signs and I&O:
Vital Signs
Temp Pulse Resp BP Pulse Ox
97.3 F 62 18 167/69 94
08/17/24 07:00 08/17/24 07:00 08/17/24 07:00 08/17/24 07:00 08/17/24 07:00
I&O
08/16/24 08/17/24 08/18/24
06:59 06:59 06:59
Intake Total 1000 / 1000 2370 / 2370
Output Total 0 / 0
Balance 1000 / 1000 2370 / 2370
Physical Exam
Physical Exam
General: NAD
Abdomen: normal bowel sounds, soft, minimal left lower quadrant tenderness, no masses or bruits, no ascites
--- NOTE | 2024-08-17 11:31 | W.PN.CRS1 ---
Today's Communication / Plan
-
advance to fulls
continue antibiotics
Assessment/Plan
-
64-year-old female with PMH of HTN, anxiety, pancreatic insufficiency, COPD, history of sacrocolpopexy, recent admissions for colitis (admitted from 05/29 to 06/08; initially thought to be IBD�related; underwent flexible sigmoidoscopy on 05/31,
which showed a 1 cm polyp in the distal rectum and 2 cm polyp in the rectosigmoid, not resected, diverticulosis and erythematous mucosa from the rectum to splenic flexure, biopsies negative; she did test positive for norovirus, which was ultimately
the presumptive diagnosis; returned on 06/26 and found to have a large left-sided paracolic abscess invading to the left iliacus, s/p IR drainage; discharged with 3-week course of Augmentin and ultimately drain study showed no residual abscess or
fistula and drain removed.
Presenting now with right sided diverticulitis with atypical presentation, ?colitis. Ruling out infectious etiology
Stool cx thus far negative for c-diff, others pending
Leukocytosis resolved, pain now improving
CRP 70.2 from 142.6
AFVSS
� Advance to full liquid diet
--C. difficile and stool cultures negative
--no plans for surgery at this time
--IV analgesics prn
� On Lovenox for DVT prophylaxis
� OOB/IS
--Continue IV abx per ID
--Appreciate ID and gastroenterology consults
--Trend labs, crp/exams
� Appreciate hospitalist
Subjective Data
Subjective Data
Date of Service: August 17, 2024
Patient states she had some right-sided pain but she now feels much better. She states that 'everything feels better'. She is eating well. She denies nausea or vomiting.
Objective Data
-
Vital Signs
Temp Pulse Resp BP Pulse Ox
97.3 F 62 18 167/69 94
08/17/24 07:00 08/17/24 07:00 08/17/24 07:00 08/17/24 07:00 08/17/24 07:00
Intake & Output
08/16/24 08/17/24 08/18/24
06:59 06:59 06:59
Intake Total 1000 / 1000 2370 / 2370
Output Total 0 / 0
Balance 1000 / 1000 2370 / 2370
Intake:
Oral fluids 0 / 0 1320 / 1320
IV fluids (Total) 1000 / 1000 1000 / 1000
IV piggybacks 50 / 50
Output:
Urine, Voided 0 / 0
Other:
Number of approximated MODERATE 4 3
amounts of urine
Lab Results
08/17/24 07:22
08/17/24 07:22
Physical Exam
-
General: No Acute Distress and AOx3
Abdomen: Soft, Non Distended and Tender (Mild left lower quadrant)
Skin: Warm and Dry
--- NOTE | 2024-08-17 13:28 | W.PN.HOSP.TC ---
Today's Communication/Plan
-
Continue oral Augmentin
Advance diet
Possible discharge tomorrow
Assessment / Plan
Assessment / Plan
#Acute right-sided diverticulitis
#H/O sigmoid diverticulitis C/B peridiverticular abscess s/p NICOLE drain
-Right-sided, which is unusual, she has a history of prior left-sided diverticulitis requiring IR drain for abscess
-Was started on broad-spectrum antibiotics with IV Zosyn; on Benadryl as well for possible drug associated rash
-Colorectal surgery evaluated; no plans for surgical intervention at this time, no signs of perforation
-Gastroenterology evaluated today; unclear cause for recurrence, negative IBD testing in past, needs full colonoscopy
-As of this morning she still has some soft stools though improving, abdomen pain improved
-Was transition to oral antibiotics from Zosyn on 08/16
Plan
-Continue with oral Augmentin twice daily through 08/27/2024
-Trend CBC, temperature curve, inflammatory markers while here
-Will need a full colonoscopy, scheduled for this month, though may need delayed due to diverticulitis
-Advance diet at GI and colorectal's discretion
#Hypertension with hypertensive heart disease
-Per history has documented left ventricular hypertrophy and history of HTN
-Home medications include atenolol; not currently on first-line antihypertensive regimen
-Blood pressure here has been significantly elevated throughout stay
-Wanted to start amlodipine the patient was resistant
-Should have close follow-up with PCP
#Exocrine pancreatic insufficiency
-Unclear etiology; no history of diabetes or other autoimmune processes
-Previously had stool testing that showed exocrine pancreatic insufficiency
-Stable on home Creon supplements
#COPD
#Tobacco use
-No recent PFTs; no home O2, no history of pulmonary hypertension
-Home medications include Trelegy Ellipta and albuterol MDI
-Stable respiratory status currently, no evidence of acute exacerbation
-Encouraged smoking cessation
#Anxiety
-Continue home fluoxetine 20 mg
-Home diazepam as needed
DVT prophylaxis: Subcutaneous Lovenox
Diet: CLD, advance at colorectal's discretion
CODE STATUS: Full code
Anticipated Discharge: Within 24 hours
Subjective/Interval History
-
Date of Service: August 17, 2024
Seen and examined at the bedside. No acute events reported overnight. AFVSS this morning
White cell count downtrending. Patient states that her abdomen pain has improved, RLQ pain almost gone though some residual LLQ pain
Denies any new complaints today.
Objective Data
-
Labs:
Laboratory Results
08/17/24
07:22
WBC 4.2 L
Hgb 13.8
Hct 43.2
Plt Count 255
Sodium 140
Potassium 3.8
Chloride 105
Carbon Dioxide 28
BUN 2 L
Creatinine 0.5 L
Glucose 85
Calcium 9.0
Total Bilirubin 0.6
AST 14
ALT < 10
Alkaline Phosphatase 75
Vital Signs:
Vital Signs
Temp Pulse Resp BP Pulse Ox
97.3 F 62 18 167/69 94
08/17/24 07:00 08/17/24 07:00 08/17/24 07:00 08/17/24 07:00 08/17/24 07:00
I&O
08/16/24 08/17/24 08/18/24
06:59 06:59 06:59
Intake Total 1000 / 1000 2369 / 2369
Output Total 0 / 0
Balance 1000 / 1000 2369 / 2369
Review of Systems
-
History Source: Patient
All other systems: Reviewed and negative
Physical Exam
-
General: Well Developed, Well Nourished, No Apparent Distress and Comfortable
HEENT: Normocephalic, Atraumatic, Moist Mucous Membranes and Anicteric
Respiratory: Clear to Auscultation and Non Labored Respirations
Cardiac: Regular Rhythm and S1/S2; Negative Murmur, Rub or Gallop
GI: Soft, Nondistended, Normal Bowel Sounds and Tender (mild LLQ, no peritoneal signs)
Musculoskeletal: No Clubbing, No Cyanosis and No Edema
Skin: Warm and Dry; Negative Rash
Neuro: AO x 3
Psych: Calm
Data Reviewed
-
Labs: Labs Reviewed by me and Discussed with Patient
[2024-08-17] MEDS: TYLENOL 650 MG PO (14:27)
[2024-08-17] MEDS: LOVENOX SC (15:50)
[2024-08-17 15:53] VITALS: BP 154/75
--- NOTE | 2024-08-17 16:25 | W.PN.ID1 ---
Date of Service
Date of Service: August 17, 2024
Today's Communication
- start augmentin, plan 14 day total course 08/14-08/27 - discussed alternatives, overall I think she is responding to unasyn/augmentin
- stable for dc from ID perspective
Assessment / Plan
Focal Diverticulitis
H/o of previous Diverticular abscess
- if febrile then please send blood cultures x2
- CT scan somewhat limited but notable for probable focal diverticulitis
- QTc 500
- start augmentin, plan 14 day total course 08/14-08/27 - discussed alternatives, overall I think she is responding to unasyn/augmentin
- stable for dc from ID perspective
Chief Complaint
-: Other (diverticulitis)
Subjective / Review of Systems
afebrile
bp stable
ongoing abdominal pain
tolerating a diet
Vital Signs / Physical Exam
Vital Signs
Vital Signs
Temp Pulse Resp BP Pulse Ox
97.9 F 64 18 154/75 93
08/17/24 15:53 08/17/24 15:53 08/17/24 15:53 08/17/24 15:53 08/17/24 15:53
Physical Exam
Constitutional: No Acute Distress
Cardiovascular: Regular Rate and S1/S2; Negative Murmur or Rub
Pulmonary: Clear and Symmetric; Negative Wheezes or Rales
Gastrointestinal: Soft, Tender, Non Distended and Normal Bowel Sounds
Skin: Warm and Dry; Negative Rash or Jaundice
Objective Data
Lab Data
Lab Results
08/17/24 07:22
08/17/24 07:22
Estimated Creat Clear 70 ml/min 08/17/24 07:22
Total Bilirubin 0.6 mg/dl (0.2-1.3) 08/17/24 07:22
AST 14 U/L (14-36) 08/17/24 07:22
ALT < 10 U/L (0-35) 08/17/24 07:22
Alkaline Phosphatase 75 U/L (38-126) 08/17/24 07:22
C-Reactive Protein 70.20 mg/L (0.0-10.00) H 08/17/24 07:22
Most recent labs reviewed.
Micro Results:
08/14/24 09:54 Salmonella/Shigella Culture - Final
Feces/Stool No Salmonella, Shigella, Aeromonas or Plesiomonas species
isolated.
Campylobacter Culture - Final
No Campylobacter species isolated.
Shiga Toxin Test - Final
No E. coli Shiga Toxin 1 or 2 detected.
08/14/24 09:54 C. difficile GDH Antigen & Toxins - Final
Feces/Stool Negative for toxigenic C.difficile
[2024-08-17 18:49] LABS: Calprotectin, Fecal 136 ug/g (<=49)
[2024-08-17] MEDS: DILAUDID 0.5 MG IV (20:47)
[2024-08-17 23:40] VITALS: BP 177/89
[2024-08-18 03:47] VITALS: BP 173/79
[2024-08-18 07:00] VITALS: BP 168/71
--- NOTE | 2024-08-18 07:04 | W.PN.GI.CBS2 ---
Today's Communication / Plan
-
Please see assessment and plan for details.
Assessment / Plan
-
1. Diverticulitis: With chronic multiple other symptoms which were likely left-sided diverticulitis with prior abscess, now with right sided diverticulitis on CT scan, improving on Augmentin, without leukocytosis or fever, and improving exam.
There was no signs of inflammatory bowel disease on previous biopsies, not consistent endoscopically either. She likely has some component of chronic left-sided adhesions/diverticular hypertrophy adding to some of her symptoms. Her exam is
otherwise benign. At this point will await morning labs, and if tolerating low residue diet and no significant lab abnormalities okay to MS from GI standpoint.
2. Personal history of polyps: Due for colonoscopy with polypectomy with Dr. Howard which is scheduled.
3. Pancreatic exocrine insufficiency: By labs, continue pancreatic enzymes.
Subjective
Subjective
Date of Service: August 18, 2024
Patient feeling okay, did have some left-sided pain yesterday, though did tolerate diet without vomiting, fever or chills. She had small bowel movement, no significant diarrhea.
Objective
Data Reviewed
Laboratory Data:
Laboratory Results
Phosphorus 3.7 mg/dl (2.5-4.5) 08/17/24 07:22
Magnesium 1.8 mg/dl (1.6-2.3) 08/17/24 07:22
Total Bilirubin 0.6 mg/dl (0.2-1.3) 08/17/24 07:22
AST 14 U/L (14-36) 08/17/24 07:22
ALT < 10 U/L (0-35) 08/17/24 07:22
Alkaline Phosphatase 75 U/L (38-126) 08/17/24 07:22
Lipase 50 U/L (23-300) 08/13/24 14:52
Vital Signs and I&O:
Vital Signs
Temp Pulse Resp BP Pulse Ox
98.0 F 64 18 173/79 93
08/17/24 23:40 08/18/24 03:47 08/17/24 23:40 08/18/24 03:47 08/17/24 23:40
I&O
08/17/24 08/18/24 08/19/24
06:59 06:59 06:59
Intake Total 2370 / 2370 900 / 900
Balance 2370 / 2370 900 / 900
Physical Exam
Physical Exam
General: NAD
Abdomen: normal bowel sounds, soft, mild left-sided tenderness, no masses or bruits, no ascites
[2024-08-18] MEDS: SPIRIVA RESPIMAT 2.5 MCG 2 PUFF INH (07:23)
[2024-08-18] MEDS: SYMBICORT 80/4.5 MCG INHALER 2 PUFF INH (07:23)
[2024-08-18] MEDS: NICODERM TRANSDERMAL 14 MG TRANSDERM (08:01)
[2024-08-18] MEDS: TENORMIN 50 MG PO (08:02)
[2024-08-18] MEDS: ZENPEP DELAYED RELEASE CAPSULE 1 CAPSULE PO ×2 (08:02→14:02)
[2024-08-18] MEDS: VISBIOME 1 CAP PO (08:02)
[2024-08-18] MEDS: VITAMIN D3 (cholecalciferol) 50 MCG PO (08:02)
[2024-08-18] MEDS: AUGMENTIN 875 MG/125 MG 1 TABLET PO (08:02)
[2024-08-18] MEDS: PROZAC 20 MG PO (08:02)
[2024-08-18 08:03] LABS: % Basophils 0.2 % (0-2); % Eosinophils 2.2 % (0-6); % Immature Granulocytes 0.5 % (0-0.5); % Lymphocytes 12.8 % (20.5-51.1); % Monocytes 6.5 % (1.7-9.3); % Neutrophils 77.8 % (42.2-75.2); Absolute Eosinophils 0.1 10^3/uL (0-0.7); Absolute Lymphocytes 0.8 10^3/uL (1.2-3.4); Absolute Monocytes 0.4 10^3/uL (0.1-0.6); Absolute Neutrophils 4.9 10^3/uL (1.4-6.5); Hematocrit 40.2 % (37.0-47.0); Hemoglobin 13.2 g/dL (12.0-16.0); Mean Corp Hgb Conc. 32.8 g/dL (33.0-37.0); Mean Corpuscular Hgb 30.3 pg (27.0-31.0); Mean Corpuscular Volume 92.4 fL (81.0-99.0); Mean Platelet Volume 9.1 fL (7.4-10.4); Nucleated Red Blood Cells % 0 %; Platelet Count 249 10^3/uL (130-400); Red Blood Cell Count 4.35 10^6/uL (4.20-5.40); Red Cell Dist. Width 14.3 % (11.5-14.5); White Blood Cell Count 6.3 10^3/uL (4.8-10.8)
[2024-08-18] MEDS: CARDURA 2 MG PO (08:03)
--- NOTE | 2024-08-18 08:21 | W.PN.CRS1 ---
Today's Communication / Plan
-
okay for discharge from our perspective
follow up with Dr. Ross as an outpatient
Assessment/Plan
-
64-year-old female with PMH of HTN, anxiety, pancreatic insufficiency, COPD, history of sacrocolpopexy, recent admissions for colitis (admitted from 05/29 to 06/08; initially thought to be IBD�related; underwent flexible sigmoidoscopy on 05/31,
which showed a 1 cm polyp in the distal rectum and 2 cm polyp in the rectosigmoid, not resected, diverticulosis and erythematous mucosa from the rectum to splenic flexure, biopsies negative; she did test positive for norovirus, which was ultimately
the presumptive diagnosis; returned on 06/26 and found to have a large left-sided paracolic abscess invading to the left iliacus, s/p IR drainage; discharged with 3-week course of Augmentin and ultimately drain study showed no residual abscess or
fistula and drain removed.
WBC 6.3 (4.2)
AFVSS
� Tolerating a low residue diet
--C. difficile and stool cultures negative
--no plans for surgery at this time
� On Lovenox for DVT prophylaxis
� OOB/IS
--Continue abx per ID
--Okay for discharge from our perspective. Follow up in the office with Dr. Ross in a few weeks. Discussed with patient.
Subjective Data
Subjective Data
Date of Service: August 18, 2024
Patient states she feels much better. She has some mild RLQ pain. She had LLQ pain earlier which resolved. She has no nausea or vomiting. She tolerated solid foods last night. She has flatus and bowel movements.
Objective Data
-
Vital Signs
Temp Pulse Resp BP Pulse Ox
98.0 F 70 17 173/79 91
08/17/24 23:40 08/18/24 07:28 08/18/24 07:28 08/18/24 03:47 08/18/24 07:28
Intake & Output
08/17/24 08/18/24 08/19/24
06:59 06:59 06:59
Intake Total 2370 / 2370 900 / 900
Balance 2370 / 2370 900 / 900
Intake:
Oral fluids 1320 / 1320 900 / 900
IV fluids (Total) 1000 / 1000
IV piggybacks 50 / 50
Other:
Number of approximated MODERATE 3
amounts of urine
Lab Results
08/18/24 07:42
Physical Exam
-
General: No Acute Distress and AOx3
Abdomen: Soft, Non Distended and Tender (mild RLQ)
Skin: Warm and Dry
[2024-08-18 08:32] LABS: ALT (SGPT) < 10 U/L (0-35); AST (SGOT) 14 U/L (14-36); Albumin 3.8 g/dl (3.5-5.0); Alkaline Phosphatase 84 U/L (38-126); Blood Urea Nitrogen 4 mg/dl (7-17); Calcium 8.9 mg/dl (8.4-10.2); Carbon Dioxide 27 mmol/L (22-30); Chloride 104 mmol/L (98-107); Estimated Creatinine Clearance 70 ml/min; Glucose 91 mg/dl (70-99); Magnesium 1.8 mg/dl (1.6-2.3); Phosphorus 4.6 mg/dl (2.5-4.5); Potassium 3.9 mmol/L (3.5-5.1); Sodium 140 mmol/L (135-145); Total Bilirubin 0.5 mg/dl (0.2-1.3); Total Protein 6.3 g/dl (6.3-8.2); eGFR > 60.00
--- NOTE | 2024-08-18 09:32 | CM ---
manager route reviewed patient's chart and met with patient and patient is for possible discharge today.
Plan; Home today, no needs.
[2024-08-18 11:00] VITALS: BP 163/77
--- NOTE | 2024-08-18 11:33 | W.PN.HOSP.TC ---
Today's Communication/Plan
-
Augmentin through 08/27
Low residue diet
OP GI follow-up
Discharge
Assessment / Plan
Assessment / Plan
#Acute right-sided diverticulitis
#H/O sigmoid diverticulitis C/B peridiverticular abscess s/p NICOLE drain
-Right-sided, which is unusual, she has a history of prior left-sided diverticulitis requiring IR drain for abscess
-Was started on broad-spectrum antibiotics with IV Zosyn; on Benadryl as well for possible drug associated rash
-Colorectal surgery evaluated; no plans for surgical intervention at this time, no signs of perforation
-Gastroenterology evaluated today; unclear cause for recurrence, negative IBD testing in past, needs full colonoscopy
-As of this morning she still has some soft stools though improving, abdomen pain improved
-Was transition to oral antibiotics from Zosyn on 08/16
-Continue with oral Augmentin twice daily through 08/27/2024
-Will need a full colonoscopy near end of September as OP
-Low residue diet at DC
#Hypertension with hypertensive heart disease
-Per history has documented left ventricular hypertrophy and history of HTN
-Home medications include atenolol; not currently on first-line antihypertensive regimen
-Blood pressure here has been significantly elevated throughout stay
-Wanted to start amlodipine the patient was resistant
-Should have close follow-up with PCP
#Exocrine pancreatic insufficiency
-Unclear etiology; no history of diabetes or other autoimmune processes
-Previously had stool testing that showed exocrine pancreatic insufficiency
-Stable on home Creon supplements
#COPD
#Tobacco use
-No recent PFTs; no home O2, no history of pulmonary hypertension
-Home medications include Trelegy Ellipta and albuterol MDI
-Stable respiratory status currently, no evidence of acute exacerbation
-Encouraged smoking cessation
#Anxiety
-Continue home fluoxetine 20 mg
-Home diazepam as needed
DVT prophylaxis: Subcutaneous Lovenox
Diet: Low residue
CODE STATUS: Full code
>30 minutes were utilized in discharge planning, prep work, communication with consultants and staff
Anticipated Discharge: Today
Subjective/Interval History
-
Date of Service: August 18, 2024
Seen and examined at the bedside. No acute events reported overnight. AFVSS this morning
Labs unremarkable. Patient feels better and is tolerating low residue diet
Denies any new complaints. Says she would prefer to be discharged earlier in day possible
Objective Data
-
Labs:
Laboratory Results
08/18/24
07:42
WBC 6.3
Hgb 13.2
Hct 40.2
Plt Count 249
Sodium 140
Potassium 3.9
Chloride 104
Carbon Dioxide 27
BUN 4 L
Creatinine 0.4 L
Glucose 91
Calcium 8.9
Total Bilirubin 0.5
AST 14
ALT < 10
Alkaline Phosphatase 84
Vital Signs:
Vital Signs
Temp Pulse Resp BP Pulse Ox
98.1 F 70 17 168/71 91
08/18/24 07:00 08/18/24 07:28 08/18/24 07:28 08/18/24 07:00 08/18/24 07:28
I&O
08/17/24 08/18/24 08/19/24
06:59 06:59 06:59
Intake Total 2370 / 2370 900 / 900
Balance 2370 / 2370 900 / 900
Review of Systems
-
History Source: Patient
All other systems: Reviewed and negative
Physical Exam
-
General: Well Developed, Well Nourished, No Apparent Distress and Comfortable
HEENT: Normocephalic, Atraumatic and Moist Mucous Membranes
Respiratory: Clear to Auscultation and Non Labored Respirations
Cardiac: Regular Rhythm and S1/S2; Negative Murmur, Rub or Gallop
GI: Soft, Nondistended, Normal Bowel Sounds and Tender (Minimal LLQ tenderness, no RLQ tenderness)
Musculoskeletal: No Clubbing, No Cyanosis and No Edema
Skin: Warm, Dry and Normal Turgor; Negative Rash
Neuro: AO x 3 and Nonfocal/Grossly Intact
Psych: Calm
Data Reviewed
-
Labs: Labs Reviewed by me, Discussed with Physician and Discussed with Patient
[2024-08-18] MEDS: ZENPEP DELAYED RELEASE CAPSULE PO (13:57)
--- NOTE | 2024-08-19 15:19 | W.DCSUMMARY ---
Discharge Summary
Discharge Data
Date of Admission: 08/13/24
Date of Discharge: 08/19/24
-
Pending Results: No
Hospital Course
64-year-old female with pandiverticulosis and recent hospitalization for sigmoid diverticulitis complicated by peridiverticular abscess s/p NICOLE drain presented to the hospital with worsening abdominal pain, most notable in the right lower quadrant.
CT abdomen/pelvis showed evidence of right-sided diverticulitis. Was evaluated by infectious disease, colorectal surgery, and gastroenterology. Suspicion for inflammatory bowel disease very low, had previous colonoscopies and were negative. Was
planned for colonoscopy as an outpatient later in August which was postponed due to her current diverticulitis. Was started on IV Zosyn for bowel coverage empirically, ultimately de-escalated to oral Augmentin every 12 hours. As she clinically
improved her diet was advanced and she tolerated a full diet by 08/18/2024. Was discharged with oral Augmentin through 08/27/2024. Recommendation to follow-up with colorectal surgery and gastroenterology in office after discharge. Plan for
colonoscopy in September
Discharge Plan
-
Patient Disposition: Home (Routine Discharge)
Discharge Diagnosis/Procedures: Right-sided diverticulitis
Recent sigmoid diverticulitis C/B peridiverticular abscess s/p NICOLE drain
Exocrine pancreatic insufficiency
Hypertension with hypertensive heart disease
Condition: Good
Diet: Low Fiber
Activity: As tolerated
Driving Restrictions: No driving for 24 hours
Bathing Restrictions: None
Blood Work: None
Others Tests: None
Activity Restrictions/Additional Instructions:
Schedule follow-up appointment with your family doctor after discharge. Should be seen in the office within 1 to 2 weeks of discharge from hospital
Follow-up appointment with your data warehouse consultant, call Dr. Howard's office to schedule appointment near end of September
Instructions: Diverticulitis - Discharge instructions
Referrals:
Caterina Sharpe MD [Family Provider] -
Shola Howard MD [Active] - (call Dr. Howard's office to reschedule colonoscopy for mid to late september)
Additional Discharge Medication Instructions: Continue Augmentin 875-125 mg every 12 hours through the end of 08/27/2024 (9 more days)
Encouraged smoking cessation, use nicotine patches daily. Talk to your family doctor about Chantix
Prescriptions:
New
amoxicillin-pot clavulanate 875-125 mg Tablet
1 tab PO Q12 9 Days Qty: 18 0RF
nicotine 14 mg/24 hr Patch 24 Hour
14 mg transdermal DAILY 30 Days Qty: 28 0RF
Continued
fluoxetine 20 MG capsule
20 mg PO DAILY
diazepam 5 MG tablet
1.25 mg PO DAILYPRN PRN (Reason: anxiety)
Patient Comments:
patient stated she breaks a 5mg tablet into quarters
albuterol sulfate 90 mcg/actuation Hfa Aerosol Inhaler
1 puff INHALATION R Q4HPRN PRN (Reason: SoB)
Trelegy Ellipta 100-62.5-25 mcg blister with device
1 inh INHALATION R DAILY
cholecalciferol (vitamin D3) [Vitamin D3] 50 mcg (2,000 unit) Tablet
50 mcg PO DAILY
doxazosin 4 mg Tablet
2 mg PO DAILY Qty: 30 0RF
atenolol 50 mg tablet
50 mg PO DAILY Qty: 30 0RF
Creon 24,000-76,000 -120,000 unit Capsule,Delayed Release(Dr/Ec)
1 cap PO AC
Visbiome 112.5 billion cell Capsule
1 cap PO DAILY
Discharge Orders:
Discharge Patient (As Directed); Ordered 08/18/24
Ordered By: Carlos Cardoso
Discharge Date and Time
Discharge Date/Time: 08/18/24 14:46
Print Language: ARMENIAN
== END 2024-08-18 14:46 | disposition home or self-care (01) | DRG 392 ==
LOC: 4 WEST ACU 22:15
PROVIDERS: Emergency Medicine; Internal Medicine; Registered Nurse; ADMITTING PHYSICIAN Internal Medicine; ATTENDING PHYSICIAN Internal Medicine; CONSULT PHYSICIAN Internal Medicine; CONSULT PHYSICIAN Student in an Organized Health Care Education/Training Program; EMERGENCY PHYSICIAN Emergency Medicine; FAMILY PHYSICIAN Family Medicine; OTHER PHYSICIAN Surgery
DX: K57.32 Diverticulitis of large intestine without perforation or abscess without bleeding (principal); F17.210 Nicotine dependence, cigarettes, uncomplicated; I11.9 Hypertensive heart disease without heart failure; K86.89 Other specified diseases of pancreas; K86.81 Exocrine pancreatic insufficiency; J43.1 Panlobular emphysema; F41.1 Generalized anxiety disorder; I70.0 Atherosclerosis of aorta
CPT/HCPCS: 74177; 80048; 80053; 83690; 83735; 83993; 84100; 85025; 85027; 86140; 87045; 87046; 87324; 87427; 87449; 93005; 94640; 96361; 96365; 96375; 99285; Q9967

== ENCOUNTER 2024-09-21 18:33 | Inpatient (IN) | payer MEDICARE, SELFPAY ==
[2024-09-21] VITALS (7 sets, daily range): BP systolic 126–158; BP diastolic 54–74; BMI 19.9; BMI 19.6
[2024-09-21 13:45] LABS: % Basophils 0.3 % (0-2); % Eosinophils 0.6 % (0-6); % Immature Granulocytes 0.3 % (0-0.5); % Lymphocytes 8.8 % (20.5-51.1); % Monocytes 6.4 % (1.7-9.3); % Neutrophils 83.6 % (42.2-75.2); Absolute Basophils 0.1 10^3/uL (0-0.2); Absolute Eosinophils 0.1 10^3/uL (0-0.7); Absolute Immature Granulocytes 0.1 10^3/uL (0-0.05); Absolute Lymphocytes 1.3 10^3/uL (1.2-3.4); Absolute Monocytes 0.9 10^3/uL (0.1-0.6); Absolute Neutrophils 12.1 10^3/uL (1.4-6.5); Hematocrit 46.4 % (37.0-47.0); Hemoglobin 15.2 g/dL (12.0-16.0); Mean Corp Hgb Conc. 32.8 g/dL (33.0-37.0); Mean Corpuscular Hgb 30.8 pg (27.0-31.0); Mean Corpuscular Volume 93.9 fL (81.0-99.0); Mean Platelet Volume 9.6 fL (7.4-10.4); Nucleated Red Blood Cells % 0 %; Platelet Count 216 10^3/uL (130-400); Red Blood Cell Count 4.94 10^6/uL (4.20-5.40); Red Cell Dist. Width 13.2 % (11.5-14.5); White Blood Cell Count 14.5 10^3/uL (4.8-10.8)
[2024-09-21 13:56] LABS: ALT (SGPT) 11 U/L (0-35); AST (SGOT) 13 U/L (14-36); Albumin 3.9 g/dl (3.5-5.0); Alkaline Phosphatase 86 U/L (38-126); Blood Urea Nitrogen 15 mg/dl (7-17); Calcium 9.4 mg/dl (8.4-10.2); Carbon Dioxide 31 mmol/L (22-30); Chloride 99 mmol/L (98-107); Glucose 143 mg/dl (70-99); Lipase 27 U/L (23-300); Potassium 4.1 mmol/L (3.5-5.1); Sodium 135 mmol/L (135-145); Total Bilirubin 0.9 mg/dl (0.2-1.3); Total Protein 6.3 g/dl (6.3-8.2); eGFR > 60.00
--- NOTE | 2024-09-21 15:13 | ED.GENMED ---
History of Present Illness
General
Chief Complaint: Abdominal Pain
Time Seen by Provider: 09/21/24 15:12
History of Present Illness
History of Present Illness:
TIME OF INITIAL ENCOUNTER: 3 PM
HPI: Patient presents with abdominal pain that started about 2 days ago. This is associated with mild nausea and mild diarrhea. The patient is scheduled to have a colon resection due to recurrent diverticulitis later this month. The pain that she
is currently experiencing is in the upper abdomen and unlike what she has had in the past related to diverticular disease. She was here late last year with a abdominal abscess managed by IR with a drain.
EXAM:
GENERAL: Well appearing but appears somewhat uncomfortable
HEENT: Moist oral mucosa
CARDIOVASCULAR: No murmurs, normal heart rate, regular rhythm, No chest wall tenderness
PULMONARY: No respiratory distress, breath sounds are clear and equal
ABDOMEN: Diffuse abdominal tenderness more so in the upper abdomen
NEUROLOGIC: Excellent strength all extremities, no coordination deficits
PSYCHIATRIC: Appropriate mental status, normal insight and judgement
EXTREMITIES: Nontender, no edema, moves all extremities equally
SKIN: No rash, no lesions
NUMBER AND COMPLEXITY OF PROBLEMS ADDRESSED AT THE ENCOUNTER
� Chronic conditions affecting care: COPD, diverticular disease, has had appendectomy
� Acute Exacerbation and/or Progression of Chronic Illness: This is an acute problem
� Differential Diagnosis includes: Diverticulitis, peptic ulcer disease, gastroenteritis, abdominal abscess
AMOUNT AND/OR COMPLEXITY OF DATA TO BE REVIEWED AND ANALYZED
� I performed an independent evaluation of and my interpretation is:
EKG:
CT: CT shows severe circumferential wall thickening consistent with pancolitis
X-rays:
Laboratory Studies: White count 14.5, chemistries relatively unremarkable
Other:
� Review of other/old records: I reviewed the discharge summary from just over 1 month ago when the patient was admitted with pandiverticulosis and sigmoid cheilitis complicated by peridiverticular abscess status post NICOLE drain.
There was low suspicion for IBD at that time.
� Clinical information was obtained by an independent historian: Spoke to at bedside
� Prescriptions/Medications Considered but not given:
� Further testing considered but not performed: We talked about obtaining a CAT scan with oral contrast over the patient declines oral contrast and does not feel that she could tolerate at this time
RISK OF COMPLICATIONS AND/OR MORBIDITY OR MORTALITY OF PATIENT MANAGEMENT
� Social determinants of health affecting care: Lives at home
� Discussion with other providers: Dr. Epstein for admission and I also notified colorectal surgery at 5:39 PM
� Escalation of care including admission/observation vs risk of discharge considered: The patient presents with abdominal pain primarily in the upper abdomen. She has a history of complicated diverticular disease. In addition
to Dilaudid and Zofran, we also given Pepcid and Protonix.
ANY OTHER UPDATES:
While in the Emergency Department, after patient was given Dilaudid 0.5 mg, she did desat at times. She was placed on supplemental oxygen. However she easily awakens and has excellent mental status currently. Given the leukocytosis with ongoing
pain, hypoxic episodes due to pain control, and pancolitis on CT, planning admission to the hospital.
Past History
Past History
ED Past Medical History: Other (Diverticulitis)
ED Past Surgical History: Appendectomy and Gynecological (Hysterectomy, abdominal Sarcoplexi)
Social History
Tobacco: Smoker
Alcohol: None
Drug: None
Personal:
Living: with family
Employment: Employed
Phy Exam
Physical Exam
Physical Exam:
See HPI
Course
Orders/Labs/Results
Orders:
Orders
09/21/24 13:24
CMP [Comprehensive Metabolic Panel] Urgent
Complete Blood Count/With Diff Urgent
Lipase Urgent
09/21/24 15:24
CT Abd/pelvis W Iv Cont Urgent
Comment:
Reason For Exam: upper pain; h/o diverticular disease
0.9% Sodium Chloride 1000 ml [Nss] 1,000 ml IV BOLUS
Famotidine [Pepcid] 20 mg IV NOW STA
HYDROmorphone [Dilaudid] 0.5 mg IV NOW STA
Ondansetron Injectable [Zofran] 4 mg IV NOW STA
Pantoprazole [Protonix IV] 40 mg IV NOW STA
Abnormal Lab Results
09/21/24
13:24
WBC 14.5 H 10^3/uL
(4.8-10.8)
MCHC 32.8 L g/dL
(33.0-37.0)
Abs Immat Gran (auto) 0.1 H 10^3/uL
(0-0.05)
Absolute Neuts (auto) 12.1 H 10^3/uL
(1.4-6.5)
Absolute Monos (auto) 0.9 H 10^3/uL
(0.1-0.6)
Neutrophils % 83.6 H %
(42.2-75.2)
Lymphocytes % 8.8 L %
(20.5-51.1)
Carbon Dioxide 31 H mmol/L
(22-30)
Glucose 143 H mg/dl
(70-99)
AST 13 L U/L
(14-36)
09/21/24 13:24
09/21/24 13:24
Vital Signs
Initial and Last Documented VS:
Initial Vital Signs
Temp Pulse Resp BP Pulse Ox
37.1 C 74 20 126/74 95
09/21/24 13:09 09/21/24 13:09 09/21/24 13:09 09/21/24 13:09 09/21/24 13:09
Last Documented Vital Signs
Temp Pulse Resp BP Pulse Ox
37.5 C 70 26 144/59 93
09/21/24 16:00 09/21/24 16:15 09/21/24 16:15 09/21/24 16:00 09/21/24 16:15
*Critical Care Note
Total Time (30-74mins, 75-104mins- exclusive of procedures): Not Applicable
ED Attending Note
-
Portions of this chart may have been created with voice recognition software.� Occasional wrong word or��sound alike� substitutions may have occurred due to the inherent limitations of voice recognition software.
Discharge Plan
Departure
Prescriptions:
No Action
fluoxetine 20 MG capsule
20 mg PO DAILY
diazepam 5 MG tablet
1.25 mg PO DAILYPRN PRN (Reason: anxiety)
Patient Comments:
patient stated she breaks a 5mg tablet into quarters
albuterol sulfate 90 mcg/actuation Hfa Aerosol Inhaler
1 puff INHALATION R Q4HPRN PRN (Reason: SoB)
Trelegy Ellipta 100-62.5-25 mcg blister with device
1 inh INHALATION R DAILY
cholecalciferol (vitamin D3) [Vitamin D3] 50 mcg (2,000 unit) Tablet
50 mcg PO DAILY
doxazosin 4 mg Tablet
2 mg PO DAILY Qty: 30 0RF
atenolol 50 mg tablet
50 mg PO DAILY Qty: 30 0RF
Creon 24,000-76,000 -120,000 unit Capsule,Delayed Release(Dr/Ec)
1 cap PO AC
Visbiome 112.5 billion cell Capsule
1 cap PO DAILY
nicotine 14 mg/24 hr Patch 24 Hour
14 mg transdermal DAILY 30 Days Qty: 28 0RF
Referrals:
Caterina Sharpe MD [Family Provider] -
Interventions
Interventions:
*Risk Screen - Suicide Last Done: 09/21/24 15:48
*General Assessment Last Done: 09/21/24 15:48
*Neglect/Abuse Screening Last Done: 09/21/24 15:48
*ED- Fall Risk Assessment Last Done: 09/21/24 15:48
*ED COVID-19 Vaccine History Last Done: 09/21/24 13:09
UP-Mdlkwv-Zzszervooc Assessment Last Done: 09/21/24 15:48
Discharge Date and Time
Print Language: CROATIAN
[2024-09-21] MEDS: PEPCID 20 MG IV (15:30)
[2024-09-21] MEDS: PROTONIX IV 40 MG IV (15:30)
[2024-09-21] MEDS: DILAUDID 0.5 MG IV (15:30)
[2024-09-21] MEDS: ZOFRAN 4 MG IV ×2 (15:31→19:30)
[2024-09-21] MEDS: NSS 1000 IV ×2 (15:32→20:51)
[2024-09-21] MEDS: TYLENOL 1000 MG PO (18:23)
[2024-09-21] MEDS: ZOSYN 50 IV ×2 (18:23→23:56)
--- NOTE | 2024-09-21 18:27 | HPS.HSE ---
Family Physician
-
Family Physician: Caterina Sharpe
Chief Complaint
-
abdominal pain
History of Present Illness
64-year-old female past medical history of sigmoid diverticulitis complicated by peridiverticular abscess status post NICOLE drain, recurrent diverticulitis, hypertension, exocrine pancreatic insufficiency, COPD, tobacco use, anxiety, presenting with
epigastric abdominal pain starting 3 days ago. Pain is not in the usual left lower quadrant where she usually gets diverticulitis pain. She had some loose stools since then. Denies fevers or chills. Nausea without vomiting. She did have a sub
with her 4 days ago but no other sick contacts.
She is scheduled to have colon resection due to recurrent diverticulitis later this month.
She smokes a pack of cigarettes per day. Drinks alcohol occasionally.
Medical History
Past Medical History
Past Medical History: Reports Other (sigmoid diverticulitis complicated by peridiverticular abscess status post NICOLE drain, recurrent diverticulitis, hypertension, exocrine pancreatic insufficiency, COPD, tobacco use, anxiety,)
Past Surgical History: Reports Other ( Appendectomy and Gynecological (Hysterectomy, abdominal Sarcoplexi))
Social History
Tobacco: Smoker
Alcohol: None
Drug: None
Family History
Family History: Not pertinent
Allergies / Home Medications
Allergies reflects when Allergies were last updated in [facility].
Home Medications with original date entered in [facility]
Allergy/Medication List:
Allergies
Allergy/AdvReac Type Severity Reaction Status Date / Time
metronidazole [From Flagyl] Allergy Unknown Verified 09/21/24 13:16
morphine Allergy SEE BELOW Verified 09/21/24 13:16
Sulfa (Sulfonamide Allergy Unknown Verified 09/21/24 13:16
Antibiotics)
Home Medications
diazepam 5 mg tablet 1.25 mg PO DAILYPRN PRN anxiety 04/26/20
fluoxetine 20 mg capsule 20 mg PO DAILY Depression 04/26/20
albuterol sulfate 90 mcg/actuation aerosol inhaler 1 puff inhalation R Q4HPRN PRN SoB 01/02/23
fluticasone fur. 100 mcg-umeclid 62.5 mcg-vilant 25 mcg inhalat.powder (Trelegy Ellipta) 1 inh inhalation R DAILY Lung/Breathing Issues 05/29/24
cholecalciferol (vitamin D3) 50 mcg (2,000 unit) tablet (Vitamin D3) 50 mcg PO DAILY Supplement 06/25/24
atenolol 50 mg tablet 50 mg PO DAILY Blood Pressure #30 tabs 06/30/24
doxazosin 4 mg tablet 2 mg (1/2 x 4 mg) PO DAILY Urinary Issue #30 tabs 06/30/24
Lactobac no.2-Bifidobac no.1-S. thermo 112.5 billion cell capsule (Visbiome) 1 cap PO DAILY 08/13/24
fnbddw-dbyuqvnn-cimworv 24,000-76,000-120,000 unit capsule,delayed rel (Creon) 1 cap PO AC 08/13/24
nicotine 14 mg/24 hr daily transdermal patch 14 mg transdermal DAILY Smoking cessation 1 month #28 ea 08/18/24
Review of Systems
-
History Source: Patient
A 12 point ROS was completed and negative except as noted: Yes
Constitutional: Reports No Symptoms
EENT: Reports No Symptoms
Respiratory: Reports No Symptoms
Cardiac: Reports No Symptoms
Abdomen/GI: Reports See HPI
: Reports No Symptoms
Musculoskeletal: Reports No Symptoms
Skin: Reports No Symptoms
Neurological: Reports No Symptoms
Endocrine: Reports No Symptoms
Hematologic/Lymphatic: Reports No Symptoms
Psych: Reports No Symptoms
Physical Exam
Vital Signs
Vital Signs
Temp Pulse Resp BP Pulse Ox
99.5 F 70 26 144/59 93
09/21/24 16:00 09/21/24 16:15 09/21/24 16:15 09/21/24 16:00 09/21/24 16:15
Physical Exam
General: Well Developed, Well Nourished and No Apparent Distress
HEENT: NormoCephalic, Moist mucous membranes and Atraumatic
Respiratory: Clear
Cardiac: S1/S2 and Regular Rhythm; No Murmur or Rub
GI: Soft, Non Distended, Normal Bowel Sounds and Tender (in diffuse areas ); No Organomegaly
Rectal: Deferred by Provider
Musculoskeletal: No Clubbing, No Cyanosis and No Edema
Skin: No Rash
Neuro: Nonfocal/grossly intact
Laboratory Results
-
09/21/24 13:24
09/21/24 13:24
Laboratory Results
Total Bilirubin 0.9 mg/dl (0.2-1.3) 09/21/24 13:24
AST 13 U/L (14-36) L 09/21/24 13:24
ALT 11 U/L (0-35) 09/21/24 13:24
Alkaline Phosphatase 86 U/L (38-126) 09/21/24 13:24
Lipase 27 U/L (23-300) 09/21/24 13:24
Data Reviewed
-
Lab Data: Labs Reviewed by me
Old Records: Reviewed
Impression/Plan
-
IMPRESSION:
PLAN:
# Pancolitis also with possible acute sigmoid diverticulitis
# History of sigmoid diverticula status complicated by peridiverticular abscess status post NICOLE drain
-Has pain across the belly multiple areas more consistent with pancolitis than acute diverticulitis at this time
-CT abdomen pelvis shows severe circumferential wall thickening and submucosal edema in the cecum and sigmoid colon, moderate circumferential wall thickening throughout the remainder of the colon, moderate to severe colonic diverticulosis,
-N.p.o.
-IV fluids
-Zosyn
-Check C. difficile, stool culture although no significant diarrhea
-Colorectal surgery consulted
# Hypoxemia after receiving Dilaudid
-No respiratory symptoms
-Check chest x-ray
-On 2 L oxygen
-Tylenol, Toradol for pain, try to avoid Dilaudid
Exocrine paracardiac insufficiency
-Continue Creon
Essential hypertension
-Continue atenolol
COPD
-Continue Trelegy, albuterol
Tobacco use
-Continue nicotine patch
Anxiety
-Continue fluoxetine, diazepam
Full code
DVT prophylaxis�heparin
N.p.o.
[2024-09-21] MEDS: TORADOL 15 MG IV (19:30)
[2024-09-21] MEDS: HEPARIN 5000 UNITS SC (20:50)
--- NOTE | 2024-09-21 21:10 | PTCARENOTE ---
Pt received from ED via stretcher. Ambulated to room independently w/o incident. AAOx3, anxious. Oriented to surroundings and plan of care discussed. Admission and assessment completed. Made aware of outstanding stool studies, verbalizes
understanding. Call marquis w/in reach.
[2024-09-21] MEDS: TYLENOL 650 MG PO (22:45)
[2024-09-22 05:33] VITALS: BMI 19.6
[2024-09-22] MEDS: ZOSYN 50 IV ×4 (05:36→23:42)
[2024-09-22] MEDS: TORADOL 15 MG IV ×3 (05:36→23:48)
[2024-09-22] MEDS: NSS 1000 IV ×2 (05:37→15:35)
[2024-09-22 06:39] LABS: % Basophils 0.4 % (0-2); % Eosinophils 1.2 % (0-6); % Immature Granulocytes 0.5 % (0-0.5); % Lymphocytes 8.1 % (20.5-51.1); % Monocytes 8.5 % (1.7-9.3); % Neutrophils 81.3 % (42.2-75.2); Absolute Eosinophils 0.1 10^3/uL (0-0.7); Absolute Immature Granulocytes 0.1 10^3/uL (0-0.05); Absolute Lymphocytes 0.9 10^3/uL (1.2-3.4); Absolute Monocytes 0.9 10^3/uL (0.1-0.6); Hematocrit 41.5 % (37.0-47.0); Hemoglobin 13.9 g/dL (12.0-16.0); Mean Corp Hgb Conc. 33.5 g/dL (33.0-37.0); Mean Corpuscular Hgb 31.4 pg (27.0-31.0); Mean Corpuscular Volume 93.7 fL (81.0-99.0); Mean Platelet Volume 9.5 fL (7.4-10.4); Nucleated Red Blood Cells % 0 %; Platelet Count 166 10^3/uL (130-400); Red Blood Cell Count 4.43 10^6/uL (4.20-5.40); Red Cell Dist. Width 13.1 % (11.5-14.5); White Blood Cell Count 11.1 10^3/uL (4.8-10.8)
[2024-09-22 07:13] LABS: ALT (SGPT) < 10 U/L (0-35); AST (SGOT) 12 U/L (14-36); Alkaline Phosphatase 75 U/L (38-126); Blood Urea Nitrogen 15 mg/dl (7-17); Calcium 8.6 mg/dl (8.4-10.2); Carbon Dioxide 25 mmol/L (22-30); Chloride 106 mmol/L (98-107); Estimated Creatinine Clearance 71 ml/min; Glucose 84 mg/dl (70-99); Potassium 3.8 mmol/L (3.5-5.1); Sodium 137 mmol/L (135-145); Total Bilirubin 0.8 mg/dl (0.2-1.3); Total Protein 5.2 g/dl (6.3-8.2); eGFR > 60.00
[2024-09-22 07:19] VITALS: BP 142/56
[2024-09-22] MEDS: SPIRIVA RESPIMAT 2.5 MCG 2 PUFF INH (07:51)
[2024-09-22] MEDS: SYMBICORT 80/4.5 MCG INHALER 2 PUFF INH ×2 (07:52→19:57)
[2024-09-22] MEDS: CARDURA 2 MG PO (08:19)
[2024-09-22] MEDS: ZENPEP DELAYED RELEASE CAPSULE 1 CAPSULE PO (08:19)
[2024-09-22] MEDS: TENORMIN 50 MG PO (08:19)
[2024-09-22] MEDS: VISBIOME 1 CAP PO (08:19)
[2024-09-22] MEDS: VITAMIN D3 (cholecalciferol) 50 MCG PO (08:19)
[2024-09-22] MEDS: HEPARIN 5000 UNITS SC (08:22)
[2024-09-22] MEDS: TYLENOL 650 MG PO ×2 (08:23→21:01)
--- NOTE | 2024-09-22 08:52 | W.PN.HOSP.TC ---
Addendum entered and electronically signed by Dennys Mondragon MD 09/22/24 16:20:
Colorectal surgery requested ID and GI consultations.
Original Note:
Today's Communication/Plan
-
N.p.o., IV fluids, antibiotics. Colorectal surgery eval
Assessment / Plan
Assessment / Plan
Physical exam:
General: Acutely ill
HEENT: Normocephalic, Atraumatic and Moist Mucous Membranes
Respiratory: Clear to Auscultation; Negative Wheezes, Rales or Rhonchi
Cardiac: Regular Rhythm and S1/S2
GI: Soft, Tender and Nondistended
Musculoskeletal: No Clubbing, No Cyanosis and No Edema
Neuro: Awake, Alert and Oriented
Psych: Calm
A/P:
Severe infectious colitis:
Continue IV antibiotic
Keep n.p.o. and IV fluid
Discontinue samples for C Diff and stool cultures unless patient has recurrent diarrhea
history of diverticulitis with abscess and last month hospitalization
Colorectal surgery consult
Hypertension:
Continue home antihypertensives
COPD:
Stable
Continue inhalers
Hypoxia:
Resolved
Chest x-ray clear
No respiratory distress
Doing well on room air
Anxiety:
Resume benzodiazepine as needed
Pancreatic insufficiency:
Continue pancreatic enzymes
Nicotine use disorder:
Nicotine patch
DVT prophylaxis:
Heparin SQ
CODE STATUS:
Full code
Total time spent on today's encounter was 52 minutes which included time spent in counseling the patient/family regarding diagnosis and treatment plan as listed above, goals of care, and symptom management. Case was discussed with nursing staff,
specialists, and care coordinators/case management. All labs and imaging personally reviewed by me. Remainder the time spent in detailed review of previous records, lab data, imaging, and other medical provider documentation.
Anticipated Discharge: > 48 hours
Subjective/Interval History
-
Date of Service: September 22, 2024
Patient remains with abdominal discomfort. No vomiting. No bowel movement. Afebrile
Objective Data
-
Labs:
Laboratory Results
09/22/24
06:23
WBC 11.1 H
Hgb 13.9
Hct 41.5
Plt Count 166 D
Sodium 137
Potassium 3.8
Chloride 106
Carbon Dioxide 25
BUN 15
Creatinine 0.6
Glucose 84
Calcium 8.6
Total Bilirubin 0.8
AST 12 L
ALT < 10
Alkaline Phosphatase 75
Vital Signs:
Vital Signs
Temp Pulse Resp BP Pulse Ox
99.8 F 69 18 142/56 96
09/22/24 07:19 09/22/24 07:19 09/22/24 07:19 09/22/24 07:19 09/22/24 08:01
I&O
09/21/24 09/22/24 09/23/24
06:59 06:59 06:59
Intake Total 0 / 0
Balance 0 / 0
[2024-09-22] MEDS: PROZAC 20 MG PO (08:59)
[2024-09-22] MEDS: ZENPEP DELAYED RELEASE CAPSULE PO ×2 (10:53→15:43)
[2024-09-22] MEDS: NICODERM TRANSDERMAL 14 MG TRANSDERM (11:20)
[2024-09-22 12:03] VITALS: BMI 19.6
--- NOTE | 2024-09-22 12:31 | CON.CRS ---
Consultation
-
Date/Time Consultation Requested: 09/21/2024, 20:02
Date/Time Consultation Performed: 09/22/2024, 08:30
Requesting Provider: Mert Epstein MD
Performing Provider: Fredi Owens MD
Reason for Consultation: pancolitis
Medical History
-
Chief Complaint: abdominal pain
History of Present Illness:
64-year-old female with a significant past medical history of sigmoid diverticulitis complicated by a peridiverticular abscess status post IR drain, presents to [facility] complaining of upper abdominal pain that started about 3 days ago.
She is well-known to Dr. Ross as he has treated her in the past for left-sided colitis and right-sided diverticulitis. She was hospitalized in June 2020 for with left lower quadrant pain and found to have a large abscess collection that was 12
x 6 cm in the left iliopsoas muscle and underwent an IR drainage. She had a SIRS response to the drain placement and required Levophed for a few hours. She was then discharged on Augmentin. The drain was removed at the end of June. Her last
hospitalization was 08/13/2024 to 08/18/2024 where she was treated for the right sided diverticulitis. She did not undergo surgery at that time and was treated with antibiotics per ID. She underwent an outpatient course of Augmentin from 08/14/2024 to
08/27/2024.
She now returns with upper quadrant abdominal pain for about 3 days. She has some mild nausea and mild diarrhea which has since resolved after coming to the ER. Initially she was having frequent loose stools but this has stopped about a day ago.
She is having flatus at this time. She denies nausea or vomiting currently. She also states she feels much less distended than she was yesterday.
CT of the abdomen and pelvis shows severe circumferential wall thickening and submucosal edema in the cecum and sigmoid colon likely either severe acute infectious pancolitis or less likely multifocal acute diverticulitis. There is also mild
diffuse wall thickening throughout the small bowel loops suggesting acute enteritis. On admission her WBC was 14.5 and is 11.1 today. She remains afebrile. Vital signs have been normal. Given the above, we have been consulted for further
surgical opinion. She is currently scheduled for an elective robotic sigmoidectomy with Dr. Ross on 10/07/2024.
Past Medical History
Past Medical History: Other (Diverticulitis complicated by iliopsoas abscess status post IR drain since removed, left-sided colitis, hypertension, pancreatic insufficiency, COPD, anxiety)
Past Surgical History: Other (Hysterectomy, abdominal sacralpexy)
Social History
Tobacco: Smoker
Alcohol: None
Drug: None
Family History
Family History: Reviewed & Not Pertinent
Allergies / Home Medications
Allergy/AdvReac Type Severity Reaction Status Date / Time
metronidazole [From Flagyl] Allergy Unknown Verified 09/21/24 13:16
morphine Allergy SEE BELOW Verified 09/21/24 13:16
Sulfa (Sulfonamide Allergy Unknown Verified 09/21/24 13:16
Antibiotics)
�Medication �Instructions �Recorded �Confirmed �Type
diazepam 5 mg tablet 1.25 mg PO DAILYPRN PRN anxiety 04/26/20 09/21/24 History
fluoxetine 20 mg capsule 20 mg PO DAILY Depression 04/26/20 09/21/24 History
albuterol sulfate 90 mcg/actuation 1 puff inhalation R Q4HPRN PRN SoB 01/02/23 09/21/24 History
aerosol inhaler
fluticasone fur. 100 mcg-umeclid 1 inh inhalation R DAILY 05/29/24 09/21/24 History
62.5 mcg-vilant 25 mcg Lung/Breathing Issues
inhalat.powder (Trelegy Ellipta)
cholecalciferol (vitamin D3) 50 50 mcg PO DAILY Supplement 06/25/24 09/21/24 History
mcg (2,000 unit) tablet (Vitamin
D3)
atenolol 50 mg tablet 50 mg PO DAILY Blood Pressure #30 06/30/24 09/21/24 Rx
tabs
doxazosin 4 mg tablet 2 mg (1/2 x 4 mg) PO DAILY Urinary 06/30/24 09/21/24 Rx
Issue #30 tabs
Lactobac no.2-Bifidobac no.1-S. 1 cap PO DAILY Gastrointestinal 08/13/24 09/21/24 History
thermo 112.5 billion cell capsule Issue
(Visbiome)
mcdmxn-eorpegsa-hxbilme 1 cap PO AC Gastrointestinal Issue 08/13/24 09/21/24 History
24,000-76,000-120,000 unit
capsule,delayed rel (Creon)
nicotine 14 mg/24 hr daily 14 mg transdermal DAILY Smoking 08/18/24 09/21/24 Rx
transdermal patch cessation 1 month #28 ea
Review of Systems
-
History Source: Patient
Abdomen/GI: Abdominal Pain, Nausea and Diarrhea
A 10 point review of systems was completed, and was negative except as per HPI.
Physical Exam
Vital Signs
Temp 99.8 F 09/22/24 07:19
Pulse 69 09/22/24 07:19
Resp Rate 18 09/22/24 07:19
Blood pressure 142/56 09/22/24 07:19
SaO2 96 09/22/24 08:01
09/21/24 09/22/24 09/23/24
06:59 06:59 06:59
Actual Weight 48.534 kg
Body Mass Index (BMI) 19.6
Lab Results / Allergies
09/22/24 06:23
09/22/24 06:23
WBC 11.1 10^3/uL (4.8-10.8) H 09/22/24 06:23
Hgb 13.9 g/dL (12.0-16.0) 09/22/24 06:23
Hct 41.5 % (37.0-47.0) 09/22/24 06:23
Plt Count 166 10^3/uL (130-400) D 09/22/24 06:23
Abs Immat Gran (auto) 0.1 10^3/uL (0-0.05) H 09/22/24 06:23
Neutrophils % 81.3 % (42.2-75.2) H 09/22/24 06:23
Allergy/AdvReac Type Severity Reaction Status Date / Time
metronidazole [From Flagyl] Allergy Unknown Verified 09/21/24 13:16
morphine Allergy SEE BELOW Verified 09/21/24 13:16
Sulfa (Sulfonamide Allergy Unknown Verified 09/21/24 13:16
Antibiotics)
Physical Exam
General: Well Developed, Well Nourished and No Apparent Distress
GI: Soft, Tender (lower quadrants, referred pain in upper quadrants) and Distended (mild)
Neuro: AO x 3
Data Reviewed
-
CT Scan: Image Personally Visualized and interpreted, Report Reviewed by me and Discussed with Patient
Labs: Labs Reviewed by me, Discussed with Physician and Discussed with Family
Old Records: Reviewed
Assessment / Plan
-
Assessment: 64-year-old female with a complicated past medical history including colitis as well as diverticulitis status post left iliopsoas muscle abscess and IR drain placement, presents to the ER complaining of abdominal pain and diarrhea for
several days found to have severe pancolitis on CT
Plan:
-Remain n.p.o. with IV fluids
-Stool samples and C. difficile pending
-Continue IV antibiotics
-No plans for urgent surgery at this time
-Continue to trend labs and blood work
[2024-09-22 15:08] VITALS: BP 150/60
--- NOTE | 2024-09-22 16:11 | CON.ID ---
Consultation
-
Date/Time Consultation Requested: 09/22/2024 1437
Date/Time Consultation Performed: 09/22/2024 1600
Requesting Provider: Dr. Mondragon
Performing Provider: Dr. Stein
Reason for Consultation: Abdominal pain; Hx diverticulitis
Chief Complaint / Past History
Chief Complaint
abdominal pain
History of Present Illness
Etelvina Estrella is a 64-year-old female being evaluated at the request of Dr. Mondragon in regards to abdominal discomfort. History is obtained from chart review, along with patient interview.
The patient reports that she has had many years of abdominal issues. She states that in May she was an inpatient for approximately 2 weeks for abdominal pain. She states at that time no diagnosis was specifically made, but she had had
endoscopy which revealed polyps. She again was admitted in June with fevers, chills and left lower quadrant pain. Hospital course was significant for the finding of a left lower quadrant abscess, and a drain was placed. She ultimately was
discharged home on a 21-day course of Augmentin. She presented back in late June secondary to left hip and left lower quadrant discomfort, and concern that her NICOLE drain was out of place. During that ER visit, the patient was discharged home
and advised to follow-up with her usual physicians. In late July she again presented to the ER with right-sided abdominal pain and was admitted through 08/18/2024 with presumed right-sided diverticulitis. She ultimately was discharged to complete
a course of antibiotics through 08/27
She presents back to the hospital on 09/21 secondary to 2 days of upper abdominal discomfort, reporting a feeling of 'indigestion' and a lot of burping. Workup in the emergency room revealed a leukocytosis. Repeat CT imaging has revealed
circumferential wall thickening and submucosal edema in the cecum and sigmoid colon and moderate circumferential wall thickening throughout the remainder of the colon. Diffuse wall thickening was also noted in the small bowel loops suggesting
enteritis. Infectious Diseases is asked to comment upon further antimicrobial therapy and management.
Past History
Additional Past Medical History:
COPD
Hypertension
Pancreatic insufficiency
Chronic diarrhea
Diverticulosis
Anxiety/depression
Additional Past Surgical History:
Appendectomy
Ovarian cystectomy
Hysterectomy
Bunionectomy
sacrocolpopexy
Allergy History:
metronidazole [From Flagyl] Allergy (Verified 09/21/24 13:16)
Unknown
morphine Allergy (Verified 09/21/24 13:16)
SEE BELOW
Sulfa (Sulfonamide Antibiotics) Allergy (Verified 09/21/24 13:16)
Unknown
Medications Reviewed: Yes
Current Antibiotics:
Zosyn
Social History
Tobacco: Smoker (1 PPD)
Alcohol: None
Drug: None
Personal:
Living: With Family
Employment: Retired
Family History
Family History: Not Pertinent
Review of Systems
Vital Signs
Temp Pulse Resp BP Pulse Ox
97.9 F 65 18 150/60 95
09/22/24 15:08 09/22/24 15:08 09/22/24 15:08 09/22/24 15:08 09/22/24 15:08
Physical Exam
Physical Exam
Constitutional: No Acute Distress, Comfortable and Non-toxic
Head: Normocephalic
Eyes: Pupils Equal, Pupils Round, No Conjunctival Hemorrhage and Sclera Anicteric
Oral: No Thrush and No Ulcers
Cardiovascular: Regular Rate and S1/S2; Negative S3/S4
Pulmonary: Clear; Negative Wheezes, Rales or Rhonchi
Gastrointestinal: Soft, Tender, Non Distended, Normal Bowel Sounds, No Rebound and No Guarding
Extremities: Negative Edema, Cyanosis or Erythema
Skin: Warm and Dry; Negative Rash or Jaundice
Neurological: Awake and Alert
Psychological: Calm
Lab / Diagnostic Study Results
09/22/24 06:23
09/22/24 06:23
Abs Immat Gran (auto) 0.1 10^3/uL (0-0.05) H 09/22/24 06:23
Absolute Neuts (auto) 9.0 10^3/uL (1.4-6.5) H 09/22/24 06:23
Absolute Lymphs (auto) 0.9 10^3/uL (1.2-3.4) L 09/22/24 06:23
Absolute Monos (auto) 0.9 10^3/uL (0.1-0.6) H 09/22/24 06:23
Absolute Basos (auto) 0.0 10^3/uL (0-0.2) 09/22/24 06:23
Immature Gran % 0.5 % (0-0.5) 09/22/24 06:23
Neutrophils % 81.3 % (42.2-75.2) H 09/22/24 06:23
Lymphocytes % 8.1 % (20.5-51.1) L 09/22/24 06:23
Monocytes % 8.5 % (1.7-9.3) 09/22/24 06:23
Eosinophils % 1.2 % (0-6) 09/22/24 06:23
Basophils % 0.4 % (0-2) 09/22/24 06:23
Microbiology Results
Imaging:
09/21/2024 CT abdomen/pelvis with IV contrast: Severe circumferential wall thickening and submucosal edema in the cecum and sigmoid colon. Also noted is circumferential wall thickening throughout the remainder of the colon. There is moderate to
severe colonic diverticulosis. There is also mild diffuse wall thickening throughout the small bowel loops suggesting an acute enteritis. There is mild intrahepatic and extrahepatic biliary dilatation unchanged from prior exams. Please see full
dictation for additional detail. Film personally viewed.
Assessment / Plan
Abdominal discomfort
Colitis on CT
-Present not clear if infectious inflammatory in etiology
Leukocytosis
COPD
Hypertension
Pancreatic insufficiency
Chronic diarrhea
Diverticulosis
Recommendations:
Continue empiric antibiotic coverage for the present, although will narrow to Unasyn.
Case discussed with GI. Patient for possible endoscopy tomorrow.
Monitor white count and temperature curve.
Patient currently without diarrhea. May not be able to get stool culture or C. difficile testing.
Care Review
Plan reviewed with: Physician (GI)
--- NOTE | 2024-09-22 16:30 | CON.GI ---
Consultation
-
Date/Time Consultation Requested: 09/22/24 2:00pm
Date/Time Consultation Performed: 09/22/24 4:30pm
Requesting Provider: Fredi Owens
Performing Provider: Lit Juarez
Reason for Consultation: Coiltis
Medical History
Chief Complaint / HPI
Chief Complaint: Colitis
History of Present Illness:
64yo female with multiple recent admissions to for L sided colitis beginning in Mar 2024, then R sided colitis in July, presumed frequent episodic diverticulitis. She had a recurrent L sided colitis in May 2024. Flex sig then showed
decreased vascularity, edema, erythema unlikely IBD or UC and bx were negative. Two polyps were found but not removed, 10mm distal rectum, 20mm rectosigmoid. CTA showed patent celiac, SMA, KYARA but she does have severe atherosclerosis aorta, iliac
arteries. She had Norovirus which was the presumptive dx but after d/c felt worse and found to have L psoas abscess 06/26/24 requiring drainage catheter to treat and subsequently removed 07/09/24. F/U CT 07/23/24 showed resolution of abscess but
persistent, albeit improved wall thickening sigmoid. In July she had R sided abd pain and CT suggesting focal R diverticulitis. There was inflammatory scarring from prior abscess in L psoas but no recurrent abscess. She was again treated with
abx and sx resolved after d/c. She was completely asymptomatic until Friday before admission. She had more upper abdominal pain this time but no diarrhea or rectal bleeding. She has scheduled colonoscopy with Dr Howard 10/05 to remove her large
rectosigmoid polyps and evaluation of the colon and tentative scheduled for the OR following colonoscopy.
She reports stools are typically loose, when she was drinking alcohol (4 glasses wine daily) and she is on pancreatic enzymes for EPI. Sx somewhat better when she cut back on EtOH. Had last colonoscopy in September 2022 only showing diverticulosis.
Had jejunal SB thickening on CT June 2023.
Past Medical History
Past Medical History: Psychiatric (depressive disorder) and Other (Hypertension, tobacco abuse, COPD, pancreatic insufficiency on Creon, rhinitis, IBS with diarrhea, prior SB bx with villous changes, osteoporsosis, secondary polycythemia,
hemorrhoids, HTN, hyertensive heart disease without heart failure, dyspepsia, emphysema, retinopathy)
Past Surgical History: Other (Appendectomy, transvaginal hysterectomy, sacrocolpopexy, IR drainage of abdominal abscess, )
Social History
Tobacco: Smoker
Alcohol: Former (was drinking several glasses wine daily but quit with recent admission )
Drug: None
Personal:
Living: With Family
Employment: Retired
Family History
Family History: Other (Father had ENT cancer, grandmother with colon cancer and breast cancer)
Allergies / Home Medications
Allergy/AdvReac Type Severity Reaction Status Date / Time
metronidazole [From Flagyl] Allergy Unknown Verified 09/21/24 13:16
morphine Allergy SEE BELOW Verified 09/21/24 13:16
Sulfa (Sulfonamide Allergy Unknown Verified 09/21/24 13:16
Antibiotics)
�Medication �Instructions �Recorded
diazepam 5 mg tablet 1.25 mg PO DAILYPRN PRN anxiety 04/26/20
fluoxetine 20 mg capsule 20 mg PO DAILY Depression 04/26/20
albuterol sulfate 90 mcg/actuation 1 puff inhalation R Q4HPRN PRN SoB 01/02/23
aerosol inhaler
fluticasone fur. 100 mcg-umeclid 1 inh inhalation R DAILY 05/29/24
62.5 mcg-vilant 25 mcg Lung/Breathing Issues
inhalat.powder (Trelegy Ellipta)
cholecalciferol (vitamin D3) 50 50 mcg PO DAILY Supplement 06/25/24
mcg (2,000 unit) tablet (Vitamin
D3)
atenolol 50 mg tablet 50 mg PO DAILY Blood Pressure #30 06/30/24
tabs
doxazosin 4 mg tablet 2 mg (1/2 x 4 mg) PO DAILY Urinary 06/30/24
Issue #30 tabs
Lactobac no.2-Bifidobac no.1-S. 1 cap PO DAILY Gastrointestinal 08/13/24
thermo 112.5 billion cell capsule Issue
(Visbiome)
ymrcnd-zwynvayd-acbawvy 1 cap PO AC Gastrointestinal Issue 08/13/24
24,000-76,000-120,000 unit
capsule,delayed rel (Creon)
nicotine 14 mg/24 hr daily 14 mg transdermal DAILY Smoking 08/18/24
transdermal patch cessation 1 month #28 ea
Review of Systems
-
All other systems: A 12 pt ROS was Negative except as stated above in HPI
Vital Signs
Temp Pulse Resp BP Pulse Ox
97.9 F 65 18 150/60 95
09/22/24 15:08 09/22/24 15:08 09/22/24 15:08 09/22/24 15:08 09/22/24 15:08
Physical Exam
Exam
General: No Apparent Distress
HEENT: Normocephalic and Atraumatic
Respiratory: Non Labored Respirations
GI: Soft, Non Distended and Tender (mild tender epigastric region, no rebound or guarding)
Skin: Warm and Dry
Results
WBC 11.1 10^3/uL (4.8-10.8) H 09/22/24 06:23
Hgb 13.9 g/dL (12.0-16.0) 09/22/24 06:23
Hct 41.5 % (37.0-47.0) 09/22/24 06:23
MCV 93.7 fL (81.0-99.0) 09/22/24 06:23
Plt Count 166 10^3/uL (130-400) D 09/22/24 06:23
Absolute Neuts (auto) 9.0 10^3/uL (1.4-6.5) H 09/22/24 06:23
Sodium 137 mmol/L (135-145) 09/22/24 06:23
Potassium 3.8 mmol/L (3.5-5.1) 09/22/24 06:23
Chloride 106 mmol/L (98-107) 09/22/24 06:23
Carbon Dioxide 25 mmol/L (22-30) 09/22/24 06:23
BUN 15 mg/dl (7-17) 09/22/24 06:23
Creatinine 0.6 mg/dL (0.6-1.0) 09/22/24 06:23
Calcium 8.6 mg/dl (8.4-10.2) 09/22/24 06:23
Total Bilirubin 0.8 mg/dl (0.2-1.3) 09/22/24 06:23
AST 12 U/L (14-36) L 09/22/24 06:23
ALT < 10 U/L (0-35) 09/22/24 06:23
Alkaline Phosphatase 75 U/L (38-126) 09/22/24 06:23
Lipase 27 U/L (23-300) 09/21/24 13:24
Diagnostic Image Results:
Prior GI Procedures:
EGD:
Colonoscopy:
Assessment / Plan
-
Summary: 64yo female with multiple recent admissions for sigmoid colitis with abscess requiring drainage catheter as well as more recent cecal colitis presumed sporatic diverticulitis attacks. Flex sig in May 2024 showed two large rectosigmoid
polyps, not removed, diverticulosis, L colon altered vascularity, edema and erythema bx were normal. After most recent discharge from hospital on 08/18/24, she reports feeling well, tolerating diet, normal BMs. Now presents with upper abdominal pain
for three days, without diarrhea. CT shows severe circumferential wall thickening and submucosal edema in cecum and sigmoid colon with moderate wall thickening rest of colon. Also mild wall thickening throughout SB loops and GEJ, gastric fundus,
body, antrum, duodenum. WBC 14.5. Started on zosyn
Impression:
Focal severe colitis cecum and sigmoid
Moderate thickening rest of colon, mild SB and gastric thickening
Diverticulosis
Severe calcific atherosclerosis abd aorta
Large rectosigmoid polyps, on schedule for resection with Dr Howard 10/05/24
Recommendations:
I am not confident that her presentation is due entirely to episodic diverticulitis attacks
She now has synchronous inflammation in cecum and sigmoid as well as SB, stomach, duodenum
This raises question of Crohn's disease, though she was completely asymptomatic after recent admission with no diarrhea, pain until last 4 days
We will schedule for EGD/flex sig tomorrow for biopsies of stomach and sigmoid to try to establish a diagnosis
Check stool C diff, calpro, CRP
Agree with zosyn
Keep eventual colonoscopy with Dr Howard to resect large rectosigmoid polyps
-
-
Thank you for consultation and allowing me to participate in the patient's care. Please call the estate conservator GI physician during the after hours with any questions or concerns.
--- NOTE | 2024-09-22 17:53 | CM ---
Met with patient to obtain information for assessment. Patient stated that she lives in a one story home with her spouse with one step to enter. She is independent with bathing dressing and all ADLs as well as personal care. 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 Her spouse provides transportation for her to get to her appointments. She has had VN in the past but is not current. She has no DME.
She has a prescription plan and she uses, [facility] on [address] for all of her medications.
Her PCP is, Caterina Martinez.
Patient stated that she feels she will be able to return home when medically cleared for discharge.
Plan: Case management will continue to follow and assist with discharge planning. Should be home no needs. Will watch for VN need.
[2024-09-22 23:08] VITALS: BP 169/61
[2024-09-23] VITALS (8 sets, daily range): BP systolic 97–169; BP diastolic 56–70
[2024-09-23] MEDS: NSS 1000 IV ×3 (03:17→22:25)
[2024-09-23] MEDS: ZOSYN 50 IV (05:54)
[2024-09-23] MEDS: TYLENOL 650 MG PO ×2 (06:00→17:04)
[2024-09-23 06:46] LABS: % Basophils 0.4 % (0-2); % Eosinophils 2.3 % (0-6); % Immature Granulocytes 0.3 % (0-0.5); % Lymphocytes 7.8 % (20.5-51.1); % Monocytes 7.8 % (1.7-9.3); % Neutrophils 81.4 % (42.2-75.2); Absolute Eosinophils 0.2 10^3/uL (0-0.7); Absolute Lymphocytes 0.7 10^3/uL (1.2-3.4); Absolute Monocytes 0.7 10^3/uL (0.1-0.6); Absolute Neutrophils 7.6 10^3/uL (1.4-6.5); Hematocrit 39.4 % (37.0-47.0); Hemoglobin 13.1 g/dL (12.0-16.0); Mean Corp Hgb Conc. 33.2 g/dL (33.0-37.0); Mean Corpuscular Volume 93.4 fL (81.0-99.0); Mean Platelet Volume 10.1 fL (7.4-10.4); Nucleated Red Blood Cells % 0 %; Platelet Count 167 10^3/uL (130-400); Red Blood Cell Count 4.22 10^6/uL (4.20-5.40); Red Cell Dist. Width 12.8 % (11.5-14.5); White Blood Cell Count 9.3 10^3/uL (4.8-10.8)
[2024-09-23 07:03] LABS: Blood Urea Nitrogen 14 mg/dl (7-17); Calcium 8.6 mg/dl (8.4-10.2); Carbon Dioxide 23 mmol/L (22-30); Chloride 107 mmol/L (98-107); Estimated Creatinine Clearance 71 ml/min; Glucose 85 mg/dl (70-99); Potassium 3.5 mmol/L (3.5-5.1); Sodium 139 mmol/L (135-145); eGFR > 60.00
--- NOTE | 2024-09-23 07:30 | W.PN.UPDATE ---
Update Note
Progress Note Update
OBJECTIVE DATA REVIEW:
- - -04/2022 CT Abd/pelvis Wo Iv Cont
IMPRESSION: Wall thickening involving the rectum, sigmoid colon, descending colon, and left side of the transverse colon. These findings are highly suggestive of colitis
No convincing evidence for diverticulitis. The extent of colonic wall thickening over such a long segment would be unusual for diverticulitis.
If there are persistent or worsening clinical symptoms, consideration could be given to follow-up CT evaluation.
Thin linear densities at the periphery of both lower lungs, suggestive of postinflammatory scarring. Bulla within the posterior and inferior aspect of the left lower lobe, slightly enlarging since CT examination in 2017.
Status post appendectomy.
1.5 cm hyperdense cyst within the central left kidney.
Moderate anterior compression deformity of T12 vertebral body, which appears similar to previous radiographs of October 09, 2021.
_Colonoscopy: 09/2022 Dr. Sanders indication is not mentioned: Good prep with difficulty due to restricted mobility of the colon. Left-sided diverticulosis, otherwise endoscopically normal. No biopsies taken
01/30/2023 EUS did not show any mass lesions, soft tissue prominence at the ampulla biopsies were negative for malignancy, started on Creon with mild weight gain on part continues to drink and smoke
EGD/EUS: 12/2022 Dr. Howard for weight loss and evaluate ampulla-endoscopically normal esophagus no gross lesions in the stomach, duodenal mucosal atrophy duodenum shows reactive duodenopathy with patchy villous blunting, prominent Delia's
gland hyperplasia and mildly increased chronic inflammation. No intraepithelial lymphocytes, ampulla patchy villous blunting, no adenoma
EUS showed pancreatic parenchymal abnormalities consisting of hyperechoic strands in the head and body, no pathology of the common bile duct, 1 cm left lobe cyst, anechoic pancreatic head cyst that did not communicate with the pancreatic duct
measuring 9 mm x 9 mm with no associated mass, no specimens collected
- - -06/2023 CT Abd/pelvis W/wo Iv Cont
Nonspecific jejunal small bowel wall thickening. Mild fluid distention without gross dilatation involving the lumen of the mid small bowel. Such findings could reflect nonspecific gastroenteritis, and may be related to an infectious process
(giardiasis, histoplasmosis, Yersinia, or Strongyloides). The possible considerations may include nonspecific inflammation or deposition disorders such as Whipple's disease, amyloidosis, eosinophilic enteritis, Crohn's disease, or mastocytosis.
Neoplastic process is probably less likely, and may include lymphoma. Other possible considerations may include vasculitis or nephrotic syndrome.
Underdistention versus nonspecific diffuse gastric wall thickening.
Chronic appearing advanced circumferential wall thickening involving the sigmoid colon.
Diverticulosis.
No evidence of pneumatosis. No free air.
Nonspecific trace free fluid in the pelvis. No focal collection or abscess.
- - 04/02/24 CT Abd/pel W Iv And Oral Contr
1. Severe bowel wall thickening and inflammatory change involving the proximal rectum, sigmoid colon, and distal descending colon. Findings are reflective of severe colitis, likely infectious or inflammatory.
2. Multiple sigmoid diverticuli are seen, however long segment bowel wall thickening is out of proportion to the mesenteric inflammatory change, and diverticulitis is not suspected.
3. No evidence of pneumatosis intestinalis, or extraluminal air. No abdominal pelvic abscess formation.
05/[address] Sanders September 2022:�
inpatient flexible sigmoidoscopy for abdominal pain in the left lower quadrant and abnormal CT scan GI tract with change in bowel habits and elevated CRP, persistent radiologic wall thickening. Infectious stools are negative. Adequate prep to the
splenic flexure. External hemorrhoids, 1 cm distal rectal polyp left intact. 2 cm pedunculated rectosigmoid polyp not removed. Left-sided diverticulosis, congestion throughout, biopsies from the rectum, 25 cm and 40 cm were all unremarkable and
normal.
Follow-up with Dr. Howard for polypectomies and full colonoscopy.
- - -05/29/24 CT a/p with IV and oral Findings suggesting severe colitis of the distal descending colon and sigmoid colon. Progressed. Wall thickening has progressed and extent involving the descending colon has increased Diverticulosis. Abnormal
appearance of liver enhancement which may be a perfusion abnormality. Hepatocellular disease cannot be excluded. New. Clinical and laboratory correlation recommended.
06/01/24 CT Abd/pelvis Angio W/wo Iv
Patent KYARA.
Findings again seen suggesting some thickening of the wall of the distal descending and sigmoid colon.
Borderline prominent distal pericolonic veins.
Findings again seen suggesting 'Nutmeg' appearance of the liver (hepatic congestion). Some periportal hypodensity which may be due to intravenous hydration and some suspected small volume fluid about the gallbladder.
- - 06/02/24- US abd wtih doppler
There is high resistance hepatic artery waveform as well as biphasic hepatic veins suggestive of chronic hepatocellular disease.
There is circumferential gallbladder wall thickening with trace pericholecystic fluid which can be seen with chronic liver disease.
Mild T12 compression fracture. Stable
- -06/06/24- abd X ray
Nonobstructive bowel gas pattern.
- - -06/25/24- Ct A/p
IMPRESSION: There is a large mass centered in the left iliacus muscle as described, which very likely represents an abscess. This is likely a peridiverticular abscess which has extended into the adjacent left iliacus muscle.
Patchy parenchymal opacity of the posterior and inferior aspect of the right lower lobe lung, most likely atelectasis, although pneumonitis is also possible. Minimal right pleural effusion.
Coronary artery calcifications. Please correlate with symptoms of and risk factors for coronary artery disease, with further workup as clinically appropriate.
Mild to moderate dilation of the intrahepatic bile ducts and dilation of the common hepatic duct and the superior common bile duct with normal caliber of the mid to inferior common bile duct. This is likely physiologic as the patient has normal
liver function tests.
Hepatomegaly.
1.2 cm hyperdense cyst in the central aspect of the upper mid left kidney, unchanged from CT of the abdomen and pelvis from July 01, 2023.
Stable moderate anterior compression deformity of T12 with mild associated kyphosis.
07/03/24 CT a/p with IV contrast
Significantly improved previous abscess formation along the anterior left iliacus muscle. Percutaneous drainage catheter. New from previous exam.
Tiny right pleural effusion. Progressed.
07/09/24- abscess drainage
1. No significant residual undrained collection. Residual abscess cavity was completely collapsed around the locking loop catheter. No fistulous communication to adjacent structures.
2. The catheter was removed as above.
- - 07/23/24 CT Abd/pelvis W Iv Cont
1. Severe circumferential wall thickening throughout a long length of distal descending colon and sigmoid colon in a region of diverticulosis. Mild interval decrease in wall thickening in the sigmoid colon since 07/03/2024. Diagnostic possibilities
are (1) residual inflammation from acute diverticulitis, (2) chronic diverticular disease, or (3) an acute infectious or inflammatory colitis.
2. Interval removal of a percutaneous drainage catheter from a treated left iliopsoas abscess. 5.9 cm triangular shaped region of enhancing soft tissue at the site of the drained abscess suggesting inflammation and granulation tissue. No CT evidence
for residual fluid collection.
3. Mild small bowel distention and wall thickening which could be reactive or secondary to mild enteritis.
4. Moderate biliary dilatation in the left lobe of the liver and mild extrahepatic biliary dilatation which is unchanged from 07/03/2024, but increased from 12/26/2016.
- - 08/13/24 CT Abd/pelvis W Iv Cont
IMPRESSION: As described, findings suggestive of focal diverticulitis of the right colon, with significant adjacent fat stranding and edema. No evidence for abscess, evaluation somewhat limited by lack of GI luminal contrast agent. No evidence for
free intraperitoneal air.
Depending on persistent clinical symptoms, consideration could be given to a follow-up CT with prolonged oral contrast and with intravenous contrast.
Band of enhancement within the anterior margin of the left psoas muscle, decrease in size from CT of July 23, 2024, likely a band of inflammation/scarring from previous drainage procedure.
1.3 cm mass in the central left kidney, stable from CT of the abdomen and pelvis without and with contrast from July 01, 2023, compatible with a hyperdense cyst.
Moderate to severe vascular calcification with suggestion of narrowing of the iliac arteries. Please correlate with any symptoms of claudication.
Stable mild to moderate anterior compression deformity of the T12 vertebral body.
09/21/2024, inpatient CT abdomen pelvis with IV without oral contrast. Severe circumferential wall thickening and edema in the cecum and sigmoid with moderate wall thickening throughout the colon. Moderate to severe diverticulosis, mild diffuse
wall thickening throughout small bowel loops. Mild intra and extrahepatic ductal dilatation which is unchanged. Mild hepatosplenomegaly.
Patient admitted with acute onset epigastric pain and some loose stools., Elevated CRP to 181, mild leukocytosis otherwise normal CMP
Stool studies are pending including C. difficile and stool culture. Fecal calprotectin pending
[2024-09-23] MEDS: SPIRIVA RESPIMAT 2.5 MCG INH (07:44)
[2024-09-23] MEDS: SYMBICORT 80/4.5 MCG INHALER INH (07:44)
[2024-09-23] MEDS: CARDURA 2 MG PO (08:07)
[2024-09-23] MEDS: ZOFRAN 4 MG IV (08:07)
[2024-09-23] MEDS: TENORMIN 50 MG PO (08:15)
[2024-09-23] MEDS: NICODERM TRANSDERMAL 14 MG TRANSDERM (08:15)
--- NOTE | 2024-09-23 08:39 | W.PN.HOSP.TC ---
Today's Communication/Plan
-
Endoscopy and colonoscopy
Assessment / Plan
Assessment / Plan
Physical exam:
General: Acutely ill
HEENT: Normocephalic, Atraumatic and Moist Mucous Membranes
Respiratory: Clear to Auscultation; Negative Wheezes, Rales or Rhonchi
Cardiac: Regular Rhythm and S1/S2
GI: Soft, Tender and Nondistended
Musculoskeletal: No Clubbing, No Cyanosis and No Edema
Neuro: Awake, Alert and Oriented
Psych: Calm
A/P:
Probable severe infectious colitis:
Continue IV antibiotic
On diet per GI
I believe GI reordered CDiff and stool cultures
history of diverticulitis with abscess and last month hospitalization
Colorectal surgery consult appreciated
Colorectal suggested GI and ID eval
ID change antibiotics to IV Unasyn
GI with plans of upper endoscopy and colonoscopy today
Hypertension:
Continue home antihypertensives
COPD:
Stable
Continue inhalers
Hypoxia:
Resolved
Chest x-ray clear
No respiratory distress
Doing well on room air
Anxiety:
Resume benzodiazepine as needed
Pancreatic insufficiency:
Continue pancreatic enzymes
Nicotine use disorder:
Nicotine patch
DVT prophylaxis:
Heparin SQ
CODE STATUS:
Full cod
Anticipated Discharge: 24 - 48 hours
Subjective/Interval History
-
Date of Service: September 23, 2024
Patient had bowel prep last night. No nausea or vomiting. Afebrile
Objective Data
-
Labs:
Laboratory Results
09/23/24
06:13
WBC 9.3
Hgb 13.1
Hct 39.4
Plt Count 167
Sodium 139
Potassium 3.5
Chloride 107
Carbon Dioxide 23
BUN 14
Creatinine 0.5 L
Glucose 85
Calcium 8.6
Vital Signs:
Vital Signs
Temp Pulse Resp BP Pulse Ox
98.8 F 64 14 169/69 92
09/23/24 07:12 09/23/24 08:07 09/23/24 07:12 09/23/24 08:07 09/23/24 07:12
I&O
09/22/24 09/23/24 09/24/24
06:59 06:59 06:59
Intake Total 0 / 0 0 / 1680
Balance 0 / 0 0 / 1680
[2024-09-23] MEDS: DUONEB 3 ML INH (10:34)
--- NOTE | 2024-09-23 12:15 | PTCARENOTE ---
Received pt from GI procedure via stretcher. Pt ambulated to room with assist x1. AAOx3.
[2024-09-23] MEDS: ZENPEP DELAYED RELEASE CAPSULE PO (12:22)
[2024-09-23] MEDS: ZENPEP DELAYED RELEASE CAPSULE 1 CAPSULE PO ×2 (13:06→17:04)
[2024-09-23] MEDS: UNASYN IV ×3 (13:06→23:49)
[2024-09-23] MEDS: VISBIOME 1 CAP PO (13:07)
[2024-09-23] MEDS: PROZAC 20 MG PO (13:07)
[2024-09-23] MEDS: VITAMIN D3 (cholecalciferol) 50 MCG PO (13:07)
[2024-09-23] MEDS: TORADOL 15 MG IV (15:23)
--- NOTE | 2024-09-23 16:19 | W.PN.ID1 ---
Date of Service
Date of Service: September 23, 2024
Today's Communication
Continue Unasyn for today.
Assessment / Plan
Abdominal discomfort
Colitis on CT
-Present not clear if infectious inflammatory in etiology
Leukocytosis
COPD
Hypertension
Pancreatic insufficiency
Chronic diarrhea
Diverticulosis
Recommendations:
White count normalized today. C. difficile and norovirus testing negative.
Continue empiric Unasyn for today.
Monitor white count and temperature curve.
����������������������������������������������������������
Chief Complaint
-: Other (Abdominal pain)
Subjective / Review of Systems
Patient seen and examined. Reports feeling improved. Underwent upper endoscopy, along with colonoscopy today.
Vital Signs / Physical Exam
Vital Signs
Vital Signs
Temp Pulse Resp BP Pulse Ox
97.8 F 72 16 152/59 90
09/23/24 16:05 09/23/24 16:05 09/23/24 16:05 09/23/24 16:05 09/23/24 16:05
Physical Exam
Constitutional: No Acute Distress, Comfortable and Non-toxic
Eyes: Sclera Anicteric
Pulmonary: Non Labored
Gastrointestinal: Non Distended
Extremities: Negative Cyanosis or Erythema
Neurological: Awake and Alert
Psychological: Calm
Objective Data
Lab Data
Lab Results
09/23/24 06:13
09/23/24 06:13
Estimated Creat Clear 71 ml/min 09/23/24 06:13
Total Bilirubin 0.8 mg/dl (0.2-1.3) 09/22/24 06:23
AST 12 U/L (14-36) L 09/22/24 06:23
ALT < 10 U/L (0-35) 09/22/24 06:23
Alkaline Phosphatase 75 U/L (38-126) 09/22/24 06:23
C-Reactive Protein 235.70 mg/L (0.0-10.00) H 09/23/24 06:13
Most recent labs reviewed.
Micro Results:
09/23/24 05:52 C. difficile GDH Antigen & Toxins - Final
Feces/Stool Negative for toxigenic C.difficile
- Final
Negative for Norovirus GI and GII.
09/23/24 05:52 Salmonella/Shigella Culture - Pending
Feces/Stool Campylobacter Culture - Pending
Shiga Toxin Test - Pending
Imaging:
09/21/2024 CT abdomen/pelvis with IV contrast: Severe circumferential wall thickening and submucosal edema in the cecum and sigmoid colon. Also noted is circumferential wall thickening throughout the remainder of the colon. There is moderate to
severe colonic diverticulosis. There is also mild diffuse wall thickening throughout the small bowel loops suggesting an acute enteritis. There is mild intrahepatic and extrahepatic biliary dilatation unchanged from prior exams. Please see full
dictation for additional detail. Film personally viewed.
[2024-09-23] MEDS: SYMBICORT 80/4.5 MCG INHALER 2 PUFF INH (19:30)
[2024-09-23] MEDS: HEPARIN 5000 UNITS SC (22:16)
[2024-09-24] VITALS (7 sets, daily range): BP systolic 137–190; BP diastolic 67–80
[2024-09-24] MEDS: UNASYN IV ×2 (05:01→13:28)
[2024-09-24] MEDS: SYMBICORT 80/4.5 MCG INHALER 2 PUFF INH ×2 (06:04→20:10)
[2024-09-24] MEDS: SPIRIVA RESPIMAT 2.5 MCG 2 PUFF INH (06:04)
[2024-09-24 06:42] LABS: % Basophils 0.3 % (0-2); % Eosinophils 3.6 % (0-6); % Immature Granulocytes 0.3 % (0-0.5); % Lymphocytes 14.6 % (20.5-51.1); % Monocytes 6.8 % (1.7-9.3); % Neutrophils 74.4 % (42.2-75.2); Absolute Eosinophils 0.2 10^3/uL (0-0.7); Absolute Lymphocytes 0.9 10^3/uL (1.2-3.4); Absolute Monocytes 0.4 10^3/uL (0.1-0.6); Absolute Neutrophils 4.6 10^3/uL (1.4-6.5); Hemoglobin 12.7 g/dL (12.0-16.0); Mean Corp Hgb Conc. 31.8 g/dL (33.0-37.0); Mean Corpuscular Hgb 30.5 pg (27.0-31.0); Mean Corpuscular Volume 95.9 fL (81.0-99.0); Mean Platelet Volume 9.8 fL (7.4-10.4); Nucleated Red Blood Cells % 0 %; Platelet Count 169 10^3/uL (130-400); Red Blood Cell Count 4.17 10^6/uL (4.20-5.40); Red Cell Dist. Width 12.7 % (11.5-14.5); White Blood Cell Count 6.2 10^3/uL (4.8-10.8)
[2024-09-24 07:06] LABS: Blood Urea Nitrogen 7 mg/dl (7-17); Calcium 8.5 mg/dl (8.4-10.2); Carbon Dioxide 25 mmol/L (22-30); Chloride 110 mmol/L (98-107); Estimated Creatinine Clearance 71 ml/min; Glucose 107 mg/dl (70-99); Potassium 3.5 mmol/L (3.5-5.1); Sodium 142 mmol/L (135-145); eGFR > 60.00
--- NOTE | 2024-09-24 09:31 | W.PN.HOSP.TC ---
Today's Communication/Plan
-
IV Lasix. Antibiotics
Assessment / Plan
Assessment / Plan
Physical exam:
General: Acutely ill
HEENT: Normocephalic, Atraumatic and Moist Mucous Membranes
Respiratory: Decreased breath sounds and some crackles in the bases; Negative Wheezes or Rhonchi
Cardiac: Regular Rhythm and S1/S2
GI: Soft, Tender and mild distended
Musculoskeletal: No Clubbing, No Cyanosis and No Edema
Neuro: Awake, Alert and Oriented, no neuro-deficits
Psych: Calm
Upper endoscopy:
Impression: Overall, most abnormal in the small bowel - 2nd
portion was littered with scarred mucosa, flattened
throughout the 3rd portion (patient's prior celiac
panel in 05/2024 was negative). There were no
ulcerations. Biopsied for celiac, amyloid, Crohns
disease and lymphoma
- Mucosal changes in the esophagus. Biopsied.
- Small hiatal hernia.
- Enlarged gastric folds. Biopsied.
- Gastritis. Biopsied.
- Erythematous duodenopathy. Biopsied.
- Mucosal changes in the duodenum. Biopsied.
Colonoscopy:
Impression: Endoscopically no evidence of Crohns disease. Biopsies
taken. Reached the distal ascending colon with water
insufflation with an EGD scope. Biopsies taken
throughout
The EGD -specifically the duodenum was very abnormal.
- Hemorrhoids found on perianal exam.
- One 12 mm polyp in the rectum. Resection not
attempted.
- One 18 mm polyp at the recto-sigmoid colon.
Resection not attempted.
- Diverticulosis in the ascending colon and in the
left colon. Few ascending, multiple in the sigmoid
colon.
- Mildly congested mucosa from rectum to ascending
colon. Biopsied.
- Altered vascular, congested and erythematous mucosa
in the sigmoid colon (area of about 10cm - distal
sigmoid). Biopsied.
A/P:
Probable severe infectious colitis versus IBD:
Continue IV antibiotics per ID
On diet per GI and colorectal surgery
GI reordered C Diff and stool cultures--> C. difficile and norovirus negative. Rest stool culture pending
history of diverticulitis with abscess and last month hospitalization
Colorectal surgery consult appreciated
Colorectal suggested GI and ID eval
ID change antibiotics to IV Unasyn
GI did endoscopy and colonoscopy on 09/23
Acute respiratory insufficiency likely due to acute diastolic congestive heart failure:
Seen chest x-ray and consistent with volume overload/heart failure
Lasix 40 mg IV x 1 today
Update BNP and echocardiogram
Continue diuresis as needed
Bronchodilators as needed
Hypertension:
Continue home antihypertensives
COPD:
Stable
Continue inhalers
Initial hypoxia upon admission resolved.
Anxiety:
Resume benzodiazepine as needed
Pancreatic insufficiency:
Continue pancreatic enzymes
Nicotine use disorder:
Nicotine patch
DVT prophylaxis:
Heparin SQ
CODE STATUS:
Full code
Total time spent on today's encounter was 52 minutes which included time spent in counseling the patient/family regarding diagnosis and treatment plan as listed above, goals of care, and symptom management. Case was discussed with nursing staff,
specialists, and care coordinators/case management. All labs and imaging personally reviewed by me. Remainder the time spent in detailed review of previous records, lab data, imaging, and other medical provider documentation.
Anticipated Discharge: 24 - 48 hours
Subjective/Interval History
-
Date of Service: September 24, 2024
Patient still has abdominal discomfort on and off. Main complaint is shortness of breath now. Afebrile
Objective Data
-
Labs:
Laboratory Results
09/24/24
06:21
WBC 6.2
Hgb 12.7
Hct 40.0
Plt Count 169
Sodium 142
Potassium 3.5
Chloride 110 H
Carbon Dioxide 25
BUN 7
Creatinine 0.4 L
Glucose 107 H
Calcium 8.5
Vital Signs:
Vital Signs
Temp Pulse Resp BP Pulse Ox
97.5 F 61 16 137/76 95
09/24/24 08:00 09/24/24 08:00 09/24/24 08:00 09/24/24 08:00 09/24/24 08:00
I&O
09/23/24 09/24/24 09/25/24
06:59 06:59 06:59
Intake Total 1680 / 1680 2200 / 2200
Balance 1680 / 1680 2200 / 2200
[2024-09-24] MEDS: VITAMIN D3 (cholecalciferol) 50 MCG PO (09:49)
[2024-09-24] MEDS: CARDURA 2 MG PO (09:49)
[2024-09-24] MEDS: VISBIOME 1 CAP PO (09:49)
[2024-09-24] MEDS: PROZAC 20 MG PO (09:50)
[2024-09-24] MEDS: TYLENOL 650 MG PO ×2 (09:50→16:44)
[2024-09-24] MEDS: TENORMIN 50 MG PO (09:50)
[2024-09-24] MEDS: ZENPEP DELAYED RELEASE CAPSULE 1 CAPSULE PO ×3 (09:50→16:44)
[2024-09-24] MEDS: NICODERM TRANSDERMAL 14 MG TRANSDERM (09:50)
[2024-09-24] MEDS: HEPARIN 5000 UNITS SC ×2 (09:50→19:52)
[2024-09-24] MEDS: NSS 1000 IV (09:52)
--- NOTE | 2024-09-24 10:31 | W.PN.CRS1 ---
Today's Communication / Plan
-
chest xray
humidified air
Assessment/Plan
-
64-year-old female with PMH of HTN, anxiety, pancreatic insufficiency, COPD, history of sacrocolpopexy, recent admissions for colitis (admitted from 05/29 to 06/08; initially thought to be IBD�related; underwent flexible sigmoidoscopy on 05/31,
which showed a 1 cm polyp in the distal rectum and 2 cm polyp in the rectosigmoid, not resected, diverticulosis and erythematous mucosa from the rectum to splenic flexure, biopsies negative; she did test positive for norovirus, which was ultimately
the presumptive diagnosis; returned on 06/26 and found to have a large left-sided paracolic abscess invading to the left iliacus, s/p IR drainage; discharged with 3-week course of Augmentin and ultimately drain study showed no residual abscess or
fistula and drain removed.
WBC 6.2 (6.3)
O2 sat low 90's overnight, NC now in place. Afebrile.
-- On a regular diet.
--C. difficile negative, stool cultures pending
--No plans for surgery at this time
� On Lovenox for DVT prophylaxis
� OOB/IS
--Continue abx per ID
--Humidified NC ordered
--Chest xray ordered
Subjective Data
Subjective Data
Date of Service: September 24, 2024
Patient states she is having some dryness and 'breathing issues' since her flex sig yesterday. Otherwise, she is tolerating food and feels less distended today. Denies nausea or vomiting. She is urinating without difficulty. She has flatus.
Objective Data
-
Vital Signs
Temp Pulse Resp BP Pulse Ox
97.5 F 71 16 185/76 95
09/24/24 08:00 09/24/24 09:49 09/24/24 08:00 09/24/24 09:49 09/24/24 08:00
Intake & Output
09/23/24 09/24/24 09/25/24
06:59 06:59 06:59
Intake Total 1680 / 1680 2199 / 0
Balance 1680 / 1680 0 / 0
Intake:
Oral fluids 480 / 480 960 / 960
IV fluids (Total) 1100 / 1100 1000 / 1000
IV piggybacks 100 / 100 240 / 240
Other:
Number of approximated MODERATE 3 4
amounts of urine
Number of approximated LARGE 2
amounts of urine
Lab Results
09/24/24 06:21
09/24/24 06:21
Physical Exam
-
General: No Acute Distress and AOx3
Abdomen: Soft, Distended (mild) and Non Tender
Skin: Warm and Dry
--- NOTE | 2024-09-24 12:00 | PTCARENOTE ---
Pt c/o of shortness of breathe and requested breathing treatment. MD made aware.
[2024-09-24] MEDS: LASIX 40 MG IV (13:29)
[2024-09-24 13:37] LABS: NT-proBNP 3540 pg/ml
--- NOTE | 2024-09-24 16:14 | W.PN.ID1 ---
Date of Service
Date of Service: September 24, 2024
Today's Communication
Discontinue Unasyn.
Assessment / Plan
Abdominal discomfort
Colitis on CT
-Present not clear if infectious inflammatory in etiology
Leukocytosis
COPD
Hypertension
Pancreatic insufficiency
Chronic diarrhea
Diverticulosis
Recommendations:
White count normalized today. C. difficile and norovirus testing negative.
Cultures negative.
Discontinue further Unasyn with close clinical observation.
����������������������������������������������������������
Chief Complaint
-: Other (Abdominal pain)
Subjective / Review of Systems
Review of Systems: No Fever and No Chills
Vital Signs / Physical Exam
Vital Signs
Vital Signs
Temp Pulse Resp BP Pulse Ox
97.7 F 62 18 190/80 92
09/24/24 15:07 09/24/24 15:07 09/24/24 15:07 09/24/24 15:07 09/24/24 15:07
Physical Exam
Constitutional: No Acute Distress, Comfortable and Non-toxic
Eyes: Sclera Anicteric
Pulmonary: Non Labored
Gastrointestinal: Non Distended
Neurological: Awake and Alert
Psychological: Calm
Objective Data
Lab Data
Lab Results
09/24/24 06:21
09/24/24 06:21
Estimated Creat Clear 71 ml/min 09/24/24 06:21
Total Bilirubin 0.8 mg/dl (0.2-1.3) 09/22/24 06:23
AST 12 U/L (14-36) L 09/22/24 06:23
ALT < 10 U/L (0-35) 09/22/24 06:23
Alkaline Phosphatase 75 U/L (38-126) 09/22/24 06:23
C-Reactive Protein 188.90 mg/L (0.0-10.00) H 09/24/24 06:21
Most recent labs reviewed.
Micro Results:
09/23/24 05:52 Salmonella/Shigella Culture - Preliminary
Feces/Stool Culture in Progress
Campylobacter Culture - Preliminary
Culture in Progress
Shiga Toxin Test - Pending
09/23/24 05:52 C. difficile GDH Antigen & Toxins - Final
Feces/Stool Negative for toxigenic C.difficile
- Final
Negative for Norovirus GI and GII.
Imaging:
09/21/2024 CT abdomen/pelvis with IV contrast: Severe circumferential wall thickening and submucosal edema in the cecum and sigmoid colon. Also noted is circumferential wall thickening throughout the remainder of the colon. There is moderate to
severe colonic diverticulosis. There is also mild diffuse wall thickening throughout the small bowel loops suggesting an acute enteritis. There is mild intrahepatic and extrahepatic biliary dilatation unchanged from prior exams. Please see full
dictation for additional detail. Film personally viewed.
[2024-09-24] MEDS: VALIUM 1.25 MG PO (16:44)
--- NOTE | 2024-09-24 18:12 | W.PN.GI.CBS2 ---
Today's Communication / Plan
-
.
Assessment / Plan
-
Summary: 64yo female with multiple recent admissions for sigmoid colitis with abscess requiring drainage catheter as well as more recent cecal colitis presumed sporatic diverticulitis attacks. Flex sig in May 2024 showed two large rectosigmoid
polyps, not removed, diverticulosis, L colon altered vascularity, edema and erythema bx were normal. After most recent discharge from hospital on 08/18/24, she reports feeling well, tolerating diet, normal BMs. Now presents with upper abdominal pain
for three days, without diarrhea. CT shows severe circumferential wall thickening and submucosal edema in cecum and sigmoid colon with moderate wall thickening rest of colon. Also mild wall thickening throughout SB loops and GEJ, gastric fundus,
body, antrum, duodenum. WBC 14.5. Started on zosyn
CT abd/pel showed severe circumferential wall thickening in the cecum and sigmoid colon. It also showed mild diffuse wall thickening in the loops of small bowel suggestive of acute enteritis. She had repeat EGD colonoscopy which showed again areas
of erythema and congestion in her stomach, duodenum, and her colon from rectum to ascending colon. Extensive biopsies were again taken, EGD bx pending, colonic bx were non-diagnostic. Minimal suspicion for Crohn's disease. Her CRP is elevated.
Again she appears to have recurrent inflammatory disease process involving upper and lower GI tract, however of unclear etiology. Will wait for the gastric/duodenal bx results.
Total Time Spent with Patient (in minutes): 35
Subjective
Subjective
Date of Service: September 24, 2024
Feeling ok, denies abdominal pain, no diarrhea.
Objective
Data Reviewed
Laboratory Data:
Laboratory Results
09/24/24 06:21
09/24/24 06:21
Laboratory Results
Total Bilirubin 0.8 mg/dl (0.2-1.3) 09/22/24 06:23
AST 12 U/L (14-36) L 09/22/24 06:23
ALT < 10 U/L (0-35) 09/22/24 06:23
Alkaline Phosphatase 75 U/L (38-126) 09/22/24 06:23
Lipase 27 U/L (23-300) 09/21/24 13:24
Vital Signs and I&O:
Vital Signs
Temp Pulse Resp BP Pulse Ox
97.6 F 70 19 158/68 92
09/24/24 16:25 09/24/24 16:25 09/24/24 16:25 09/24/24 16:37 09/24/24 16:25
I&O
09/23/24 09/24/24 09/25/24
06:59 06:59 06:59
Intake Total 1680 / 1680 2200 / 2200 1700 / 1700
Balance 1680 / 1680 2200 / 2200 1700 / 1700
[2024-09-24] MEDS: ZOFRAN 4 MG IV (20:05)
[2024-09-24] MEDS: DUONEB 3 ML INH (20:39)
[2024-09-25 07:35] VITALS: BP 188/76
[2024-09-25] MEDS: SYMBICORT 80/4.5 MCG INHALER 2 PUFF INH ×2 (07:59→19:15)
[2024-09-25] MEDS: SPIRIVA RESPIMAT 2.5 MCG 2 PUFF INH (07:59)
--- NOTE | 2024-09-25 08:46 | W.PN.HOSP.TC ---
Today's Communication/Plan
-
IV Lasix. Pulmonary consult.
Assessment / Plan
Assessment / Plan
Physical exam:
General: Acutely ill
HEENT: Normocephalic, Atraumatic and Moist Mucous Membranes
Respiratory: Decreased breath sounds and some crackles in the bases; Negative Wheezes or Rhonchi
Cardiac: Regular Rhythm and S1/S2
GI: Soft, Tender and mild distended
Musculoskeletal: No Clubbing, No Cyanosis and No Edema
Neuro: Awake, Alert and Oriented, no neuro-deficits
Psych: Calm
Upper endoscopy:
Impression: Overall, most abnormal in the small bowel - 2nd
portion was littered with scarred mucosa, flattened
throughout the 3rd portion (patient's prior celiac
panel in 05/2024 was negative). There were no
ulcerations. Biopsied for celiac, amyloid, Crohns
disease and lymphoma
- Mucosal changes in the esophagus. Biopsied.
- Small hiatal hernia.
- Enlarged gastric folds. Biopsied.
- Gastritis. Biopsied.
- Erythematous duodenopathy. Biopsied.
- Mucosal changes in the duodenum. Biopsied.
Colonoscopy:
Impression: Endoscopically no evidence of Crohns disease. Biopsies
taken. Reached the distal ascending colon with water
insufflation with an EGD scope. Biopsies taken
throughout
The EGD -specifically the duodenum was very abnormal.
- Hemorrhoids found on perianal exam.
- One 12 mm polyp in the rectum. Resection not
attempted.
- One 18 mm polyp at the recto-sigmoid colon.
Resection not attempted.
- Diverticulosis in the ascending colon and in the
left colon. Few ascending, multiple in the sigmoid
colon.
- Mildly congested mucosa from rectum to ascending
colon. Biopsied.
- Altered vascular, congested and erythematous mucosa
in the sigmoid colon (area of about 10cm - distal
sigmoid). Biopsied.
A/P:
Probable infectious colitis versus IBD versus other:
ID stopped all antibiotics
From GI standpoint medically ready for discharge. But not medically ready for discharge from respiratory standpoint-see below plan.
On diet per GI and colorectal surgery
GI reordered C Diff and stool cultures--> C. difficile and norovirus negative. Rest stool culture negative
history of diverticulitis with abscess and last month hospitalization
Colorectal surgery consult appreciated
Colorectal suggested GI and ID eval
GI did endoscopy and colonoscopy on 09/23
Acute respiratory insufficiency likely due to acute diastolic congestive heart failure versus other etiology:
Seen chest x-ray and probably consistent with volume overload/heart failure
Lasix 40 mg IV x 1 yesterday and today again
Updated BNP and echocardiogram and BNP elevated at 3540 and echo shows EF of 60 to 65%.
Bronchodilators as needed
Will request pulmonary consult for further evaluation of hypoxia to make sure it is volume overload and no underlying COPD or other lung pathology
COPD:
Continue inhalers
Pulmonary consult
Need to reeval home oxygen needs upon discharge
Hypertension:
Continue home antihypertensives
Initial hypoxia upon admission resolved.
Anxiety:
Resume benzodiazepine as needed
Pancreatic insufficiency:
Continue pancreatic enzymes
Nicotine use disorder:
Nicotine patch
DVT prophylaxis:
Heparin SQ
CODE STATUS:
Full code
Total time spent on today's encounter was 52 minutes which included time spent in counseling the patient/family regarding diagnosis and treatment plan as listed above, goals of care, and symptom management. Case was discussed with nursing staff,
specialists, and care coordinators/case management. All labs and imaging personally reviewed by me. Remainder the time spent in detailed review of previous records, lab data, imaging, and other medical provider documentation.
Anticipated Discharge: 24 - 48 hours
Subjective/Interval History
-
Date of Service: September 25, 2024
Patient still hypoxic upon exertion and mildly hypoxic at rest as well. Shortness of breath improved but still not back to baseline. No cough. Afebrile. No chest pain
Objective Data
-
Labs:
Laboratory Results
09/25/24
08:24
WBC Pending
Hgb Pending
Hct Pending
Plt Count Pending
Sodium Pending
Potassium Pending
Chloride Pending
Carbon Dioxide Pending
BUN Pending
Creatinine Pending
Glucose Pending
Calcium Pending
Vital Signs:
Vital Signs
Temp Pulse Resp BP Pulse Ox
98.5 F 61 20 188/76 91
09/25/24 07:35 09/25/24 07:35 09/25/24 07:35 09/25/24 07:35 09/25/24 07:35
I&O
09/24/24 09/25/24 09/26/24
06:59 06:59 06:59
Intake Total 2200 / 2200 1820 / 1820
Balance 2200 / 2200 1820 / 1820
[2024-09-25 09:13] LABS: % Basophils 0.2 % (0-2); % Eosinophils 3.6 % (0-6); % Immature Granulocytes 0.5 % (0-0.5); % Lymphocytes 20.2 % (20.5-51.1); % Monocytes 7.7 % (1.7-9.3); % Neutrophils 67.8 % (42.2-75.2); Absolute Eosinophils 0.2 10^3/uL (0-0.7); Absolute Lymphocytes 0.9 10^3/uL (1.2-3.4); Absolute Monocytes 0.3 10^3/uL (0.1-0.6); Hematocrit 39.9 % (37.0-47.0); Hemoglobin 12.9 g/dL (12.0-16.0); Mean Corp Hgb Conc. 32.3 g/dL (33.0-37.0); Mean Corpuscular Hgb 30.6 pg (27.0-31.0); Mean Corpuscular Volume 94.5 fL (81.0-99.0); Nucleated Red Blood Cells % 0 %; Platelet Count 187 10^3/uL (130-400); Red Blood Cell Count 4.22 10^6/uL (4.20-5.40); Red Cell Dist. Width 12.7 % (11.5-14.5); White Blood Cell Count 4.4 10^3/uL (4.8-10.8)
[2024-09-25] MEDS: NICODERM TRANSDERMAL 14 MG TRANSDERM (09:37)
[2024-09-25 09:38] LABS: Blood Urea Nitrogen 8 mg/dl (7-17); Calcium 8.8 mg/dl (8.4-10.2); Carbon Dioxide 31 mmol/L (22-30); Chloride 102 mmol/L (98-107); Estimated Creatinine Clearance 71 ml/min; Glucose 105 mg/dl (70-99); Magnesium 1.7 mg/dl (1.6-2.3); Potassium 3.3 mmol/L (3.5-5.1); Sodium 141 mmol/L (135-145); eGFR > 60.00
[2024-09-25] MEDS: HEPARIN 5000 UNITS SC ×2 (09:38→20:07)
[2024-09-25] MEDS: ZENPEP DELAYED RELEASE CAPSULE 1 CAPSULE PO ×2 (09:38→15:13)
[2024-09-25] MEDS: CARDURA 2 MG PO (09:38)
[2024-09-25] MEDS: PROZAC 20 MG PO (09:38)
[2024-09-25] MEDS: TENORMIN 50 MG PO (09:38)
[2024-09-25] MEDS: VISBIOME 1 CAP PO (09:38)
[2024-09-25] MEDS: VITAMIN D3 (cholecalciferol) 50 MCG PO (09:48)
[2024-09-25 11:16] VITALS: BP 197/88
--- NOTE | 2024-09-25 11:27 | W.PN.GI.CBS2 ---
Today's Communication / Plan
-
Possible reassessment of her respiratory status
Assessment / Plan
-
Summary: 64yo female with multiple recent admissions for sigmoid colitis with abscess requiring drainage catheter as well as more recent cecal colitis presumed sporatic diverticulitis attacks. Flex sig in May 2024 showed two large rectosigmoid
polyps, not removed, diverticulosis, L colon altered vascularity, edema and erythema bx were normal. After most recent discharge from hospital on 08/18/24, she reports feeling well, tolerating diet, normal BMs. Now presents with upper abdominal pain
for three days, without diarrhea. CT shows severe circumferential wall thickening and submucosal edema in cecum and sigmoid colon with moderate wall thickening rest of colon. Also mild wall thickening throughout SB loops and GEJ, gastric fundus,
body, antrum, duodenum. WBC 14.5. Started on zosyn
CT abd/pel showed severe circumferential wall thickening in the cecum and sigmoid colon. It also showed mild diffuse wall thickening in the loops of small bowel suggestive of acute enteritis. She had repeat EGD colonoscopy which showed again areas
of erythema and congestion in her stomach, duodenum, and her colon from rectum to ascending colon. Extensive biopsies were again taken, EGD bx pending, colonic bx were non-diagnostic. Minimal suspicion for Crohn's disease. Her CRP is elevated.
Again she appears to have recurrent inflammatory disease process involving upper and lower GI tract, however of unclear etiology.
Pt is under discharge planning, however today c/o decreased O2 sat after ambulation. She can be d/c'ed home from GI stand point, but given her complaint, will alert/discuss with hospitalist re: her pulmonary status.
Total Time Spent with Patient (in minutes): 35
Subjective
Subjective
Date of Service: September 25, 2024
C/o some dyspnea on exertion
Objective
Data Reviewed
Laboratory Data:
Laboratory Results
09/25/24 08:24
09/25/24 08:24
Laboratory Results
Magnesium 1.7 mg/dl (1.6-2.3) 09/25/24 08:24
Total Bilirubin 0.8 mg/dl (0.2-1.3) 09/22/24 06:23
AST 12 U/L (14-36) L 09/22/24 06:23
ALT < 10 U/L (0-35) 09/22/24 06:23
Alkaline Phosphatase 75 U/L (38-126) 09/22/24 06:23
Lipase 27 U/L (23-300) 09/21/24 13:24
Vital Signs and I&O:
Vital Signs
Temp Pulse Resp BP Pulse Ox
98.5 F 61 20 197/88 88
09/25/24 07:35 09/25/24 07:35 09/25/24 07:35 09/25/24 11:16 09/25/24 11:16
I&O
09/24/24 09/25/24 09/26/24
06:59 06:59 06:59
Intake Total 2200 / 2200 1820 / 1820
Balance 2200 / 2200 1820 / 1820
[2024-09-25] MEDS: KCL 40 MEQ PO (12:34)
[2024-09-25] MEDS: TYLENOL 650 MG PO ×2 (12:34→19:13)
[2024-09-25] MEDS: VALIUM 1.25 MG PO ×2 (12:35→22:00)
[2024-09-25] MEDS: LASIX 40 MG IV (12:36)
--- NOTE | 2024-09-25 12:41 | W.PN.CRS1 ---
Today's Communication / Plan
-
as below
Assessment/Plan
-
64-year-old female with PMH of COPD (40 year smoking), HTN, anxiety, pancreatic insufficiency (on creon), history of hysterectomy 20 yrs ago c/b vaginal prolapse s/p sacrocolpopexy, daily drinker, recent admissions for colitis, initially thought to
be IBD vs infectious, then diverticular (as below) who presents for recurrent abdominal pain, nausea and acid reflux; wbc 14.5, CRP 182, CT showing severe thickening and submucosal edema of the ascending colon and sigmoid, moderate thickening of the
remainder of the colon and rectum c/w pancolitis, mild wall thickening of the small bowel, stable intra/extrahepatic biliary dilation; underwent EGD/cscope on 09/23 showing congested mucosa from ascending colon to rectum, erythematous mucosa in the
sigmoid, pandiverticulosis, known unresected rectal and rectosigmoid polyps, EGD - mucosal changes in esophagus and stomach, scarred mucosa in the duodenum, all biopsied
Testing/Prior admissions:
12/2016 colonoscopy ([facility]) - multiple HP polyps, sigmoid SSL x2, rectal TA, velasquez-diverticulosis
09/2022 colonoscopy ([facility]) - pandiverticulosis, o/w normal
03/2024 CTAP - severe colitis involving proximal rectum, sigmoid and descending colon; multiple diverticula
Admitted 05/29/24 to 06/09: p/w L-sided abdominal pain, wbc 10.1, CRP 43, fecal calpro 143, CT - severe colitis of the distal descending and sigmoid colon; underwent flexible sig on 05/31, which showed a 1 cm polyp in the distal rectum and 2 cm
polyp in the rectosigmoid, not resected, diverticulosis and erythematous mucosa from the rectum to splenic flexure, biopsies negative; CTA on 06/01 - patent mesenteric vessels; ultimately tested positive for norovirus, which was the presumptive
diagnosis
Admitted 06/26 to 06/30: p/w LLQ pain and LLE weakness; wbc 10.0, CRP 262, CT - large left-sided paracolic abscess, [id number], invading to the left iliacus, s/p IR drainage (100mL pus); discharged on 06/30 with 3-week course of Augmentin; working
diagnosis was diverticulitis with abscess
-07/09 drain study showed no residual abscess or fistula and drain removed ; working diagnosis was diverticulitis with abscess
Admitted 08/13 to 08/18: p/w R-sided abd pain; wbc 12.3, CRP 21.8 (trended up to 200), stool Cx/cdiff - neg; CT showing right-sided diverticulitis; she was treated with IV zosyn and then discharged Augmentin
-was planned for cscope on Oct 06 and sigmoidectomy on Oct 07
AFVSS, ABD soft, nondistended, minimally diffusely tender, no rebound or guarding
WBC 4.4 from 6.2, Hb 12.9 from 12.4, CRP 86 from 189 from 235, fecal calpro pending
� Pancolitis with segmental worsening within the ascending and sigmoid colon, a/w small bowel thickening and duodenal scarring
-Pending fecal calpro and stool studies; cdiff negative
-H/o CTA with patent mesenteric vessels
-Follow-up biopsies, colon biopsies negative; may consider second opinion with gastrointestinal pathologist
-Possible etiology of colitis is unclear; ischemic and infectious appears unlikely; diverticular remains possible but rarely presents with simultaneous colitis of the right and left; IBD remains a feasible possibility, especially in light of
mucosal changes in upper GI tract; otherwise would start to consider more rare etiologies like auto-immune/vasculitides, would consider rheumatology consult
-Currently would postpone any surgical intervention until etiology of colitis can be determined unless for urgent/emergent need; currently, no need for acute surgery
-Appreciate GI
� Diet per GI
� Holding antibiotics per ID
� DVT PPx with Lovenox
� OOB/IS
� Appreciate hospitalist
Dispo- CRS to sign off; patient can follow-up with me in 2 weeks after D/C
Subjective Data
Subjective Data
Date of Service: September 25, 2024
Feeling better, but still having some dyspnea. Denies nausea/vomiting and tolerating regular diet. Passing flatus and had a BM. Voiding. Pain is better, but still discomfort.
Objective Data
-
Vital Signs
Temp Pulse Resp BP Pulse Ox
98.5 F 61 20 197/88 88
09/25/24 07:35 09/25/24 07:35 09/25/24 07:35 09/25/24 11:16 09/25/24 11:16
Intake & Output
09/24/24 09/25/24 09/26/24
06:59 06:59 06:59
Intake Total 2200 / 2200 1820 / 1820
Balance 2200 / 2200 1820 / 1820
Intake:
Oral fluids 960 / 960 1200 / 1200
IV fluids (Total) 1000 / 1000 500 / 500
IV piggybacks 240 / 240 120 / 120
Other:
Number of approximated MODERATE 4 2
amounts of urine
Lab Results
09/25/24 08:24
09/25/24 08:24
Physical Exam
-
General: No Acute Distress and AOx3
HEENT: Grossly Normal
Abdomen: Soft, Distended (Mildly distended, non tympanitic), Tender (Minimally tender), No Guarding and No Rebound
Skin: Warm and Dry
[2024-09-25] MEDS: DUONEB 3 ML INH (12:59)
[2024-09-25 13:00] VITALS: BP 181/6
[2024-09-25] MEDS: ZENPEP DELAYED RELEASE CAPSULE PO (15:13)
[2024-09-25 15:15] VITALS: BP 144/66; BP 190/77
--- NOTE | 2024-09-25 15:56 | CON.PUL ---
Consultation
Consultation Request
Date/Time Consultation Requested: 09/25/2024 - 1114
Date/Time Consultation Performed: 09/25/2024 - 1230
Requesting Provider: Dr. Mondragon
Performing Provider: Dr. Fernández
Reason for Consultation: Hypoxia/Hx of COPD
Medical History
-
Chief Complaint: Abdominal pain/nausea
History of Present Illness:
64-year-old female tobacco smoker (still smokes 0.75�1 PPD) with a past medical history of very severe COPD/emphysema, hypertension, depression, anxiety, history of chronic LLQ abdominal pain, history of colitis, IBS, personal history of COVID-19
(June 2022), and low gammaglobulin level who presents with mid abdominal pain and nausea. Patient also had pain in her left breast on admission. She told triage that she has been scheduled for a colonoscopy and bowel resection. Initial
imaging with CT A/P with IV contrast on 09/21/2024 showed severe circumferential wall thickening and subcu mucosal edema in the cecum and sigmoid colon concerning for acute infectious pancolitis. She also had mild diffuse wall thickening throughout
the small bowel loops suggesting acute enteritis. Colorectal surgery, ID and GI were all consulted. GI was concern for an inflammatory bowel disease. She underwent an upper and lower endoscopy on 09/23 -with no endoscopic evidence of Crohn's
disease. The duodenum appeared abnormal with patchy severely erythematous mucosa without active bleeding in the duodenal bulb, and severe mucosal changes with congestion, flattening and scalloping in the second portion of the duodenum. She was on
Zosyn since admission and this was changed to Unasyn on 09/23. Since admission she has been mostly on room air with occasional use of 2 L/min O2. Since 09/24 she has been on more persistent 1-2 L/min O2. proBNP was checked on 09/24/2024 and was
elevated at 3540, and CXR on 09/24/2024 showed mild as moderate CHF with very small bilateral pleural effusions. She was given IV Lasix 40 mg on 09/24 and again on 09/25. She is also been continued on Symbicort + Spiriva as she takes Trelegy at home.
Pulmonary service now consulted for additional management/recommendations.
When I saw the patient today she was resting in bed no distress. Currently on 2 L/min saturating 95%. She says that her shortness of breath happens intermittently and that she can walk around the hallway without shortness of breath and she thinks
she may be having anxiety. She currently is feeling well with her breathing at rest. Currently denies chest pain, [place], fevers or chills.
Of note patient follows with us in the [facility] office with Dr. Santiago -last visit 09/13/2024. She is maintained on Trelegy 100mcg for history of very severe COPD, she also has air trapping and hyperinflation. She has chronic exertional dyspnea. She
has completed pulmonary rehab in the past. Her last LDCT chest was in June 2023 showing no parenchymal nodules. She does continue to smoke three quarters a pack per day although she is trying to actively cut down. She was told to follow-up in
6 months with PFT. Her last PFT was in 06/26/2023 showing a very severe persistent obstructive lung defect with a significant bronchodilator response, with mild�moderate restriction and a very severe gas exchange capacity defect (DLco: 7%; DLco/VA:
12%).
PMHx: Very severe COPD/emphysema, tobacco smoking, hypertension, allergic rhinitis, hemorrhoids, depression, anxiety/panic disorder, history of LLQ abdominal pain, colonic polyps, history of colitis, personal history of COVID-19 (06/2022), low
gammaglobulin level, low serum IgA, IBS
PSHx: Eyelid lift (2002), appendectomy, tonsillectomy, sacro�colpopexy, prolapsed uterus with transvaginal hysterectomy
Past Medical History
Past Medical History: Other (Above as per HPI)
Past Surgical History: Other (Above as per HPI)
Social History
Tobacco: Smoker
Alcohol: None
Drug: None
Family History
Family History: Reviewed & Not Pertinent
Allergies / Home Medications
Allergies
Allergy/AdvReac Type Severity Reaction Status Date / Time
metronidazole [From Flagyl] Allergy Unknown Verified 09/21/24 13:16
morphine Allergy SEE BELOW Verified 09/21/24 13:16
Sulfa (Sulfonamide Allergy Unknown Verified 09/21/24 13:16
Antibiotics)
Home Medications
�Medication �Instructions �Recorded �Confirmed �Last Taken �Type
diazepam 5 mg tablet 1.25 mg PO DAILYPRN PRN anxiety 04/26/20 09/21/24 07/08/24 History
fluoxetine 20 mg capsule 20 mg PO DAILY Depression 04/26/20 09/21/24 08/14/24 History
albuterol sulfate 90 mcg/actuation 1 puff inhalation R Q4HPRN PRN SoB 01/02/23 09/21/24 07/08/24 History
aerosol inhaler
fluticasone fur. 100 mcg-umeclid 1 inh inhalation R DAILY 05/29/24 09/21/24 07/08/24 History
62.5 mcg-vilant 25 mcg Lung/Breathing Issues
inhalat.powder (Trelegy Ellipta)
cholecalciferol (vitamin D3) 50 50 mcg PO DAILY Supplement 06/25/24 09/21/24 08/14/24 History
mcg (2,000 unit) tablet (Vitamin
D3)
atenolol 50 mg tablet 50 mg PO DAILY Blood Pressure #30 06/30/24 09/21/24 08/14/24 Rx
tabs
doxazosin 4 mg tablet 2 mg (1/2 x 4 mg) PO DAILY Urinary 06/30/24 09/21/24 08/14/24 Rx
Issue #30 tabs
Lactobac no.2-Bifidobac no.1-S. 1 cap PO DAILY Gastrointestinal 08/13/24 09/21/24 08/14/24 History
thermo 112.5 billion cell capsule Issue
(Visbiome)
oqonsd-seynzxez-myhnohc 1 cap PO AC Gastrointestinal Issue 08/13/24 09/21/24 Unknown History
24,000-76,000-120,000 unit
capsule,delayed rel (Creon)
nicotine 14 mg/24 hr daily 14 mg transdermal DAILY Smoking 08/18/24 09/21/24 Unknown Rx
transdermal patch cessation 1 month #28 ea
Review of Systems
-
History Source: Patient
All other systems: Negative unless noted
Vitals / Labs / Diagnostic Testing
Vital Signs
Temp Pulse Resp BP Pulse Ox
98.5 F 61 20 144/66 88
09/25/24 07:35 09/25/24 07:35 09/25/24 07:35 09/25/24 15:15 09/25/24 11:16
Lab Data
09/25/24 08:24
09/25/24 08:24
Microbiology
09/23/24 05:52 Feces/Stool Salmonella/Shigella Culture - Final
No Salmonella, Shigella, Aeromonas or Plesiomonas species
isolated.
09/23/24 05:52 Feces/Stool Campylobacter Culture - Final
No Campylobacter species isolated.
09/23/24 05:52 Feces/Stool C. difficile GDH Antigen & Toxins - Final
Negative for toxigenic C.difficile
09/23/24 05:52 Feces/Stool - Final
Negative for Norovirus GI and GII.
Diagnostic Testing:
Physical Exam
-
HEENT: Normocephalic and Anicteric
Cardiovascular: S1/S2 and Peripheral Edema (Trace LE bilaterally)
Respiratory: Wheeze (negative), Rales (Bibasilar), Rhonchi (negative) and Non-Labored Respirations
GI: Soft, Non Distended, Non Tender and Normal Bowel Sounds
Neurology: AO x 3 and Tremors (negative)
Skin: Warm and Dry
General: Respiratory Distress (negative), Comfortable, Fever (negative) and Chills (negative)
Assessment
-
Assessment: 64-year-old female tobacco smoker (still smokes 0.75�1 PPD) with a past medical history of very severe COPD/emphysema, hypertension, depression, anxiety, history of chronic LLQ abdominal pain, history of colitis, IBS, personal history
of COVID-19 (June 2022), and low gammaglobulin level who presents with mid abdominal pain and nausea. Patient also had pain in her left breast on admission. She told triage that she has been scheduled for a colonoscopy and bowel resection.
Initial imaging with CT A/P with IV contrast on 09/21/2024 showed severe circumferential wall thickening and subcu mucosal edema in the cecum and sigmoid colon concerning for acute infectious pancolitis. She also had mild diffuse wall thickening
throughout the small bowel loops suggesting acute enteritis. Colorectal surgery, ID and GI were all consulted. GI was concern for an inflammatory bowel disease. She underwent an upper and lower endoscopy on 09/23 -with no endoscopic evidence of
Crohn's disease. The duodenum appeared abnormal with patchy severely erythematous mucosa without active bleeding in the duodenal bulb, and severe mucosal changes with congestion, flattening and scalloping in the second portion of the duodenum. She
was on Zosyn since admission and this was changed to Unasyn on 09/23. Since admission she has been mostly on room air with occasional use of 2 L/min O2. Since 09/24 she has been on more persistent 1-2 L/min O2. proBNP was checked on 09/24/2024 and
was elevated at 3540, and CXR on 09/24/2024 showed mild as moderate CHF with very small bilateral pleural effusions. She was given IV Lasix 40 mg on 09/24 and again on 09/25. She is also been continued on Symbicort + Spiriva as she takes Trelegy at
home. Pulmonary service now consulted for additional management/recommendations.
Chronic conditions [employer]: Very severe COPD/emphysema, tobacco smoking, hypertension, allergic rhinitis, hemorrhoids, depression, anxiety/panic disorder, history of LLQ abdominal pain, colonic polyps, history of colitis, personal history of COVID-19
(06/2022), low gammaglobulin level, low serum IgA, IBS
Impression:
#Acute respiratory failure with hypoxia due to acute pulmonary edema
#Hypokalemia
#Metabolic alkalosis
#Severe acute infectious pancolitis with acute enteritis per CT A/P from 09/21/2024
#Very severe COPD on Trelegy 100mcg as an outpatient (previously completed pulmonary rehab)
#Mixed mild-moderate restrictive lung defect with very severe persistent obstructive lung defect with significant bronchodilator response and very severe gas exchange capacity defect (PFT�06/2023)
#Depression
#History of anxiety/panic disorder
Plan:
- CXR from 09/24/2024 shows bilateral costophrenic angle with pulmonary vascular congestion --> this in the setting of her very severe COPD is likely the cause of her worsening hypoxia
- Maintain SpO2 88-95% with supplemental O2, weaning down as tolerated
- Would check an ambulatory pulse oximetry prior to discharge
- Echo from 09/24/2024 shows mild concentric LVH with preserved biventricular function, normal RA size, no pericardial effusion and top normal RV size. LVEF 60-65%
- Would continue to diurese until her symptoms improve, maintaining net negative fluid balance
- Replete electrolytes with K>4, Mg>2 while diuresing
- Re-check CXR tomorrow to re-assess lung parenchyma
- Continue nicotine patch
- Continue with Symbicort + Spiriva as she takes Trelegy at home; resume Trelegy upon discharge
- Continue with prn nebulized albuterol while hospitalized
- Incentive spirometer encouraged q1hr while awake
- Given that her serum bicarbonate level is elevated at 31 today, check venous blood gas to assess pH + pCO2
- Follow-up pathology from EGD as biopsies were taken from the duodenal bulb and the second portion of the duodenum; the most abnormal portion was the second portion of the duodenum which was littered with scarred mucosa, flattened throughout the
third portion without ulcerations, with biopsies sent for celiac, amyloid and Crohn's disease as well as lymphoma
-Patient's ascending, transverse and sigmoid colon biopsies were negative for collagenous and lymphocytic colitis, acute colitis, granulomas and dysplasia
- Given patient's colitis on CT, she was continued on antibiotics and ID was following; she initially was on Zosyn which was switched to Unasyn on 09/23. Antibiotics discontinued on 09/24 per ID given no clear infectious etiology, as well as negative
stool cultures and negative C. difficile
- Pain control for her abdominal discomfort
- Trend H/H and transfuse if needed to keep Hb>7g/dL; keep plt>20k, unless there is concern for bleeding then keep plt>50k
- Maintain euglycemia with goal BG >100 and <180
- DVT ppx: HSQ
Pulmonary service will continue to follow along. Patient should ultimately continue following up with us in the office as last visit on 10/10/[address] Santiago.
Data:
CXR 09/24/2024: Borderline cardiomegaly. Mild to moderate CHF with very small bilateral effusions.
Total time spent today was 56 minutes for this encounter. Time includes reviewing laboratory test/imaging results, reviewing pertinent medical records, obtaining and reviewing medical history, performing an appropriate exam, ordering medications,
tests and procedures. Time also includes documentation of this encounter, coordinating patient care and communicating with other healthcare professionals. Total time does not include separately billed tests performed on this date of service.
[2024-09-25 17:56] VITALS: BP 114/65
--- NOTE | 2024-09-25 18:02 | PTCARENOTE ---
Pt's bp has been high. when we place the cuff on her she gets very anxious and stressed. at 1515 bp 190/77. I rechecked at 1800 I put the cuff on she got stressed, then distracted her and took it five minutes later, her BP was 114/65. aware, i
did not give her iv hydralzine
[2024-09-25] MEDS: ZOFRAN 4 MG IV (18:04)
[2024-09-25] MEDS: APRESOLINE 10 MG IV (22:02)
[2024-09-25 23:00] VITALS: BP 150/56
[2024-09-26 06:00] VITALS: BMI 20.6
[2024-09-26 07:03] LABS: Venous Blood Gas B.E. 9.1 mmol/L (-4 to +4); Venous Blood Gas HCO3 35.2 mmol/L (22-27); Venous Blood Gas pCO2 53 mmHg (35-48); Venous Blood Gas pH 7.43 (7.32-7.43); Venous Blood Gas pO2 161 mmHg (30-50)
[2024-09-26 07:05] LABS: Venous Blood Gas O2 Therapy 2L/min
[2024-09-26 07:29] LABS: Blood Urea Nitrogen 12 mg/dl (7-17); Calcium 8.8 mg/dl (8.4-10.2); Carbon Dioxide 34 mmol/L (22-30); Chloride 100 mmol/L (98-107); Estimated Creatinine Clearance 73 ml/min; Glucose 99 mg/dl (70-99); Potassium 3.6 mmol/L (3.5-5.1); Sodium 141 mmol/L (135-145); eGFR > 60.00
[2024-09-26] MEDS: SPIRIVA RESPIMAT 2.5 MCG 2 PUFF INH (07:53)
[2024-09-26] MEDS: SYMBICORT 80/4.5 MCG INHALER 2 PUFF INH ×2 (07:53→19:53)
[2024-09-26 08:00] VITALS: BP 187/76
[2024-09-26] MEDS: PROZAC 20 MG PO (08:12)
[2024-09-26] MEDS: ZENPEP DELAYED RELEASE CAPSULE 1 CAPSULE PO ×3 (08:12→17:17)
[2024-09-26] MEDS: TYLENOL 650 MG PO ×3 (08:12→20:42)
[2024-09-26] MEDS: NICODERM TRANSDERMAL 14 MG TRANSDERM (08:12)
[2024-09-26] MEDS: CARDURA 2 MG PO (08:12)
[2024-09-26] MEDS: VITAMIN D3 (cholecalciferol) 50 MCG PO (08:12)
[2024-09-26] MEDS: VISBIOME 1 CAP PO (08:12)
[2024-09-26] MEDS: HEPARIN 5000 UNITS SC ×2 (08:13→19:46)
[2024-09-26] MEDS: APRESOLINE 10 MG IV ×2 (08:13→22:40)
[2024-09-26] MEDS: TENORMIN 50 MG PO (08:17)
--- NOTE | 2024-09-26 08:58 | W.PN.HOSP.TC ---
Today's Communication/Plan
-
Chest ultrasound. Home oxygen needs. Discharge planning
Assessment / Plan
Assessment / Plan
Physical exam:
General: Acutely ill
HEENT: Normocephalic, Atraumatic and Moist Mucous Membranes
Respiratory: Decreased breath sounds and some crackles in the bases; Negative Wheezes or Rhonchi
Cardiac: Regular Rhythm and S1/S2
GI: Soft, Tender and mild distended
Musculoskeletal: No Clubbing, No Cyanosis and No Edema
Neuro: Awake, Alert and Oriented, no neuro-deficits
Psych: Calm
Upper endoscopy:
Impression: Overall, most abnormal in the small bowel - 2nd
portion was littered with scarred mucosa, flattened
throughout the 3rd portion (patient's prior celiac
panel in 05/2024 was negative). There were no
ulcerations. Biopsied for celiac, amyloid, Crohns
disease and lymphoma
- Mucosal changes in the esophagus. Biopsied.
- Small hiatal hernia.
- Enlarged gastric folds. Biopsied.
- Gastritis. Biopsied.
- Erythematous duodenopathy. Biopsied.
- Mucosal changes in the duodenum. Biopsied.
Colonoscopy:
Impression: Endoscopically no evidence of Crohns disease. Biopsies
taken. Reached the distal ascending colon with water
insufflation with an EGD scope. Biopsies taken
throughout
The EGD -specifically the duodenum was very abnormal.
- Hemorrhoids found on perianal exam.
- One 12 mm polyp in the rectum. Resection not
attempted.
- One 18 mm polyp at the recto-sigmoid colon.
Resection not attempted.
- Diverticulosis in the ascending colon and in the
left colon. Few ascending, multiple in the sigmoid
colon.
- Mildly congested mucosa from rectum to ascending
colon. Biopsied.
- Altered vascular, congested and erythematous mucosa
in the sigmoid colon (area of about 10cm - distal
sigmoid). Biopsied.
A/P:
Probable infectious colitis versus IBD versus other:
ID stopped all antibiotics
From GI standpoint medically ready for discharge. But not medically ready for discharge from respiratory standpoint-see below plan.
On diet per GI and colorectal surgery
GI reordered C Diff and stool cultures--> C. difficile and norovirus negative. Rest stool culture negative
history of diverticulitis with abscess and last month hospitalization
Colorectal surgery consult appreciated
Colorectal suggested GI and ID eval
GI did endoscopy and colonoscopy on 09/23
Acute respiratory insufficiency likely due to acute diastolic congestive heart failure versus other etiology:
Seen chest x-ray and probably consistent with volume overload/heart failure
Lasix 40 mg IV x 1 yesterday and the day before yesterday and today repeated chest x-ray shows some improvement. Chest x-ray also showing some bilateral effusion and will check ultrasound to see if they are amenable for thoracentesis or not.
Updated BNP and echocardiogram and BNP elevated at 3540 and echo shows EF of 60 to 65%. Interval follow-up BNP pending.
Bronchodilators as needed
Pulmonary consult appreciated
COPD:
Continue inhalers
Pulmonary consult
Need to reeval home oxygen needs upon discharge
Hypertension:
Continue home antihypertensives
Initial hypoxia upon admission resolved.
Anxiety:
Resume benzodiazepine as needed
Pancreatic insufficiency:
Continue pancreatic enzymes
Nicotine use disorder:
Nicotine patch
DVT prophylaxis:
Heparin SQ
CODE STATUS:
Full code
Anticipated Discharge: Within 24 hours
Subjective/Interval History
-
Date of Service: September 26, 2024
Patient feels improved in terms of her breathing but still feels some shortness of breath. No chest pain. Abdominal discomfort better.
Objective Data
-
Labs:
Laboratory Results
09/26/24
06:50
Sodium 141
Potassium 3.6
Chloride 100
Carbon Dioxide 34 H
BUN 12
Creatinine 0.4 L
Glucose 99
Calcium 8.8
Vital Signs:
Vital Signs
Temp Pulse Resp BP Pulse Ox
97.6 F 62 18 150/56 94
09/25/24 23:00 09/26/24 07:58 09/26/24 07:58 09/25/24 23:00 09/26/24 07:58
I&O
09/25/24 09/26/24 09/27/24
06:59 06:59 06:59
Intake Total 1819 1540 / 1540
Balance 1819 1540 / 1540
[2024-09-26 12:30] VITALS: BP 165/63
[2024-09-26] MEDS: COLACE 100 MG PO ×2 (12:31→19:47)
[2024-09-26] MEDS: VALIUM 1.25 MG PO ×2 (13:10→20:42)
[2024-09-26 13:29] LABS: NT-proBNP 2260 pg/ml
[2024-09-26 16:10] VITALS: BP 157/63
--- NOTE | 2024-09-26 16:30 | W.PN.PUL3 ---
Today's Communication / Plan
-
Patient has trace bilateral pleural effusions per CXR from 09/26/2024, hence ultrasound of the chest will not lead to any change in management
Consider additional diuresis as she continues to have exertional shortness of breath and likely still has additional fluid to diurese
Recheck BNP tomorrow
Make sure to replete K>4, Mg>2 while diuresing as she says she has a history of significant hypokalemia with diuresis
Up OOB as tolerated
Encouraged incentive spirometer
Recheck ambulatory pulse oximetry prior to discharge (although she does have oxygen at home, per the patient)
Patient should ultimately continue following up with us in the office as last visit on 10/10/[address] Santiago - follow up appt will be arranged
Pulmonary service will continue to follow along while she remains hospitalized
Assessment
-
Assessment: 64-year-old female tobacco smoker (still smokes 0.75�1 PPD) with a past medical history of very severe COPD/emphysema, hypertension, depression, anxiety, history of chronic LLQ abdominal pain, history of colitis, IBS, personal history
of COVID-19 (June 2022), and low gammaglobulin level who presents with mid abdominal pain and nausea. Patient also had pain in her left breast on admission. She told triage that she has been scheduled for a colonoscopy and bowel resection.
Initial imaging with CT A/P with IV contrast on 09/21/2024 showed severe circumferential wall thickening and subcu mucosal edema in the cecum and sigmoid colon concerning for acute infectious pancolitis. She also had mild diffuse wall thickening
throughout the small bowel loops suggesting acute enteritis. Colorectal surgery, ID and GI were all consulted. GI was concern for an inflammatory bowel disease. She underwent an upper and lower endoscopy on 09/23 -with no endoscopic evidence of
Crohn's disease. The duodenum appeared abnormal with patchy severely erythematous mucosa without active bleeding in the duodenal bulb, and severe mucosal changes with congestion, flattening and scalloping in the second portion of the duodenum. She
was on Zosyn since admission and this was changed to Unasyn on 09/23. Since admission she has been mostly on room air with occasional use of 2 L/min O2. Since 09/24 she has been on more persistent 1-2 L/min O2. proBNP was checked on 09/24/2024 and
was elevated at 3540, and CXR on 09/24/2024 showed mild as moderate CHF with very small bilateral pleural effusions. She was given IV Lasix 40 mg on 09/24 and again on 09/25. She is also been continued on Symbicort + Spiriva as she takes Trelegy at
home. Pulmonary service now consulted for additional management/recommendations.
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
(06/2022), low gammaglobulin level, low serum IgA, IBS
Impression:
#Acute respiratory failure with hypoxia due to acute pulmonary edema
#Hypokalemia
#Metabolic alkalosis due to chronic respiratory acidosis
#Severe acute infectious pancolitis with acute enteritis per CT A/P from 09/21/2024
#Very severe COPD on Trelegy 100mcg as an outpatient (previously completed pulmonary rehab)
#Mixed mild-moderate restrictive lung defect with very severe persistent obstructive lung defect with significant bronchodilator response and very severe gas exchange capacity defect (PFT�06/2023)
#Depression
#History of anxiety/panic disorder
Plan:
- CXR from 09/24/2024 shows bilateral costophrenic angle with pulmonary vascular congestion --> this in the setting of her very severe COPD is likely the cause of her worsening hypoxia
- Maintain SpO2 88-95% with supplemental O2, weaning down as tolerated
- Would check an ambulatory pulse oximetry prior to discharge
- Echo from 09/24/2024 shows mild concentric LVH with preserved biventricular function, normal RA size, no pericardial effusion and top normal RV size. LVEF 60-65%
-Patient received 40 mg IV Lasix on 09/24 - 09/25/2024 --> today she feels better and CXR today (09/26/2024) looks much better with degree of pulmonary vascular congestion
- Re-check BNP tomorrow and if still remains elevated then would continue to diurese until her exertional SOB symptoms improve; maintaining net negative fluid balance as tolerated
- Replete electrolytes with K>4, Mg>2 while diuresing
- Continue nicotine patch
- Continue with Symbicort + Spiriva as she takes Trelegy at home; resume Trelegy upon discharge
- Continue with prn nebulized albuterol while hospitalized
- Incentive spirometer encouraged q1hr while awake
- Given that her serum bicarbonate level is elevated at 31 from 09/25, blood gas checked on 09/26 showing stable chronic hypercapnia with pH 7.43, pCO2 53
- Follow-up pathology from EGD as biopsies were taken from the duodenal bulb and the second portion of the duodenum; the most abnormal portion was the second portion of the duodenum which was littered with scarred mucosa, flattened throughout the
third portion without ulcerations, with biopsies sent for celiac, amyloid and Crohn's disease as well as lymphoma
- Patient's ascending, transverse and sigmoid colon biopsies were negative for collagenous and lymphocytic colitis, acute colitis, granulomas and dysplasia
- Given patient's colitis on CT, she was continued on antibiotics and ID was following; she initially was on Zosyn which was switched to Unasyn on 09/23. Antibiotics discontinued on 09/24 per ID given no clear infectious etiology, as well as negative
stool cultures and negative C. difficile
- Pain control for her abdominal discomfort
- Trend H/H and transfuse if needed to keep Hb>7g/dL; keep plt>20k, unless there is concern for bleeding then keep plt>50k
- Maintain euglycemia with goal BG >100 and <180
- DVT ppx: HSQ
Pulmonary service will continue to follow along. Patient should ultimately continue following up with us in the office as last visit on 10/10/[address] Santiago.
Data:
CXR 09/24/2024: Borderline cardiomegaly. Mild to moderate CHF with very small bilateral effusions.
CXR 09/26/2024: Inflation which may be seen with COPD or asthma; Interval improvement in bronchovascular prominence and improved cardiac size. Trace bilateral pleural effusions, right slightly greater than left, with minimal increase in the right.
Total time spent today was 38 minutes for this encounter. Time includes reviewing laboratory test/imaging results, reviewing pertinent medical records, obtaining and reviewing medical history, performing an appropriate exam, ordering medications,
tests and procedures. Time also includes documentation of this encounter, coordinating patient care and communicating with other healthcare professionals. Total time does not include separately billed tests performed on this date of service.
Subjective Data
-
Date of Service:
Date of Service: September 26, 2024
Chief Complaint: Pulmonary Follow Up
Subjective:
Patient seen and evaluated this morning (late note entry). She feels better today, still short of breath during activity. Minimal cough which is not bothersome. Her CXR shows improved pulmonary vascular congestion today. She says her belly pain
is also better and she had a 'massive' bowel movement today. Currently saturating between 92-93% on 1 L/min. She denies chest pain, [place], fevers or chills.
Review of Systems
General: Other (Negative unless mentioned above)
Objective Data
Data Reviewed
Vital Signs / I&O / Oxygen:
Vital Signs
Temp Pulse Resp BP Pulse Ox
98.1 F 59 18 187/76 98
09/26/24 08:00 09/26/24 08:00 09/26/24 08:00 09/26/24 08:00 09/26/24 08:00
Intake and Output
09/25/24 09/26/24 09/27/24
06:59 06:59 06:59
Intake Total 1820 / 1820 1540 / 1540
Balance 1820 / 1820 1540 / 1540
SaO2 98
Nasal Cannula flow liters per 2
minute
Physical Exam
General: Respiratory Distress (negative), Chills (negative) and Sweats (negative)
HEENT: Normocephalic and Anicteric
Cardiovascular: S1-S2, Rub (negative) and Peripheral Edema (Trace lower extremity edema bilaterally)
Respiratory: Wheeze (negative), Crackles (Bibasilar), Rhonchi (negative), Non-Labored Respirations and Stridor (negative)
GI: Soft, Non Distended, Non Tender and Normal Bowel Sounds
Neurology: AO x 3 and Tremors (negative)
Skin: Warm, Dry, Cyanosis (negative) and Jaundice (negative)
Labs/Micro/Reports
Lab Data
09/25/24 08:24
09/26/24 06:50
Microbiology
09/23/24 05:52 Feces/Stool Salmonella/Shigella Culture - Final
No Salmonella, Shigella, Aeromonas or Plesiomonas species
isolated.
09/23/24 05:52 Feces/Stool Campylobacter Culture - Final
No Campylobacter species isolated.
09/23/24 05:52 Feces/Stool C. difficile GDH Antigen & Toxins - Final
Negative for toxigenic C.difficile
09/23/24 05:52 Feces/Stool - Final
Negative for Norovirus GI and GII.
[2024-09-26] MEDS: DUONEB 3 ML INH (19:55)
[2024-09-26 22:43] VITALS: BP 173/79
[2024-09-26 23:43] VITALS: BP 153/63
[2024-09-27 06:00] VITALS: BMI 20.6
[2024-09-27] MEDS: SYMBICORT 80/4.5 MCG INHALER 2 PUFF INH ×2 (07:20→20:16)
[2024-09-27] MEDS: SPIRIVA RESPIMAT 2.5 MCG 2 PUFF INH (07:20)
[2024-09-27 07:26] VITALS: BP 185/75
[2024-09-27] MEDS: TENORMIN 50 MG PO (08:55)
[2024-09-27] MEDS: COLACE 100 MG PO ×2 (08:55→20:45)
[2024-09-27] MEDS: PROZAC 20 MG PO (08:55)
[2024-09-27] MEDS: ZENPEP DELAYED RELEASE CAPSULE 1 CAPSULE PO ×3 (08:55→16:36)
[2024-09-27] MEDS: VITAMIN D3 (cholecalciferol) 50 MCG PO (08:55)
[2024-09-27] MEDS: HEPARIN 5000 UNITS SC ×2 (08:56→20:41)
[2024-09-27] MEDS: NICODERM TRANSDERMAL 14 MG TRANSDERM (08:56)
[2024-09-27] MEDS: VISBIOME 1 CAP PO (08:57)
[2024-09-27] MEDS: CARDURA 2 MG PO (08:59)
[2024-09-27 10:28] LABS: Calprotectin, Fecal 79 ug/g (<=49)
[2024-09-27 10:37] LABS: Blood Urea Nitrogen 14 mg/dl (7-17); Calcium 8.9 mg/dl (8.4-10.2); Carbon Dioxide 31 mmol/L (22-30); Chloride 99 mmol/L (98-107); Estimated Creatinine Clearance 73 ml/min; Glucose 88 mg/dl (70-99); Magnesium 1.9 mg/dl (1.6-2.3); Potassium 3.8 mmol/L (3.5-5.1); Sodium 140 mmol/L (135-145); eGFR > 60.00
[2024-09-27 10:47] LABS: Hematocrit 39.8 % (37.0-47.0); Mean Corp Hgb Conc. 32.7 g/dL (33.0-37.0); Mean Corpuscular Hgb 30.6 pg (27.0-31.0); Mean Corpuscular Volume 93.6 fL (81.0-99.0); Mean Platelet Volume 9.8 fL (7.4-10.4); Platelet Count 255 10^3/uL (130-400); Red Blood Cell Count 4.25 10^6/uL (4.20-5.40); Red Cell Dist. Width 12.9 % (11.5-14.5); White Blood Cell Count 4.4 10^3/uL (4.8-10.8)
[2024-09-27 11:15] VITALS: BP 177/70
[2024-09-27] MEDS: VALIUM 1.25 MG PO ×2 (11:26→23:35)
[2024-09-27] MEDS: APRESOLINE 10 MG IV ×2 (11:27→23:10)
[2024-09-27] MEDS: FLUSH (NSS) 2 FLUSH IV (11:30)
--- NOTE | 2024-09-27 11:46 | W.PN.PUL3 ---
Today's Communication / Plan
-
Subjectively improved
Check ambulatory saturation on room air. Patient has home oxygen
Continue inhaler regimen
No indication for steroids
Disposition efforts
Assessment
-
Assessment: 64-year-old female tobacco smoker (still smokes 0.75�1 PPD) with a past medical history of very severe COPD/emphysema, hypertension, depression, anxiety, history of chronic LLQ abdominal pain, history of colitis, IBS, personal history
of COVID-19 (June 2022), and low gammaglobulin level who presents with mid abdominal pain and nausea. Patient also had pain in her left breast on admission. She told triage that she has been scheduled for a colonoscopy and bowel resection.
Initial imaging with CT A/P with IV contrast on 09/21/2024 showed severe circumferential wall thickening and subcu mucosal edema in the cecum and sigmoid colon concerning for acute infectious pancolitis. She also had mild diffuse wall thickening
throughout the small bowel loops suggesting acute enteritis. Colorectal surgery, ID and GI were all consulted. GI was concern for an inflammatory bowel disease. She underwent an upper and lower endoscopy on 09/23 -with no endoscopic evidence of
Crohn's disease. The duodenum appeared abnormal with patchy severely erythematous mucosa without active bleeding in the duodenal bulb, and severe mucosal changes with congestion, flattening and scalloping in the second portion of the duodenum. She
was on Zosyn since admission and this was changed to Unasyn on 09/23. Since admission she has been mostly on room air with occasional use of 2 L/min O2. Since 09/24 she has been on more persistent 1-2 L/min O2. proBNP was checked on 09/24/2024 and
was elevated at 3540, and CXR on 09/24/2024 showed mild as moderate CHF with very small bilateral pleural effusions. She was given IV Lasix 40 mg on 09/24 and again on 09/25. She is also been continued on Symbicort + Spiriva as she takes Trelegy at
home. Pulmonary service now consulted for additional management/recommendations.
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
(06/2022), low gammaglobulin level, low serum IgA, IBS
Impression:
#Acute respiratory failure with hypoxia due to acute pulmonary edema
#Hypokalemia
#Metabolic alkalosis due to chronic respiratory acidosis
#Severe acute infectious pancolitis with acute enteritis per CT A/P from 09/21/2024
#Very severe COPD on Trelegy 100mcg as an outpatient (previously completed pulmonary rehab)
#Mixed mild-moderate restrictive lung defect with very severe persistent obstructive lung defect with significant bronchodilator response and very severe gas exchange capacity defect (PFT�06/2023)
#Depression
#History of anxiety/panic disorder
Plan/recommendations:
At this time, patient feels improved
She states she feels she is close to her baseline, anticipating discharge later today
Crackles resolved on my exam
Remains on 2 L of oxygen at this time
Patient has oxygen at home
Unfortunately, I's and O's are likely inaccurate
Moving forward
Continue with current management plan
Unfortunate patient continues to smoke. Discussed absolute importance of tobacco cessation
Check ambulatory saturation
Patient already has home oxygen
Continue nicotine patch
Continue with Symbicort + Spiriva as she takes Trelegy at home; resume Trelegy upon discharge
blood gas checked on 09/26 showing stable chronic hypercapnia with pH 7.43, pCO2 53
- Follow-up pathology from EGD as biopsies were taken from the duodenal bulb and the second portion of the duodenum; the most abnormal portion was the second portion of the duodenum which was littered with scarred mucosa, flattened throughout the
third portion without ulcerations, with biopsies sent for celiac, amyloid and Crohn's disease as well as lymphoma
- Patient's ascending, transverse and sigmoid colon biopsies were negative for collagenous and lymphocytic colitis, acute colitis, granulomas and dysplasia
- Given patient's colitis on CT, she was continued on antibiotics and ID was following; she initially was on Zosyn which was switched to Unasyn on 09/23. Antibiotics discontinued on 09/24 per ID given no clear infectious etiology, as well as negative
stool cultures and negative C. difficile
DVT ppx: HSQ
Okay for discharge from pulmonary standpoint pending above
Patient should ultimately continue following up with us in the office as last visit on 10/10/[address] Santiago.
Disposition efforts
Data:
CXR 09/24/2024: Borderline cardiomegaly. Mild to moderate CHF with very small bilateral effusions.
CXR 09/26/2024: Inflation which may be seen with COPD or asthma; Interval improvement in bronchovascular prominence and improved cardiac size. Trace bilateral pleural effusions, right slightly greater than left, with minimal increase in the right.
Total time spent today was 38 minutes for this encounter. Time includes reviewing laboratory test/imaging results, reviewing pertinent medical records, obtaining and reviewing medical history, performing an appropriate exam, ordering medications,
tests and procedures. Time also includes documentation of this encounter, coordinating patient care and communicating with other healthcare professionals. Total time does not include separately billed tests performed on this date of service.
Subjective Data
-
Date of Service:
Date of Service: September 27, 2024
Chief Complaint: Pulmonary Follow Up
Subjective:
Patient is feeling much improved. She states she is ambulating without difficulty but still remains on 2 L. She denies chest pain. She has a mild dry cough, denies nausea, diarrhea. She states she initially came for abdominal discomfort but this
is since resolved.
Objective Data
Data Reviewed
Vital Signs / I&O / Oxygen:
Vital Signs
Temp Pulse Resp BP Pulse Ox
97.9 F 60 20 177/70 95
09/27/24 07:26 09/27/24 11:27 09/27/24 07:26 09/27/24 11:27 09/27/24 10:36
Intake and Output
09/26/24 09/27/24 09/28/24
06:59 06:59 06:59
Intake Total 1540 / 1540 1440 / 1440
Balance 1540 / 1540 1440 / 1440
SaO2 95
Nasal Cannula flow liters per 2
minute
Physical Exam
General: Comfortable
HEENT: Normocephalic and Anicteric
Cardiovascular: S1-S2, Regular Rhythm, Murmur (n), Rub (negative), Peripheral Edema (no edema) and Calf Tenderness (n)
Respiratory: Wheeze (negative), Crackles, Rhonchi (negative), Non-Labored Respirations and Stridor (negative)
GI: Soft, Non Distended, Non Tender and Normal Bowel Sounds
Neurology: Awake, Alert and No Motor Deficits (Moves all extremities)
Skin: Warm, Dry, Cyanosis (negative) and Jaundice (negative)
Labs/Micro/Reports
Lab Data
09/27/24 07:30
09/27/24 07:30
Microbiology
09/23/24 05:52 Feces/Stool Salmonella/Shigella Culture - Final
No Salmonella, Shigella, Aeromonas or Plesiomonas species
isolated.
09/23/24 05:52 Feces/Stool Campylobacter Culture - Final
No Campylobacter species isolated.
09/23/24 05:52 Feces/Stool Shiga Toxin Test - Final
No E. coli Shiga Toxin 1 or 2 detected.
--- NOTE | 2024-09-27 13:01 | W.PN.HOSP.TC ---
Today's Communication/Plan
-
IV Lasix
Follow blood pressure closely
Follow weight
Ambulatory pulse ox after IV diuresis.
Assessment / Plan
Assessment / Plan
Upper endoscopy:
Impression: Overall, most abnormal in the small bowel - 2nd
portion was littered with scarred mucosa, flattened
throughout the 3rd portion (patient's prior celiac
panel in 05/2024 was negative). There were no
ulcerations. Biopsied for celiac, amyloid, Crohns
disease and lymphoma
- Mucosal changes in the esophagus. Biopsied.
- Small hiatal hernia.
- Enlarged gastric folds. Biopsied.
- Gastritis. Biopsied.
- Erythematous duodenopathy. Biopsied.
- Mucosal changes in the duodenum. Biopsied.
Colonoscopy:
Impression: Endoscopically no evidence of Crohns disease. Biopsies
taken. Reached the distal ascending colon with water
insufflation with an EGD scope. Biopsies taken
throughout
The EGD -specifically the duodenum was very abnormal.
- Hemorrhoids found on perianal exam.
- One 12 mm polyp in the rectum. Resection not
attempted.
- One 18 mm polyp at the recto-sigmoid colon.
Resection not attempted.
- Diverticulosis in the ascending colon and in the
left colon. Few ascending, multiple in the sigmoid
colon.
- Mildly congested mucosa from rectum to ascending
colon. Biopsied.
- Altered vascular, congested and erythematous mucosa
in the sigmoid colon (area of about 10cm - distal
sigmoid). Biopsied.
A/P:
Probable infectious colitis versus IBD versus other:
ID stopped all antibiotics
From GI standpoint medically ready for discharge. But not medically ready for discharge from respiratory standpoint-see below plan.
On diet per GI and colorectal surgery
GI reordered C Diff and stool cultures--> C. difficile and norovirus negative. Rest stool culture negative
history of diverticulitis with abscess and last month hospitalization
Colorectal surgery consult appreciated
Colorectal suggested GI and ID eval
GI did endoscopy and colonoscopy on 09/23
Acute respiratory insufficiency likely due to acute diastolic congestive heart failure versus other etiology:
Seen chest x-ray and probably consistent with volume overload/heart failure. Follow-up chest x-ray shows improved bronchovascular prominence and trace bilateral pleural effusion. Ultrasound of the chest shows no pleural effusion.
Lasix 40 mg IV x 1 yesterday and the day before yesterday and today repeated chest x-ray shows some improvement. Chest x-ray also showing some bilateral effusion ; ultrasound shows no pleural effusion.
Updated BNP and echocardiogram and BNP elevated at 3540 and echo shows EF of 60 to 65%. Interval follow-up BNP improving.
Weight remains high. Will continue with IV diuresis and follow. Also optimize blood pressure readings.
Pulmonary consult appreciated
COPD:
Continue inhalers
Pulmonary following.
Need to reeval home oxygen needs upon discharge
Hypertension:
On atenolol which we will continue. Now on IV diuresis and if no improvement with the blood pressure after diuresis will consider additional antihypertensive treatments.
Anxiety:
Resume benzodiazepine as needed
Pancreatic insufficiency:
Continue pancreatic enzymes
Nicotine use disorder:
Nicotine patch
DVT prophylaxis:
Heparin SQ
CODE STATUS:
Full code
Anticipated Discharge: Within 24 hours
Subjective/Interval History
-
Date of Service: September 27, 2024
From GI standpoint patient feels better. Tolerating diet. No abdominal pain.
Denies any shortness of breath but with exertion or saturations have dropped. Denies any cough or chest pain.
Her blood pressure is high but says normally at home.
History of COPD but no issues with exacerbation.
Objective Data
-
Labs:
Laboratory Results
09/27/24
07:30
WBC 4.4 L
Hgb 13.0
Hct 39.8
Plt Count 255 D
Sodium 140
Potassium 3.8
Chloride 99
Carbon Dioxide 31 H
BUN 14
Creatinine 0.4 L
Glucose 88
Calcium 8.9
Vital Signs:
Vital Signs
Temp Pulse Resp BP Pulse Ox
97.9 F 60 20 177/70 95
09/27/24 07:26 09/27/24 11:27 09/27/24 07:26 09/27/24 11:27 09/27/24 10:36
I&O
09/26/24 09/27/24 09/28/24
06:59 06:59 06:59
Intake Total 1540 / 1540 1440 / 1440
Balance 1540 / 1540 1440 / 1440
Review of Systems
-
Constitutional: Denies Fever or Chills
Neuro: Denies Dizzy
Physical Exam
-
General: No Apparent Distress
HEENT: Moist Mucous Membranes
Respiratory: Decreased Breath Sounds (In general and I do not hear any added sounds)
Cardiac: Regular Rhythm and S1/S2
GI: Soft and Nontender
Neuro: AO x 3
Data Reviewed
-
Labs: Labs Reviewed by me
[2024-09-27] MEDS: LASIX 40 MG IV (13:02)
[2024-09-27] MEDS: FLUSH (NSS) 1 FLUSH IV (13:06)
[2024-09-27] MEDS: TYLENOL 650 MG PO ×2 (13:07→22:54)
--- NOTE | 2024-09-27 13:28 | W.PN.ID1 ---
Date of Service
Date of Service: September 27, 2024
Today's Communication
Sign off
Assessment / Plan
Abdominal discomfort
Colitis on CT
-Present not clear if infectious inflammatory in etiology
Leukocytosis
COPD
Hypertension
Pancreatic insufficiency
Chronic diarrhea
Diverticulosis
Recommendations:
White count remains normal. C. difficile and norovirus testing negative.
Cultures negative.
No acute infectious process noted.
Nothing further to add at this time.
Will see again at your request.
����������������������������������������������������������
Chief Complaint
-: Other (Abdominal pain)
Subjective / Review of Systems
Review of Systems: No Fever and No Chills
Vital Signs / Physical Exam
Vital Signs
Vital Signs
Temp Pulse Resp BP Pulse Ox
97.9 F 62 20 179/78 95
09/27/24 07:26 09/27/24 13:02 09/27/24 07:26 09/27/24 13:02 09/27/24 10:36
Physical Exam
Constitutional: No Acute Distress, Comfortable and Non-toxic
Eyes: Sclera Anicteric
Pulmonary: Non Labored
Gastrointestinal: Non Distended
Neurological: Awake and Alert
Psychological: Calm
Objective Data
Lab Data
Lab Results
09/27/24 07:30
09/27/24 07:30
Estimated Creat Clear 73 ml/min 09/27/24 07:30
Total Bilirubin 0.8 mg/dl (0.2-1.3) 09/22/24 06:23
AST 12 U/L (14-36) L 09/22/24 06:23
ALT < 10 U/L (0-35) 09/22/24 06:23
Alkaline Phosphatase 75 U/L (38-126) 09/22/24 06:23
C-Reactive Protein 60.20 mg/L (0.0-10.00) H 09/26/24 06:50
Most recent labs reviewed.
Micro Results:
09/23/24 05:52 Salmonella/Shigella Culture - Final
Feces/Stool No Salmonella, Shigella, Aeromonas or Plesiomonas species
isolated.
Campylobacter Culture - Final
No Campylobacter species isolated.
Shiga Toxin Test - Final
No E. coli Shiga Toxin 1 or 2 detected.
09/23/24 05:52 C. difficile GDH Antigen & Toxins - Final
Feces/Stool Negative for toxigenic C.difficile
- Final
Negative for Norovirus GI and GII.
Imaging:
09/21/2024 CT abdomen/pelvis with IV contrast: Severe circumferential wall thickening and submucosal edema in the cecum and sigmoid colon. Also noted is circumferential wall thickening throughout the remainder of the colon. There is moderate to
severe colonic diverticulosis. There is also mild diffuse wall thickening throughout the small bowel loops suggesting an acute enteritis. There is mild intrahepatic and extrahepatic biliary dilatation unchanged from prior exams. Please see full
dictation for additional detail. Film personally viewed.
[2024-09-27 15:10] VITALS: BP 155/65
--- NOTE | 2024-09-27 15:17 | CM ---
Chart reviewed: Anticipated Discharge Within 24 hours
CM will monitor for discharge needs and support
[2024-09-27 16:41] VITALS: BP 145/57
[2024-09-27] MEDS: DUONEB 3 ML INH (20:59)
[2024-09-27 23:15] VITALS: BP 174/79
[2024-09-28] MEDS: SPIRIVA RESPIMAT 2.5 MCG 2 PUFF INH (07:19)
[2024-09-28] MEDS: SYMBICORT 80/4.5 MCG INHALER 2 PUFF INH (07:19)
[2024-09-28 07:26] VITALS: BP 159/73
--- NOTE | 2024-09-28 08:25 | W.PN.PUL3 ---
Today's Communication / Plan
-
She is at her baseline from a pulmonary standpoint
Resume outpatient inhaler regimen at time of discharge
Encourage compliance with oxygen therapy at home
Discussed tobacco cessation at length. Patient denies cravings at this time
Pulmonary follow-up information left in chart
We will sign off. Please call with questions
Assessment
-
Assessment: 64-year-old female tobacco smoker (still smokes 0.75�1 PPD) with a past medical history of very severe COPD/emphysema, hypertension, depression, anxiety, history of chronic LLQ abdominal pain, history of colitis, IBS, personal history
of COVID-19 (June 2022), and low gammaglobulin level who presents with mid abdominal pain and nausea. Patient also had pain in her left breast on admission. She told triage that she has been scheduled for a colonoscopy and bowel resection.
Initial imaging with CT A/P with IV contrast on 09/21/2024 showed severe circumferential wall thickening and subcu mucosal edema in the cecum and sigmoid colon concerning for acute infectious pancolitis. She also had mild diffuse wall thickening
throughout the small bowel loops suggesting acute enteritis. Colorectal surgery, ID and GI were all consulted. GI was concern for an inflammatory bowel disease. She underwent an upper and lower endoscopy on 09/23 -with no endoscopic evidence of
Crohn's disease. The duodenum appeared abnormal with patchy severely erythematous mucosa without active bleeding in the duodenal bulb, and severe mucosal changes with congestion, flattening and scalloping in the second portion of the duodenum. She
was on Zosyn since admission and this was changed to Unasyn on 09/23. Since admission she has been mostly on room air with occasional use of 2 L/min O2. Since 09/24 she has been on more persistent 1-2 L/min O2. proBNP was checked on 09/24/2024 and
was elevated at 3540, and CXR on 09/24/2024 showed mild as moderate CHF with very small bilateral pleural effusions. She was given IV Lasix 40 mg on 09/24 and again on 09/25. She is also been continued on Symbicort + Spiriva as she takes Trelegy at
home. Pulmonary service now consulted for additional management/recommendations.
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
(06/2022), low gammaglobulin level, low serum IgA, IBS
Impression:
#Acute respiratory failure with hypoxia due to acute pulmonary edema
#Hypokalemia
#Metabolic alkalosis due to chronic respiratory acidosis
#Severe acute infectious pancolitis with acute enteritis per CT A/P from 09/21/2024
#Very severe COPD on Trelegy 100mcg as an outpatient (previously completed pulmonary rehab)
#Mixed mild-moderate restrictive lung defect with very severe persistent obstructive lung defect with significant bronchodilator response and very severe gas exchange capacity defect (PFT�06/2023)
#Depression
#History of anxiety/panic disorder
Plan/recommendations:
At this time, patient feels improved, at her baseline from pulmonary standpoint
Desaturated to 84% on room air yesterday with walk test, with without symptoms
Crackles resolved on my exam
Remains on 2 L of oxygen at this time
Patient has oxygen at home, does not use consistently
Unfortunately, I's and O's are likely inaccurate
Moving forward
Continue with current management plan
Unfortunate patient continues to smoke. Discussed absolute importance of tobacco cessation
She does not have cravings at this time. Unfortunate her also smokes. Reviewed behavioral changes and efforts to quit smoking together. Unfortunate is not ready to stop smoking
Oxygen therapy already at home. Encouraged compliance, maintain saturation greater than 88%
Continue nicotine patch
Continue with Symbicort + Spiriva as she takes Trelegy at home; resume Trelegy upon discharge
blood gas checked on 09/26 showing stable chronic hypercapnia with pH 7.43, pCO2 53
EGD, colonoscopy biopsies noted
Follow-up with GI
Patient without GI symptoms at this time
DVT ppx: HSQ. Encourage ambulation
Okay for discharge from pulmonary standpoint pending above
Patient should ultimately continue following up with us in the office as last visit on 10/10/[address] Santiago.
Disposition efforts
We will sign off. Please call with questions
Data:
CXR 09/24/2024: Borderline cardiomegaly. Mild to moderate CHF with very small bilateral effusions.
CXR 09/26/2024: Inflation which may be seen with COPD or asthma; Interval improvement in bronchovascular prominence and improved cardiac size. Trace bilateral pleural effusions, right slightly greater than left, with minimal increase in the right.
Total time spent today was 38 minutes for this encounter. Time includes reviewing laboratory test/imaging results, reviewing pertinent medical records, obtaining and reviewing medical history, performing an appropriate exam, ordering medications,
tests and procedures. Time also includes documentation of this encounter, coordinating patient care and communicating with other healthcare professionals. Total time does not include separately billed tests performed on this date of service.
Subjective Data
-
Date of Service:
Date of Service: September 28, 2024
Chief Complaint: Pulmonary Follow Up
Subjective:
Patient subjectively is feeling well. She is passing gas but has not had a bowel movement in 36 hours. Denies abdominal pain, nausea, chest pain, cough, shortness of breath. She desaturated to 84% on room air with walk test without symptoms,
required oxygen
Objective Data
Data Reviewed
Vital Signs / I&O / Oxygen:
Vital Signs
Temp Pulse Resp BP Pulse Ox
97.6 F 65 16 159/73 96
09/28/24 07:26 09/28/24 07:26 09/28/24 07:26 09/28/24 07:26 09/28/24 07:26
Intake and Output
09/27/24 09/28/24 09/29/24
06:59 06:59 06:59
Intake Total 1440 / 1440 1320 / 1320
Balance 1440 / 1440 1320 / 1320
SaO2 96
Nasal Cannula flow liters per 2
minute
Physical Exam
General: Comfortable
HEENT: Normocephalic and Anicteric
Cardiovascular: S1-S2, Regular Rhythm, Murmur (n), Rub (negative), Peripheral Edema (no edema) and Calf Tenderness (n)
Respiratory: Wheeze (negative), Crackles (n), Rhonchi (negative), Non-Labored Respirations, Stridor (negative) and Other (Bronchial, decreased at base)
GI: Soft, Non Distended, Non Tender and Normal Bowel Sounds
Neurology: Awake, Alert and No Motor Deficits (Moves all extremities)
Skin: Warm, Dry, Cyanosis (negative) and Jaundice (negative)
Labs/Micro/Reports
Lab Data
09/27/24 07:30
09/27/24 07:30
Microbiology
09/23/24 05:52 Feces/Stool Salmonella/Shigella Culture - Final
No Salmonella, Shigella, Aeromonas or Plesiomonas species
isolated.
09/23/24 05:52 Feces/Stool Campylobacter Culture - Final
No Campylobacter species isolated.
09/23/24 05:52 Feces/Stool Shiga Toxin Test - Final
No E. coli Shiga Toxin 1 or 2 detected.
[2024-09-28] MEDS: LASIX IV (08:36)
[2024-09-28] MEDS: HEPARIN 5000 UNITS SC (08:40)
[2024-09-28] MEDS: TENORMIN 50 MG PO (08:47)
[2024-09-28] MEDS: COLACE 100 MG PO (08:48)
[2024-09-28] MEDS: CARDURA 2 MG PO (08:48)
[2024-09-28] MEDS: VISBIOME 1 CAP PO (08:48)
[2024-09-28] MEDS: VITAMIN D3 (cholecalciferol) 50 MCG PO (08:48)
[2024-09-28] MEDS: PROZAC 20 MG PO (08:48)
[2024-09-28] MEDS: ZENPEP DELAYED RELEASE CAPSULE 1 CAPSULE PO ×2 (08:49→12:37)
[2024-09-28] MEDS: NICODERM TRANSDERMAL 14 MG TRANSDERM (08:49)
[2024-09-28 12:47] LABS: Blood Urea Nitrogen 17 mg/dl (7-17); Calcium 9.5 mg/dl (8.4-10.2); Carbon Dioxide 36 mmol/L (22-30); Chloride 94 mmol/L (98-107); Estimated Creatinine Clearance 73 ml/min; Glucose 213 mg/dl (70-99); Potassium 3.9 mmol/L (3.5-5.1); Sodium 138 mmol/L (135-145); eGFR > 60.00
[2024-09-28] MEDS: LASIX 40 MG IV (13:02)
--- NOTE | 2024-09-28 14:40 | W.PN.HOSP.TC ---
Today's Communication/Plan
-
DC
Assessment / Plan
Assessment / Plan
Upper endoscopy:
Impression: Overall, most abnormal in the small bowel - 2nd
portion was littered with scarred mucosa, flattened
throughout the 3rd portion (patient's prior celiac
panel in 05/2024 was negative). There were no
ulcerations. Biopsied for celiac, amyloid, Crohns
disease and lymphoma
- Mucosal changes in the esophagus. Biopsied.
- Small hiatal hernia.
- Enlarged gastric folds. Biopsied.
- Gastritis. Biopsied.
- Erythematous duodenopathy. Biopsied.
- Mucosal changes in the duodenum. Biopsied.
Colonoscopy:
Impression: Endoscopically no evidence of Crohns disease. Biopsies
taken. Reached the distal ascending colon with water
insufflation with an EGD scope. Biopsies taken
throughout
The EGD -specifically the duodenum was very abnormal.
- Hemorrhoids found on perianal exam.
- One 12 mm polyp in the rectum. Resection not
attempted.
- One 18 mm polyp at the recto-sigmoid colon.
Resection not attempted.
- Diverticulosis in the ascending colon and in the
left colon. Few ascending, multiple in the sigmoid
colon.
- Mildly congested mucosa from rectum to ascending
colon. Biopsied.
- Altered vascular, congested and erythematous mucosa
in the sigmoid colon (area of about 10cm - distal
sigmoid). Biopsied.
A/P:
Probable infectious colitis versus IBD versus other:
ID stopped all antibiotics
From GI standpoint medically ready for discharge.
On diet per GI and colorectal surgery
GI reordered C Diff and stool cultures--> C. difficile and norovirus negative. Rest stool culture negative
history of diverticulitis with abscess and last month hospitalization
Colorectal surgery consult appreciated
Colorectal suggested GI and ID eval
GI did endoscopy and colonoscopy on 09/23
Tolerating diet
Acute respiratory insufficiency likely due to acute diastolic congestive heart failure versus other etiology.
Seen chest x-ray and probably consistent with volume overload/heart failure. Follow-up chest x-ray shows improved bronchovascular prominence and trace bilateral pleural effusion. Ultrasound of the chest shows no pleural effusion.
Updated BNP and echocardiogram and BNP elevated at 3540 and echo shows EF of 60 to 65%. Interval follow-up BNP improving.
Weight at 112 ; climbing HC03 with diuresis but no changes with o2 with exertion . On RA O2 is ok. Suspect some chronic component to her hypoxemia. Patient already has home O2 and advised to use it.
With regards to hypertension, continue to optimize.
Pulmonary consult appreciated
No indication for lasix on DC. Advised to keep an eye on her wt.
COPD:
Continue inhalers
Pulmonary following.
Will need to use at home O2 with exertion. Advised on need to quit smoking.
Hypertension:
On atenolol which we will continue. Blood pressure persist to be on the higher side. Discussed with the patient about addition of other antihypertensives. Norvasc causes her edema. She is comfortable with lisinopril which the uses as
well. Will start at low-dose 10 mg. Patient advised to follow with PCP regarding further adjustments.
Anxiety:
Resume benzodiazepine as needed
Pancreatic insufficiency:
Continue pancreatic enzymes
Nicotine use disorder:
Nicotine patch
DVT prophylaxis:
Heparin SQ
CODE STATUS:
Full code
More than 30 minutes spent in discharge including
Final examination of the patient
Summarizing hospital stay
Instructions for continuing care to all relevant caregivers
Preparation of discharge records, prescriptions, and referral forms
Total time spent (in minutes): 35
Anticipated Discharge: Today
Subjective/Interval History
-
Date of Service: September 28, 2024
Denies shortness of breath at rest.
No chest pain or palpitation.
No cough.
Patient was prescribed oxygen during her last visit. She was supposed to use apparently as needed basis.
Objective Data
-
Labs:
Laboratory Results
09/28/24
11:13
Sodium 138
Potassium 3.9
Chloride 94 L
Carbon Dioxide 36 H
BUN 17
Creatinine 0.5 L
Glucose 213 H
Calcium 9.5
Vital Signs:
Vital Signs
Temp Pulse Resp BP Pulse Ox
97.6 F 62 16 167/61 96
09/28/24 07:26 09/28/24 13:02 09/28/24 07:26 09/28/24 13:02 09/28/24 07:26
I&O
09/27/24 09/28/24 09/29/24
06:59 06:59 06:59
Intake Total 1440 / 1440 1320 / 1320
Balance 1440 / 1440 1320 / 1320
Review of Systems
-
Constitutional: Denies Fever
Abdomen/GI: Reports Other (Tolerating diet); Denies Abdominal Pain, Nausea or Vomiting
Neuro: Denies Dizzy
Physical Exam
-
General: Comfortable
HEENT: Moist Mucous Membranes
Respiratory: Non Labored Respirations and Decreased Breath Sounds (in general); Negative Wheezes, Crackles or Accessory Resp Muscle Use
Cardiac: Regular Rhythm and S1/S2; Negative Tachycardic
GI: Soft and Nontender
Musculoskeletal: No Edema
Neuro: AO x 3
Data Reviewed
-
Labs: Labs Reviewed by me
[2024-09-28 15:16] VITALS: BP 140/82
== END 2024-09-28 15:41 | disposition home or self-care (01) | DRG 391 ==
LOC: 3 WEST ACU 18:33
PROVIDERS: Emergency Medicine; Hospitalist; Specialist; Surgery; ADMITTING PHYSICIAN Hospitalist; ATTENDING PHYSICIAN Internal Medicine; CONSULT PHYSICIAN Internal Medicine; CONSULT PHYSICIAN Internal Medicine Critical Care Medicine; CONSULT PHYSICIAN Student in an Organized Health Care Education/Training Program; CONSULT PHYSICIAN Surgery; EMERGENCY PHYSICIAN Emergency Medicine; FAMILY PHYSICIAN Family Medicine
PROC: 0DBL8ZX Excision of Transverse Colon, Via Natural or Artificial Opening Endoscopic, Diagnostic (ICD-10-PCS; 2024-09-23)
PROC: 0DB68ZX Excision of Stomach, Via Natural or Artificial Opening Endoscopic, Diagnostic (ICD-10-PCS; 2024-09-23)
PROC: 0DBN8ZX Excision of Sigmoid Colon, Via Natural or Artificial Opening Endoscopic, Diagnostic (ICD-10-PCS; 2024-09-23)
PROC: 0DB98ZX Excision of Duodenum, Via Natural or Artificial Opening Endoscopic, Diagnostic (ICD-10-PCS; 2024-09-23)
PROC: 0DB58ZX Excision of Esophagus, Via Natural or Artificial Opening Endoscopic, Diagnostic (ICD-10-PCS; 2024-09-23)
PROC: 0DBK8ZX Excision of Ascending Colon, Via Natural or Artificial Opening Endoscopic, Diagnostic (ICD-10-PCS; 2024-09-23)
DX: A09 Infectious gastroenteritis and colitis, unspecified (principal); I50.31 Acute diastolic (congestive) heart failure; J96.21 Acute and chronic respiratory failure with hypoxia; E87.3 Alkalosis; I11.0 Hypertensive heart disease with heart failure; K57.30 Diverticulosis of large intestine without perforation or abscess without bleeding; K44.9 Diaphragmatic hernia without obstruction or gangrene; K29.70 Gastritis, unspecified, without bleeding; K31.89 Other diseases of stomach and duodenum; K62.1 Rectal polyp; J43.9 Emphysema, unspecified
CPT/HCPCS: 88305; 71045; 71046; 74177; 76604; 80048; 80053; 82805; 83690; 83735; 83880; 83993; 84100; 85025; 85027; 86140; 87045; 87046; 87324; 87427; 87449; 87798; 88313; 88342; 93306; 94640; 96361; 96374; 96375; 99285; 99406; Q9967

== ENCOUNTER 2024-10-06 06:18 | Day surgery (SDC) | payer MEDICARE, SELFPAY ==
[2024-10-06 12:21] VITALS: BMI 18.7
[2024-10-06 12:22] VITALS: BP 136/67
[2024-10-06 16:32] VITALS: BP 114/62
[2024-10-06 16:45] VITALS: BP 120/55
[2024-10-06 16:57] VITALS: BP 115/52
== END 2024-10-06 17:15 | disposition home or self-care (01) ==
LOC: SDS 06:18
PROVIDERS: ATTENDING PHYSICIAN Internal Medicine Gastroenterology
DX: K52.9 Noninfective gastroenteritis and colitis, unspecified (principal); K63.3 Ulcer of intestine; D12.7 Benign neoplasm of rectosigmoid junction; K63.89 Other specified diseases of intestine; K57.30 Diverticulosis of large intestine without perforation or abscess without bleeding; D12.8 Benign neoplasm of rectum; K64.0 First degree hemorrhoids; R93.5 Abnormal findings on diagnostic imaging of other abdominal regions, including retroperitoneum
CPT/HCPCS: 45390; 45385; 88305

== ENCOUNTER 2024-10-27 19:45 | Inpatient (IN) | payer MEDICARE, SELFPAY ==
[2024-10-27] VITALS (7 sets, daily range): BP systolic 156–193; BP diastolic 71–92; BMI 20.3; BMI 19.9
--- NOTE | 2024-10-27 17:42 | ED.GENMED ---
History of Present Illness
General
Chief Complaint: Breathing Problem
Source: patient
Exam Limitations: none
Time Seen by Provider: 10/27/24 17:28
History of Present Illness
History of Present Illness:
64-year-old female complaining of fatigue increasing shortness of breath. States she is chronically runs oxygen levels in the high 80s. She has oxygen at home to use as needed. Had some respiratory viral-like symptoms weeks ago. Some on and off
cough with clear sputum and subjective fevers. No pleuritic pain no syncope.
Past History
Past History
ED Past Medical History: COPD and Other (Diverticulitis)
ED Past Surgical History: Appendectomy and Gynecological (Hysterectomy, abdominal Sarcoplexi)
Social History
Tobacco: Smoker
Alcohol: None
Drug: None
Personal:
Living: with family
Employment: Employed
Review of Systems
Review of Systems
All Other Systems: Not applicable
Constitutional: Reports fever (Subjective)
Cardiac: Reports no symptoms
ABD/GI: Reports no symptoms
Phy Exam
Physical Exam
Physical Exam:
GENERAL: Alert and oriented. Mildly tachypneic with talking although nontoxic
EYE: Orbits normal.
NECK: Supple, no significant adenopathy.
ENT: Pharynx without erythema
CARDIAC: Regular rate and rhythm without any obvious murmurs.
LUNGS: Mild tachypnea. Decreased breath sounds diffusely. Dry crackles in the bases. No obvious wheezing
ABDOMEN: Soft, without focal tenderness or distention
NEUROLOGICAL: Alert and oriented , grossly non-focal
SKIN: Warm and dry, no rash or lesion, no discoloration, skin intact.
MUSCULOSKELETAL: No edema,no deformity.Good color
PSYCH: Normal and appropriate interaction.
Scores
Heart Failure Risk
Heart Failure Risk Score: Not Applicable
Course
Orders/Labs/Results
Orders:
Orders
10/27/24 17:21
Electrocardiogram (*1) Urgent
Reason for Study: Shortness of Breath
10/27/24 17:22
EKG- Treatment ONCE
10/27/24 17:28
IV Insert/Care/Rem.- Treatment PRN
CXR Port [CR Chest Portable - 1 View] Urgent
Comment:
Reason For Exam: Short of breath/hypoxia
Reason Study Needs to be Portable: Patient Unstable
O2 Therapy [RESP] Stat
Titrate/Wean O2 to maintain O2 sat greater than (%): 94
Pulse Ox/cont/shift [RESP] Stat
Quantity: 1
10/27/24 17:29
Cardiac Monitoring- Treatment ONCE
10/27/24 17:41
Dexamethasone Sod Phosphate [Decadron] 4 mg IV NOW STA
Ipratropium/Albuterol Sulfate [Duoneb] 3 ml INH R NOW ONE
10/27/24 17:53
Basic Metabolic Panel Urgent
COVID-19 Antigen Urgent
Source: Nasal Swab
Complete Blood Count/With Diff Urgent
D-Dimer Urgent
NT-proBNP Urgent
Troponin I Urgent
Influenza A+B Rapid Molecular Urgent
JORDIN Source: Nasal Swab
Specimen Description:
RSV [Respiratory Syncytial Virus] Urgent
JORDIN Source: Nasal Swab
Specimen Description:
Date Specimen was Collected: 10/27/24
Time Specimen was Collected: 17:38
Abnormal Lab Results
10/27/24
17:53
Hct 47.3 H %
(37.0-47.0)
MCHC 32.3 L g/dL
(33.0-37.0)
Neutrophils % 77.7 H %
(42.2-75.2)
Lymphocytes % 15.4 L %
(20.5-51.1)
Creatinine 0.5 L mg/dL
(0.6-1.0)
Glucose 103 H mg/dl
(70-99)
10/27/24 17:53
10/27/24 17:53
Vital Signs
Initial and Last Documented VS:
Initial Vital Signs
Temp Pulse Resp BP Pulse Ox
98.8 F 98 18 156/80 84
10/27/24 17:15 10/27/24 17:15 10/27/24 17:15 10/27/24 17:15 10/27/24 17:15
Last Documented Vital Signs
Temp Pulse Resp BP Pulse Ox
98.8 F 98 18 156/80 84
10/27/24 17:15 10/27/24 17:15 10/27/24 17:15 10/27/24 17:15 10/27/24 17:15
MDM/Problems Addressed
Differential Diagnosis Includes:
Likely all COPD related. To consider pneumonia. Doubt heart failure. Pulmonary emboli unlikely but in the differential. Clearly warrants admission as her pulse ox is will go to the mid 70s with any minimal movement.
*Radiology
Radiology exam reviewed: preliminary read by ED provider (Negative) and radiology read reviewed (Negative)
*Critical Care Note
Total Time (30-74mins, 75-104mins- exclusive of procedures): Not Applicable
Update Note
Update Note:
Workup unremarkable for any other explanation except for COPD exacerbation. Clinically stable. How for significant hypoxia with any exertion. Admit for further care
ED Attending Note
-
Portions of this chart may have been created with voice recognition software.� Occasional wrong word or��sound alike� substitutions may have occurred due to the inherent limitations of voice recognition software.
Discharge Plan
Departure
Patient Disposition: Admit
Date of Disposition: 10/27/24
Time of Disposition: 19:04
Presentation/result/management discussed w/ accepting MD/DO: Hospitalist
Discharge Problem:
COPD exacerbation, Hypoxia
Prescriptions:
No Action
fluoxetine 20 MG capsule
20 mg PO DAILY
diazepam 5 MG tablet
1.25 mg PO TIDPRN PRN (Reason: anxiety)
Patient Comments:
09/21/24: last filled 10/08/24 for 30 tabs over 30 days
albuterol sulfate 90 mcg/actuation Hfa Aerosol Inhaler
1 puff INHALATION R Q4HPRN PRN (Reason: SoB)
Trelegy Ellipta 100-62.5-25 mcg blister with device
1 inh INHALATION R DAILY
acetaminophen [Tylenol Extra Strength] 500 mg Capsule
500 mg PO Q6H PRN (Reason: pain)
cholecalciferol (vitamin D3) [Vitamin D3] 50 mcg (2,000 unit) Tablet
50 mcg PO DAILY
Creon 24,000-76,000 -120,000 unit Capsule,Delayed Release(Dr/Ec)
1 cap PO AC
Visbiome 112.5 billion cell Capsule
1 cap PO DAILY
nicotine 14 mg/24 hr Patch 24 Hour
14 mg transdermal DAILY 30 Days Qty: 28 0RF
omeprazole 40 mg Capsule,Delayed Release(Dr/Ec)
40 mg PO DAILY
Patient Comments:
10/27/24: Patient wants to decrease this dose, has not had chance to talk to her doctor yet
doxazosin 2 mg Tablet
2 mg PO DAILY
olmesartan 40 mg Tablet
40 mg PO DAILY
Referrals:
Caterina Sharpe MD [Family Provider] -
Interventions
Interventions:
*Risk Screen - Suicide Last Done: 10/27/24 17:15
*General Assessment Last Done: 10/27/24 17:15
*Neglect/Abuse Screening Last Done: 10/27/24 17:15
Discharge Date and Time
Print Language: MAORI
[2024-10-27] MEDS: DUONEB 3 ML INH (18:02)
[2024-10-27] MEDS: DECADRON 4 MG IV (18:03)
[2024-10-27 18:07] LABS: % Basophils 0.5 % (0-2); % Immature Granulocytes 0.4 % (0-0.5); % Lymphocytes 15.4 % (20.5-51.1); % Neutrophils 77.7 % (42.2-75.2); Absolute Eosinophils 0.1 10^3/uL (0-0.7); Absolute Lymphocytes 1.2 10^3/uL (1.2-3.4); Absolute Monocytes 0.4 10^3/uL (0.1-0.6); Absolute Neutrophils 6.3 10^3/uL (1.4-6.5); Hematocrit 47.3 % (37.0-47.0); Hemoglobin 15.3 g/dL (12.0-16.0); Mean Corp Hgb Conc. 32.3 g/dL (33.0-37.0); Mean Corpuscular Hgb 29.4 pg (27.0-31.0); Mean Corpuscular Volume 90.8 fL (81.0-99.0); Mean Platelet Volume 8.7 fL (7.4-10.4); Nucleated Red Blood Cells % 0 %; Platelet Count 388 10^3/uL (130-400); Red Blood Cell Count 5.21 10^6/uL (4.20-5.40); Red Cell Dist. Width 13.6 % (11.5-14.5); White Blood Cell Count 8.1 10^3/uL (4.8-10.8)
[2024-10-27 18:20] LABS: Blood Urea Nitrogen 15 mg/dl (7-17); Carbon Dioxide 30 mmol/L (22-30); Chloride 100 mmol/L (98-107); Estimated Creatinine Clearance 73 ml/min; Glucose 103 mg/dl (70-99); Potassium 4.7 mmol/L (3.5-5.1); Sodium 142 mmol/L (135-145); eGFR > 60.00
[2024-10-27 18:22] LABS: D-Dimer 0.32 ug/mlFEU (0.00-0.50)
[2024-10-27 18:27] LABS: NT-proBNP 995 pg/ml; Troponin I < 0.012 ng/ml
[2024-10-27 18:31] LABS: COVID-19 Antigen Negative (Negative)
--- NOTE | 2024-10-27 19:19 | HPS.HSE ---
Family Physician
-
Family Physician: Caterina Sharpe
Chief Complaint
-
hypoxia
History of Present Illness
This is a 64-year-old was past medical history significant for COPD, current smoking, hypertension, hyperlipidemia, recent multiple admissions for diverticulitis complicated by abscess, colitis and gastroenteritis presenting to the emergency
department after routine PMD visit found that she was hypoxic to low 80s.
Patient reported that over the last 3 weeks she has had bouts of sinus symptoms including congestion postnasal drip ear fullness and headache. She has not had fevers or chills. She has a cough that is nonproductive and is similar to her baseline.
She reports some mild dyspnea with an action. She denies any swelling of her ankles but reported that when she eats salt load she does get trace ankle edema. She denies having any chest pain. She denies pleuritic chest discomfort. She denies any
calf tenderness or pain. She has no recent travels but has been hospitalized several times in the last 3 months. She is a continued smoker. He has no known sick contacts.
She was prescribed home oxygen but it is to be used as needed and she has not been using them regularly.
In the emergency department he was hypoxic to 84 and was on 2 L with oxygen saturation of around 88%. Blood pressure was 156/100 with a respirate rate of 18. ECG shows normal sinus rhythm rate of 91 with right bundle, unchanged from prior,
troponin negative, BNP 900. Chest x-ray was unremarkable with no evidence of pulmonary edema, cardiomegaly, or acute infiltrates. COVID test was negative, flu test was negative, RSV negative. CBC was unremarkable stop electrolytes BUN/creatinine
were normal.
Medical History
Past Medical History
Past Medical History: Reports Other (sigmoid diverticulitis complicated by peridiverticular abscess status post NICOLE drain, recurrent diverticulitis, hypertension, exocrine pancreatic insufficiency, COPD, tobacco use, anxiety,)
Past Surgical History: Reports Other ( Appendectomy and Gynecological (Hysterectomy, abdominal Sarcoplexi))
Social History
Tobacco: Smoker
Alcohol: None
Drug: None
Family History
Family History: Not pertinent
Allergies / Home Medications
Allergies reflects when Allergies were last updated in [facility].
Home Medications with original date entered in [facility]
Allergy/Medication List:
Allergies
Allergy/AdvReac Type Severity Reaction Status Date / Time
ciprofloxacin [From Cipro] Allergy Unknown Verified 10/27/24 17:14
metronidazole [From Flagyl] Allergy Unknown Verified 10/27/24 17:14
morphine Allergy SEE BELOW Verified 10/27/24 17:14
Sulfa (Sulfonamide Allergy Unknown Verified 10/27/24 17:14
Antibiotics)
Home Medications
diazepam 5 mg tablet 1.25 mg PO TIDPRN PRN anxiety 04/26/20
fluoxetine 20 mg capsule 20 mg PO DAILY Depression 04/26/20
albuterol sulfate 90 mcg/actuation aerosol inhaler 1 puff inhalation R Q4HPRN PRN SoB 01/02/23
fluticasone fur. 100 mcg-umeclid 62.5 mcg-vilant 25 mcg inhalat.powder (Trelegy Ellipta) 1 inh inhalation R DAILY Lung/Breathing Issues 05/29/24
cholecalciferol (vitamin D3) 50 mcg (2,000 unit) tablet (Vitamin D3) 50 mcg PO DAILY Supplement 06/25/24
Lactobac no.2-Bifidobac no.1-S. thermo 112.5 billion cell capsule (Visbiome) 1 cap PO DAILY Gastrointestinal Issue 08/13/24
uwhzrh-bkjxhyij-bxowzht 24,000-76,000-120,000 unit capsule,delayed rel (Creon) 1 cap PO AC Gastrointestinal Issue 08/13/24
nicotine 14 mg/24 hr daily transdermal patch 14 mg transdermal DAILY Smoking cessation 1 month #28 ea 08/18/24
acetaminophen 500 mg capsule 500 mg PO Q6H PRN pain 10/06/24
doxazosin 2 mg tablet 2 mg PO DAILY 10/27/24
olmesartan 40 mg tablet 40 mg PO DAILY 10/27/24
omeprazole 40 mg capsule,delayed release 40 mg PO DAILY 10/27/24
Review of Systems
-
History Source: Patient
Constitutional: Reports No Symptoms
EENT: Reports No Symptoms
Respiratory: Reports Trouble Breathing
Cardiac: Reports No Symptoms
Abdomen/GI: Reports No Symptoms
: Reports No Symptoms
Musculoskeletal: Reports No Symptoms
Skin: Reports No Symptoms
Neurological: Reports No Symptoms
Endocrine: Reports No Symptoms
Hematologic/Lymphatic: Reports No Symptoms
Psych: Reports No Symptoms
Physical Exam
Vital Signs
Vital Signs
Temp Pulse Resp BP Pulse Ox
98.8 F 98 18 156/80 84
10/27/24 17:15 10/27/24 17:15 10/27/24 17:15 10/27/24 17:15 10/27/24 17:15
Physical Exam
General: Well Developed, Well Nourished, No Apparent Distress and Comfortable
HEENT: NormoCephalic, Anicteric, Moist mucous membranes, Atraumatic, PERRLA and Oxygen
Respiratory: Clear
Cardiac: S1/S2 and Regular Rhythm
Breast: Deferred by me
GI: Soft, Non Tender, Non Distended and Normal Bowel Sounds
Rectal: Deferred by Provider
Genito-urinary: Deferred by me
Musculoskeletal: No Clubbing, No Cyanosis and No Edema
Skin: Warm
Neuro: AO x 3 and Nonfocal/grossly intact
Hematologic/Lymphatic: No Lymphadenopathy
Psych: Calm
Laboratory Results
-
10/27/24 17:53
10/27/24 17:53
Laboratory Results
Troponin I < 0.012 ng/ml 10/27/24 17:53
Data Reviewed
-
Diagnostic Radiology: Image Personally Visualized and interpreted and Report Reviewed by me
Medical Tests (Nuc Med, Echo, EKG etc): Image Personally Visualized and interpreted
Lab Data: Labs Reviewed by me
Old Records: Reviewed
Impression/Plan
-
IMPRESSION:
66-year-old female with past medical history of COPD not on home O2, baseline oxygen 80s at home, hypertension, tobacco dependence, recent admissions for gastroenteritis, colitis and diverticulitis presented to the emergency department for from
doctors office with hypoxia. Patient has mild dyspnea on exertion but otherwise does not feel markedly short of breath compared to baseline. She reports significant sinus headache over the frontal sinuses, sinus congestion and ear fullness and
postnasal drip. All findings in the emergency department has been negative. She has negative D-dimer, negative troponin, and BNP is borderline at 900, chest x-ray was clear. Electrolytes BUN/creatinine were normal CBC was normal. COVID flu and
RSV were negative. On my examination the patient has no wheezing and no appreciable crackles. She has some mild jugular vein prominence but no significant distention and no significant peripheral edema. It is unclear the etiology of hypoxia
suspect possibly from chronic COPD emphysema versus from restrictive lung disease. In the past x-rays that showed pleural thickening that was suspected to be effusion however on ultrasound there was no evidence of effusion. No/thickening or
effusion today.
PLAN:
1. Hypoxia - Unclear etiology. Clearly not in acute COPD exacerbation. Cannot rule out CHF completely. Cannot rule out restrictive lung disease
- admit to med/surg
- continue supplemental oxygen for goal sat > 88%
- continue home ICS/LABA/LAMA
- PRN duonebs
- evaluate for home O2 with PT
- check vbg
- possible pulm HTN, elevated BNP, chronic HTN, check echo for estimated pulm artery pressures and RV function, unlikely shunt
- patient does not want further radiation exposure unless absolutely necessary, no cp, d-dimer negative, will hold off on high res CT and consult pulm
2. Sinus congestion - 3 weeks of headache, sinus congestion pnd. No leukocytosis and no fevers. Negative viral panel. Prefers to avoid abx
- CT sinus
- saline/steroid spray for now
- if CT + consider azithromycin
3. HTN
- continue olmesartan for now
- continue doxazosin
DVT PPX - lovenox SQ
Code status - Full Code
[2024-10-27] MEDS: VALIUM 1.25 MG PO (21:28)
[2024-10-27] MEDS: TYLENOL 650 MG PO (21:29)
[2024-10-27] MEDS: APRESOLINE 5 MG IV (22:31)
[2024-10-28 00:06] VITALS: BP 168/88
--- NOTE | 2024-10-28 00:08 | PTCARENOTE ---
Patient had a blood pressure of 193/92 when she arrived from the ER. Blood pressure rechecked and was 182/78 manually. IV hydralazine was ordered, see MAR for administration. Blood pressure at 0000 was 168/88. Patient denies any complaints. On-call
[employer] made aware. No new orders.
[2024-10-28 07:33] VITALS: BP 144/85
[2024-10-28] MEDS: ZENPEP DELAYED RELEASE CAPSULE 2 CAPSULE PO ×3 (07:45→17:07)
[2024-10-28] MEDS: BENICAR 40 MG PO (07:46)
[2024-10-28] MEDS: CARDURA 2 MG PO (07:46)
[2024-10-28] MEDS: NICODERM TRANSDERMAL 14 MG TRANSDERM (07:46)
[2024-10-28] MEDS: PROTONIX 40 MG PO (07:46)
[2024-10-28] MEDS: VISBIOME 1 CAP PO (07:46)
[2024-10-28] MEDS: PROZAC 20 MG PO (07:46)
[2024-10-28] MEDS: SYMBICORT 80/4.5 MCG INHALER 2 PUFF INH ×2 (07:52→20:00)
[2024-10-28] MEDS: SPIRIVA RESPIMAT 2.5 MCG 2 PUFF INH (07:52)
[2024-10-28 07:55] LABS: Hematocrit 47.6 % (37.0-47.0); Hemoglobin 15.2 g/dL (12.0-16.0); Mean Corp Hgb Conc. 31.9 g/dL (33.0-37.0); Mean Corpuscular Hgb 29.5 pg (27.0-31.0); Mean Corpuscular Volume 92.2 fL (81.0-99.0); Mean Platelet Volume 8.9 fL (7.4-10.4); Platelet Count 408 10^3/uL (130-400); Red Blood Cell Count 5.16 10^6/uL (4.20-5.40); Red Cell Dist. Width 13.6 % (11.5-14.5); White Blood Cell Count 5.6 10^3/uL (4.8-10.8)
[2024-10-28 07:59] LABS: Venous Blood Gas B.E. 8.7 mmol/L (-4 to +4); Venous Blood Gas HCO3 36.3 mmol/L (22-27); Venous Blood Gas O2 Sat % 75.3 %; Venous Blood Gas pCO2 60 mmHg (35-48); Venous Blood Gas pH 7.39 (7.32-7.43); Venous Blood Gas pO2 44 mmHg (30-50)
[2024-10-28 08:51] LABS: Blood Urea Nitrogen 15 mg/dl (7-17); Calcium 10.1 mg/dl (8.4-10.2); Carbon Dioxide 30 mmol/L (22-30); Chloride 101 mmol/L (98-107); Estimated Creatinine Clearance 72 ml/min; Glucose 122 mg/dl (70-99); Magnesium 2.1 mg/dl (1.6-2.3); Potassium 4.9 mmol/L (3.5-5.1); Sodium 141 mmol/L (135-145); eGFR > 60.00
[2024-10-28] MEDS: TYLENOL 650 MG PO (09:47)
--- NOTE | 2024-10-28 10:57 | W.PN.HOSP.TC ---
Addendum entered and electronically signed by Jeimy Sigala MD 10/28/24 13:25:
I saw and evaluated the patient. I reviewed the resident�s note and agree with findings and plan as documented in the resident�s note.
A/P:
# Acute hypoxic respiratory insufficiency
# Sinus congestion/ possible sinusitis
# Active smoking (1 pack/day), nicotine dependence.
# History of COPD, uses home O2 as needed
lungs clear to auscultation, however presence of increase sputum and dyspnea
Cont O2 support at 1 L NC
Continue Symbicort and tiotropium bromide
Chest percussion
Consult pulmonology
# subacute vs chronic sinusitis
CT scan of sinuses reveals bilateral maxillary sinus chronic inflammatory changes, right greater than left.
Ok with Augmentin 875/125 every 12 hours
Continue saline spray
# History of COPD
Continue home inhalers
# Essential hypertension
Continue olmesartan
Continue doxazosin
# History of pancreatic insufficiency
Continue Creon
# History of GERD
Continue omeprazole
# Nicotine use disorder/ Current smoker
Nicotine patch
# Anxiety/depression
Continue fluoxetine
DVT ppx: Lovenox
Full code
Original Note:
Today's Communication/Plan
-
Start Augmentin
Continue inhalers and saline spray
Consult pulmonology
Assessment / Plan
Assessment / Plan
Impression
Acute hypoxic respiratory insufficiency
Acute sinusitis
History of COPD
Essential hypertension
History of pancreatic insufficiency
History of GERD
Nicotine use disorder
Anxiety/depression
Plan
Acute hypoxic respiratory insufficiency
Secondary to sinus congestion/sinusitis, smoking (1 pack/day).
History of COPD, uses home O2 as needed
Clear to auscultation, however presence of increase sputum and dyspnea ( cardinal symptom of COPD exacerbation)
Goal spO2 >92%
Continue Symbicort and tiotropium bromide
Consult pulmonology
Acute sinusitis
CT scan of sinuses reveals bilateral maxillary sinus chronic inflammatory changes, right greater than left.
Start Augmentin 875/125 every 12 hours
Continue saline spray
History of COPD
Continue home inhalers
Essential hypertension
Continue olmesartan
Continue doxazosin
History of pancreatic insufficiency
Continue Creon
History of GERD
Continue omeprazole
Nicotine use disorder
Current smoker
Nicotine patch
Anxiety/depression
Continue fluoxetine
Lovenox
Regular diet
Full code
Anticipated Discharge: 24 - 48 hours
Subjective/Interval History
-
Date of Service: October 28, 2024
No overnight events
Objective Data
-
Labs:
Laboratory Results
10/28/24
07:34
WBC 5.6
Hgb 15.2
Hct 47.6 H
Plt Count 408 H
Sodium 141
Potassium 4.9
Chloride 101
Carbon Dioxide 30
BUN 15
Creatinine 0.5 L
Glucose 122 H
Calcium 10.1
Vital Signs:
Vital Signs
Temp Pulse Resp BP Pulse Ox
97.6 F 68 16 144/85 93
10/28/24 07:33 10/28/24 08:04 10/28/24 08:04 10/28/24 07:33 10/28/24 08:04
Review of Systems
-
All other systems: Reviewed and negative (Except mentioned)
Respiratory: Reports Cough and Trouble Breathing
Physical Exam
-
General: Comfortable
HEENT: Normocephalic and Atraumatic
Respiratory: Clear to Auscultation; Negative Wheezes, Rales, Rhonchi or Crackles
Cardiac: Regular Rhythm and S1/S2
GI: Soft, Nontender and Nondistended
Musculoskeletal: No Edema
Neuro: AO x 3
Psych: Calm
Data Reviewed
-
CT Scan: Report Reviewed by me and Discussed with Physician
Labs: Labs Reviewed by me and Discussed with Physician
--- NOTE | 2024-10-28 12:01 | CON.PUL ---
Consultation
Consultation Request
Date/Time Consultation Requested: 10/28
Date/Time Consultation Performed: 10/28
Reason for Consultation: Shortness of breath
Medical History
-
History of Present Illness:
Patient is a 64-year-old female who was recently discharged 09/28/2024 at which time she was treated for hypoxia secondary to pulmonary edema. She has a significant smoking history, continues to smoke. She was at her primary physician office when
she was noted to have saturation in the 70s. She been complaining of sinus congestion, sinus headaches and persistent shortness of breath and cough. She was told to come to the [facility] emergency room. Upon arrival, afebrile, pulse 98,
breathing 18, 156/80, saturation 84%. Saturation goes down to the 70s with minimal movement. Patient did note shortness of breath with these numbers. She was treated for COPD exacerbation and we are asked to comment on her pulmonary process.
Presently she is feeling much improved although continues to complain of sinus headache. She continues to smoke. She states her buys her cigarettes even though she would like to stop. She denies any hemoptysis, falls, syncope, swelling in
the legs, change in weight, nausea, swallowing issues
.
PMH: Very severe COPD/emphysema, tobacco smoking, hypertension, allergic rhinitis, hemorrhoids, depression, anxiety/panic disorder, history of LLQ abdominal pain follows GI ([facility]), colonic polyps, history of colitis, personal history of COVID-19
(06/2022), low gammaglobulin level, low serum IgA, IBS. Eyelid lift (2002), appendectomy, tonsillectomy, sacro�colpopexy, prolapsed uterus with transvaginal hysterectomy
Past Medical History
Past Medical History: None (See above)
Past Surgical History: None (See above)
Social History
Tobacco: Smoker (40+ pack year, ongoing)
Alcohol: Occasional (None since May 2024)
Drug: None
Personal:
Living: With Family
Family History
Family History: Other (Father with history of head and neck cancer. Family history negative for blood clots, lung problems. There is a family history of colon cancer and breast cancer)
Allergies / Home Medications
Allergies
Allergy/AdvReac Type Severity Reaction Status Date / Time
ciprofloxacin [From Cipro] Allergy Unknown Verified 10/27/24 17:14
metronidazole [From Flagyl] Allergy Unknown Verified 10/27/24 17:14
morphine Allergy SEE BELOW Verified 10/27/24 17:14
Sulfa (Sulfonamide Allergy Unknown Verified 10/27/24 17:14
Antibiotics)
Home Medications
�Medication �Instructions �Recorded �Confirmed �Last Taken �Type
diazepam 5 mg tablet 1.25 mg PO TIDPRN PRN anxiety 04/26/20 10/27/24 1 Day Ago History
~10/05/24
fluoxetine 20 mg capsule 20 mg PO DAILY Depression 04/26/20 10/27/24 10/06/24 08:30 History
albuterol sulfate 90 mcg/actuation 1 puff inhalation R Q4HPRN PRN SoB 01/02/23 10/27/24 2 Days Ago History
aerosol inhaler ~10/04/24
fluticasone fur. 100 mcg-umeclid 1 inh inhalation R DAILY 05/29/24 10/27/24 10/06/24 08:30 History
62.5 mcg-vilant 25 mcg Lung/Breathing Issues
inhalat.powder (Trelegy Ellipta)
cholecalciferol (vitamin D3) 50 50 mcg PO DAILY Supplement 06/25/24 10/27/24 1 Week Ago History
mcg (2,000 unit) tablet (Vitamin ~09/29/24
D3)
Lactobac no.2-Bifidobac no.1-S. 1 cap PO DAILY Gastrointestinal 08/13/24 10/27/24 3 Days Ago History
thermo 112.5 billion cell capsule Issue ~10/03/24
(Visbiome)
mfomef-tvgvrzfg-fvsyhrv 1 cap PO AC Gastrointestinal Issue 08/13/24 10/27/24 10/04/24 History
24,000-76,000-120,000 unit
capsule,delayed rel (Creon)
nicotine 14 mg/24 hr daily 14 mg transdermal DAILY Smoking 08/18/24 10/27/24 Unknown Rx
transdermal patch cessation 1 month #28 ea
acetaminophen 500 mg capsule 500 mg PO Q6H PRN pain 10/06/24 10/27/24 10/06/24 04:00 History
doxazosin 2 mg tablet 2 mg PO DAILY Blood Pressure 10/27/24 10/27/24 Unknown History
olmesartan 40 mg tablet 40 mg PO DAILY Blood Pressure 10/27/24 10/27/24 Unknown History
omeprazole 40 mg capsule,delayed 40 mg PO DAILY Gastrointestinal 10/27/24 10/27/24 Unknown History
release Issue
Review of Systems
-
All other systems: Negative unless noted
Vitals / Labs / Diagnostic Testing
Vital Signs
Temp Pulse Resp BP Pulse Ox
97.6 F 68 16 144/85 93
10/28/24 07:33 10/28/24 08:04 10/28/24 08:04 10/28/24 07:33 10/28/24 08:04
Lab Data
10/28/24 07:34
10/28/24 07:34
Microbiology
10/27/24 17:53 Nasal Swab Influenza Types A & B (RUIB) - Final
Negative for Influenza A & B, NAAT
Negative results must be combined with clinical observations
and patient history.
Nucleic Acid Amplification test (NAAT)performed on the
[employer] platform.
10/27/24 17:53 Nasal Swab Respiratory Syncytial Virus Ag - Final
Negative for Respiratory Syncytial Virus.
A false negative result may be obtained with a specimen
collected early in the acute phase. If symptoms persist, a
new specimen should be tested.
Diagnostic Testing:
Physical Exam
-
HEENT: Normocephalic and Anicteric
Cardiovascular: S1/S2, Regular Rhythm, Murmur (n) and Rub (n)
Respiratory: Wheeze (n), Rales (n), Rhonchi (n) and Other (Poor air movement, decreased breath sounds)
GI: Soft, Non Distended and Tender (Mild midepigastric, no rebound or guarding)
Neurology: Awake, Alert and No Motor Deficits (Ambulating in the room without difficulty)
Skin: Good Color and Other (No clubbing, no cyanosis)
General: Comfortable
Assessment
-
64-year-old female with severe COPD, [id number] history of smoking ongoing, FEV1 31%, DLCO 16%, with recent hospital stay September 2024 with heart failure, COPD. Now presents with hypoxia from primary care physician office, noted to have saturation
in the 70s. We are asked to help from a pulmonary standpoint
Acute hypoxic respiratory insufficiency, saturation in 70s
Currently ambulating of the room without shortness of breath, on room air
Poor air movement on exam
Chronic hypoxic respiratory insufficiency
Does not use home oxygen regularly
Right bundle branch block, chronic
RV findings per echocardiogram September 2024
Top normal size, normal function
Condition present prior to admission
Severe COPD
FEV1 31%, DLCO 16%
[id number]-[id number] history of smoking, ongoing
History of hypogammaglobulinemia, details unclear
History of IBS
Family history of cancer (head and neck, breast, colon)
Plan/recommendations
At this time, patient with significant underlying lung disease at baseline
She has oxygen therapy at home, does not use it consistently
Continues to smoke a pack of cigarettes a day
Recent hospital stay in September
Low-dose CT chest 2022 with moderate emphysema
Multiple abdominal imaging over the past 6 months, lung bases are relatively clear
Echocardiogram September 2024 with normal biventricular function and top normal RV size
Moving forward
Suspect significant chronicity to her symptoms
Poor air movement on exam today
Recent FEV1 31%
Very poor pulmonary reserve
Discussed absolute importance of tobacco cessation
Discussed need for chronic oxygen therapy
For now we will continue with Symbicort/Spiriva
I would start steroids as I suspect there is a COPD component. She received 1 dose in the ER, currently not on
Chest exam with extremely poor air movement
Will give IV Decadron x 1 and in p.m. then prednisone starting 10/29
She will eventually require low-dose CT imaging, she is overdue. Last 08/02/2022
Reviewed with her consequences of her severe underlying lung disease
Depending on clinical course, we will determine disposition and outpatient pulmonary follow-up
Will follow
[2024-10-28] MEDS: DECADRON 4 MG IV ×2 (13:17→19:57)
[2024-10-28 15:55] VITALS: BP 166/76
--- NOTE | 2024-10-28 16:22 | CM ---
manager of selection and assessment reviewed patient's chart and met with patient and patient lives on a one story home with one step to enter, patient is independent with adl's and ambulation, no dme, patient has home oxygen from [employer].
PCP: Caterina Horvath
Pharmacy: [facility] on [facility].
[2024-10-28] MEDS: LOVENOX 40 MG SC (17:42)
[2024-10-28] MEDS: AUGMENTIN 875 MG/125 MG 1 TABLET PO (19:56)
[2024-10-28 20:08] VITALS: BP 165/87
--- NOTE | 2024-10-28 20:49 | VATNOTE ---
called to assess left arm IV site pain. Noted left arm phlebitis firm but not red; extremely painful per pt. heat applied. New IV site established.
[2024-10-28] MEDS: VALIUM 1.25 MG PO (22:29)
[2024-10-28 23:15] VITALS: BP 150/94
[2024-10-29 07:48] VITALS: BP 187/84
[2024-10-29] MEDS: SYMBICORT 80/4.5 MCG INHALER 2 PUFF INH (07:51)
[2024-10-29] MEDS: SPIRIVA RESPIMAT 2.5 MCG 2 PUFF INH (07:51)
[2024-10-29] MEDS: PROZAC 20 MG PO (08:35)
[2024-10-29] MEDS: ZENPEP DELAYED RELEASE CAPSULE 2 CAPSULE PO ×2 (08:36→10:45)
[2024-10-29] MEDS: VISBIOME 1 CAP PO (08:36)
[2024-10-29] MEDS: AUGMENTIN 875 MG/125 MG 1 TABLET PO (08:36)
[2024-10-29] MEDS: PROTONIX 40 MG PO (08:37)
[2024-10-29] MEDS: CARDURA 2 MG PO (08:37)
[2024-10-29] MEDS: DELTASONE 40 MG PO (08:37)
[2024-10-29] MEDS: NICODERM TRANSDERMAL 14 MG TRANSDERM (08:38)
[2024-10-29] MEDS: BENICAR 40 MG PO (08:38)
[2024-10-29 10:02] VITALS: BP 158/67
--- NOTE | 2024-10-29 10:06 | W.PN.PUL3 ---
Addendum entered and electronically signed by Ata Jim MD 10/29/24 13:35:
Reviewed ambulatory saturation performed by respiratory therapy
Patient requires 4 L with ambulation at time of discharge
Original Note:
Today's Communication / Plan
-
Continue prednisone 40 mg, slow taper as below
Check ambulatory saturation to assess oxygen requirement at home
Patient already has oxygen
Discussed again absolute importance of tobacco cessation
Short-term follow-up next week with pulmonary
Disposition efforts
Assessment
-
64-year-old female with severe COPD, [id number] history of smoking ongoing, FEV1 31%, DLCO 16%, with recent hospital stay September 2024 with heart failure, COPD. Now presents with hypoxia from primary care physician office, noted to have saturation
in the 70s. We are asked to help from a pulmonary standpoint
Acute hypoxic respiratory insufficiency, saturation in 70s
Currently ambulating of the room without shortness of breath, on room air
Poor air movement on exam
Chronic hypoxic respiratory insufficiency
Does not use home oxygen regularly
Right bundle branch block, chronic
RV findings per echocardiogram September 2024
Top normal size, normal function
Condition present prior to admission
Severe COPD
FEV1 31%, DLCO 16%
44-[id number]-waat history of smoking, ongoing
History of hypogammaglobulinemia, details unclear
History of IBS
Family history of cancer (head and neck, breast, colon)
Plan/recommendations
At this time, patient with significant underlying lung disease at baseline
She has oxygen therapy at home, does not use it consistently
Continues to smoke a pack of cigarettes a day
Recent hospital stay in September reviewed
Low-dose CT chest 2022 with moderate emphysema
Multiple abdominal imaging over the past 6 months, lung bases are relatively clear
Echocardiogram September 2024 with normal biventricular function and top normal RV size
Steroids started 10/28
Chest exam and symptoms slightly improved today
Moving forward
Continue with current treatment regimen
Given 2 doses of IV Decadron 10/28, currently on prednisone 4 mg a day. She will require slow taper, 10 mg every 7 days until down to 10 mg baseline and seen in office
Recent FEV1 31%, DLCO 15%
Very poor pulmonary reserve
Discussed absolute importance of tobacco cessation. Reviewed that with current severe emphysema, if she continues to smoke, she would likely from respiratory complications, respiratory failure
Discussed need for chronic oxygen therapy. She has oxygen therapy at home. Discussed compliance
For now we will continue with Symbicort/Spiriva, this will continue as outpatient
Consider discontinuing antibiotics after 5 days total
She will eventually require low-dose CT imaging, she is overdue. Last 08/02/2022
Check ambulatory saturation to confirm oxygen requirement at home for disposition efforts
Reviewed with her consequences of her severe underlying lung disease
Patient has appointment next week with pulmonary, I recommended she maintain this
Will follow
Subjective Data
-
Date of Service:
Date of Service: October 29, 2024
Subjective:
Patient subjectively improved. Cough improved. Breathing improved. Still with shortness of breath. Denies chest pain, hemoptysis, nausea, abdominal pain. Observed ambulating in the room with oxygen without difficulty
Objective Data
Data Reviewed
Vital Signs / I&O / Oxygen:
Vital Signs
Temp Pulse Resp BP Pulse Ox
98.5 F 92 18 158/67 94
10/29/24 10:02 10/29/24 10:02 10/29/24 10:02 10/29/24 10:02 10/29/24 10:02
Intake and Output
10/28/24 10/29/24 10/30/24
06:59 06:59 06:59
Intake Total 1080 / 1080
Balance 1080 / 1080
SaO2 94
Nasal Cannula flow liters per 1
minute
Physical Exam
General: Comfortable
HEENT: Normocephalic and Anicteric
Cardiovascular: S1-S2, Regular Rhythm, Murmur (n), Rub (n) and Peripheral Edema (n)
Respiratory: Wheeze (n), Crackles (n), Rhonchi (n) and Other (Decreased, poor air movement)
GI: Soft, Non Distended and Non Tender
Neurology: Awake, Alert and No Motor Deficits (Ambulating)
Skin: Good Color, Cyanosis (n), Jaundice (n), Rash (n) and Bruising (n)
Labs/Micro/Reports
Lab Data
10/28/24 07:34
10/28/24 07:34
Microbiology
10/27/24 17:53 Nasal Swab Influenza Types A & B (RUBI) - Final
Negative for Influenza A & B, NAAT
Negative results must be combined with clinical observations
and patient history.
Nucleic Acid Amplification test (NAAT)performed on the
[employer] platform.
10/27/24 17:53 Nasal Swab Respiratory Syncytial Virus Ag - Final
Negative for Respiratory Syncytial Virus.
A false negative result may be obtained with a specimen
collected early in the acute phase. If symptoms persist, a
new specimen should be tested.
[2024-10-29] MEDS: TYLENOL 650 MG PO (10:45)
[2024-10-29] MEDS: SENOKOT-S 1 TABLET PO (12:44)
--- NOTE | 2024-10-29 13:23 | W.PN.HOSP.TC ---
Addendum entered and electronically signed by Jeimy Sigala MD 11/03/24 13:31:
# Chronic COPD, no exacerbation
Addendum entered and electronically signed by Jeimy Sigala MD 10/29/24 17:00:
Total DC time 40 minutes
Addendum entered and electronically signed by Jeimy Sigala MD 10/29/24 15:20:
I saw and evaluated the patient. I reviewed the resident�s note and agree with findings and plan as documented in the resident�s note.
A/P:
# Acute hypoxic respiratory insufficiency
# Sinus congestion/ possible chronic sinusitis
# Active smoking (1 pack/day), nicotine dependence.
# History of COPD, uses home O2 as needed
lungs clear to auscultation, however presence of increase sputum and dyspnea
Cont O2 support at 1 L NC, walking pulse ox indicated need for continued home oxygen going forward. Of note, patient already has home oxygen which she uses as needed.
Continue Symbicort and tiotropium bromide
Vest therapy while in the hospital
Appreciate pulmonology input
# Subacute vs chronic sinusitis
CT scan of sinuses reveals bilateral maxillary sinus chronic inflammatory changes, right greater than left.
Ok with Augmentin 875/125 every 12 hours
Continue saline spray
# History of COPD
Continue home inhalers
Steroids started per pulm, okay to continue short course
# Essential hypertension
Continue olmesartan
Continue doxazosin
Likely increase in blood pressure due to steroid effect, can add hydralazine while on steroid
# History of pancreatic insufficiency
Continue Creon
# History of GERD
Continue omeprazole
# Nicotine use disorder/ Current smoker
Nicotine patch
# Anxiety/depression
Continue fluoxetine
DVT ppx: Lovenox
Full code
Dispo: Home with home health
Original Note:
Today's Communication/Plan
-
Requires home O2 on assessment and patient has oxygen at home
Continue prednisone 40 mg with slow taper
Discussed about importance of tobacco cessation
Continue Augmentin to complete 5-day course
Discharge planning tomorrow
Assessment / Plan
Assessment / Plan
Impression
Acute hypoxic respiratory insufficiency
Acute sinusitis
History of COPD
Essential hypertension
History of pancreatic insufficiency
History of GERD
Nicotine use disorder
Anxiety/depression
Plan
Acute hypoxic respiratory insufficiency
Secondary to sinus congestion/sinusitis, smoking (1 pack/day).
History of COPD, uses home O2 as needed
Clear to auscultation, however presence of increase sputum and dyspnea ( cardinal symptom of COPD exacerbation)
Goal spO2 >92%
Continue Symbicort and tiotropium bromide
Continue prednisone 40 mg
Acute sinusitis
CT scan of sinuses reveals bilateral maxillary sinus chronic inflammatory changes, right greater than left.
Start Augmentin 875/125 every 12 hours-for total 5 days
Continue saline spray
History of COPD
Continue home inhalers
Essential hypertension
Continue olmesartan
Continue doxazosin
History of pancreatic insufficiency
Continue Creon
History of GERD
Continue omeprazole
Nicotine use disorder
Current smoker
Nicotine patch
Anxiety/depression
Continue fluoxetine
Lovenox
Regular diet
Full code
Anticipated Discharge: 24 - 48 hours
Subjective/Interval History
-
Date of Service: October 29, 2024
No overnight event
Objective Data
-
Vital Signs:
Vital Signs
Temp Pulse Resp BP Pulse Ox
98.5 F 92 18 158/67 94
10/29/24 10:02 10/29/24 10:02 10/29/24 10:02 10/29/24 10:02 10/29/24 10:02
I&O
10/28/24 10/29/2410/30/25
06:59 06:59 06:59
Intake Total 1080 / 1080
Balance 1080 / 1080
Review of Systems
-
All other systems: Reviewed and negative
Physical Exam
-
General: No Apparent Distress and Comfortable
HEENT: Normocephalic and Atraumatic
Respiratory: Decreased Breath Sounds
Cardiac: Regular Rhythm and S1/S2
GI: Nontender and Nondistended
Musculoskeletal: No Edema
Skin: Warm and Dry
Neuro: AO x 3
Psych: Calm
Data Reviewed
-
Labs: Labs Reviewed by me and Discussed with Physician
--- NOTE | 2024-10-29 13:49 | CM ---
Addendum entered by Lawanda Benavides 10/29/24 15:49:
Plan: Patient's physician ordered home care options reviewed with paint and patient has selected [facility], [facility] liaison contacted.
Original Note:
clinical team manager reviewed patient's chart and patient has home oxygen though [employer], conserving device, concentrator and large portable, they will speak with patient directly regarding any changes in her oxygen needs at home, per Pearl at [facility]
patient has an appointment with pulmonary office next week.
Plan; Home with spouse, [facility] to follow up with patient at home, and provide more teaching for patient when using her home oxygen equipment.
[2024-10-29 14:03] VITALS: BP 176/83
[2024-10-29 14:21] VITALS: BP 164/70
--- NOTE | 2024-10-29 15:17 | W.DCSUMMARY ---
Documented by User: Manuel Pool MD, Resident 10/29/24 16:05
Discharge Summary
Discharge Data
Date of Admission: 10/27/24
Date of Discharge: 10/29/24
-
Pending Results: No
Hospital Course
Discharging Physician : Dr Maunel Pool, Dr Zakiya Doty
Disposition : Home
Primary care physician : Dr Caterina Sharpe
Principal Discharge diagnosis :
Acute hypoxic respiratory insufficiency
Subacute to chronic sinusitis
History of COPD
Essential hypertension
Chronic Discharge diagnosis :
Essential hypertension
History of pancreatic insufficiency
History of GERD
Nicotine use disorder
Anxiety/depression
Hospital Course : 64-year-old female presented from primary care physician's office due to hypoxia. She has history of COPD and on home O2, does use it frequently. In the ED oxygen saturation 84 on room air and on 2 L with oxygen saturation of
around 88. Lab chemistry,, chest x-ray, COVID/flu, all were unremarkable. Patient has long history of tobacco use(1 pack/day). She has been experiencing sinus congestions for the past [address] scan of the sinuses reveals bilateral maxillary
sinus chronic inflammatory changes. Augmentin and prednisone were started. Home O2 assessment meets criteria for home O2, advised patient to use oxygen at home. At discharge patient is hemodynamically stable except for elevated blood pressure
readings. Advised slow taper of prednisone and continue Augmentin to complete 5-day course. Advised to f/u with PCP and pulmonology outpatient. Counselled about tobacco cessation.
Important imaging findings :
10/28/24 CT sinuses
Bilateral maxillary sinus chronic inflammatory changes, right greater than left.No paranasal sinus air-fluid level.
Chest x-ray unremarkable
Procedure findings : none
Discharge Plan
-
Patient Disposition: Home (Routine Discharge)
Discharge Diagnosis/Procedures: Acute hypoxic respiratory insufficiency
Subacute to chronic sinusitis
History of COPD
Essential hypertension
History of pancreatic insufficiency
History of GERD
Nicotine use disorder
Anxiety/depression
Condition: Good
Diet: Low Sodium
Activity: No restrictions
Driving Restrictions: As prior to admission
Referrals:
Caterina Sharpe MD [Family Provider] - in less than 1 week
Nicholas Baxter MD [Active] -
(1-2 weeks, as previously scheduled
Absolutely important to follow up with pulm given only 30% lung fxn and cancer risk)
Additional Discharge Medication Instructions: Hypoxia secondary to sinusitis/COPD
-Take amoxicillin/clavulanate 1 tablet every 12 hours for the next 3 days to complete 5-day course
-Slow taper of prednisone until seen by pulmonology outpatient
Take 40 mg (2tabs) once a day for 6 days
then take 30 mg( 3 tablets of 10 mg ) once a for 7 days
take 20 mg one tablet daily for 7 days
take 10 mg one tablet daily for 7 days
Check your blood pressure at home. Take hydralazine on as needed by mouth if blood pressure is high at home. You DO NOT need to take it with normal BP readings at home. Follow-up with your PCP for blood pressure monitoring.
Prescriptions:
New
prednisone 10 mg tablet
30 mg PO DAILY 7 Days Qty: 21 0RF
prednisone 20 mg tablet
20 mg PO DAILY 7 Days Qty: 7 0RF
prednisone 10 mg tablet
10 mg PO DAILY 7 Days Qty: 7 0RF
prednisone 20 mg tablet
40 mg PO DAILY 6 Days Qty: 12 0RF
hydralazine 10 mg tablet
10 mg PO BID PRN (Reason: hypertension) 4 Days Qty: 8 0RF
amoxicillin-pot clavulanate 875-125 mg tablet
1 tab PO BID 3 Days Qty: 7 0RF
Continued
fluoxetine 20 MG capsule
20 mg PO DAILY
diazepam 5 MG tablet
1.25 mg PO TIDPRN PRN (Reason: anxiety)
Patient Comments:
09/21/24: last filled 10/08/24 for 30 tabs over 30 days
albuterol sulfate 90 mcg/actuation Hfa Aerosol Inhaler
1 puff INHALATION R Q4HPRN PRN (Reason: SoB)
Trelegy Ellipta 100-62.5-25 mcg blister with device
1 inh INHALATION R DAILY
acetaminophen 500 mg Capsule
500 mg PO Q6H PRN (Reason: pain)
cholecalciferol (vitamin D3) [Vitamin D3] 50 mcg (2,000 unit) Tablet
50 mcg PO DAILY
Creon 24,000-76,000 -120,000 unit Capsule,Delayed Release(Dr/Ec)
1 cap PO AC
Visbiome 112.5 billion cell Capsule
1 cap PO DAILY
nicotine 14 mg/24 hr Patch 24 Hour
14 mg transdermal DAILY 30 Days Qty: 28 0RF
omeprazole 40 mg Capsule,Delayed Release(Dr/Ec)
40 mg PO DAILY
Patient Comments:
10/27/24: Patient wants to decrease this dose, has not had chance to talk to her doctor yet
doxazosin 2 mg Tablet
2 mg PO DAILY
olmesartan 40 mg Tablet
40 mg PO DAILY
Discharge Orders:
Discharge Patient (As Directed); Ordered 10/29/24
Ordered By: Manuel Pool
Discharge Date and Time
Discharge Date/Time: 10/29/24 16:18
Print Language: CITIZEN [place]

Documented by User: Jeimy Sigala MD 10/29/24 17:00
Discharge Summary
Discharge Data
Date of Admission: 10/27/24
Date of Discharge: 10/29/24
Hospital Course
Discharging Physician : Dr Manuel Pool, Dr Zakiya Doty
Disposition : Home
Primary care physician : Dr Caterina Sharpe
Principal Discharge diagnosis :
Acute hypoxic respiratory insufficiency
Subacute to chronic sinusitis
History of COPD
Essential hypertension
Chronic Discharge diagnosis :
Essential hypertension
History of pancreatic insufficiency
History of GERD
Nicotine use disorder
Anxiety/depression
Hospital Course : 64-year-old female presented from primary care physician's office due to hypoxia. She has history of COPD and has home O2 which she uses as needed. In the ED, her oxygen saturation was low at 84% on room air and 2 L NC was
placed.
Her chest x-ray, COVID/flu tests all were unremarkable.
Patient has long history of tobacco use (1 pack/day). She has been experiencing sinus congestions for the past [address] scan of the sinuses reveals bilateral maxillary sinus with chronic inflammatory changes. Augmentin and prednisone were
started which she can continue following discharge.
Her home O2 assessment indicates that she would need to continue to use oxygen following discharge.
Her blood pressure was noted to be elevated, which she attributes to prednisone effect. In addition to continuing her previous olmesartan and doxazosin, she can also take hydralazine as needed while on the prednisone for hypertension.
She can follow-up with pulmonary outpatient.
Important imaging findings :
10/28/24 CT sinuses
Bilateral maxillary sinus chronic inflammatory changes, right greater than left.No paranasal sinus air-fluid level.
Chest x-ray unremarkable
Procedure findings : none
Discharge Plan
-
Patient Disposition: Home (Routine Discharge)
Discharge Diagnosis/Procedures: Acute hypoxic respiratory insufficiency
Subacute to chronic sinusitis
History of COPD
Essential hypertension
History of pancreatic insufficiency
History of GERD
Nicotine use disorder
Anxiety/depression
Condition: Good
Diet: Low Sodium
Activity: No restrictions
Driving Restrictions: As prior to admission
Referrals:
Caterina Sharpe MD [Family Provider] - in less than 1 week
Nicholas Baxter MD [Active] -
(1-2 weeks, as previously scheduled
Absolutely important to follow up with pulm given only 30% lung fxn and cancer risk)
Additional Discharge Medication Instructions: Hypoxia secondary to sinusitis/COPD
-Take amoxicillin/clavulanate 1 tablet every 12 hours for the next 3 days to complete 5-day course
-Slow taper of prednisone until seen by pulmonology outpatient
Take 40 mg (2tabs) once a day for 6 days
then take 30 mg( 3 tablets of 10 mg ) once a for 7 days
take 20 mg one tablet daily for 7 days
take 10 mg one tablet daily for 7 days
Check your blood pressure at home. Take hydralazine on as needed by mouth if blood pressure is high at home. You DO NOT need to take it with normal BP readings at home. Follow-up with your PCP for blood pressure monitoring.
Prescriptions:
New
prednisone 10 mg tablet
30 mg PO DAILY 7 Days Qty: 21 0RF
prednisone 20 mg tablet
20 mg PO DAILY 7 Days Qty: 7 0RF
prednisone 10 mg tablet
10 mg PO DAILY 7 Days Qty: 7 0RF
prednisone 20 mg tablet
40 mg PO DAILY 6 Days Qty: 12 0RF
hydralazine 10 mg tablet
10 mg PO BID PRN (Reason: hypertension) 4 Days Qty: 8 0RF
amoxicillin-pot clavulanate 875-125 mg tablet
1 tab PO BID 3 Days Qty: 7 0RF
Continued
fluoxetine 20 MG capsule
20 mg PO DAILY
diazepam 5 MG tablet
1.25 mg PO TIDPRN PRN (Reason: anxiety)
Patient Comments:
09/21/24: last filled 10/08/24 for 30 tabs over 30 days
albuterol sulfate 90 mcg/actuation Hfa Aerosol Inhaler
1 puff INHALATION R Q4HPRN PRN (Reason: SoB)
Trelegy Ellipta 100-62.5-25 mcg blister with device
1 inh INHALATION R DAILY
acetaminophen 500 mg Capsule
500 mg PO Q6H PRN (Reason: pain)
cholecalciferol (vitamin D3) [Vitamin D3] 50 mcg (2,000 unit) Tablet
50 mcg PO DAILY
Creon 24,000-76,000 -120,000 unit Capsule,Delayed Release(Dr/Ec)
1 cap PO AC
Visbiome 112.5 billion cell Capsule
1 cap PO DAILY
nicotine 14 mg/24 hr Patch 24 Hour
14 mg transdermal DAILY 30 Days Qty: 28 0RF
omeprazole 40 mg Capsule,Delayed Release(Dr/Ec)
40 mg PO DAILY
Patient Comments:
10/27/24: Patient wants to decrease this dose, has not had chance to talk to her doctor yet
doxazosin 2 mg Tablet
2 mg PO DAILY
olmesartan 40 mg Tablet
40 mg PO DAILY
Discharge Orders:
Discharge Patient (As Directed); Ordered 10/29/24
Ordered By: Manuel Pool
Discharge Date and Time
Discharge Date/Time: 10/29/24 16:18
Print Language: CITIZEN OF [place]
--- NOTE | 2024-11-01 14:16 | PN.CDI ---
CDI
- -
CDI:
Physician Documentation Request
Admit Date: 10/27/24 19:45
Dear Doctor Yrn,
ED record states 'workup unremarkable for any other explanation except for COPD exacerbation' COPD exacerbation listed as discharge problem
10/28 pulmonary consultation states ' I would start steroids as I suspect there is a COPD component'
Discharge summary states 'subacute on chronic sinusitis'
After study, what is the etiology of the patients hypoxia?
COPD exacerbation
acute sinusitis
Multifactorial - please specify
Other
Use of terms such as suspected, likely, concern for, or probable (associated with a specific diagnosis that is being evaluated, monitored, or treated as if it exists) are acceptable and can be coded in the inpatient setting, when documented at the
time of discharge.
Thank you,
Betzy Barry RN BSN
CDI Specialist
tiger text
Please use your independent medical judgment in providing your response.
--- NOTE | 2024-11-02 17:30 | W.PN.UPDATE ---
Update Note
Progress Note Update
Clarification on note !!
Acute hypoxic respiratory insufficiency likely secondary to subacute sinusitis/COPD
Multifactorial etiology as patient continued to smoke one pack/day, chronic maxillary sinus inflammatory changes on CT sinuses.
--- NOTE | 2024-11-03 09:48 | PN.CDI ---
CDI
- -
CDI:
Physician Documentation Request
Admit Date: 10/27/24 19:45
Dear Doctor Yrn,
11/02 note states 'Acute hypoxic respiratory insufficiency likely secondary to subacute sinusitis/COPD'
10/29 progress note states 'Cont O2 support at 1 L NC, walking pulse ox indicated need for continued home oxygen going forward. Of note, patient already has home oxygen which she uses as needed'
10/29 pulmonary note states 'Patient requires 4 L with ambulation at time of discharge'
Can you please further clarify the status of the patient's COPD
COPD exacerbation
COPD without exacerbation / Progression of COPD
Other
Use of terms such as suspected, likely, concern for, or probable (associated with a specific diagnosis that is being evaluated, monitored, or treated as if it exists) are acceptable and can be coded in the inpatient setting, when documented at the
time of discharge.
Thank you,
Betzy Barry RN, BSN
CDI Specialist
tiger text
Please use your independent medical judgment in providing your response.
--- NOTE | 2024-11-03 14:32 | W.PN.UPDATE ---
Update Note
Progress Note Update
Clarification on note !!
Acute hypoxic respiratory insufficiency likely secondary to subacute sinusitis/COPD exacerbation
Multifactorial etiology as patient continued to smoke one pack/day, chronic maxillary sinus inflammatory changes on CT sinuses.
== END 2024-10-29 16:18 | disposition home health service (06) | DRG 153 ==
LOC: 4 WEST ACU 19:45
PROVIDERS: Student in an Organized Health Care Education/Training Program; ADMITTING PHYSICIAN Internal Medicine; ATTENDING PHYSICIAN Internal Medicine; EMERGENCY PHYSICIAN Emergency Medicine; FAMILY PHYSICIAN Family Medicine; OTHER PHYSICIAN Internal Medicine Critical Care Medicine
DX: J01.00 Acute maxillary sinusitis, unspecified (principal); J44.1 Chronic obstructive pulmonary disease with (acute) exacerbation; J43.9 Emphysema, unspecified; R09.02 Hypoxemia; J32.0 Chronic maxillary sinusitis; E78.5 Hyperlipidemia, unspecified; I10 Essential (primary) hypertension; K86.81 Exocrine pancreatic insufficiency; F32.A Depression, unspecified; F41.0 Panic disorder [episodic paroxysmal anxiety]; F17.210 Nicotine dependence, cigarettes, uncomplicated; I45.10 Unspecified right bundle-branch block; K21.9 Gastro-esophageal reflux disease without esophagitis; Z87.19 Personal history of other diseases of the digestive system; Z86.16 Personal history of COVID-19; Z11.52 Encounter for screening for COVID-19; Z99.81 Dependence on supplemental oxygen
CPT/HCPCS: 93308; 70486; 71045; 80048; 82805; 83735; 83880; 84484; 85025; 85027; 85379; 87502; 87807; 87811; 93005; 93321; 93325; 94640; 94760; 96374; 99285

== ENCOUNTER → 2025-02-15 11:12 | Outpatient (REF) | payer MEDICARE, SELFPAY | LOC: RAD 11:12 | PROVIDERS: ATTENDING PHYSICIAN Internal Medicine Critical Care Medicine; FAMILY PHYSICIAN Family Medicine | DX: Z87.891 Personal history of nicotine dependence (principal) | CPT/HCPCS: 71271 ==

== ENCOUNTER 2025-05-07 14:18 | Inpatient (IN) | payer MEDICARE, SELFPAY ==
[2025-05-07 11:55] VITALS: BP 142/68
[2025-05-07 12:03] VITALS: BP 169/67
--- NOTE | 2025-05-07 12:14 | ED.GENMED ---
History of Present Illness
General
Chief Complaint: Breathing Problem
Source: patient
Exam Limitations: none
Time Seen by Provider: 05/07/25 12:05
Nursing documentation reviewed up to this point in time: agreed with
History of Present Illness
History of Present Illness:
65-year-old female with a past medical history of hypertension, COPD, chronic respiratory failure on 1 L of oxygen as needed who presents to the emergency department for evaluation of shortness of breath and hypoxia. Patient reports that symptoms
started with URI type symptoms about 2 weeks ago that she describes sore throat, headache, rhinorrhea and cough. She says over the past 2 weeks she has had progressive shortness of breath with wheezing cough productive of clear sputum. No fevers
or chills. No swelling in the legs. She denies any other acute issues. She was seen by her primary doctor today was noted to be increasingly hypoxic and referred to the ER�currently pulse ox dropped to 75% in the office requiring 6 L nasal
cannula.
Past History
Past History
ED Past Medical History: COPD and Other (Diverticulitis)
ED Past Surgical History: Appendectomy and Gynecological (Hysterectomy, abdominal Sarcoplexi)
Social History
Tobacco: Smoker
Alcohol: None
Drug: None
Personal:
Living: with family
Employment: Employed
Review of Systems
Review of Systems
All Other Systems: ROS reviewed and negative except as documented in HPI and ROS
Constitutional: Denies fever or chills
EENT: Reports sore throat and runny nose
Respiratory: Reports cough and trouble breathing
Cardiac: Denies chest pain
ABD/GI: Denies abdominal pain, nausea or vomiting
: Denies flank pain
Musculoskeletal: Denies edema, neck pain or back pain
Neurological: Reports headache; Denies dizzy
Phy Exam
Physical Exam
Physical Exam:
General: Awake, alert, oriented x3; no acute distress
Head: Normocephalic, atraumatic
Eyes: Conjunctiva normal, EOMI
Throat: Airway intact, handling secretions
Neck: Trachea midline, no JVD noted
Lungs: Patient has mild tachypnea, hypoxia 86% on 1 L oxygen requiring 4 L nasal cannula with improvement to the 90s; she has diffuse bilateral wheezing with frequent hacking cough
Heart: Regular rate and rhythm, no murmurs, gallops, or rubs
Neuro: Grossly intact
Skin: Warm and dry
Extremities: No edema in extremities, equal pulses in all extremities
Scores
Heart Failure Risk
Heart Failure Risk Score: Not Applicable
Heart Score for Chest Pain Patients
STEMI patient?: Not applicable
Withdrawal Assessment of Alcohol
Withdrawal Assessment Completed?: Not applicable
Course
Orders/Labs/Results
Orders:
Orders
05/07/25 12:06
Electrocardiogram (*1) Urgent
Reason for Study: Shortness of Breath
EKG- Treatment ONCE
Ipratropium/Albuterol Sulfate [Duoneb] 3 ml INH R NOW STA
CR Chest Portable - 1 View Urgent
Comment:
Reason For Exam: sob
Reason Study Needs to be Portable: Unable to Transport
05/07/25 12:07
MethylPREDNISolone PF [Solu-Medrol Pf] 125 mg IV NOW STA
05/07/25 12:43
COVID-19 Antigen Urgent
Source: Nasal Swab
Complete Blood Count/With Diff Urgent
NT-proBNP Urgent
Influenza A+B Rapid Molecular Urgent
JORDIN Source: Nasal Swab
Specimen Description:
05/07/25 13:04
Azithromycin [Zithromax] 500 mg PO NOW STA
05/07/25 13:22
Comprehensive Metabolic Panel Urgent
Abnormal Lab Results
05/07/25
12:43
MCHC 31.2 L g/dL
(33.0-37.0)
Absolute Lymphs (auto) 1.1 L 10^3/uL
(1.2-3.4)
Lymphocytes % 18.5 L %
(20.5-51.1)
05/07/25 12:43
Vital Signs
Initial and Last Documented VS:
Initial Vital Signs
Temp Pulse Resp BP Pulse Ox
36.9 C 90 18 142/68 86
05/07/25 11:55 05/07/25 11:55 05/07/25 11:55 05/07/25 11:55 05/07/25 11:55
Last Documented Vital Signs
Temp Pulse Resp BP Pulse Ox
36.9 C 73 16 169/67 95
05/07/25 11:55 05/07/25 12:33 05/07/25 12:33 05/07/25 12:33 05/07/25 12:34
MDM/Problems Addressed
Differential Diagnosis Includes:
COPD exacerbation, pneumonia, CHF, PE less likely
MDM/Problems Addressed:
65-year-old female presents for evaluation of increasing shortness of breath and cough in the setting of recent URI symptoms; noted to have increasing hypoxia in PCP office and referred to the ER. Vitals and exam as above. Plan to check labs
including a CBC and a CMP, chest x-ray. Check an EKG. Will treat with DuoNeb and steroids for presumed COPD. Reassess at the above.
Chest x-ray reviewed by me shows no clear pneumonia or other acute abnormalities. Suspect COPD exacerbation�will continue with steroids and DuoNeb. Although chest x-ray showed no pneumonia, will cover with azithromycin given reported increased
sputum. Will admit for continued management of acute COPD exacerbation and acute on chronic respiratory failure with hypoxia. Discussed case with hospitalist.
Chronic conditions affecting care:
COPD
*Radiology
Radiology exam reviewed: preliminary read by ED provider
*Pulse Oximetry
SaO2: 86
Nasal Cannula flow liters per minute: 4
Patient hypoxic: yes (86%)
*Critical Care Note
Total Time (30-74mins, 75-104mins- exclusive of procedures): Not Applicable
Data Reviewed
Review of Other/Old Records Reveals: Labs and Records
Source: patient, records and family
Patient Management
Discussion with other providers: Hospitalist (Discussed with hospitalist)
Escalation/DeEscalation of care consider admission/obs:
Admission indicated
ED Attending Note
-
Portions of this chart may have been created with voice recognition software.� Occasional wrong word or��sound alike� substitutions may have occurred due to the inherent limitations of voice recognition software.
Discharge Plan
Departure
Patient Disposition: Admit
Date of Disposition: 05/07/25
Time of Disposition: 13:24
Admit to doctor: Bisi
Presentation/result/management discussed w/ accepting MD/DO: Hospitalist
Discharge Problem:
COPD exacerbation, Acute on chronic hypoxic respiratory failure
Prescriptions:
No Action
fluoxetine 20 MG capsule
20 mg PO DAILY
diazepam 5 MG tablet
1.25 mg PO TIDPRN PRN (Reason: anxiety)
Patient Comments:
09/21/24: last filled 10/08/24 for 30 tabs over 30 days
albuterol sulfate 90 mcg/actuation Hfa Aerosol Inhaler
1 puff INHALATION R Q4HPRN PRN (Reason: SoB)
Trelegy Ellipta 100-62.5-25 mcg blister with device
1 inh INHALATION R DAILY
acetaminophen 500 mg Capsule
500 mg PO Q6H PRN (Reason: pain)
cholecalciferol (vitamin D3) [Vitamin D3] 50 mcg (2,000 unit) Tablet
50 mcg PO DAILY
Creon 24,000-76,000 -120,000 unit Capsule,Delayed Release(Dr/Ec)
1 cap PO AC
Visbiome 112.5 billion cell Capsule
1 cap PO DAILY
nicotine 14 mg/24 hr Patch 24 Hour
14 mg transdermal DAILY 30 Days Qty: 28 0RF
omeprazole 40 mg Capsule,Delayed Release(/Ec)
40 mg PO DAILY
Patient Comments:
10/27/24: Patient wants to decrease this dose, has not had chance to talk to her doctor yet
doxazosin 2 mg Tablet
2 mg PO DAILY
olmesartan 40 mg Tablet
40 mg PO DAILY
prednisone 10 mg tablet
30 mg PO DAILY 7 Days Qty: 21 0RF
prednisone 20 mg tablet
20 mg PO DAILY 7 Days Qty: 7 0RF
prednisone 10 mg tablet
10 mg PO DAILY 7 Days Qty: 7 0RF
prednisone 20 mg tablet
40 mg PO DAILY 6 Days Qty: 12 0RF
hydralazine 10 mg tablet
10 mg PO BID PRN (Reason: hypertension) 4 Days Qty: 8 0RF
amoxicillin-pot clavulanate 875-125 mg tablet
1 tab PO BID 3 Days Qty: 7 0RF
Referrals:
Caterina Sharpe MD [Family Provider, Family Practice]
Interventions
Interventions:
*Risk Screen - Suicide Last Done: 05/07/25 11:55
*General Assessment Last Done: 05/07/25 11:55
*Neglect/Abuse Screening Last Done: 05/07/25 11:55
*ED- Fall Risk Assessment Last Done: 05/07/25 12:33
*ED COVID-19 Vaccine History Last Done: 05/07/25 12:33
*ED Influenza Vaccine History Last Done: 05/07/25 12:33
ED- Cardiac Assessment Last Done: 05/07/25 12:34
ED- Pulmonary Assessment Last Done: 05/07/25 12:34
Discharge Date and Time
Print Language: FRISIAN
[2025-05-07 12:32] VITALS: BMI 20.8
[2025-05-07 12:33] VITALS: BP 169/67
[2025-05-07] MEDS: SOLU-MEDROL PF 125 MG IV (12:47)
[2025-05-07] MEDS: DUONEB 3 ML INH ×2 (12:48→20:01)
[2025-05-07 13:21] LABS: Hematocrit 44.3 % (37.0-47.0); Hemoglobin 13.8 g/dL (12.0-16.0); Mean Corp Hgb Conc. 31.2 g/dL (33.0-37.0); Mean Corpuscular Volume 96.3 fL (81.0-99.0); Nucleated Red Blood Cells % 0 %; Platelet Count 232 10^3/uL (130-400); Red Cell Dist. Width 13.5 % (11.5-14.5)
[2025-05-07 13:31] LABS: COVID-19 Antigen Negative (Negative)
--- NOTE | 2025-05-07 13:43 | HPS.HSE ---
Family Physician
-
Family Physician: Caterina Sharpe
Chief Complaint
-
progressive SoB, Desat
History of Present Illness
HPI
65F HX hypertension, COPD, chronic respiratory failure on 1 L of home O2 sen at ER:
- for evaluation of shortness of breath and hypoxia.
- symptoms started with URI type symptoms about 2 weeks ago with sore throat, headache, rhinorrhea and cough.
- over the past 2 weeks report progressive shortness of breath with wheezing cough productive of clear sputum.
- No fevers or chills.
- No swelling in the legs.
- denies any other acute issues.
- seen by her primary doctor today was noted to be increasingly hypoxic and referred to the ER
- currently pulse ox dropped to 75% in the office requiring 6 L nasal cannula.
Medical History
Past Medical History
Past Medical History: Reports Other (sigmoid diverticulitis complicated by peridiverticular abscess status post NICOLE drain, recurrent diverticulitis, hypertension, exocrine pancreatic insufficiency, COPD, tobacco use, anxiety,)
Past Surgical History: Reports Other ( Appendectomy and Gynecological (Hysterectomy, abdominal Sarcoplexi))
Social History
Tobacco: Smoker
Alcohol: None
Drug: None
Family History
Family History: Not pertinent
Allergies / Home Medications
Allergies reflects when Allergies were last updated in [facility].
Home Medications with original date entered in [facility]
Allergy/Medication List:
Allergies
Allergy/AdvReac Type Severity Reaction Status Date / Time
ciprofloxacin [From Cipro] Allergy Unknown Verified 10/27/24 17:14
metronidazole [From Flagyl] Allergy Unknown Verified 10/27/24 17:14
morphine Allergy SEE BELOW Verified 10/27/24 17:14
Sulfa (Sulfonamide Allergy Unknown Verified 10/27/24 17:14
Antibiotics)
Home Medications
diazepam 5 mg tablet 1.25 mg PO TIDPRN PRN anxiety 04/26/20
fluoxetine 20 mg capsule 20 mg PO DAILY Depression 04/26/20
albuterol sulfate 90 mcg/actuation aerosol inhaler 1 puff inhalation R Q4HPRN PRN SoB 01/02/23
fluticasone fur. 100 mcg-umeclid 62.5 mcg-vilant 25 mcg inhalat.powder (Trelegy Ellipta) 1 inh inhalation R DAILY Lung/Breathing Issues 05/29/24
cholecalciferol (vitamin D3) 50 mcg (2,000 unit) tablet (Vitamin D3) 50 mcg PO DAILY Supplement 06/25/24
Lactobac no.2-Bifidobac no.1-S. thermo 112.5 billion cell capsule (Visbiome) 1 cap PO DAILY Gastrointestinal Issue 08/13/24
[id number]-kuovfeww-kegxwcb 24,000-76,000-120,000 unit capsule,delayed rel (Creon) 1 cap PO AC Gastrointestinal Issue 08/13/24
nicotine 14 mg/24 hr daily transdermal patch 14 mg transdermal DAILY Smoking cessation 1 month #28 ea 08/18/24
acetaminophen 500 mg capsule 500 mg PO Q6H PRN pain 10/06/24
doxazosin 2 mg tablet 2 mg PO DAILY 10/27/24
olmesartan 40 mg tablet 40 mg PO DAILY 10/27/24
omeprazole 40 mg capsule,delayed release 40 mg PO DAILY 10/27/24
Review of Systems
-
Constitutional: Reports No Symptoms
EENT: Reports No Symptoms
Respiratory: Reports See HPI and Trouble Breathing
Cardiac: Reports No Symptoms
Abdomen/GI: Reports No Symptoms
: Reports No Symptoms
Musculoskeletal: Reports No Symptoms
Skin: Reports No Symptoms
Neurological: Reports No Symptoms
Endocrine: Reports No Symptoms
Hematologic/Lymphatic: Reports No Symptoms
Psych: Reports No Symptoms
Physical Exam
Vital Signs
Vital Signs
Temp Pulse Resp BP Pulse Ox
98.5 F 73 16 169/67 95
05/07/25 11:55 05/07/25 12:33 05/07/25 12:33 05/07/25 12:33 05/07/25 12:34
Physical Exam
General: Other ( frequent hacking cough)
HEENT: NormoCephalic and Anicteric
Respiratory: Wheezes (diffuse bilateral wheezing ) and Other (mild tachypnea, hypoxia 86% on 1 L oxygen requiring 4 L nasal cannula with improvement to the 90s)
Cardiac: S1/S2 and Regular Rhythm; No Murmur
Breast: Deferred by me
GI: Soft, Non Tender, Non Distended and Normal Bowel Sounds
Genito-urinary: Deferred by me
Musculoskeletal: No Edema
Psych: Calm
Laboratory Results
-
05/07/25 12:43
Laboratory Results
Total Bilirubin Cancelled 05/07/25 12:43
AST Cancelled 05/07/25 12:43
ALT Cancelled 05/07/25 12:43
Alkaline Phosphatase Cancelled 05/07/25 12:43
Impression/Plan
-
VS
05/07/25
11:55 05/07/25
12:33
Temp 98.5 F
Temp route: Oral
Pulse 90 73
Resp Rate 18 16
Blood pressure 142/68 169/67
SaO2 86 95
Nasal Cannula flow liters per minute 4 4
Labs
05/07/25
12:43
WBC 5.9
Hgb 13.8
Plt Count 232
10/28/24 05/07/25
07:34 13:22
Sodium Pending
Potassium 4.9 Pending
Chloride Pending
Carbon Dioxide 30 Pending
Creatinine 0.5 L Pending
CXR
No findings to suggest pneumonia.
Last hospitalist admission: 09/21/2024 - 09/28/2024
PRIMARY DIAGNOSES:
1. Probable infectious colitis versus inflammatory bowel disease.
2. Acute hypoxic respiratory insufficiency secondary to diastolic
failure.
SECONDARY DIAGNOSES:
1. Chronic obstructive pulmonary disease.
2. Essential hypertension.
3. Anxiety.
4. Pancreatic insufficiency.
ASSESSMENT & PLAN
Pending Rx reconciliation
Acute on chronic hypoxic RF supporting on 4 L home O2: underlying COPD on home 1 L O2 plus current smoker (1 pack/day), nicotine dependence.
COPD flare precipitated by recent URTI likely viral origin
Associated bronchospasm
- baseline hypercarbia with HCO3 in 30 due to likely chr hypercapnia : pending admission HCO3
- S/P IV Methylprednisone 125mg and Nebs x1 at ER and PO Azithromycin
- Cont O2 support - wean O2 as tolerated - Goal POx Hi 80s to low 90s
- Avoid over correction of POx > 94 %
- IV Decadron 4mg q8h
- DuoNebs qid and PRN
- c/w Symbicort
- Hold tiotropium bromide while on DuoNeb
- Hold off PO azithromycin for now
- stable mentation - ABG with any change of mental status
- Pul consult
Essential HTN
- [employer] olmesartan, doxazosin
HX pancreatic insufficiency
- [employer] Creon
GERD
- on omeprazole
Nicotine use disorder/ Current smoker
- 1 PPD smoker
- Nicotine patch 21mg daily x 4days , 14 mg daily x 4 days and 7 mg daily x 4 days
Anxiety/depression
- fluoxetine
DVT Px: LMWH
Full code
IP TLM
[2025-05-07] MEDS: ZITHROMAX 500 MG PO (13:59)
[2025-05-07 15:34] LABS: ALT (SGPT) < 10 U/L (0-35); AST (SGOT) 16 U/L (14-36); Albumin 4.3 g/dl (3.5-5.0); Alkaline Phosphatase 64 U/L (38-126); Blood Urea Nitrogen 13 mg/dl (7-17); Calcium 9.3 mg/dl (8.4-10.2); Carbon Dioxide 38 mmol/L (22-30); Chloride 99 mmol/L (98-107); Estimated Creatinine Clearance 72 ml/min; Glucose 186 mg/dl (70-99); Potassium 4.9 mmol/L (3.5-5.1); Sodium 139 mmol/L (135-145); Total Protein 6.8 g/dl (6.3-8.2); eGFR > 60.00
[2025-05-07] MEDS: NICODERM TRANSDERMAL 21 MG TRANSDERM (16:09)
[2025-05-07 16:43] VITALS: BP 163/68; BMI 20.4
[2025-05-07] MEDS: DUONEB INH (17:15)
--- NOTE | 2025-05-07 17:33 | CON.PUL ---
Consultation
Consultation Request
Date/Time Consultation Requested: 05/07/2025 - 1411
Date/Time Consultation Performed: 05/07/2025 - 1521
Requesting Provider: BENJIE Oseguera
Performing Provider: Dr. Fernández
Reason for Consultation: COPD exacerbation
Medical History
-
Chief Complaint: SOB
History of Present Illness:
65-year-old female with a past medical history of group B COPD with emphysema, chronic hypoxic respiratory failure on home O2, active tobacco use, allergic rhinitis, anxiety, history of colon polyps, history of colitis, history of COVID-19
(June 2022), hypogammaglobulinemia, and IBS who presents with shortness of breath. She reports having a sore throat about 2 weeks ago. She initially felt better but then she started to get extremely fatigued and tired. Her sleep then started
to become affected and then she started to become short of breath. In the ER she was afebrile with pulse rate 90, respiratory rate 18�23 breaths/min, BP 142/68 and she was initially saturating 86% on 4 L/min however saturations improved to 91-94%.
Labs show normal WBC at 5.9, Hb 13.8, absolute eosinophil count 100, serum bicarbonate level 38, glucose 186, proBNP 381, and COVID-19 antigen negative. Flu swab also negative. CXR shows no focal parenchymal opacification with mild hyperinflation
due to COPD. She was given Solu-Medrol 125 mg, DuoNebs and Zithromax and admitted to the hospitalist service for a COPD exacerbation. Pulmonary service now consulted for additional recommendations.
When I saw the patient, she was resting in bed in no acute distress. Says she still feels short of breath mainly with movement. At rest she feels okay. Currently on 2.5 L/min saturating 93%. She currently denies chest pain, [place], nausea, fevers or
chills.
Of note patient follows with us in the [facility] office with Dr. Santiago -last visit 02/24/2025. She is maintained on Trelegy 100mcg for history of very severe COPD, she also has air trapping and hyperinflation. She has chronic exertional dyspnea. She
has completed pulmonary rehab in the past. Her last LDCT chest was in February 2025 showing no new solid nodules, although there was tree in bud nodules in RUL/RLL with subpleural nodular opacities. She does continue to smoke one [id number]. She
knows she has to quit. Her prior PFT was in 06/26/2023 showing a very severe persistent obstructive lung defect with a significant bronchodilator response, with mild�moderate restriction and a very severe gas exchange capacity defect (DLco: 7%;
DLco/VA: 12%). Last PFT on 02/24/2025 showed severe persistent obstructive lung disease with post-BD FEV1 790cc / 36% predicted with severely reduced DLco (17% predicted).
PMHx: Very severe COPD/emphysema, chronic hypoxic respiratory failure with home O2 use at 1 L/min, active tobacco smoker, hypertension, allergic rhinitis, hemorrhoids, depression, anxiety/panic disorder, history of LLQ abdominal pain, colonic
polyps, history of colitis, personal history of COVID-19 (06/2022), low gammaglobulin level, low serum IgA, IBS
PSHx: Eyelid lift (2002), appendectomy, tonsillectomy, sacro�colpopexy, prolapsed uterus with transvaginal hysterectomy
Past Medical History
Past Medical History: Other (Above as per HPI)
Past Surgical History: Other (Above as per HPI)
Social History
Tobacco: Smoker (1 PPD)
Alcohol: None
Drug: None
Family History
Family History: Reviewed & Not Pertinent
Allergies / Home Medications
Allergies
Allergy/AdvReac Type Severity Reaction Status Date / Time
ciprofloxacin (From Cipro) Allergy Unknown Verified 05/07/25 17:00
metronidazole (From Flagyl) Allergy Unknown Verified 05/07/25 17:00
morphine Allergy SEE BELOW Verified 05/07/25 17:00
Sulfa (Sulfonamide Allergy Unknown Verified 05/07/25 17:00
Antibiotics)
Home Medications
�Medication �Instructions �Recorded �Confirmed �Last Taken �Type
diazepam 5 mg tablet 1.25 mg PO TIDPRN PRN anxiety 04/26/20 05/07/25 1 Day Ago History
~10/05/24
fluoxetine 20 mg capsule 20 mg PO DAILY Depression 04/26/20 05/07/25 05/07/25 10:00 History
albuterol sulfate 90 mcg/actuation 1 puff inhalation R Q4HPRN PRN SoB 01/02/23 05/07/25 2 Days Ago History
aerosol inhaler ~10/04/24
fluticasone fur. 100 mcg-umeclid 1 inh inhalation R DAILY 05/29/24 05/07/25 05/07/25 10:00 History
62.5 mcg-vilant 25 mcg Lung/Breathing Issues
inhalat.powder (Trelegy Ellipta)
cholecalciferol (vitamin D3) 50 50 mcg PO DAILY Supplement 06/25/24 05/07/25 05/07/25 10:00 History
mcg (2,000 unit) tablet (Vitamin
D3)
Lactobac no.2-Bifidobac no.1-S. 1 cap PO DAILY Gastrointestinal 08/13/24 05/07/25 05/07/25 10:00 History
thermo 112.5 billion cell capsule Issue
(Visbiome)
jfcnkv-djrugxkz-hlmhfy(pork)24,000-76,000-120,000 1 cap PO AC Gastrointestinal Issue 08/13/24 05/07/25 05/07/25 13:00 History
unit capsule,del rel (Creon)
doxazosin 2 mg tablet 2 mg PO DAILY Blood Pressure 10/27/24 05/07/25 05/07/25 10:00 History
olmesartan 40 mg tablet 40 mg PO DAILY Blood Pressure 10/27/24 05/07/25 05/07/25 10:00 History
omeprazole 40 mg capsule,delayed 40 mg PO DAILY Gastrointestinal 10/27/24 05/07/25 05/07/25 10:00 History
release Issue
acetaminophen 325 mg tablet 650 mg PO Q6HPRN PRN mild pain 05/07/25 05/07/25 05/07/25 11:00 History
(Tylenol)
Review of Systems
-
History Source: Patient
All other systems: Negative unless noted
Vitals / Labs / Diagnostic Testing
Vital Signs
Temp Pulse Resp BP Pulse Ox
98 F 77 18 159/70 95
05/07/25 19:27 05/07/25 20:09 05/07/25 20:09 05/07/25 19:27 05/07/25 20:46
Lab Data
05/07/25 12:43
05/07/25 15:01
Microbiology
05/07/25 12:43 Nasal Swab Influenza Types A & B (RUBI) - Final
Negative for Influenza A & B, NAAT
Negative results must be combined with clinical observations
and patient history.
Nucleic Acid Amplification test (NAAT)performed on the
[employer] platform.
Diagnostic Testing:
Physical Exam
-
HEENT: Normocephalic and Anicteric
Cardiovascular: S1/S2 and Peripheral Edema (negative)
Respiratory: Wheeze (negative), Rales (bilateral), Rhonchi (negative) and Non-Labored Respirations
GI: Soft, Non Distended, Non Tender and Normal Bowel Sounds
Neurology: Awake, Alert, Oriented and Tremors (negative)
Skin: Warm and Dry
General: Respiratory Distress (negative), Comfortable, Chills (negative) and Sweats (negative)
Assessment
-
Assessment: 65-year-old female with a past medical history of group B COPD with emphysema, chronic hypoxic respiratory failure on home O2, active tobacco use, allergic rhinitis, anxiety, history of colon polyps, history of colitis, history of
COVID-19 (June 2022), hypogammaglobulinemia, and IBS who presents with shortness of breath. She reports having a sore throat about 2 weeks ago. She initially felt better but then she started to get extremely fatigued and tired. Her sleep then
started to become affected and then she started to become short of breath. In the ER she was afebrile with pulse rate 90, respiratory rate 18�23 breaths/min, BP 142/68 and she was initially saturating 86% on 4 L/min however saturations improved to
91-94%. Labs show normal WBC at 5.9, Hb 13.8, absolute eosinophil count 100, serum bicarbonate level 38, glucose 186, proBNP 381, and COVID-19 antigen negative. Flu swab also negative. CXR shows no focal parenchymal opacification with mild
hyperinflation due to COPD. She was given Solu-Medrol 125 mg, DuoNebs and Zithromax and admitted to the hospitalist service for a COPD exacerbation. Pulmonary service now consulted for additional recommendations.
Chronic conditions [employer]: Very severe COPD/emphysema, chronic hypoxic respiratory failure with home O2 use at 1 L/min, active tobacco smoker, hypertension, allergic rhinitis, hemorrhoids, depression, anxiety/panic disorder, history of LLQ abdominal
pain, colonic polyps, history of colitis, personal history of COVID-19 (06/2022), low gammaglobulin level, low serum IgA, IBS
Impression:
#COPD exacerbation
#Acute on chronic hypoxic respiratory failure due to above
#Suspected recent URI with 'double worsening' effect
#History of COVID-19 (June 2022)
#Hypogammaglobinemia
#Anxiety/depression
#Active tobacco smoker
#Allergic rhinitis
Plan:
- Patient presented with shortness of breath with URI symptoms preceding about 2 weeks prior and then SOB developed with wheezing and productive cough over the next 2 weeks.
- CXR shows no evidence for pneumonia
- Given her double worsening experienced with recent URI, she should continue with ABx with zithromax as she likely has a bacterial superinfection
- If pt can produce a decent sputum sample, then would send off a culture
- Continue treatment of COPD exacerbation with Symbicort 80 mcg, Spiriva 2.5 mcg, nebulized albuterol and Decadron 4 mg IV q8hr
- prn nebulized bronchodilators - not currently bronchospastic
- She does not carry a Hx of eosinophilia, hence do not feel that Dupixent would be a good option for her for COPD
- Seems that her last COPD flare was in October 2024; would discuss starting zithromax TIW vs daily or Ohtuvayre as an outpatient with Dr. Santiago
- Continue nicotine patch; she was strongly recommended to quit smoking, osorio given the severity of her COPD
- Maintain SpO2 88-95%, weaning down on supplemental O2 as tolerated; she will need a walking pulse oximetry prior to discharge
- Incentive spirometer encouraged q1hr while awake
- Replete electrolytes with K>4, Mg>2
- Trend H/H and transfuse if needed to keep Hb>7g/dL; keep plt>20k, unless there is concern for bleeding then keep plt>50k
- Maintain euglycemia with goal BG >100 and <180 (HbA1C: 6 on 05/04/2025); avoid hyperglycemia while on systemic steroids
- DVT ppx
Pulmonary service will continue to follow along. Outpatient follow up with our office via Dr. Santiago will be arranged (last visit on 02/24/2025)
(Patient was seen and evaluated on 05/07/2025) Total time spent today was 59 minute for this encounter. Time includes reviewing laboratory tests/imaging results, reviewing pertinent medical records, obtaining and reviewing medical history,
performing an appropriate physical exam, ordering medications, tests and procedures. Time also includes documentation of this encounter, coordinating patient care and communicating with other healthcare professionals. Total time does not include
separately billed tests or procedures performed on this date of service.
--- NOTE | 2025-05-07 17:41 | PTCARENOTE ---
Received pt from ER via stretcher, accompanied by ER staff. Pt AAO x3, SNOW well, ambulatory to bed with minimal assistance; denies weakness/dizziness. VSS. Placed on telemetry:NSR. On nc 4 lpm- pulse ox 93%, pt with (+) SNYDER/tachypnea; frequent
harsh cough. Abd soft, to start regular diet. Pt DTV; states will ambulate to BR. Oriented to 4east,currently resting in bed. Will continue to monitor.
[2025-05-07] MEDS: LOVENOX 40 MG SC (18:37)
[2025-05-07 19:27] VITALS: BP 159/70
[2025-05-07] MEDS: ZENPEP DELAYED RELEASE CAPSULE PO ×2 (20:33→20:41)
[2025-05-07] MEDS: DECADRON 4 MG IV (20:34)
[2025-05-07] MEDS: VALIUM 1.25 MG PO (23:03)
[2025-05-07 23:51] VITALS: BP 160/80
[2025-05-08] VITALS (7 sets, daily range): BP systolic 107–179; BP diastolic 61–81; PULSE 111; O2SAT 89; BMI 20.7
[2025-05-08] MEDS: TYLENOL 650 MG PO ×3 (01:02→17:51)
[2025-05-08] MEDS: DECADRON 4 MG IV ×3 (03:14→20:02)
[2025-05-08] MEDS: VALIUM 1.25 MG PO ×3 (03:23→22:33)
[2025-05-08] MEDS: VENTOLIN NEBULES 2.5 MG INH ×4 (07:14→19:57)
[2025-05-08] MEDS: SPIRIVA RESPIMAT 2.5 MCG 2 PUFF INH (07:15)
[2025-05-08] MEDS: SYMBICORT 80/4.5 MCG INHALER 2 PUFF INH ×2 (07:15→20:06)
[2025-05-08 07:17] LABS: Hematocrit 43.8 % (37.0-47.0); Hemoglobin 13.9 g/dL (12.0-16.0); Mean Corp Hgb Conc. 31.7 g/dL (33.0-37.0); Mean Corpuscular Volume 92.2 fL (81.0-99.0); Nucleated Red Blood Cells % 0 %; Platelet Count 222 10^3/uL (130-400); Red Cell Dist. Width 13.2 % (11.5-14.5)
--- NOTE | 2025-05-08 07:31 | W.PN.HOSP.TC ---
Today's Communication/Plan
-
IV steroids
Azithromycin
Wean oxygen as tolerated
Assessment / Plan
Assessment / Plan
Physical Exam
General: Not in acute distress
HEENT: Normocephalic
Respiratory: Decreased breath sounds bilaterally
Cardiac: S1/S2 and Regular Rhythm
GI: Soft, Non Tender, Non Distended and Normal Bowel Sounds
Musculoskeletal: No Edema
Psych: Calm
Assessment/Plan
CXR
No findings to suggest pneumonia.
Last hospitalist admission: 09/21/2024 - 09/28/2024
PRIMARY DIAGNOSES:
1. Probable .
2. Acute hypoxic respiratory insufficiency secondary to diastolic
failure.
#Presentation with shortness of breath with URI symptoms preceding about 2 weeks prior and then SOB developed with wheezing and productive cough
#COPD exacerbation
#Acute on chronic hypoxic respiratory failure (on 1 liter home oxygen) secondary to COPD Exacerbation
#Suspected recent URI with 'double worsening' effect
#History of COVID-19 (June 2022)
#Hypogammaglobinemia
- On 4 L O2 today --> based on vital signs data, down to 3 L this afternoon (on 1 L O2 at home)
- Was seen by her primary doctor 05/07/25, was noted to be increasingly hypoxic and therefore referred to the emergency room
- No pneumonia on CXR
- Since patient got worse after viral URI, start antibiotics with Azithromycin for antiinflammatory effects and for any possible bacterial superinfection, but again there is no pneumonia on CXR
- Check sputum culture -- initial culture contaminated, repeat sputum culture ordered
- Cont O2 support - wean O2 as tolerated - maintain at least 89% O2 saturation
- Continue IV Decadron 4 mg IV Q8H
- c/w Symbicort and Sprivia
- Appreciate pulmonary consult
#Essential Hypertension
- Continue APPARATUS CLEANER olmesartan (or equivalent), doxazosin
#History of pancreatic insufficiency
- APPARATUS CLEANER Creon
#GERD
- on omeprazole
#Nicotine use disorder/ Current smoker
- 1 PPD smoker
- Nicotine patch
#Anxiety/depression
- fluoxetine
DVT PPx: LMWH
Full code
Anticipated Discharge: > 48 hours
Subjective/Interval History
-
Date of Service: May 08, 2025
Patient was seen and examined. She reported feeling a bit better, still with cough.
Objective Data
-
Labs:
Laboratory Results
05/08/25
05:52
WBC 6.4
Hgb 13.9
Hct 43.8
Plt Count 222
Sodium Pending
Potassium Pending
Chloride Pending
Carbon Dioxide Pending
BUN Pending
Creatinine Pending
Glucose Pending
Calcium Pending
Total Bilirubin Pending
AST Pending
ALT Pending
Alkaline Phosphatase Pending
Vital Signs:
Vital Signs
Temp Pulse Resp BP Pulse Ox
97.7 F 75 18 168/81 93
05/08/25 03:19 05/08/25 07:23 05/08/25 07:23 05/08/25 03:19 05/08/25 07:23
I&O
05/07/25 05/08/25 05/09/25
06:59 06:59 06:59
Intake Total 1080 / 1080
Balance 1080 / 1080
[2025-05-08 07:41] LABS: ALT (SGPT) < 10 U/L (0-35); AST (SGOT) 13 U/L (14-36); Albumin 4.1 g/dl (3.5-5.0); Alkaline Phosphatase 63 U/L (38-126); Blood Urea Nitrogen 14 mg/dl (7-17); Calcium 9.0 mg/dl (8.4-10.2); Carbon Dioxide 35 mmol/L (22-30); Chloride 98 mmol/L (98-107); Estimated Creatinine Clearance 72 ml/min; Glucose 147 mg/dl (70-99); Potassium 4.6 mmol/L (3.5-5.1); Sodium 139 mmol/L (135-145); Total Protein 6.3 g/dl (6.3-8.2); eGFR > 60.00
[2025-05-08] MEDS: COZAAR 100 MG PO (08:06)
[2025-05-08] MEDS: ZITHROMAX 250 MG PO (08:06)
[2025-05-08] MEDS: ZENPEP DELAYED RELEASE CAPSULE 1 CAPSULE PO ×3 (08:06→17:03)
[2025-05-08] MEDS: VISBIOME 1 CAP PO (08:06)
[2025-05-08] MEDS: VITAMIN D3 (cholecalciferol) 50 MCG PO (08:06)
[2025-05-08] MEDS: PROZAC 20 MG PO (08:06)
[2025-05-08] MEDS: PROTONIX 40 MG PO (08:06)
[2025-05-08] MEDS: CARDURA 2 MG PO (08:06)
[2025-05-08] MEDS: NICODERM TRANSDERMAL 21 MG TRANSDERM (08:07)
--- NOTE | 2025-05-08 15:43 | W.PN.PUL3 ---
Today's Communication / Plan
-
Nicotine patch
Systemic steroids, weaning as she clinically improves
Symbicort 80 mcg + Spiriva
Nebulized albuterol
Z-Last
Pulmonary service will continue to follow along
Assessment
-
Assessment: 65-year-old female with a past medical history of group B COPD with emphysema, chronic hypoxic respiratory failure on home O2, active tobacco use, allergic rhinitis, anxiety, history of colon polyps, history of colitis, history of
COVID-19 (June 2022), hypogammaglobulinemia, and IBS who presents with shortness of breath. She reports having a sore throat about 2 weeks ago. She initially felt better but then she started to get extremely fatigued and tired. Her sleep then
started to become affected and then she started to become short of breath. In the ER she was afebrile with pulse rate 90, respiratory rate 18�23 breaths/min, BP 142/68 and she was initially saturating 86% on 4 L/min however saturations improved to
91-94%. Labs show normal WBC at 5.9, Hb 13.8, absolute eosinophil count 100, serum bicarbonate level 38, glucose 186, proBNP 381, and COVID-19 antigen negative. Flu swab also negative. CXR shows no focal parenchymal opacification with mild
hyperinflation due to COPD. She was given Solu-Medrol 125 mg, DuoNebs and Zithromax and admitted to the hospitalist service for a COPD exacerbation. Pulmonary service now consulted for additional recommendations.
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
pain, colonic polyps, history of colitis, personal history of COVID-19 (06/2022), low gammaglobulin level, low serum IgA, IBS
Impression:
#COPD exacerbation (likely seasonal related in the setting of her continued tobacco use)
#Acute on chronic hypoxic respiratory failure due to above
#Suspected recent URI with 'double worsening' effect
#History of COVID-19 (June 2022)
#Hypogammaglobinemia
#Anxiety/depression
#Active tobacco smoker
#Allergic rhinitis
Plan:
- Patient presented with shortness of breath with URI symptoms preceding about 2 weeks prior and then SOB developed with wheezing and productive cough over the next 2 weeks.
- CXR shows no evidence for pneumonia
- Given her double worsening experienced with recent URI, she should continue with ABx with zithromax as she likely has a bacterial superinfection
- If pt can produce a decent sputum sample, then would send off a culture
- Continue treatment of COPD exacerbation with Symbicort 80 mcg, Spiriva 2.5 mcg, nebulized albuterol and Decadron 4 mg IV q8hr
- prn nebulized bronchodilators - not currently bronchospastic
- She does not carry a Hx of eosinophilia, hence do not feel that Dupixent would be a good option for her for COPD
- Seems that her last COPD flare was in October 2024; would discuss starting zithromax TIW vs daily or Ohtuvayre as an outpatient with Dr. Santiago
- Continue nicotine patch; she was strongly recommended to quit smoking, osorio given the severity of her COPD
- Maintain SpO2 88-95%, weaning down on supplemental O2 as tolerated; she will need a walking pulse oximetry prior to discharge
- Incentive spirometer encouraged q1hr while awake
- Replete electrolytes with K>4, Mg>2
- Trend H/H and transfuse if needed to keep Hb>7g/dL; keep plt>20k, unless there is concern for bleeding then keep plt>50k
- Maintain euglycemia with goal BG >100 and <180 (HbA1C: 6 on 05/04/2025); avoid hyperglycemia while on systemic steroids
- DVT ppx
Pulmonary service will continue to follow along. Outpatient follow up with our office via Dr. Santiago will be arranged (last visit on 02/24/2025)
Total time spent today was 38 minute for this encounter. Time includes reviewing laboratory tests/imaging results, reviewing pertinent medical records, obtaining and reviewing medical history, performing an appropriate physical exam, ordering
medications, tests and procedures. Time also includes documentation of this encounter, coordinating patient care and communicating with other healthcare professionals. Total time does not include separately billed tests or procedures performed on
this date of service.
Subjective Data
-
Date of Service:
Date of Service: May 08, 2025
Chief Complaint: Pulmonary Follow Up
Subjective:
Patient seen this afternoon (late note entry). Feels similar to yesterday. Afebrile overnight. Currently saturating 96% on 3 L/min.
Review of Systems
General: Other (Negative unless mentioned above)
Objective Data
Data Reviewed
Vital Signs / I&O / Oxygen:
Vital Signs
Temp Pulse Resp BP Pulse Ox
97.7 F 75 18 168/81 93
05/08/25 03:19 05/08/25 07:23 05/08/25 07:23 05/08/25 03:19 05/08/25 07:23
Intake and Output
05/07/25 05/08/25 05/09/25
06:59 06:59 06:59
Intake Total 1080 / 1080
Balance 1080 / 1080
SaO2 93
Nasal Cannula flow liters per 4
minute
Physical Exam
General: Respiratory Distress (negative), Comfortable, Chills (negative) and Sweats (negative)
HEENT: Normocephalic and Anicteric
Cardiovascular: S1-S2, Peripheral Edema (negative) and Other (Distant heart sounds)
Respiratory: Wheeze (Mild expiratory wheezing in right base), Rhonchi (negative), Non-Labored Respirations and Other (Coarse breath sounds heard bilaterally)
GI: Soft, Non Distended, Non Tender and Normal Bowel Sounds
Neurology: AO x 3 and Tremors (negative)
Skin: Warm, Dry, Cyanosis (negative) and Jaundice (negative)
Labs/Micro/Reports
Lab Data
05/08/25 05:52
05/08/25 05:52
Microbiology
05/07/25 12:43 Nasal Swab Influenza Types A & B (RUBI) - Final
Negative for Influenza A & B, NAAT
Negative results must be combined with clinical observations
and patient history.
Nucleic Acid Amplification test (NAAT)performed on the
[employer] platform.
[2025-05-08] MEDS: LOVENOX 40 MG SC (17:03)
[2025-05-09] VITALS (7 sets, daily range): BP systolic 133–182; BP diastolic 73–87; PULSE 93; O2SAT 94; BMI 20.7
[2025-05-09] MEDS: DECADRON 4 MG IV ×2 (03:00→11:19)
[2025-05-09] MEDS: TYLENOL 650 MG PO ×2 (04:26→19:53)
[2025-05-09] MEDS: VENTOLIN NEBULES 2.5 MG INH (07:26)
[2025-05-09] MEDS: SPIRIVA RESPIMAT 2.5 MCG 2 PUFF INH (07:26)
[2025-05-09] MEDS: SYMBICORT 80/4.5 MCG INHALER 2 PUFF INH (07:27)
[2025-05-09 07:53] LABS: Hematocrit 44.3 % (37.0-47.0); Hemoglobin 13.9 g/dL (12.0-16.0); Mean Corp Hgb Conc. 31.4 g/dL (33.0-37.0); Mean Corpuscular Volume 95.3 fL (81.0-99.0); Nucleated Red Blood Cells % 0 %; Platelet Count 207 10^3/uL (130-400); Red Cell Dist. Width 13.4 % (11.5-14.5)
[2025-05-09] MEDS: PROTONIX 40 MG PO (08:15)
[2025-05-09 08:22] LABS: ALT (SGPT) < 10 U/L (0-35); AST (SGOT) 12 U/L (14-36); Albumin 4.0 g/dl (3.5-5.0); Alkaline Phosphatase 57 U/L (38-126); Blood Urea Nitrogen 18 mg/dl (7-17); Calcium 9.3 mg/dl (8.4-10.2); Carbon Dioxide 39 mmol/L (22-30); Chloride 98 mmol/L (98-107); Estimated Creatinine Clearance 72 ml/min; Glucose 151 mg/dl (70-99); Potassium 4.8 mmol/L (3.5-5.1); Sodium 137 mmol/L (135-145); Total Protein 6.2 g/dl (6.3-8.2); eGFR > 60.00
[2025-05-09] MEDS: VISBIOME 1 CAP PO (09:35)
[2025-05-09] MEDS: VITAMIN D3 (cholecalciferol) 50 MCG PO (09:35)
[2025-05-09] MEDS: NICODERM TRANSDERMAL 21 MG TRANSDERM (09:35)
[2025-05-09] MEDS: PROZAC 20 MG PO (09:35)
[2025-05-09] MEDS: ZITHROMAX 250 MG PO (09:35)
[2025-05-09] MEDS: COZAAR 100 MG PO (09:35)
[2025-05-09] MEDS: CARDURA 2 MG PO (09:35)
[2025-05-09] MEDS: ZENPEP DELAYED RELEASE CAPSULE 1 CAPSULE PO ×3 (09:35→17:52)
--- NOTE | 2025-05-09 09:49 | W.PN.HOSP.TC ---
Today's Communication/Plan
-
f/w pulmonary recommendations
IV steroid
Will need home O2
Assessment / Plan
Assessment / Plan
Physical Exam
General: Not in acute distress
HEENT: Normocephalic
Respiratory: limited breath sounds bilaterally
Cardiac: S1/S2
GI: Soft, Non Tender, Non Distended and Normal Bowel Sounds
Musculoskeletal: No Edema
Neurology: AAOX3, she followed commands, not focal.
Psych: Calm
Assessment/Plan
CXR
No findings to suggest pneumonia.
Last hospitalist admission: 09/21/2024 - 09/28/2024
PRIMARY DIAGNOSES:
1. Probable .
2. Acute hypoxic respiratory insufficiency secondary to diastolic
failure.
#Presentation with shortness of breath with URI symptoms preceding about 2 weeks prior and then SOB developed with wheezing and productive cough
#COPD exacerbation
#Acute on chronic hypoxic respiratory failure (on 1 liter home oxygen) secondary to COPD Exacerbation
#Suspected recent URI with 'double worsening' effect
#History of COVID-19 (June 2022)
#Hypogammaglobinemia
- On 2-4 L O2
- Was seen by her primary doctor 05/07/25, was noted to be increasingly hypoxic and therefore referred to the emergency room
- No pneumonia on CXR
- Since patient got worse after viral URI, start antibiotics with Azithromycin for antiinflammatory effects and for any possible bacterial superinfection, but again there is no pneumonia on CXR
- negative sputum culture -- initial culture contaminated, repeat sputum culture ordered
- Cont O2 support - wean O2 as tolerated - maintain at least 89% O2 saturation
- Continue IV Decadron 4 mg IV Q8H
- c/w Symbicort and Spiriva
- Appreciate pulmonary consult
#Essential Hypertension
- Continue NETWORK OPERATIONS MANAGER olmesartan (or equivalent), doxazosin
#History of pancreatic insufficiency
- NETWORK OPERATIONS MANAGER Creon
#GERD
- on omeprazole
#Nicotine use disorder/ Current smoker
- 1 PPD smoker
- Nicotine patch
#Anxiety/depression
- fluoxetine
DVT PPx: LMWH
Full code
Total time spent to see the patient, examined the patient, review data and lab result, discuss treatment plan with patient, nursing staff around 55 minutes
Anticipated Discharge: > 48 hours
Subjective/Interval History
-
Date of Service: May 09, 2025
Still cough with sob
Objective Data
-
Labs:
Laboratory Results
05/09/25
07:17
WBC 9.4
Hgb 13.9
Hct 44.3
Plt Count 207
Sodium 137
Potassium 4.8
Chloride 98
Carbon Dioxide 39 H
BUN 18 H
Creatinine 0.5 L
Glucose 151 H
Calcium 9.3
Total Bilirubin 0.4
AST 12 L
ALT < 10
Alkaline Phosphatase 57
Vital Signs:
Vital Signs
Temp Pulse Resp BP Pulse Ox
98.2 F 90 16 168/75 94
05/09/25 07:25 05/09/25 09:35 05/09/25 07:32 05/09/25 09:35 05/09/25 07:32
I&O
05/08/25 05/09/25 05/10/25
06:59 06:59 06:59
Intake Total 1080 / 1080 480 / 480
Balance 1080 / 1080 480 / 480
[2025-05-09] MEDS: DUONEB 3 ML INH ×3 (11:46→19:13)
--- NOTE | 2025-05-09 13:05 | W.PN.PUL3 ---
Today's Communication / Plan
-
- Continue DuoNeb 4 times daily, budesonide twice daily
- Switch to IV Solu-Medrol 40 mg daily
Assessment
-
Assessment: 65-year-old female with a past medical history of group B COPD with emphysema, chronic hypoxic respiratory failure on home O2, active tobacco use, allergic rhinitis, anxiety, history of colon polyps, history of colitis, history of
COVID-19 (June 2022), hypogammaglobulinemia, and IBS who presents with shortness of breath. She reports having a sore throat about 2 weeks ago. She initially felt better but then she started to get extremely fatigued and tired. Her sleep then
started to become affected and then she started to become short of breath. In the ER she was afebrile with pulse rate 90, respiratory rate 18�23 breaths/min, BP 142/68 and she was initially saturating 86% on 4 L/min however saturations improved to
91-94%. Labs show normal WBC at 5.9, Hb 13.8, absolute eosinophil count 100, serum bicarbonate level 38, glucose 186, proBNP 381, and COVID-19 antigen negative. Flu swab also negative. CXR shows no focal parenchymal opacification with mild
hyperinflation due to COPD. She was given Solu-Medrol 125 mg, DuoNebs and Zithromax and admitted to the hospitalist service for a COPD exacerbation. Pulmonary service now consulted for additional recommendations.
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
pain, colonic polyps, history of colitis, personal history of COVID-19 (06/2022), low gammaglobulin level, low serum IgA, IBS
Impression:
#COPD exacerbation (likely seasonal related in the setting of her continued tobacco use)
#Acute on chronic hypoxic respiratory failure due to above
#Suspected recent URI
#History of COVID-19 (June 2022)
#Hypogammaglobinemia
#Anxiety/depression
#Active tobacco smoker
#Allergic rhinitis
Plan:
- Patient presented with shortness of breath with URI symptoms preceding about 2 weeks prior and then SOB developed with wheezing and productive cough over the next 2 weeks.
- Continue DuoNeb 4 times daily, budesonide twice daily, change Solu-Medrol to 40 mg IV daily, discontinue dexamethasone, continue Zithromax as ordered.
- Seems that her last COPD flare was in October 2024; would discuss starting zithromax TIW vs daily or Ohtuvayre as an outpatient with Dr. Santiago
- Continue nicotine patch; she was strongly recommended to quit smoking, osorio given the severity of her COPD
- Maintain SpO2 88-95%, weaning down on supplemental O2 as tolerated; she will need a walking pulse oximetry prior to discharge
- Incentive spirometer encouraged q1hr while awake
- Replete electrolytes with K>4, Mg>2
- Trend H/H and transfuse if needed to keep Hb>7g/dL; keep plt>20k, unless there is concern for bleeding then keep plt>50k
- Maintain euglycemia with goal BG >100 and <180 (HbA1C: 6 on 05/04/2025); avoid hyperglycemia while on systemic steroids
- DVT ppx
Pulmonary service will continue to follow along. Outpatient follow up with our office via Dr. Santiago will be arranged (last visit on 02/24/2025)
Total time spent today was 36 minute for this encounter. Time includes reviewing laboratory tests/imaging results, reviewing pertinent medical records, obtaining and reviewing medical history, performing an appropriate physical exam, ordering
medications, tests and procedures. Time also includes documentation of this encounter, coordinating patient care and communicating with other healthcare professionals. Total time does not include separately billed tests or procedures performed on
this date of service.
Subjective Data
-
Date of Service:
Date of Service: May 09, 2025
Chief Complaint: Pulmonary Follow Up
Subjective:
Patient comfortably sitting in bed in no acute distress.
Review of Systems
Genitourinary: Other (All 14 systems reviewed and negative except as stated above in the history of present illness.)
Objective Data
Data Reviewed
Vital Signs / I&O / Oxygen:
Vital Signs
Temp Pulse Resp BP Pulse Ox
98.2 F 88 18 166/74 94
05/09/25 11:15 05/09/25 11:50 05/09/25 11:50 05/09/25 11:15 05/09/25 11:50
Intake and Output
05/08/25 05/09/25 05/10/25
06:59 06:59 06:59
Intake Total 1080 / 1080 480 / 480
Balance 1080 / 1080 480 / 480
SaO2 94
Nasal Cannula flow liters per 2
minute
Physical Exam
General: Respiratory Distress (negative), Comfortable, Chills (negative) and Sweats (negative)
HEENT: Normocephalic and Anicteric
Cardiovascular: S1-S2, Peripheral Edema (negative) and Other (Distant heart sounds)
Respiratory: Wheeze (Mild expiratory wheezing bilaterally), Non-Labored Respirations and Other (Coarse breath sounds heard bilaterally)
GI: Soft, Non Distended, Non Tender and Normal Bowel Sounds
Neurology: AO x 3 and Tremors (negative)
Skin: Warm, Dry, Cyanosis (negative) and Jaundice (negative)
Labs/Micro/Reports
Lab Data
05/09/25 07:17
05/09/25 07:17
Microbiology
05/08/25 09:47 Sputum Respiratory Culture - Final
05/08/25 09:47 Sputum Gram Stain - Final
05/07/25 12:43 Nasal Swab Influenza Types A & B (RUBI) - Final
Negative for Influenza A & B, NAAT
Negative results must be combined with clinical observations
and patient history.
Nucleic Acid Amplification test (NAAT)performed on the
[employer] platform.
[2025-05-09] MEDS: LOVENOX 40 MG SC (17:52)
[2025-05-09] MEDS: SOLU-MEDROL PF 40 MG IV (17:52)
--- NOTE | 2025-05-09 18:21 | CM ---
Addendum entered by Audrey Denny 05/09/25 18:49:
Pt rec home health. Unlikely will meet criteria since she is not home bound.
Original Note:
IA completed. LIves with spouse in single story home with 1 step at the entrance to the home. Independent with ADLs and IADLs. Hx of HH possibly with [facility]. No hx of SNF.
Has home O2 at 1 ICT SUPPORT ENGINEER n/c through [facility]. Home O2 eval ordered but not done yet. [place] tested [facility]camp[facility] who will do eval tomorrow
Also has concentrator and portable tank and nebulizer. States she never received the nebulizer medications, therefore has never done nebulizers at home. Would like to learn how to use nebulizers. CM contacted [employer] [employer] and requested a re-education on
use of equipment for patient. Contact information provide for spouse and dtr.
Plan: Home with O2 support.
[2025-05-09] MEDS: PULMICORT 0.5 MG INH (19:13)
[2025-05-09] MEDS: VALIUM 1.25 MG PO (23:45)
[2025-05-10] VITALS (8 sets, daily range): BP systolic 147–195; BP diastolic 70–92; O2SAT 92
[2025-05-10] MEDS: PULMICORT 0.5 MG INH ×2 (07:40→19:22)
[2025-05-10] MEDS: DUONEB 3 ML INH ×4 (07:40→19:22)
[2025-05-10 07:58] LABS: Hematocrit 46.4 % (37.0-47.0); Hemoglobin 14.1 g/dL (12.0-16.0); Mean Corp Hgb Conc. 30.4 g/dL (33.0-37.0); Mean Corpuscular Volume 94.5 fL (81.0-99.0); Nucleated Red Blood Cells % 0 %; Platelet Count 225 10^3/uL (130-400); Red Cell Dist. Width 13.5 % (11.5-14.5)
[2025-05-10 08:28] LABS: ALT (SGPT) < 10 U/L (0-35); AST (SGOT) 11 U/L (14-36); Albumin 3.9 g/dl (3.5-5.0); Alkaline Phosphatase 55 U/L (38-126); Blood Urea Nitrogen 19 mg/dl (7-17); Calcium 9.2 mg/dl (8.4-10.2); Chloride 95 mmol/L (98-107); Estimated Creatinine Clearance 72 ml/min; Glucose 102 mg/dl (70-99); Potassium 4.1 mmol/L (3.5-5.1); Sodium 141 mmol/L (135-145); Total Protein 6.2 g/dl (6.3-8.2); eGFR > 60.00
[2025-05-10 08:42] LABS: Carbon Dioxide 42 mmol/L (22-30)
[2025-05-10] MEDS: PROTONIX 40 MG PO (09:06)
[2025-05-10] MEDS: ZENPEP DELAYED RELEASE CAPSULE 1 CAPSULE PO ×3 (09:07→17:18)
[2025-05-10] MEDS: COZAAR 100 MG PO (09:07)
[2025-05-10] MEDS: CARDURA 4 MG PO (09:07)
[2025-05-10] MEDS: SOLU-MEDROL PF 20 MG IV (09:08)
[2025-05-10] MEDS: PROZAC 20 MG PO (09:08)
[2025-05-10] MEDS: VITAMIN D3 (cholecalciferol) 50 MCG PO (09:08)
[2025-05-10] MEDS: VISBIOME 1 CAP PO (09:08)
[2025-05-10] MEDS: NICODERM TRANSDERMAL 21 MG TRANSDERM (09:09)
[2025-05-10] MEDS: ZITHROMAX 250 MG PO (09:09)
[2025-05-10] MEDS: NORVASC 2.5 MG PO (09:10)
[2025-05-10] MEDS: SOLU-MEDROL PF IV ×2 (09:12→09:13)
[2025-05-10] MEDS: CARDURA PO (09:12)
--- NOTE | 2025-05-10 09:35 | W.PN.HOSP.TC ---
Today's Communication/Plan
-
Change to 20 mg Solu-Medrol
PPI
Change to Diazepam to 2 mg PRN
c/w Nebs
Add low dose amlodipine, increase Doxazosin to 4 mg QD
Assessment / Plan
Assessment / Plan
Physical Exam
General: Not in acute distress
HEENT: Normocephalic
Respiratory: limited breath sounds bilaterally
Cardiac: S1/S2
GI: Soft, Non Tender, Non Distended and Normal Bowel Sounds
Musculoskeletal: No Edema
Neurology: AAOX3, she followed commands, not focal.
Psych: Calm
Assessment/Plan
CXR
No findings to suggest pneumonia.
Last hospitalist admission: 09/21/2024 - 09/28/2024
PRIMARY DIAGNOSES:
1. Probable .
2. Acute hypoxic respiratory insufficiency secondary to diastolic
failure.
#Presentation with shortness of breath with URI symptoms preceding about 2 weeks prior and then SOB developed with wheezing and productive cough
#COPD exacerbation
#Acute on chronic hypoxic respiratory failure (on 1 liter home oxygen) secondary to COPD Exacerbation
#Suspected recent URI with 'double worsening' effect
#History of COVID-19 (June 2022)
#Hypogammaglobinemia
- On 2-4 L O2
- Was seen by her primary doctor 05/07/25, was noted to be increasingly hypoxic and therefore referred to the emergency room
- No pneumonia on CXR
- Since patient got worse after viral URI, start antibiotics with Azithromycin for antiinflammatory effects and for any possible bacterial superinfection, but again there is no pneumonia on CXR
- negative sputum culture -- initial culture contaminated, repeat sputum culture ordered
- Cont O2 support - wean O2 as tolerated - maintain at least 89% O2 saturation
- Change IV Decadron 4 mg IV Q8H to IV Methylprednisolone. She reported 40 mg dose made her anxious and she is feeling better, will decrease to 20 mg daily.
-Change nebulizer treatment from Symbicort and Spiriva to DuoNeb and Pulmicort [id number]
- Appreciate pulmonary consult
#Essential Hypertension uncontrolled. Discussed with patient. Will increase dose doxazosin to 4 mg and start low-dose amlodipine.
- Continue PIT CLERK olmesartan (or equivalent- Losartan).
#History of pancreatic insufficiency
- PIT CLERK Creon
#GERD
- on omeprazole
#Nicotine use disorder/ Current smoker
- 1 PPD smoker
- Nicotine patch
#Anxiety/depression
- fluoxetine
Change Diazepam to 2 mg PRN
DVT PPx: LMWH
Full code
Total time spent to see the patient, examined the patient, review data and lab result, discuss treatment plan with patient, nursing staff around 55 minutes
Anticipated Discharge: > 48 hours
Subjective/Interval History
-
Date of Service: May 10, 2025
No chest pain
No sob
Objective Data
-
Labs:
Laboratory Results
05/10/25
07:24
WBC 9.4
Hgb 14.1
Hct 46.4
Plt Count 225
Sodium 141
Potassium 4.1
Chloride 95 L
Carbon Dioxide 42 H
BUN 19 H
Creatinine 0.6
Glucose 102 H
Calcium 9.2
Total Bilirubin 0.3
AST 11 L
ALT < 10
Alkaline Phosphatase 55
Vital Signs:
Vital Signs
Temp Pulse Resp BP Pulse Ox
97.5 F 82 18 195/92 96
05/10/25 07:35 05/10/25 09:07 05/10/25 07:43 05/10/25 09:07 05/10/25 07:43
I&O
05/09/25 05/10/25 05/11/25
06:59 06:59 06:59
Intake Total 480 / 480 240 / 240
Balance 480 / 480 240 / 240
[2025-05-10] MEDS: TYLENOL 650 MG PO ×2 (13:17→23:08)
[2025-05-10] MEDS: VALIUM 2 MG PO ×2 (14:08→23:08)
--- NOTE | 2025-05-10 14:59 | CM ---
Weaning O2 if possible, currently on 2 LPM n/c. Continues with medication management to control HTN
Plan: DC to home with O2 support if needed
--- NOTE | 2025-05-10 15:54 | W.PN.PUL3 ---
Today's Communication / Plan
-
- Transition to prednisone 30 mg daily
- Continue DuoNeb and budesonide as scheduled
- Continue azithromycin
- Likely will need home oxygen, anticipate discharge next 24 hours
Assessment
-
Assessment: 65-year-old female with a past medical history of group B COPD with emphysema, chronic hypoxic respiratory failure on home O2, active tobacco use, allergic rhinitis, anxiety, history of colon polyps, history of colitis, history of
COVID-19 (June 2022), hypogammaglobulinemia, and IBS who presents with shortness of breath. She reports having a sore throat about 2 weeks ago. She initially felt better but then she started to get extremely fatigued and tired. Her sleep then
started to become affected and then she started to become short of breath. In the ER she was afebrile with pulse rate 90, respiratory rate 18�23 breaths/min, BP 142/68 and she was initially saturating 86% on 4 L/min however saturations improved to
91-94%. Labs show normal WBC at 5.9, Hb 13.8, absolute eosinophil count 100, serum bicarbonate level 38, glucose 186, proBNP 381, and COVID-19 antigen negative. Flu swab also negative. CXR shows no focal parenchymal opacification with mild
hyperinflation due to COPD. She was given Solu-Medrol 125 mg, DuoNebs and Zithromax and admitted to the hospitalist service for a COPD exacerbation. Pulmonary service now consulted for additional recommendations.
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
pain, colonic polyps, history of colitis, personal history of COVID-19 (06/2022), low gammaglobulin level, low serum IgA, IBS
Impression:
#COPD exacerbation (likely seasonal related in the setting of her continued tobacco use)
#Acute on chronic hypoxic respiratory failure due to above
#Suspected recent URI
#History of COVID-19 (June 2022)
#Hypogammaglobinemia
#Anxiety/depression
#Active tobacco smoker
#Allergic rhinitis
#Pulmonary nodule. Follows up with Dr. Santiago, [facility] Pulmonary clinic
Plan:
- Patient presented with shortness of breath with URI symptoms preceding about 2 weeks prior and then SOB developed with wheezing and productive cough over the next 2 weeks.
- Continue DuoNeb 4 times daily, budesonide twice daily, change Solu-Medrol to Prednisone 30 mg daily, continue Zithromax as ordered.
- Seems that her last COPD flare was in October 2024
- Continue nicotine patch; she was strongly recommended to quit smoking, osorio given the severity of her COPD
- Maintain SpO2 88-95%, weaning down on supplemental O2 as tolerated; she will need a walking pulse oximetry prior to discharge
- Incentive spirometer encouraged q1hr while awake
- Replete electrolytes with K>4, Mg>2
- Trend H/H and transfuse if needed to keep Hb>7g/dL; keep plt>20k, unless there is concern for bleeding then keep plt>50k
- Maintain euglycemia with goal BG >100 and <180 (HbA1C: 6 on 05/04/2025); avoid hyperglycemia while on systemic steroids
- DVT ppx
Pulmonary service will continue to follow along. Outpatient follow up with our office via Dr. Santiago will be arranged (last visit on 02/24/2025)
Total time spent today was 35 minute for this encounter. Time includes reviewing laboratory tests/imaging results, reviewing pertinent medical records, obtaining and reviewing medical history, performing an appropriate physical exam, ordering
medications, tests and procedures. Time also includes documentation of this encounter, coordinating patient care and communicating with other healthcare professionals. Total time does not include separately billed tests or procedures performed on
this date of service.
Subjective Data
-
Date of Service:
Date of Service: May 10, 2025
Chief Complaint: Pulmonary Follow Up
Subjective:
Comfortably sitting in bed in no acute distress, gradually improving. Gets hypoxic on ambulating particularly on room air.
Review of Systems
Genitourinary: Other (All 14 systems reviewed and negative except as stated above in the history of present illness.)
Objective Data
Data Reviewed
Vital Signs / I&O / Oxygen:
Vital Signs
Temp Pulse Resp BP Pulse Ox
98.4 F 79 18 169/76 95
05/10/25 15:30 05/10/25 15:30 05/10/25 15:30 05/10/25 15:30 05/10/25 15:30
Intake and Output
05/09/25 05/10/25 05/11/25
06:59 06:59 06:59
Intake Total 480 / 480 240 / 240
Balance 480 / 480 240 / 240
SaO2 95
Nasal Cannula flow liters per 2
minute
Physical Exam
General: Respiratory Distress (negative), Comfortable, Chills (negative) and Sweats (negative)
HEENT: Normocephalic and Anicteric
Cardiovascular: S1-S2, Peripheral Edema (negative) and Other (Distant heart sounds)
Respiratory: Wheeze (Resolved wheezing this morning.), Non-Labored Respirations and Other (Coarse breath sounds heard bilaterally)
GI: Soft, Non Distended, Non Tender and Normal Bowel Sounds
Neurology: AO x 3 and Tremors (negative)
Skin: Warm, Dry, Cyanosis (negative) and Jaundice (negative)
Labs/Micro/Reports
Lab Data
05/10/25 07:24
05/10/25 07:24
Microbiology
05/08/25 09:47 Sputum Respiratory Culture - Final
05/08/25 09:47 Sputum Gram Stain - Final
05/07/25 12:43 Nasal Swab Influenza Types A & B (RUBI) - Final
Negative for Influenza A & B, NAAT
Negative results must be combined with clinical observations
and patient history.
Nucleic Acid Amplification test (NAAT)performed on the
[employer] platform.
[2025-05-10] MEDS: LOVENOX 40 MG SC (17:18)
[2025-05-11 03:28] VITALS: BP 157/74
[2025-05-11 07:30] VITALS: BP 166/86
[2025-05-11] MEDS: DUONEB 3 ML INH ×4 (07:35→19:11)
[2025-05-11] MEDS: PULMICORT 0.5 MG INH ×2 (07:35→19:11)
--- NOTE | 2025-05-11 08:11 | W.PN.PUL3 ---
Today's Communication / Plan
-
- Ok to discharge today
- Resume Trelegy at discharge along with Albuterol MDI/Nebz as needed
- Start Azithromycin 250 mg Fri/Fri/Fri at discharge
- Prednisone 30 mg daily for 3 days then 20 mg daily for 3 days then 10 mg daily for 3 days
- Will need continuous O2 at discharge
- Out patient follow up with Dr. Santiago at [facility] Pulmonary clinic
Assessment
-
Assessment: 65-year-old female with a past medical history of group B COPD with emphysema, chronic hypoxic respiratory failure on home O2, active tobacco use, allergic rhinitis, anxiety, history of colon polyps, history of colitis, history of
COVID-19 (June 2022), hypogammaglobulinemia, and IBS who presents with shortness of breath. She reports having a sore throat about 2 weeks ago. She initially felt better but then she started to get extremely fatigued and tired. Her sleep then
started to become affected and then she started to become short of breath. In the ER she was afebrile with pulse rate 90, respiratory rate 18�23 breaths/min, BP 142/68 and she was initially saturating 86% on 4 L/min however saturations improved to
91-94%. Labs show normal WBC at 5.9, Hb 13.8, absolute eosinophil count 100, serum bicarbonate level 38, glucose 186, proBNP 381, and COVID-19 antigen negative. Flu swab also negative. CXR shows no focal parenchymal opacification with mild
hyperinflation due to COPD. She was given Solu-Medrol 125 mg, DuoNebs and Zithromax and admitted to the hospitalist service for a COPD exacerbation. Pulmonary service now consulted for additional recommendations.
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
pain, colonic polyps, history of colitis, personal history of COVID-19 (06/2022), low gammaglobulin level, low serum IgA, IBS
Impression:
#COPD exacerbation (likely seasonal related in the setting of her continued tobacco use)
#Acute on chronic hypoxic respiratory failure due to above
#Suspected recent URI
#History of COVID-19 (June 2022)
#Hypogammaglobinemia
#Anxiety/depression
#Active tobacco smoker
#Allergic rhinitis
#Pulmonary nodule. Follows up with Dr. Santiago, [facility] Pulmonary clinic
Plan:
- Patient presented with shortness of breath with URI symptoms preceding about 2 weeks prior and then SOB developed with wheezing and productive cough over the next 2 weeks.
- Continue DuoNeb 4 times daily, budesonide twice daily, changed Solu-Medrol to Prednisone 30 mg daily, add Zithromax long-term at discharge.
- Seems that her last COPD flare was in October 2024
- Continue nicotine patch; she was strongly recommended to quit smoking, osorio given the severity of her COPD
- Maintain SpO2 88-95%, weaning down on supplemental O2 as tolerated; she will need a walking pulse oximetry prior to discharge
- Incentive spirometer encouraged q1hr while awake
- Replete electrolytes with K>4, Mg>2
- Trend H/H and transfuse if needed to keep Hb>7g/dL; keep plt>20k, unless there is concern for bleeding then keep plt>50k
- Maintain euglycemia with goal BG >100 and <180 (HbA1C: 6 on 05/04/2025); avoid hyperglycemia while on systemic steroids
- DVT ppx
Patient appears stable from pulmonary standpoint. Unfortunately with her underlying severe COPD, absence of wheezing, I do not believe she will benefit from additional higher dose steroids. Anticipate home oxygen need considering underlying
emphysema.
Total time spent today was 38 minute for this encounter. Time includes reviewing laboratory tests/imaging results, reviewing pertinent medical records, obtaining and reviewing medical history, performing an appropriate physical exam, ordering
medications, tests and procedures. Time also includes documentation of this encounter, coordinating patient care and communicating with other healthcare professionals. Total time does not include separately billed tests or procedures performed on
this date of service.
Subjective Data
-
Date of Service:
Date of Service: May 11, 2025
Chief Complaint: Pulmonary Follow Up
Objective Data
Data Reviewed
Vital Signs / I&O / Oxygen:
Vital Signs
Temp Pulse Resp BP Pulse Ox
97.7 F 89 18 157/74 97
05/11/25 03:28 05/11/25 07:46 05/11/25 07:46 05/11/25 03:28 05/11/25 07:46
Intake and Output
05/10/25 05/11/25 05/12/25
06:59 06:59 06:59
Intake Total 240 / 240 240 / 240
Balance 240 / 240 240 / 240
SaO2 97
Nasal Cannula flow liters per 3
minute
Physical Exam
General: Respiratory Distress (negative), Comfortable, Chills (negative) and Sweats (negative)
HEENT: Normocephalic and Anicteric
Cardiovascular: S1-S2, Peripheral Edema (negative) and Other (Distant heart sounds)
Respiratory: Wheeze (Resolved wheezing this morning.), Non-Labored Respirations and Other (Coarse breath sounds heard bilaterally)
GI: Soft, Non Distended, Non Tender and Normal Bowel Sounds
Neurology: AO x 3 and Tremors (negative)
Skin: Warm, Dry, Cyanosis (negative) and Jaundice (negative)
Labs/Micro/Reports
Lab Data
05/10/25 07:24
05/10/25 07:24
Microbiology
05/08/25 09:47 Sputum Respiratory Culture - Final
05/08/25 09:47 Sputum Gram Stain - Final
[2025-05-11] MEDS: PROTONIX 40 MG PO (08:55)
--- NOTE | 2025-05-11 09:40 | W.PN.HOSP.TC ---
Today's Communication/Plan
-
Possible discharge, she will let us know around noon.
Patient requested home oxygen evaluation/exertional oxygen testing
Assessment / Plan
Assessment / Plan
Physical Exam
General: Not in acute distress
HEENT: Normocephalic
Respiratory: better overall, less wheezes.
Cardiac: S1/S2
GI: Soft, Non Tender, Non Distended and Normal Bowel Sounds
Musculoskeletal: No Edema
Neurology: AAOX3, she followed commands, not focal.
Psych: Calm
Assessment/Plan
CXR
No findings to suggest pneumonia.
Last hospitalist admission: 09/21/2024 - 09/28/2024
PRIMARY DIAGNOSES:
1. Probable .
2. Acute hypoxic respiratory insufficiency secondary to diastolic
failure.
#Presentation with shortness of breath with URI symptoms preceding about 2 weeks prior and then SOB developed with wheezing and productive cough
#COPD exacerbation
#Acute on chronic hypoxic respiratory failure (on 1 liter home oxygen) secondary to COPD Exacerbation
#Suspected recent URI with 'double worsening' effect
#History of COVID-19 (June 2022)
#Hypogammaglobinemia
- On 2-4 L O2
- Was seen by her primary doctor 05/07/25, was noted to be increasingly hypoxic and therefore referred to the emergency room
- No pneumonia on CXR
- Since patient got worse after viral URI, started antibiotics with Azithromycin for antiinflammatory effects and for any possible bacterial superinfection, but again there is no pneumonia on CXR
- negative sputum culture
- Cont O2 support - wean O2 as tolerated - maintain at least 89% O2 saturation. Patient was counseled to quit smoking and counseled regarding potential hazards/dangers of smoking while using oxygen. She verbalized understanding and felt that she
could quit.
- Status post IV Decadron 4 mg IV Q8H to IV Methylprednisolone. She reported 40 mg dose made her anxious and she is feeling better, decreased to 20 mg daily. She is feeling better, started on prednisone per pulmonary
-Continue with nebulizer treatment
- Appreciate pulmonary consult
Per pulmonary
Ok to discharge home:
Transition to prednisone 30 mg daily and taper upon 3 days interval
- Continue DuoNeb and budesonide as scheduled
- Continue azithromycin 3 times/week
- OP follow up
#Essential Hypertension
Better controlled. Discussed with patient. Increased doxazosin to 4 mg and started low-dose amlodipine.
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
#History of pancreatic insufficiency
Denies regular alcohol intake
- SALVAGE LABORER Creon
#GERD
- on omeprazole
#Nicotine use disorder/ Current smoker
Counseled to quit
- 1 PPD smoker
- Nicotine patch
#Anxiety/depression
- fluoxetine
Changed Diazepam to 2 mg PRN
DVT PPx: LMWH
Full code
Total discharge time spent to see the patient, examined the patient, review data and lab result, discuss discharge/treatment plan with patient, strategic consultant, catalytic case operator ,nursing staff around 67 minutes
Anticipated Discharge: Today
Subjective/Interval History
-
Date of Service: May 11, 2025
She is feeling better
wants home O2 evaluation and upon exertion/ walking
She is not sure about going home but will let us know around noon
Objective Data
-
Vital Signs:
Vital Signs
Temp Pulse Resp BP Pulse Ox
98.1 F 89 18 166/86 97
05/11/25 07:30 05/11/25 07:46 05/11/25 07:46 05/11/25 07:30 05/11/25 07:46
I&O
05/10/25 05/11/25 05/12/25
06:59 06:59 06:59
Intake Total 240 / 240 240 / 240
Balance 240 / 240 240 / 240
[2025-05-11] MEDS: DELTASONE 30 MG PO (10:10)
[2025-05-11] MEDS: COZAAR 100 MG PO (10:10)
[2025-05-11] MEDS: ZENPEP DELAYED RELEASE CAPSULE 1 CAPSULE PO ×3 (10:10→17:23)
[2025-05-11] MEDS: PROZAC 20 MG PO (10:11)
[2025-05-11] MEDS: VISBIOME 1 CAP PO (10:11)
[2025-05-11] MEDS: VITAMIN D3 (cholecalciferol) 50 MCG PO (10:11)
[2025-05-11] MEDS: NICODERM TRANSDERMAL 21 MG TRANSDERM (10:11)
[2025-05-11] MEDS: ZITHROMAX 250 MG PO (10:11)
[2025-05-11] MEDS: NORVASC 2.5 MG PO (10:11)
[2025-05-11] MEDS: CARDURA 4 MG PO (10:11)
[2025-05-11 11:24] VITALS: BP 171/78
[2025-05-11 13:07] VITALS: BP 152/70
--- NOTE | 2025-05-11 13:43 | CM ---
Reviewed chart. Met with pt. IMM completed and placed on chart.
Home O2 eval completed. Pt now requires [address] Weathers made aware. Script sent to [facility] via fax. Pt requesting a portable concentrator. Pt aware that [facility] will call her to set up delivery of concentrator. If they can't deliver it
to the hospital by tomorrow's discharge, then Pt will have her spouse bring in a tank from home. Pt made aware that the batteries in the portable concentrator last 5 hrs and comes with car and wall adapter for charging.
Plan: DC to home tomorrow with 2L via n/c.
[2025-05-11 15:33] VITALS: BP 157/69
[2025-05-11] MEDS: VALIUM 2 MG PO ×2 (15:40→22:49)
[2025-05-11] MEDS: TYLENOL 650 MG PO (17:23)
[2025-05-11] MEDS: LOVENOX 40 MG SC (17:24)
[2025-05-11] MEDS: OCEAN, SALINE MIST 2 SPRAYS NASAL (20:46)
[2025-05-11 23:15] VITALS: BP 149/73
[2025-05-12] MEDS: PULMICORT 0.5 MG INH (07:31)
[2025-05-12] MEDS: DUONEB 3 ML INH ×2 (07:31→11:40)
[2025-05-12 07:43] VITALS: BP 188/83
[2025-05-12] MEDS: PROTONIX 40 MG PO (08:33)
[2025-05-12] MEDS: NICODERM TRANSDERMAL 21 MG TRANSDERM (08:34)
--- NOTE | 2025-05-12 09:01 | W.PN.HOSP.TC ---
Today's Communication/Plan
-
Discharge
Patient will benefit from home care to review medications,She seems to be forgetful. Will reach out again to case assembler
Assessment / Plan
Assessment / Plan
Physical Exam
General: Not in acute distress
HEENT: Normocephalic
Respiratory: better overall, less wheezes.
Cardiac: S1/S2
GI: Soft, Non Tender, Non Distended and Normal Bowel Sounds
Musculoskeletal: No Edema
Neurology: AAOX3, she followed commands, not focal.
Psych: Calm
Assessment/Plan
CXR
No findings to suggest pneumonia.
Last hospitalist admission: 09/21/2024 - 09/28/2024
PRIMARY DIAGNOSES:
1. Probable .
2. Acute hypoxic respiratory insufficiency secondary to diastolic
failure.
#Presentation with shortness of breath with URI symptoms preceding about 2 weeks prior and then SOB developed with wheezing and productive cough
#Acute COPD exacerbation
#Acute on chronic hypoxic respiratory failure (on 1 liter home oxygen) secondary to COPD Exacerbation
#Suspected recent URI with 'double worsening' effect
#History of COVID-19 (June 2022)
#Hypogammaglobinemia
- On 2 liters of oxygen per respiratory nurse evaluation
- Was seen by her primary doctor 05/07/25, was noted to be increasingly hypoxic and therefore referred to the emergency room
- No pneumonia on CXR
- Since patient got worse after viral URI, started antibiotics with Azithromycin for antiinflammatory effects and for any possible bacterial superinfection, but again there is no pneumonia on CXR
- negative sputum culture
- Cont O2 support - wean O2 as tolerated - maintain at least 89% O2 saturation. Patient was counseled to quit smoking and counseled regarding potential hazards/dangers of smoking while using oxygen. She verbalized understanding and felt that she
could quit.
-Concerning for medical noncompliance
She continues to smoke tobacco, she was counseled at length to quit smoking and the fire hazard with her being on oxygen. She verbalized understanding. She was offered nicotine patch, given prescription
- Status post IV Decadron 4 mg IV Q8H to IV Methylprednisolone. She reported 40 mg dose made her anxious and she is feeling better, decreased to 20 mg daily. She is feeling better, started on prednisone per pulmonary
-Continue with nebulizer treatment. Patient reported that she had nebulizer machine but never used it. Prescription for albuterol solution was sent. Patient was advised strongly to follow-up with pulmonary doctor, monitor her oxygen, quit smoking
and use her inhalation therapy. As the patient to call the daughter to review discharge instructions and course of hospitalization, patient declined.
- Appreciate pulmonary consult
Per pulmonary
Ok to discharge home:
Transition to prednisone 30 mg daily and taper upon 3 days interval
- Continue DuoNeb and budesonide as scheduled
- Continue azithromycin 3 times/week
- OP follow up
#Essential Hypertension
Better controlled. Discussed with patient. Increased doxazosin to 4 mg and started low-dose amlodipine at 5 mg.
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
#History of pancreatic insufficiency
Denies regular alcohol intake
- CERTIFIED SURGICAL ASSISTANT Creon
#GERD
- on omeprazole
#Nicotine use disorder/ Current smoker
Counseled to quit, she verbalized understanding.
- 1 PPD smoker
- Nicotine patch
#Anxiety/depression
- fluoxetine
Changed Diazepam to 2 mg PRN
DVT PPx: LMWH
Full code
Total discharge time spent to see the patient, examined the patient, review data and lab result, discuss discharge/treatment plan with patient, sales and service consultant, case assembler ,nursing staff around 67 minutes
Anticipated Discharge: Today
Subjective/Interval History
-
Date of Service: May 12, 2025
No sob
No chest pain
No fevers
Objective Data
-
Vital Signs:
Vital Signs
Temp Pulse Resp BP Pulse Ox
98.4 F 71 16 188/83 99
05/12/25 07:43 05/12/25 07:43 05/12/25 07:43 05/12/25 07:43 05/12/25 07:43
I&O
05/11/25 05/12/25 05/13/25
06:59 06:59 06:59
Intake Total 240 / 240 1320 / 1320
Balance 240 / 240 1320 / 1320
[2025-05-12] MEDS: VISBIOME 1 CAP PO (10:24)
[2025-05-12] MEDS: CARDURA 4 MG PO (10:24)
[2025-05-12] MEDS: ZENPEP DELAYED RELEASE CAPSULE 1 CAPSULE PO ×2 (10:24→13:17)
[2025-05-12] MEDS: NORVASC 2.5 MG PO (10:24)
[2025-05-12] MEDS: DELTASONE 30 MG PO (10:25)
[2025-05-12] MEDS: PROZAC 20 MG PO (10:25)
[2025-05-12] MEDS: VITAMIN D3 (cholecalciferol) 50 MCG PO (10:25)
[2025-05-12] MEDS: COZAAR 100 MG PO (10:25)
[2025-05-12] MEDS: TYLENOL 650 MG PO (11:56)
--- NOTE | 2025-05-12 13:50 | CM ---
Patient has been medically cleared for discharge to home with oxygen and portable oxygen concentrator provided by [facility]. She also will receive HH RN services with [facility]. will transport home.
--- NOTE | 2025-05-12 13:56 | VNURNOTE ---
Home Health Liaison met with patient at bedside to discuss [facility] nurse/therapy, visits, schedule and homebound status. Patient is agreeable and understands that visits at home will be 2-3 x per week to assess and teach medical management. Patient
has neb machine w/[employer]. CM informed liaison that DME co will contact pt and make home visit for use and set up. Patient is aware that [facility] will contact them for start of care next week. Provided contact number for [facility].
[facility] referral accepted in [facility].
--- NOTE | 2025-05-12 14:08 | W.PN.PUL3 ---
Today's Communication / Plan
-
- Ok to discharge today
- Resume Trelegy at discharge along with Albuterol MDI/Nebz as needed
- Start Azithromycin 250 mg Fri/Fri/Fri at discharge
- Prednisone 30 mg daily for 3 days then 20 mg daily for 3 days then 10 mg daily for 3 days
- Will need continuous O2 at discharge
- Out patient follow up with Dr. Santiago at [facility] Pulmonary clinic
Assessment
-
Assessment: 65-year-old female with a past medical history of group B COPD with emphysema, chronic hypoxic respiratory failure on home O2, active tobacco use, allergic rhinitis, anxiety, history of colon polyps, history of colitis, history of
COVID-19 (June 2022), hypogammaglobulinemia, and IBS who presents with shortness of breath. She reports having a sore throat about 2 weeks ago. She initially felt better but then she started to get extremely fatigued and tired. Her sleep then
started to become affected and then she started to become short of breath. In the ER she was afebrile with pulse rate 90, respiratory rate 18�23 breaths/min, BP 142/68 and she was initially saturating 86% on 4 L/min however saturations improved to
91-94%. Labs show normal WBC at 5.9, Hb 13.8, absolute eosinophil count 100, serum bicarbonate level 38, glucose 186, proBNP 381, and COVID-19 antigen negative. Flu swab also negative. CXR shows no focal parenchymal opacification with mild
hyperinflation due to COPD. She was given Solu-Medrol 125 mg, DuoNebs and Zithromax and admitted to the hospitalist service for a COPD exacerbation. Pulmonary service now consulted for additional recommendations.
Chronic conditions [employer]OR: Very severe COPD/emphysema, chronic hypoxic respiratory failure with home O2 use at 1 L/min, active tobacco smoker, hypertension, allergic rhinitis, hemorrhoids, depression, anxiety/panic disorder, history of LLQ abdominal
pain, colonic polyps, history of colitis, personal history of COVID-19 (06/2022), low gammaglobulin level, low serum IgA, IBS
Impression:
#COPD exacerbation (likely seasonal related in the setting of her continued tobacco use)
#Acute on chronic hypoxic respiratory failure due to above
#Suspected recent URI
#History of COVID-19 (June 2022)
#Hypogammaglobinemia
#Anxiety/depression
#Active tobacco smoker
#Allergic rhinitis
#Pulmonary nodule. Follows up with Dr. Santiago, [facility] Pulmonary clinic
Plan:
- Patient presented with shortness of breath with URI symptoms preceding about 2 weeks prior and then SOB developed with wheezing and productive cough over the next 2 weeks.
- Continue DuoNeb 4 times daily, budesonide twice daily, changed Solu-Medrol to Prednisone 30 mg daily, add Zithromax long-term at discharge.
- Seems that her last COPD flare was in October 2024
- Counseled patient extensively regarding association of smoking with progressive FEV1 loss. She has severe underlying COPD and I stressed again that continued smoking will only has some the progressive decline of lung function.
- Continue nicotine patch; she was strongly recommended to quit smoking, osorio given the severity of her COPD
- Maintain SpO2 88-95%, weaning down on supplemental O2 as tolerated; she will need a walking pulse oximetry prior to discharge
- Incentive spirometer encouraged q1hr while awake
- Replete electrolytes with K>4, Mg>2
- Trend H/H and transfuse if needed to keep Hb>7g/dL; keep plt>20k, unless there is concern for bleeding then keep plt>50k
- Maintain euglycemia with goal BG >100 and <180 (HbA1C: 6 on 05/04/2025); avoid hyperglycemia while on systemic steroids
- DVT ppx
Patient appears stable from pulmonary standpoint. Unfortunately with her underlying severe COPD, absence of wheezing, I do not believe she will benefit from additional higher dose steroids. Anticipate home oxygen need considering underlying
emphysema.
Total time spent today was 32 minute for this encounter. Time includes reviewing laboratory tests/imaging results, reviewing pertinent medical records, obtaining and reviewing medical history, performing an appropriate physical exam, ordering
medications, tests and procedures. Time also includes documentation of this encounter, coordinating patient care and communicating with other healthcare professionals. Total time does not include separately billed tests or procedures performed on
this date of service.
Subjective Data
-
Date of Service:
Date of Service: May 12, 2025
Chief Complaint: Pulmonary Follow Up
Subjective:
Comfortably lying in bed in no acute distress.
Review of Systems
Genitourinary: Other (All 14 systems reviewed and negative except as stated above in the history of present illness.)
Objective Data
Data Reviewed
Vital Signs / I&O / Oxygen:
Vital Signs
Temp Pulse Resp BP Pulse Ox
98.4 F 100 20 188/83 92
05/12/25 07:43 05/12/25 11:46 05/12/25 11:46 05/12/25 10:24 05/12/25 11:46
Intake and Output
05/11/25 05/12/25 05/13/25
06:59 06:59 06:59
Intake Total 240 / 240 1320 / 1320
Balance 240 / 240 1320 / 1320
SaO2 92
Nasal Cannula flow liters per 2
minute
Physical Exam
General: Respiratory Distress (negative), Comfortable, Chills (negative) and Sweats (negative)
HEENT: Normocephalic and Anicteric
Cardiovascular: S1-S2, Peripheral Edema (negative) and Other (Distant heart sounds)
Respiratory: Wheeze (Resolved wheezing this morning.), Non-Labored Respirations and Other (Coarse breath sounds heard bilaterally)
GI: Soft, Non Distended, Non Tender and Normal Bowel Sounds
Neurology: AO x 3 and Tremors (negative)
Skin: Warm, Dry, Cyanosis (negative) and Jaundice (negative)
Labs/Micro/Reports
Lab Data
05/10/25 07:24
05/10/25 07:24
--- NOTE | 2025-05-12 17:49 | W.DCSUMMARY ---
Discharge Summary
Discharge Data
Date of Admission: 05/07/25
Date of Discharge: 05/12/25
-
Pending Results: No
Hospital Course
65 years old female presented with shortness of breath. She reported having a sore throat about 2 weeks ago. She initially felt better but then she started to get extremely fatigued and tired. Her sleep then started to become affected and then
she started to become short of breath. In the ER, she was afebrile with pulse rate 90, respiratory rate 18�23 breaths/min, BP 142/68 and she was initially saturating 86% on 4 L/min however saturations improved to 91-94%. Labs show normal WBC at
5.9, Hb 13.8, absolute eosinophil count 100, serum bicarbonate level 38, glucose 186, proBNP 381, and COVID-19 antigen negative. Flu swab also negative. Chest x-ray showed no focal parenchymal opacification with mild hyperinflation due to COPD.
She was admitted to the hospital and pulmonary was consulted. She unfortunately given Solu-Medrol 125 mg, DuoNeb and Zithromax and admitted to the hospitalist service for a COPD exacerbation. Pulmonary service now consulted for additional
recommendations. She continued to smoke one [id number] despite knowing she should quit. Per pulmonary records, prior PFT was in 06/26/2023 showing a very severe persistent obstructive lung defect with a significant bronchodilator response, with
mild�moderate restriction and a very severe gas exchange capacity defect (DLco: 7%; DLco/VA: 12%). Last PFT on 02/24/2025 showed severe persistent obstructive lung disease with post-BD FEV1 790cc / 36% predicted with severely reduced DLco (17%
predicted). Patient was diagnosed with acute COPD exacerbation/acute on chronic hypoxic respiratory failure. She received nebulizer treatment/inhalation therapy. She received intravenous corticosteroids and Zithromax for anti-inflammatory
reaction. She was followed by pulmonary doctor. Patient was noted to have an anxiety and she requested diazepam. She subsequently improved and was able to ambulate but she continued to need oxygen. Respiratory nurse evaluated for home oxygen
therapy. Case management was involved in discharge planning and she was sent home with home health services to improve her compliance to discharge instructions. Patient was advised to follow-up with pulmonary doctor in the office. She was noted
to have elevated blood pressure. Doxazosin was increased and amlodipine was added to better control her blood pressure. Patient was counseled at length to avoid tobacco smoking. She was also counseled regarding safety of using oxygen at home and
to avoid smoking while using oxygen. Patient remained hemodynamically stable was discharged home in stable condition.
Discharge Plan
-
Patient Disposition: Home (Routine Discharge)
Discharge Diagnosis/Procedures: #COPD exacerbation (likely seasonal related in the setting of her continued tobacco use). You were seen by pulmonary doctor. You received intravenous steroid therapy/nebulizer treatment. You are given albuterol
solution for nebulizer to use as needed. Taper prednisone. Zithromax as anti-inflammatory medicine 3 times a week. Quit smoking, you were given nicotine patch. Follow-up with pulmonary
- Hypertension, uncontrolled. Continue home medication but we increased doxazosin to 4 mg, we added new medicine called amlodipine. Monitor your blood pressure and follow-up with your primary care doctor
#Acute on chronic hypoxic respiratory failure due to above
#History of COVID-19 (June 2022)
#Hypogammaglobinemia
#Anxiety/depression
#Active tobacco smoker
#Allergic rhinitis
#Pulmonary nodule. Follows up with Dr. Santiago, [facility] Pulmonary clinic
Diet: As tolerated
Referrals:
Caterina Sharpe MD [Family Provider, Family Practice]
Nicholas Baxter MD [Active, Pulmonary Medicine] - in two weeks
Prescriptions:
New
nicotine 21 mg/24 hr Patch 24 Hour
21 mg transdermal DAILY Qty: 30 0RF
doxazosin 4 mg Tablet
4 mg PO DAILY Qty: 30 0RF
azithromycin [Zithromax] 250 mg tablet
250 mg PO MOWEFR Qty: 18 0RF
prednisone 10 mg tablet
30 mg PO DAILY Qty: 18 0RF
Rx Instructions:
30 mg for 3 days, 20 mg for 3 days, 10 mg for 3 days.
albuterol sulfate 2.5 mg/0.5 mL solution for nebulization
5 mg inhalation Q6H PRN (Reason: shortness of breath or wheezing) Qty: 30 0RF
amlodipine 5 mg tablet
5 mg PO DAILY Qty: 30 0RF
Continued
fluoxetine 20 MG capsule
20 mg PO DAILY
diazepam 5 MG tablet
1.25 mg PO TIDPRN PRN (Reason: anxiety)
albuterol sulfate 90 mcg/actuation Hfa Aerosol Inhaler
1 puff INHALATION R Q4HPRN PRN (Reason: SoB)
Trelegy Ellipta 100-62.5-25 mcg blister with device
1 inh INHALATION R DAILY
cholecalciferol (vitamin D3) [Vitamin D3] 50 mcg (2,000 unit) Tablet
50 mcg PO DAILY
Creon 24,000-76,000 -120,000 unit Capsule,Delayed Release(Dr/Ec)
1 cap PO AC
Visbiome 112.5 billion cell Capsule
1 cap PO DAILY
omeprazole 40 mg Capsule,Delayed Release(Dr/Ec)
40 mg PO DAILY
Patient Comments:
10/27/24: Patient wants to decrease this dose, has not had chance to talk to her doctor yet
olmesartan 40 mg Tablet
40 mg PO DAILY
acetaminophen [Tylenol] 325 mg Tablet
650 mg PO Q6HPRN PRN (Reason: mild pain)
Discontinued
doxazosin 2 mg Tablet
2 mg PO DAILY
Discharge Orders:
Discharge Patient (As Directed); Ordered 05/12/25
Ordered By: Donato Weathers
Discharge Date and Time
Discharge Date/Time: 05/12/25 14:32
Print Language: KITTITIAN
== END 2025-05-12 14:32 | disposition home health service (06) | DRG 190 ==
LOC: 4 EAST ACU 14:18
PROVIDERS: Clinical Nurse Specialist Family Health; ADMITTING PHYSICIAN Internal Medicine; ATTENDING PHYSICIAN Internal Medicine; CONSULT PHYSICIAN Internal Medicine Critical Care Medicine; EMERGENCY PHYSICIAN Emergency Medicine; FAMILY PHYSICIAN Family Medicine
DX: J44.1 Chronic obstructive pulmonary disease with (acute) exacerbation (principal); J96.21 Acute and chronic respiratory failure with hypoxia; I10 Essential (primary) hypertension; Z86.16 Personal history of COVID-19; F41.9 Anxiety disorder, unspecified; F32.A Depression, unspecified; F17.210 Nicotine dependence, cigarettes, uncomplicated; R91.1 Solitary pulmonary nodule; Z90.710 Acquired absence of both cervix and uterus; Z88.5 Allergy status to narcotic agent; Z88.2 Allergy status to sulfonamides; K86.89 Other specified diseases of pancreas; K21.9 Gastro-esophageal reflux disease without esophagitis; J43.9 Emphysema, unspecified; Z79.899 Other long term (current) drug therapy; Z86.0100 Personal history of colon polyps, unspecified; Z99.81 Dependence on supplemental oxygen; K58.9 Irritable bowel syndrome, unspecified; Z11.52 Encounter for screening for COVID-19
CPT/HCPCS: 71045; 80053; 83880; 85025; 87205; 87502; 87811; 93005; 94640; 96374; 97116; 97162; 97530; 99285; 99406